=== PATIENT | female | born 1955 | race African-American/Black ===

== ENCOUNTER 2021-06-30 20:30 | Emergency (ER) | payer MEDICARE, MEDICAID ==
[~2021-06-30] VITALS: Ht 165.1 cm; Wt 81.2 kg
[2021-06-30] MEDS ORDERED: MORPHINE SULFATE 4 MG/ML SYR/VIAL IV ONE (20:45)
[2021-06-30] MEDS ORDERED: METOCLOPRAMIDE HCL 5MG/ml INJ 2ml VIAL IV ONE (20:45)
[2021-06-30] MEDS ORDERED: PANTOPRAZOLE 40 MG/10 ML VIAL INJ IV ONE (20:45)
[2021-06-30] MEDS ORDERED: SODIUM CHLORIDE 0.9% 500 ML IVB ONE (20:45)
[2021-06-30 21:16] LABS: Basophils # (auto) 0.2 10 ^3/uL (0-0.2); Basophils % (auto) 1.5 % (0.0-2.0); Eosinophils # (auto) 0.1 10 ^3/uL (0-0.8); Eosinophils % (auto) 1.3 % (0.0-7.0); Hematocrit 40.6 % (36.0-46.0); Hemoglobin 13.6 g/dL (12.2-16.2); Lymphocytes # (auto) 3.5 10 ^3/uL (0.4-5.4); Lymphocytes % (auto) 35.9 % (10.0-50.0); Mean Corpuscular Hgb Conc. 33.4 g/dL (32.0-36.0); Mean Corpuscular Volume 86.9 fL (80.0-100.0); Monocytes # (auto) 0.7 10 ^3/uL (0-1.3); Monocytes % (auto) 7.1 % (0.0-12.0); Neutrophils # (auto) 5.3 10 ^3/uL (1.6-8.6); Neutrophils % (auto) 54.2 % (37.0-80.0); Nucleated Red Blood Cells % 0.2 %; Red Blood Cells 4.67 10^6/uL (4.0-5.20); White Blood Cell 9.8 10^3/uL (4.4-10.8)
[2021-06-30 21:45] LABS: Albumin 3.5 g/dL (3.4-5.0); BUN/Creatinine Ratio 15.9; Calcium 9.1 mg/dL (8.5-10.1); Potassium 4.2 mmol/L (3.5-5.1)
[2021-06-30 21:48] LABS: Bilirubin, Total 0.3 mg/dL (0.2-1.0); Total Protein 7.2 g/dL (6.4-8.2)
[2021-06-30 22:37] LABS: Partial Thromboplastin Time 26.2 sec (23.6-33.0)
[2021-06-30 23:00] VITALS: BP 110/61
[2021-06-30 23:33] LABS: Urine Bacteria NONE SEEN /hpf (None Seen); Urine Blood Negative /uL (Negative); Urine Mucus FEW (None Seen); Urine Specific Gravity 1.022 (1.001-1.035); Urine WBC 1 /hpf (0 - 5)
== END 2021-07-01 00:58 | disposition home or self-care (01) ==
LOC: EDBD 20:30 → ER 20:30
DX: R10.30 Lower abdominal pain, unspecified (principal); F17.210 Nicotine dependence, cigarettes, uncomplicated; F12.10 Cannabis abuse, uncomplicated; R94.31 Abnormal electrocardiogram [ECG] [EKG]
CPT/HCPCS: 36415; 74176; 80053; 81001; 83690; 85025; 85610; 85730; 93005; 96361; 96374; 96375; 99285; C9113; J2270; J2765; J7030

== ENCOUNTER 2025-04-03 20:33 | Emergency (ER) | payer OTHER, MEDICAID ==
[~2025-04-03] VITALS: Ht 165.1 cm; Wt 50.7 kg
[2025-04-03] MEDS: SODIUM CHLORIDE 0.9% 1,000 ML IV ONE (21:00)
[2025-04-03 21:22] LABS: Hemoglobin 11.8 g/dL (12.2-16.2)
[2025-04-03 21:25] LABS: Hematocrit 34.0 % (36.0-46.0); Mean Corpuscular Hemoglobin 30.8 pg (28.0-32.0); Mean Corpuscular Volume 88.6 fL (80.0-100.0)
[2025-04-03 21:41] LABS: Albumin 3.4 g/dL (3.2-4.8); Anion Gap 11 (5-15); Calcium 9.5 mg/dL (8.7-10.4); Chloride 104 mmol/L (98-107); Glucose 105 mg/dL (74-106)
[2025-04-03 21:45] LABS: BUN/Creatinine Ratio 11.9 (10.0-20.0)
[2025-04-03] MEDS: HYDROmorphone HCL 2 MG/ML VL/or syr IV ONE (21:45)
--- NOTE | 2025-04-03 21:52 | ED.PDOC ---
GI ASSESSMENT HPI Comments 69-year-old female who came to ER for bilateral flank pains. Patient has a history of stomach cancer, status post resection, on chemo and radiotherapy. Has also history of pancreatitis. For the past few weeks, she has been having bilateral flank pains, abdominal pain, back pain, nausea, vomiting, and generalized weakness. Upon arrival blood pressure was 88/67 mm Hg Chief Complaint: Flank Pain Time Seen by MD: 21:51 Reviewed Notes: Nurses Notes Allergies: Coded Allergies: NO KNOWN ALLERGIES (Unverified , 06/30/21) Information Source: Patient, Relative Mode of Arrival: Wheelchair Timing: Weeks Duration: Intermittent Quality: Aching Vomitus: Watery Stool: Normal Severity: Moderate Recent: None Recent Hx of: Abdominal Surgery, Other (Stomach cancer, pancreatitis) Pain Location: Epigastric Associated sign and symptoms: Nausea, Vomiting, Abdominal Pain Past Medical History PAST MEDICAL HISTORY: Cancer, High Lipids Past Medical History (Other): Pancreatitis, stomach cancer, chemotherapy, radiotherapy Surgical History: Hernia Repair, Tonsillectomy Surgical History (Other): Resection of cancer ADJUNCT HISTORY INSTRUCTOR History: Denies all ADJUNCT HISTORY INSTRUCTOR Hx Family History Family History: Family hx of Cancer Social History Smoker: Cigarettes Alcohol: Denies ETOH Use Drugs: Marijuana Lives In: Home Constitutional: reports: fatigue, weakness; denies: chills, diaphoresis, fever, malaise, sweats, others EENTM: denies: blurred vision, double vision, ear bleeding, ear discharge, ear drainage, ear pain, ear ringing, eye pain, eye redness, hearing loss, mouth p ain, mouth swelling, nasal discharge, nose bleeding, nose congestion, nose pain, photophobia, tearing, throat pain, throat swelling, voice changes, others Respiratory: denies: cough, hemoptysis, orthopnea, SOB at rest, shortness of br eath, SOB with excertion, stridor, wheezing, others Cardiovascular: denies: chest pain, dizzy spells, diaphoresis, Dyspnea on exertion, edema, irregular heart beat, left arm pain, lightheadedness, palpitations, PND, syncope, others Gastrointestinal: reports: abdominal pain, nausea, vomiting; denies: abdomen distended, blood streaked bowels, constipated, diarrhea, dysphagia, difficulty swallowing, hematemesis, melena, poor appetite, poor fluid intake, rectal bleeding, rectal pain, others Genitourinary: reports: flank pain; denies: abnormal vagina bleeding, burning, dyspareunia, dysuria, frequency, hematuria, incontinence, pain, , vagina discharge, urgency, others Neurological: denies: dizziness, fainting, headache, left sided numbness, left sided weakness, numbness, paresthesia, pre-existing deficit, right sided numbness, right sided weakness, seizure, speech problems, tingling, tremors, weakness, others Musculoskeletal: denies: back pain, gout, joint pain, joint swelling, muscle pain, muscle stiffness, neck pain, others Integumetry: denies: bruises, change in color, change in hair/nails, dryness, laceration, lesions, lumps, rash, wounds, others Allergic/Immunocompromised: denies: Difficulty Healing, Frequent Infections, Hives, Itching, others Hematologic/Lymphatic: denies: anemia, blood clots, easy bleeding, easy bruising, swollen glands, others Endocrine: denies: excessive hunger, excessive sweating, excessive thirst, excessive urination, flushing, intolerance to cold, intolerance to heat, unexplained weight gain, unexplained weight loss, others Psychiatric: denies: anxiety, bipolar disorder, depression, hopeless, panic disorder, schizophrenia, sleepless, suicidal, others Physical Exam General Appearance: No Apparent Distress, Normal HEENT: Normal ENT Inspection, Pharynx Normal, TMs Normal Neck: Full Range of Motion, Non-Tender, Normal, Normal Inspection Respiratory: Chest Non-Tender, Lungs Clear, No Accessory Muscle Use, No Respiratory Distress, Normal Breath Sounds Cardiovascular: No Edema, No JVD, No Murmur, No Gallop, Normal Peripheral Pulses, Regular Rate/Rhythm Breast Exam: Deferred Gastrointestinal: No Organomegaly, Non Tender, No Pulsatile Mass, Normal Bowel Sounds, Soft Genitalia: Deferred Pelvic: Deferred Rectal: Deferred Extremities: No calf tenderness, Normal capillary refill, Normal inspection, Normal range of motion, Non-tender, No pedal edema Musculoskeletal : Apperance: Normal Neurologic: Alert, community product specialist II-XII nml as Tested, No Motor Deficits, Normal Affect, Normal Mood, No Sensory Deficits Cerebellar Function: Normal Reflexes: Normal Skin: Dry, Normal Color, Warm Lymphatic: No Adenopathy Was a procedure done? Was a procedure done?: No GI differential Dx Differential Diagnosis: Gastritis/PUD, Gastroenteritis, Inflammatory BD, Ischemic Bowel, Pancreatitis, UTI, Urolithiasis, Electrolyte Imbalance, Anemia, Other (Stomach cancer) X-Ray, Labs, Meds, VS Vital Signs Date Time Temp Pulse Resp B/P (MAP) Pulse Ox O2 Delivery O2 Flow Rate FiO2 04/03/25 22:09 98.1 71 17 81/51 (61) 98 98.1 04/03/25 20:34 98.7 121 18 88/67 100 98.7 Lab Test 04/03/25 21:05 Range/Units White Blood Count 6.7 4.4-10.8 10^3/uL Red Blood Count 3.84 L 4.0-5.20 10^6/uL Hemoglobin 11.8 L 12.2-16.2 g/dL Hematocrit 34.0 L 36.0-46.0 % Mean Corpuscular Volume 88.6 80.0-100.0 fL Mean Corpuscular Hemoglobin 30.8 28.0-32.0 pg Mean Corpuscular Hemoglobin Concent 34.8 32.0-36.0 g/dL Red Cell Distribution Width 19.8 H 11.8-14.3 % Platelet Count 559 H 140-450 10^3/uL Mean Platelet Volume 7.0 6.9-10.8 fL Neutrophils (%) (Auto) 37.0-80.0 % Lymphocytes (%) (Auto) 10.0-50.0 % Monocytes (%) (Auto) 0.0-12.0 % Basophils (%) (Auto) 0.0-2.0 % Neutrophils # (Auto) 1.6-8.6 10 ^3/uL Lymphocytes # (Auto) 0.4-5.4 10 ^3/uL Monocytes # (Auto) 0-1.3 10 ^3/uL Differential Total Cells Counted 100.0 100 Neutrophils % (Manual) 65 37.0-80.0 Band Neutrophils % (Manual) 0 Lymphocytes % (Manual) 27 10.0-50.0 Monocytes % (Manual) 8 0-12 Eosinophils % (Manual) 0 0-7 Basophils % (Manual) 0 0.0-2.0 Metamyelocytes % (manual) 0 Myelocytes % (Manual) 0 Promyelocytes % (Manual) 0 Blast Cells % (Manual) 0 Reactive Lymphocytes 0 Platelet Estimate Increased Large Platelets Few Anisocytosis (manual) Moderate Target Cells Moderate Sodium Level 135 L 136-145 mmol/L Potassium Level 3.1 L 3.5-5.1 mmol/L Chloride Level 104 98-107 mmol/L Carbon Dioxide Level 20 20-31 mmol/L Anion Gap 11 5-15 Blood Urea Nitrogen 7 L 9-23 mg/dL Creatinine 0.59 0.550-1.02 mg/dL Glomerular Filtration Rate Calc 99 >90 mL/min BUN/Creatinine Ratio 11.9 10.0-20.0 Serum Glucose 105 74-106 mg/dL Lactic Acid Level 1.7 0.4-2.0 mmol/L Calcium Level 9.5 8.7-10.4 mg/dL Total Bilirubin 20.8 H 0.2-1.0 mg/dL Aspartate Amino Transferase (AST) 268 H 13-40 U/L Alanine Aminotransferase (ALT) 187 H 7-40 U/L Alkaline Phosphatase 1084 H 46-116 U/L Total Protein 6.7 5.7-8.2 g/dL Albumin 3.4 3.2-4.8 g/dL Current Medications Medications (Trade) Dose Ordered Sig/Aayush Route Start Time Stop Time Status Last Admin Sodium Chloride 1,000 ml @ 1,000 mls/hr Q1H ONCE IV 04/03/25 21:00 04/03/25 21:59 DC 04/03/25 21:00 CT SCAN ABDOMEN AND PELVIS WITHOUT CONTRAST CLINICAL HISTORY: FLANK PAIN TECHNIQUE: Helical axial images are obtained from the lung bases through the pelvis without oral contrast. No intravenous contrast was administered. Coronal and sagittal reformatted images were generated from thin section reconstructions. One or more of the following radiation dose reduction techniques were used for this examination: automated exposure control, adjustment of the mA and/or kV according to patient size, use of iterative reconstruction technique. COMPARISON: Please note that images for a recent prior study dated 01/19/2025 are not available for comparison. FINDINGS: LOWER THORAX: Imaged lung bases are grossly clear. ABDOMEN AND PELVIS: Evaluation of visceral and vascular structures is limited due to lack of contrast administration. There is marked intra and extrahepatic biliary ductal dilatation. A large pancreatic head mass is noted this appears to abut and encase the superior mesenteric artery and vein. Pancreatic duct in the body and tail are markedly dilated. The gallbladder is distended and demonstrates high attenuation intraluminal content. The spleen and adrenals appear grossly unremarkable. No hydroureteronephrosis or sizable, obstructing urinary tract calculi identified. Aortoiliac atherosclerotic calcifications. No evidence of abdominal aortic aneurysm. No evidence of small-bowel obstruction. Normal caliber appendix. Moderate volume stool seen throughout the colon and rectum. No free intraperitoneal air identified. No sizable bladder calculus. Calcified myomatous changes of the uterus. Small amount of pelvic free fluid is noted. Diffuse retroperitoneal and peripancreatic adenopathy is noted. No destructive osseous lesions identified. IMPRESSION: Noncontrast examination. Large pancreatic head mass which appears to be causing pancreatic and biliary ductal obstruction distally. Marked gallbladder distention with high density intraluminal content. Hemorrhagic cholecystitis is of concern. Recommend surgical consultation. A few other findings as above. Time of 1ST Reevaluation: 21:48 Reevaluation 1ST: Unchanged Patient Education/Counseling: Diagnosis, Treatment Family Education/Counseling: Diagnosis, Treatment SEPSIS Sepsis Screen Date sepsis recognized/suspect: Apr 03, 2025 Time Sepsis recognized/suspect: 2042 Recent Procedure: No On Antibiotic Therapy: No Respiratory Rate >20: No Heart Rate >90: No Temp<36 C (96.8 F) or >38.3 C: No SBP <90 or MAP <65 mmHG: No New Acute Mental Status Change: No Is the patient on CPAP, BIPAP,: No Physician Orders Urinalysis (04/03/25 20:49) Ct Ab Pel Wo Con-No Oral Or Iv (04/03/25 20:49) Potassium Er Tablet (Klor-Con Tablet) (04/04/25 00:45) Vital Signs Date Time Temp Pulse Resp B/P (MAP) Pulse Ox O2 Delivery O2 Flow Rate FiO2 04/03/25 22:09 98.1 71 17 81/51 (61) 98 98.1 04/03/25 20:34 98.7 121 18 88/67 100 98.7 Laboratory Tests Test 04/03/25 21:05 Lactic Acid Level 1.7 mmol/L (0.4-2.0) White Blood Count 6.7 10^3/uL (4.4-10.8) Medications Medications Dose Ordered Sig/Aayush Route Start Time Stop Time Status Last Admin Dose Admin Sodium Chloride 1,000 ml @ 1,000 mls/hr Q1H ONCE IV 04/03/25 21:00 04/03/25 21:59 DC 04/03/25 21:00 Departure 1 Departure Time of Disposition: 00:38 Impression: Primary Impression: Intractable abdominal pain Additional Impressions: Dehydration Pancreatic cancer Disposition: ADMITTED INPATIENT Admit to: Med Surg Condition: Guarded Discharged With: Self Comments 69-year-old female with a history of stomach cancer now with severe abdominal pain difficulty eating at home. Her CT today shows pancreatic head mass that looks like it is probably pancreas cancer. Her potassium is little low at 3.1. Her total bilirubin in his quite elevated at 21. Her LFTs are also bit elevated. Patient will need to be admitted for supportive care and further workup. Critical Care Note Critical Care Time?: Yes (35 min-critical care time only) Critical care comment: Total critical care time: Approximately 36 minutes Due to a high probability of clinically significant, life threatening deterioration, the patient required my highest level of preparedness to intervene emergently and I personally spent this critical care time directly and personally managing the patient. This critical care time included obtaining a history; examining the patient; pulse oximetry; ordering and review of studies; arranging urgent treatment with development of a management plan; evaluation of patient's response to treatment; frequent reassessment; and, discussions with o ther providers. This critical care time was performed to assess and manage the high probability of imminent, life-threatening deterioration that could result in multi-organ failure. It was exclusive of separately billable procedures and treating other patients. Stability Stability form required: No Heart Score Heart Score: Heart Score Response (Comments) Value History N/A 0 EKG N/A 0 Age N/A 0 Risk Factors N/A 0 Troponin N/A 0 Total 0 I personally scribed for MIGUEL FERREIRA MD ([email or web address]) on 04/03/25 at 21:52. Electronically submitted by Rajeev Scott ([email or web address]). I personally scribed for MIGUEL FERREIRA MD ([email or web address]) on 04/04/25 at 00:35. Electronically submitted by Rajeev Scott ([employer]). MIGUEL FERREIRA MD Apr 03, 2025 21:52
[2025-04-03 21:54] LABS: Alanine Aminotransferase 187 U/L (7-40); Alkaline Phosphatase 1084 U/L (46-116); Bilirubin, Total 20.8 mg/dL (0.2-1.0); Blood Urea Nitrogen 7 mg/dL (9-23); Carbon Dioxide 20 mmol/L (20-31); Potassium 3.1 mmol/L (3.5-5.1); Sodium 135 mmol/L (136-145); Total Protein 6.7 g/dL (5.7-8.2)
[2025-04-03 22:19] LABS: Total Cells Counted 100.0 (100)
[2025-04-03 22:20] LABS: Anisocytosis Moderate
--- NOTE | 2025-04-04 00:14 | DVH ---
CT SCAN ABDOMEN AND PELVIS WITHOUT CONTRAST CLINICAL HISTORY: FLANK PAIN TECHNIQUE: Helical axial images are obtained from the lung bases through the pelvis without oral cont rast. No intravenous contrast was administered. Coronal and sagittal reformatted images were generate d from thin section reconstructions. One or more of the following radiation dose reduction techniques were used for this examination: automated exposure control, adjustment of the mA and/or kV according to patient size, use of iterative reconstruction technique. COMPARISON: Please note that images for a recent prior study dated 01/19/2025 are not available for c omparison. FINDINGS: LOWER THORAX: Imaged lung bases are grossly clear. ABDOMEN AND PELVIS: Evaluation of visceral and vascular structures is limited due to lack of contrast administration. There is marked intra and extrahepatic biliary ductal dilatation. A large pancreatic head mass is not ed this appears to abut and encase the superior mesenteric artery and vein. Pancreatic duct in the marcela dy and tail are markedly dilated. The gallbladder is distended and demonstrates high attenuation intraluminal content. The spleen and adrenals appear grossly unremarkable. No hydroureteronephrosis or sizable, obstructing urinary tract calculi identified. Aortoiliac atherosclerotic calcifications. No evidence of abdominal aortic aneurysm. No evidence of small-bowel obstruction. Normal caliber appendix. Moderate volume stool seen througho ut the colon and rectum. No free intraperitoneal air identified. No sizable bladder calculus. Calcified myomatous changes of the uterus. Small amount of pelvic free fluid is noted. Diffuse retroperitoneal and peripancreatic adenopathy is noted. No destructive osseous lesions identified. IMPRESSION: Noncontrast examination. Large pancreatic head mass which appears to be causing pancreatic and biliary ductal obstruction dist ally. Marked gallbladder distention with high density intraluminal content. Hemorrhagic cholecystitis is of concern. Recommend surgical consultation. A few other findings as above.
[2025-04-04] MEDS: SODIUM CHLORIDE 0.9% 1,000 ML IV ONE (00:54)
[2025-04-04] MEDS: MORPHINE SULFATE INJ 2 MG/ml SYRG IV ONE (01:05)
[2025-04-04] MEDS: ONDANSETRON HCL 4 MG/2 ML VIAL IV ONE (01:05)
[2025-04-04] MEDS: POTASSIUM CHL 20 Meq TABLET PO ONE (01:05)
--- NOTE | 2025-04-04 01:14 | DVHINCON2 ---
DEIRDRE ALVARADO NP 04/04/25 0114: Date of service: Apr 04, [address] Bedolla Reason for Consultation Medical management History of Present Illness 69-year-old female with past medical history of stomach cancer presents with complaints of bilateral flank pain. Pain has been going on for the past few weeks. Also endorsing nausea, vomiting, generalized weakness. On arrival to the emergency department patient was found to be hypotensive with blood pressure 88/67. During the emergency department evaluation Na 135, K3.1, BUN 7, creatinine 0.59, GFR 99, LA 1.7. Total bilirubin 20.8, AST 268, ALT 187, alkaline phosphatase 1084. CBC is unremarkable. CT of the abdomen and pelvis without contrast impression reads large pancreatic head mass which appears to be causing pancreatic and biliary ductal obstruction distally. Marked gallbladder distention with high density intraluminal contents. Hemorrhagic cholecystitis is a concern. Recommend surgical consultation. At this time the patient has no complaints of fevers, chills, chest pain, palpitations, hematemesis, hematochezia, melena. Past Medical History Stomach cancer Allergies: Coded Allergies: NO KNOWN ALLERGIES (Unverified , 06/30/21) Review of Systems Ten systems reviewed and negative except as per HPI Vital Signs Vital Signs Date Time Temp Pulse Resp B/P (MAP) Pulse Ox O2 Delivery O2 Flow Rate FiO2 04/04/25 01:05 81 14 112/56 04/04/25 00:36 98.8 98 98.8 Physical Exam GENERAL: Patient appearing stated age, in moderate acute distress. Ill appearing. HEENT: Pupils equal and reactive to light and accommodation. Extraocular muscles intact. Mucous membranes moist. Conjunctivae pink. icteric sclerae. LUNGS: Bilateral air entry. No wheezes, rhonchi or rales. HEART: Regular rate and rhythm. Normal S1 and S2. ABDOMEN: BS normoactive, soft, and nondistended. tender to palpation. No CVA tenderness. EXTREMITIES: No clubbing, cyanosis, edema. No calf tenderness. Pedal pulses 2+. NEUROLOGICAL: The patient is alert and oriented times 3. CN II-XII intact. No focal deficits on gross sensory or motor examination. Labs/Diagnostic Data Labs Test 04/03/25 21:05 Range/Units White Blood Count 6.7 4.4-10.8 10^3/uL Red Blood Count 3.84 L 4.0-5.20 10^6/uL Hemoglobin 11.8 L 12.2-16.2 g/dL Hematocrit 34.0 L 36.0-46.0 % Mean Corpuscular Volume 88.6 80.0-100.0 fL Mean Corpuscular Hemoglobin 30.8 28.0-32.0 pg Mean Corpuscular Hemoglobin Concent 34.8 32.0-36.0 g/dL Red Cell Distribution Width 19.8 H 11.8-14.3 % Platelet Count 559 H 140-450 10^3/uL Mean Platelet Volume 7.0 6.9-10.8 fL Neutrophils (%) (Auto) 37.0-80.0 % Lymphocytes (%) (Auto) 10.0-50.0 % Monocytes (%) (Auto) 0.0-12.0 % Basophils (%) (Auto) 0.0-2.0 % Neutrophils # (Auto) 1.6-8.6 10 ^3/uL Lymphocytes # (Auto) 0.4-5.4 10 ^3/uL Monocytes # (Auto) 0-1.3 10 ^3/uL Differential Total Cells Counted 100.0 100 Neutrophils % (Manual) 65 37.0-80.0 Band Neutrophils % (Manual) 0 Lymphocytes % (Manual) 27 10.0-50.0 Monocytes % (Manual) 8 0-12 Eosinophils % (Manual) 0 0-7 Basophils % (Manual) 0 0.0-2.0 Metamyelocytes % (manual) 0 Myelocytes % (Manual) 0 Promyelocytes % (Manual) 0 Blast Cells % (Manual) 0 Reactive Lymphocytes 0 Platelet Estimate Increased Large Platelets Few Anisocytosis (manual) Moderate Target Cells Moderate Sodium Level 135 L 136-145 mmol/L Potassium Level 3.1 L 3.5-5.1 mmol/L Chloride Level 104 98-107 mmol/L Carbon Dioxide Level 20 20-31 mmol/L Anion Gap 11 5-15 Blood Urea Nitrogen 7 L 9-23 mg/dL Creatinine 0.59 0.550-1.02 mg/dL Glomerular Filtration Rate Calc 99 >90 mL/min BUN/Creatinine Ratio 11.9 10.0-20.0 Serum Glucose 105 74-106 mg/dL Lactic Acid Level 1.7 0.4-2.0 mmol/L Calcium Level 9.5 8.7-10.4 mg/dL Total Bilirubin 20.8 H 0.2-1.0 mg/dL Aspartate Amino Transferase (AST) 268 H 13-40 U/L Alanine Aminotransferase (ALT) 187 H 7-40 U/L Alkaline Phosphatase 1084 H 46-116 U/L Total Protein 6.7 5.7-8.2 g/dL Albumin 3.4 3.2-4.8 g/dL Assessment - Biliary duct obstruction secondary to pancreatic head mass - Acute cholecystitis concerning for hemorrhagic cholecystitis - Hyperbilirubinemia - Abnormal LFTs - Dehydration Patient was seen and evaluated in the ER treatment area. The patient's chart was reviewed in its entirety, including lab work, imaging, physical assessment. During the emergency department evaluation, CBC is unremarkable. NA 135, K3.1, BUN 7, creatinine 0.59, total bilirubin 20.8, AST 268, ALT 187, alkaline phos 1084. CT of the abdomen pelvis with medical interpreter for the radiologist and reviewed by myself. Impression reads there's a large pancreatic head mass which appears to be causing pancreatic duct obstruction distally. Marked gallbladder di stention with high density intraluminal content. Hemorrhagic cholecystitis is of concern, recommending surgical consultation. Patient's vital signs blood pressure 81/51, heart rate 71, respiratory rate 17, oxygen saturation 98% on room air. At this time, patient has been treated with 1 L normal saline and IV pain meds. And continue to remain hypotensive. Plan/Recommendation I spoke to the ER physician in person. I did recommend that he consult with on- call gastroenterology for their recommendation. MRCP should be completed ARMANI. it is likely that the patient will require ERCP and possible stent placement in the bile duct. Which is a service that is currently not available at this facility and may require HLOC. I also advised the ER physician to consult with the on-call general surgeon for evaluation of cholecystitis. Agree with continued IV fluid hydration. Plan of care and recommendation was discussed in detail with supervising physician Dr Emmanuel, who is in agreement with current plan as outlined. Plan discussed with: Patient EVERT EMMANUEL MD 04/04/25 1617: Date of service: Apr 04, 2025 Allergies: Coded Allergies: NO KNOWN ALLERGIES (Unverified , 06/30/21) DEIRDRE ALVARADO NP Apr 04, 2025 01:14 EVERT EMMANUEL MD Apr 04, 2025 16:17
[2025-04-04 04:30] VITALS: TEMP 98.6; O2SAT 98
[2025-04-04] MEDS: HYDROmorphone HCL 2 MG/ML VL/or syr IV ONE (04:46)
[2025-04-04 05:16] VITALS: BP 101/59; PULSE 75; RESP 12
== END 2025-04-04 15:39 | disposition left against medical advice (07) ==
LOC: ER 20:33
DX: C25.9 Malignant neoplasm of pancreas, unspecified (principal); E86.0 Dehydration; R10.9 Unspecified abdominal pain; F17.210 Nicotine dependence, cigarettes, uncomplicated; F12.90 Cannabis use, unspecified, uncomplicated; E78.5 Hyperlipidemia, unspecified; Z98.890 Other specified postprocedural states; Z87.19 Personal history of other diseases of the digestive system; Z90.89 Acquired absence of other organs; Z85.028 Personal history of other malignant neoplasm of stomach
CPT/HCPCS: 36415; 74176; 80053; 83605; 83690; 85007; 85027; 96361; 96374; 96375; 99284; J1171; J2270; J2405; J7030

== ENCOUNTER 2025-05-26 20:02 | Inpatient (IN) | payer OTHER, MEDICAID ==
[~2025-05-26] VITALS: Ht 160 cm; Wt 67.0 kg
--- NOTE | 2025-05-26 20:40 | ECG ---
[facility] Test Date: 2025-05-26 Test Time: 20:37:10 Pat Name: FELIPE OH Department: Room: 0233T Gender: F Deep Fat Fry Cook: MARIAH : 1955 Requested By: REMINGTON PETTIT Order Number: [id number] Reading MD: Keyur Armstrong Measurements Intervals [place] Rate: 143 P: 89 NH: 129 QRS: 85 QRSD: 74 T: 269 QT: 261 QTc: 403 Interpretive Statements Incomplete analysis due to missing data in precordial lead(s) Sinus tachycardia Ventricular premature complex Borderline right axis deviation Probable LVH with secondary repol abnrm Missing lead(s): V6 Electronically Signed On 05-31-2025 14:21:58 PDT by Keyur Armstrong Please click the below link to view image of tracing.
--- NOTE | 2025-05-26 20:59 | DVH ---
CHEST RADIOGRAPH Indication: AMS Technique: Single frontal view of the chest was obtained Comparison: None FINDINGS: Lines and Tubes: MediPort in place from the right internal jugular vein with the tip of the cavoatria l junction. Lungs: Right lung field appears clear. Left lower lobe suggest small effusion or airspace disease. Pleura: No effusion. No pneumothorax. Cardiomediastinal contours: Unremarkable Bones: No acute osseous abnormality. IMPRESSION: 1. MediPort in place from the right internal jugular vein with the tip at the cavoatrial junction. No pneumothorax on the right. 2. Left lower lobe airspace disease or small effusion.
--- NOTE | 2025-05-26 21:10 | ED.PDOC ---
History of Present Illness HPI Comments 69 year old female presents to the ED with a chief compliant of generalized weakness onset 3 days. Son states patient has been experiencing generalized weakness, loss of appetite, confusion for the past 3 days. Patient experienced similar symptoms on Patient was seen at [facility] 04/04/25, son decided to take patient to [place], where biliary drain was placed, still in place. For the past 3 days son has noticed patient has been worsening, came to ED. Denies fever, chills, nausea, vomiting, diarrhea, headache, dizziness. No other symptoms or modifying factors present at this time. Chief Complaint: General Weakness Time Seen by MD: 20:35 Reviewed Notes: Medications, Allergies Allergies: Coded Allergies: NO KNOWN ALLERGIES (Unverified , 06/30/21) Information Source: Patient, Relative (Child) Mode of Arrival: Ambulatory Severity: Moderate Timing: Days Duration: Since onset Prehospital treatment: None Vital Signs Vital Signs Date Time Temp Pulse Resp B/P (MAP) Pulse Ox O2 Delivery O2 Flow Rate FiO2 05/27/25 00:00 103 05/26/25 23:04 12 82/51 (61) 94 05/26/25 21:42 Room Air* 0 21 05/26/25 21:42 98.0 98.0 Physical Exam PHYSICAL EXAM: General: The patient appears thin, frail, in no acute distress. Skin: Skin in warm, dry and intact. Appropriate color for ethnicity. HEENT: The head is normocephalic and atraumatic. Conjunctivae are clear without exudates or hemorrhage. Sclera is non-icteric. EOM are intact. No signs of nystagmus. Eyelids are normal in appearance without swelling or lesions. Oral mucosa is pink and moist Neck: The neck is supple with normal range of motion. No JVD. Cardiac: Heart rate and rhythm are normal. No murmurs, gallops, or rubs are auscultated. Respiratory: No signs of respiratory distress. Lung sounds are clear in all lobes bilaterally without rales, rhonchi, or wheezes. Abdominal: Abdomen is soft, generally-tender without distention, guarding or rigidity. Bowel sounds are present and normoactive in all four quadrants. Extremities: Upper and lower extremities are atraumatic in appearance without deformity or edema. Neurological: The patient is awake, alert There is no facial asymmetry. Review of Systems: Unable to obtain due to acuity of condition. Past Medical History PAST MEDICAL HISTORY: Cancer, High Lipids Surgical History: Hernia Repair, Tonsillectomy Surgical History (Other): biliary drain AIR TRAFFIC CONTROL OPERATOR History: Denies all AIR TRAFFIC CONTROL OPERATOR Hx Family History Family History: Family hx of Cancer Social History Smoker: Cigarettes Alcohol: Denies ETOH Use Drugs: Marijuana Lives In: Home Was a procedure done? Was a procedure done?: No Differential Dx Considerations may include: Viral illness, pharyngitis, otitis media, bacteremia, pneumonia, UTI, meningit is, sepsis, other X-Ray, Labs, Meds, VS Vital Signs Date Time Temp Pulse Resp B/P (MAP) Pulse Ox O2 Delivery O2 Flow Rate FiO2 05/27/25 00:00 103 05/26/25 23:04 112 12 82/51 (61) 94 05/26/25 21:42 120 20 94 Room Air* 0 21 05/26/25 21:42 98.0 120 21 99/80 (86) 95 98.0 05/26/25 20:37 143 05/26/25 20:19 98.2 144 18 80/47 92 98.2 Lab Test 05/27/25 01:02 05/27/25 00:41 05/26/25 23:52 05/26/25 23:17 Range/Units POC Glucose 152 H 48 *L 70-106 mg/dl Urine Color Dark-yellow Yellow Urine Clarity Turbid H Clear Urine pH 5.5 5.0-9.0 Urine Specific [place] 1.020 1.001-1.035 Urine Protein Trace H Negative Urine Ketones Trace Negative Urine Blood Negative Negative /uL Urine Nitrite Negative Negative Urine Bilirubin 2+ H Negative Urine Urobilinogen Normal Negative mg/dL Urine Leukocyte Esterase Negative Negative /uL Urine RBC 1 0 - 4 /hpf Urine Microscopic WBC < 1 0-5 /HPF Urine Squamous Epithelial Cells Few <5 /hpf Urine Bacteria Few H None Seen /hpf Urine Glucose Normal Normal mg/dL Lactic Acid Level 2.4 *H 0.4-2.0 mmol/L Test 05/26/25 22:25 05/26/25 21:50 05/26/25 21:27 Range/Units Troponin I High Sensitivity 3 L < 3 L </=34 ng/L Influenza Type A Antigen Negative Negative Influenza Type B Antigen Positive Negative SARS-CoV-2 Antigen (Rapid) Negative NEGATIVE White Blood Count 7.0 4.4-10.8 10^3/uL Red Blood Count 4.08 4.0-5.20 10^6/uL Hemoglobin 13.2 12.2-16.2 g/dL Hematocrit 40.1 36.0-46.0 % Mean Corpuscular Volume 98.4 80.0-100.0 fL Mean Corpuscular Hemoglobin 32.4 H 28.0-32.0 pg Mean Corpuscular Hemoglobin Concent 33.0 32.0-36.0 g/dL Red Cell Distribution Width 17.4 H 11.8-14.3 % Platelet Count 217 140-450 10^3/uL Mean Platelet Volume 8.3 6.9-10.8 fL Neutrophils (%) (Auto) 88.5 H 37.0-80.0 % Lymphocytes (%) (Auto) 4.0 L 10.0-50.0 % Monocytes (%) (Auto) 7.1 0.0-12.0 % Eosinophils (%) (Auto) 0.1 0.0-7.0 % Basophils (%) (Auto) 0.3 0.0-2.0 % Neutrophils # (Auto) 6.2 1.6-8.6 10 ^3/uL Lymphocytes # (Auto) 0.3 L 0.4-5.4 10 ^3/uL Monocytes # (Auto) 0.5 0-1.3 10 ^3/uL Eosinophils # (Auto) 0 0-0.8 10 ^3/uL Basophils # (Auto) 0 0-0.2 10 ^3/uL Nucleated Red Blood Cells 0.1 % Sodium Level 138 136-145 mmol/L Potassium Level 3.4 L 3.5-5.1 mmol/L Chloride Level 101 98-107 mmol/L Carbon Dioxide Level 23 20-31 mmol/L Anion Gap 14 5-15 Blood Urea Nitrogen 22 9-23 mg/dL Creatinine 0.86 0.550-1.02 mg/dL Glomerular Filtration Rate Calc 74 >90 mL/min BUN/Creatinine Ratio 25.6 H 10.0-20.0 Serum Glucose 58 L 74-106 mg/dL Lactic Acid Level 3.2 *H 0.4-2.0 mmol/L Calcium Level 9.7 8.7-10.4 mg/dL Magnesium Level 2.2 1.6-2.6 mg/dL Total Bilirubin 18.3 H 0.2-1.0 mg/dL Aspartate Amino Transferase (AST) 305 H 13-40 U/L Alanine Aminotransferase (ALT) 322 H 7-40 U/L Alkaline Phosphatase 219 H 46-116 U/L B-Type Natriuretic Peptide 83.63 0-100 pg/mL Total Protein 7.4 5.7-8.2 g/dL Albumin 2.9 L 3.2-4.8 g/dL Lipase 23 12-53 U/L Plasma/Serum Blood Alcohol < 3.0 <10 mg/dL Current Medications Medications (Trade) Dose Ordered Sig/Aayush Route Start Time Stop Time Status Last Admin Sodium Chloride 500 ml @ 500 mls/hr Q1H ONCE IV 05/26/25 20:45 05/26/25 21:44 DC 05/26/25 22:40 Sodium Chloride 500 ml @ 500 mls/hr Q1H ONCE IV 05/26/25 22:45 05/26/25 23:44 DC 05/26/25 23:28 Ceftriaxone Sodium 50 ml @ 100 mls/hr ONCE ONCE IV 05/27/25 00:00 05/27/25 00:29 DC 05/27/25 00:32 Vancomycin HCl 250 ml @ 250 mls/hr ONCE ONCE IV 05/27/25 00:00 05/27/25 00:59 DC 05/27/25 01:05 Sodium Chloride 1,000 ml @ 1,000 mls/hr Q1H ONCE IV 05/27/25 00:45 05/27/25 01:44 DC 05/27/25 00:54 Dextrose 50 ml ONCE ONCE IV 05/27/25 00:45 05/27/25 00:54 DC 05/27/25 00:54 Potassium Chloride 100 ml @ 50 mls/hr ONCE ONCE IV 05/27/25 01:45 05/27/25 03:44 05/27/25 02:18 [place] [id number] Ph: [phone] DIAGNOSTIC IMAGING Diagnostic Imaging Report : [id number] Signed PATIENT: FELIPE RAMON ACCT: [id number] UNIT: [id number] : 1955 LOC: ER ROOM / BED: / AGE / SEX: 69 / F ADM STATUS: REG ER SERVICE 36 ORDERING PHYSICIAN: REMINGTON PETTIT MD PROCEDURE(s): ABPL - CT AB PEL WO CON-NO ORAL OR IV REASON: billiary drain, drainage, hx panc/stomach ca ORDER NUMBER(s): [id number], ACCESSION NUMBER(s): [id number] Exam: CT CT AB PEL WO CON-NO ORAL OR IV History: billiary drain, drainage, hx panc/stomach ca Comparison Study: CT CT AB PEL WO CON-NO ORAL OR IV on DOS: 04/03/25, CT ABDOMEN WO/W on DOS: 01/29/25, CT ABD WO/W PEL W ATTN PANCREAS on DOS: 01/19/25, CT ABD PELVIS WO CONTRAST on DOS: 06/30/21 TECHNIQUE: Multidetector CT of the abdomen and pelvis was performed from lung bases to pubic symphysis. Imaging was performed without IV contrast. Axial, coronal, and sagittal multiplanar reformats were obtained from the axial data set by the technologist. RADIATION DOSE: CTDI vol 6.75 mGy. DLP 380.2 mGy.cm Findings: Limited evaluation of the solid organs in the absence of IV contrast. Lungs: Small bilateral pleural effusions with adjacent opacity, incompletely as sessed. Liver: Heterogeneous appearance of the liver, possibly partially referable to artifact. May ossific lesions cannot be excluded. Spleen: Unremarkable. Pancreas: There is redemonstrated marked dilation of the pancreatic duct. There is an ill-defined suspected pancreatic mass, suboptimally assessed. Interval placement of a biliary drain. Gallbladder: Contrast opacifies the urinary bladder. Adrenals: Unremarkable. Kidneys: Left renal cyst. No hydronephrosis. Pelvic Viscera: Calcifications about the uterus may reflect uterine fibroids. Vasculature: Atherosclerotic aortoiliac calcifications. Retroperitoneum: Diffuse retroperitoneal and peripancreatic adenopathy is redemonstrated. Small abdominopelvic ascites. Bowel: No bowel obstruction. Portions of the bowel are decompressed, limiting assessment. Musculoskeletal: Unremarkable. Soft tissues: Diffuse subcutaneous edema. Impression: 1. Evaluation is limited in the absence of IV contrast. 2. Interval placement of a biliary drain with redemonstration of suboptimally assessed pancreatic mass and presumably metastatic adenopathy. 3. Interval development of small bilateral pleural effusions with adjacent opacity, suboptimally assessed. 4. Additional findings as detailed. Consider contrast-enhanced CT or MRI in further assessment as clinically indicated. ATED BY: ONEIDA MAYNARD MD DICTATED DATE/TIME: 05/26/252111 SIGNED BY: ONEIDA MAYNARD MD SIGNED DATE/TIME: 05/26/252111 CC: [place] [address] Ph: [phone] DIAGNOSTIC IMAGING Diagnostic Imaging Report : [id number] Signed PATIENT: FELIPE RAMON ACCT: [id number] UNIT: [id number] : 1955 LOC: ER ROOM / BED: / AGE / SEX: 69 / F ADM STATUS: REG ER SERVICE 36 ORDERING PHYSICIAN: REMINGTON PETTIT MD PROCEDURE(s): CXR1 - CHEST XRAY 1 VIEW REASON: AMS ORDER NUMBER(s): [id number], ACCESSION NUMBER(s): [id number] CHEST RADIOGRAPH Indication: AMS Technique: Single frontal view of the chest was obtained Comparison: None FINDINGS: Lines and Tubes: MediPort in place from the right internal jugular vein with the tip of the cavoatrial junction. Lungs: Right lung field appears clear. Left lower lobe suggest small effusion or airspace disease. Pleura: No effusion. No pneumothorax. Cardiomediastinal contours: Unremarkable Bones: No acute osseous abnormality. IMPRESSION: 1. MediPort in place from the right internal jugular vein with the tip at the cavoatrial junction. No pneumothorax on the right. 2. Left lower lobe airspace disease or small effusion. ATED BY: CATHERINE MEHTA Jr., DO DICTATED DATE/TIME: 05/26/252056 SIGNED BY: CATHERINE MEHTA Jr., DO SIGNED DATE/TIME: 05/26/252056 CC: Time of 1ST Reevaluation: 21:05 Reevaluation 1ST: Unchanged Patient Education/Counseling: Other (Need for admission) Family Education/Counseling: Other (Need for admission) SEPSIS Sepsis Screen Date sepsis recognized/suspect: May 26, 2025 Time Sepsis recognized/suspect: 2023 Recent Procedure: No On Antibiotic Therapy: No Respiratory Rate >20: No Heart Rate >90: No Temp<36 C (96.8 F) or >38.3 C: No SBP <90 or MAP <65 mmHG: No New Acute Mental Status Change: No Is the patient on CPAP, BIPAP,: No Physician Orders Chest Xray 1 View (05/26/25 20:37) Blood Culture (05/26/25 20:37) Saline Lock (05/26/25 20:37) Straight Cath. (05/26/25 ) Ct Ab Pel Wo Con-No Oral Or Iv (05/26/25 20:37) Chest Xray 1 View (05/26/25 21:09) Communication Order (05/26/25 22:40) Sodium Chloride 0.9% (05/26/25 22:45) Head Without Contrast (05/27/25 00:37) Code Status (05/27/25 01:44) Vital Signs .PER UNIT PROTOCOL (05/27/25 01:44) Review Orders With Adm. (05/27/25 01:44) Encourage Activity As Tolerate (05/27/25 01:44) Npo (Nothing By Mouth) Diet (05/27/25 Breakfast) Oxygen By Face Mask (05/27/25 01:44) Docusate Sodium Capsule (Colace Capsule) (05/27/25 01:45) Acetaminophen Tablet (Tylenol Tablet) (05/27/25 01:45) Notify Md Of Changes From Base (05/27/25 01:44) Advance Directive (05/27/25 01:44) Basic Metabolic Panel (05/27/25 05:00) Basic Metabolic Panel (05/28/25 05:00) Basic Metabolic Panel (05/29/25 05:00) Basic Metabolic Panel (05/30/25 05:00) Basic Metabolic Panel (05/31/25 05:00) Basic Metabolic Panel (06/01/25 05:00) Complete Blood Count (05/27/25 05:00) Complete Blood Count (05/28/25 05:00) Complete Blood Count (05/29/25 05:00) Complete Blood Count (05/30/25 05:00) Complete Blood Count (05/31/25 05:00) Patient Condition (05/27/25 01:44) Allergies (05/27/25:44) Ondansetron Hcl (Zofran) (05/27/25 01:45) Sequential Compression Device (05/27/25 ) Nitroglycerin Sublingual (Ntrostat Subli (05/27/25 01:45) Morphine Sulfate Injection (05/27/25 01:45) Stat Ekg For Chest Pain (05/27/25:44) Notify Md Of Changes From Base (05/27/25:44) Security Lead For 24 Hours (05/27/25:44) Emergency Dysrhythmia Protocol (05/27/25:44) Rhythm Strips Once Every Shift (05/27/25:44) Oxygen By Nasal Cannula (05/27/25:44) Glucose Blood (Accu-Chek Comfort Curve T (05/27/25 06:00) Insulin R (Human) (Insulin R) (05/27/25 06:00) Dextrose 50% Syringe (05/27/25 01:45) D5w/Sod Chlo 0.9% (D5w Ns 0.9%) (05/27/25 01:45) Piperacillin-Tazob 3.375gm (Zosyn 3.375g (05/27/25 06:00) * Infectious [place]- Dr. Nagel (05/27/25 01:44) Lactic Acid W/ Reflex Order (05/27/25 04:00) Lactic Acid W/ Reflex Order (05/27/25 10:00) Potassium Chl 20meq/100ml (05/27/25 01:45) Pantoprazole (Protonix) (05/27/25 10:00) Morphine Sulfate Injection (05/27/25 02:00) Vital Signs Date Time Temp Pulse Resp B/P (MAP) Pulse Ox O2 Delivery O2 Flow Rate FiO2 05/27/25 00:00 103 05/26/25 23:04 112 12 82/51 (61) 94 05/26/25 21:42 120 20 94 Room Air* 0 21 05/26/25 21:42 98.0 120 21 99/80 (86) 95 98.0 05/26/25 20:37 143 05/26/25 20:19 98.2 144 18 80/47 92 98.2 Laboratory Tests Test 05/26/25 21:27 05/26/25 23:17 Lactic Acid Level 3.2 mmol/L (0.4-2.0) *H 2.4 mmol/L (0.4-2.0) *H White Blood Count 7.0 10^3/uL (4.4-10.8) Medications Medications Dose Ordered Sig/Aayush Route Start Time Stop Time Status Last Admin Dose Admin Ceftriaxone Sodium 50 ml @ 100 mls/hr ONCE ONCE IV 05/27/25 00:00 05/27/25 00:29 DC 05/27/25 00:32 Dextrose 50 ml ONCE ONCE IV 05/27/25 00:45 05/27/25 00:54 DC 05/27/25 00:54 Potassium Chloride 100 ml @ 50 mls/hr ONCE ONCE IV 05/27/25 01:45 05/27/25 03:44 05/27/25 02:18 Sodium Chloride 500 ml @ 500 mls/hr Q1H ONCE IV 05/26/25 20:45 05/26/25 21:44 DC 05/26/25 22:40 Sodium Chloride 500 ml @ 500 mls/hr Q1H ONCE IV 05/26/25 22:45 05/26/25 23:44 DC 05/26/25 23:28 Sodium Chloride 1,000 ml @ 1,000 mls/hr Q1H ONCE IV 05/27/25 00:45 05/27/25 01:44 DC 05/27/25 00:54 Vancomycin HCl 250 ml @ 250 mls/hr ONCE ONCE IV 05/27/25 00:00 05/27/25 00:59 DC 05/27/25 01:05 Departure 1 Departure Time of Disposition: 22:42 Impression: Primary Impression: Generalized weakness Additional Impressions: Influenza B Pancreatic cancer Stomach cancer Disposition: ADMITTED INPATIENT Condition: Stable Comments MDM: Patient admitted to hospitalist service for further treatment, evaluation and monitoring. Critical Care Note Critical Care Time?: No Stability Stability form required: No I personally scribed for REMINGTON PETTIT MD ([email or web address]) on 05/26/25 at 21:10. Electronically submitted by Yamini Angel ([email or web address]). I personally scribed for REMINGTON PETTIT MD ([email or web address]) on 05/26/25 at 21:27. Electronically submitted by Yamini Angel ([email or web address]). REMINGTON PETTIT MD May 26, 2025 21:10
--- NOTE | 2025-05-26 21:14 | DVH ---
Exam: CT CT AB PEL WO CON-NO ORAL OR IV History: billiary drain, drainage, hx panc/stomach ca Comparison Study: CT CT AB PEL WO CON-NO ORAL OR IV on DOS: 04/03/25, CT ABDOMEN WO/W on DOS: 01/29/25, CT ABD WO/W PEL W ATTN PANCREAS on DOS: 01/19/25, CT ABD PELVIS WO CONTRAST on DOS: 06/30/21 TECHNIQUE: Multidetector CT of the abdomen and pelvis was performed from lung bases to pubic symphysi s. Imaging was performed without IV contrast. Axial, coronal, and sagittal multiplanar reformats were obtained from the axial data set by the technologist. RADIATION DOSE: CTDI vol 6.75 mGy. DLP 380.2 mGy.cm Findings: Limited evaluation of the solid organs in the absence of IV contrast. Lungs: Small bilateral pleural effusions with adjacent opacity, incompletely assessed. Liver: Heterogeneous appearance of the liver, possibly partially referable to artifact. May ossific l esions cannot be excluded. Spleen: Unremarkable. Pancreas: There is redemonstrated marked dilation of the pancreatic duct. There is an ill-defined branham spected pancreatic mass, suboptimally assessed. Interval placement of a biliary drain. Gallbladder: Contrast opacifies the urinary bladder. Adrenals: Unremarkable. Kidneys: Left renal cyst. No hydronephrosis. Pelvic Viscera: Calcifications about the uterus may reflect uterine fibroids. Vasculature: Atherosclerotic aortoiliac calcifications. Retroperitoneum: Diffuse retroperitoneal and peripancreatic adenopathy is redemonstrated. Small abdom inopelvic ascites. Bowel: No bowel obstruction. Portions of the bowel are decompressed, limiting assessment. Musculoskeletal: Unremarkable. Soft tissues: Diffuse subcutaneous edema. Impression: 1. Evaluation is limited in the absence of IV contrast. 2. Interval placement of a biliary drain with redemonstration of suboptimally assessed pancreatic mas s and presumably metastatic adenopathy. 3. Interval development of small bilateral pleural effusions with adjacent opacity, suboptimally asse ssed. 4. Additional findings as detailed. Consider contrast-enhanced CT or MRI in further assessment as cl inically indicated.
[2025-05-26 21:42] VITALS: PULSE 120; RESP 20; O2SAT 94
[2025-05-26 21:54] LABS: Hematocrit 40.1 % (36.0-46.0); Hemoglobin 13.2 g/dL (12.2-16.2); Mean Corpuscular Hemoglobin 32.4 pg (28.0-32.0); Mean Corpuscular Volume 98.4 fL (80.0-100.0); Nucleated Red Blood Cells % 0.1 %
--- NOTE | 2025-05-26 22:07 | DVH ---
CHEST RADIOGRAPH Indication: WEAKNESS Technique: Single frontal view of the chest was obtained Comparison: XY CHEST XRAY 1 VIEW on DOS: 05/26/25 FINDINGS: Lines and Tubes: MediPort is in place right internal jugular vein. Tip is in the superior vena cava a hermila the right atrium. Lungs: Ill-defined bibasilar airspace disease is noted. This may also represent small pleural effusio ns. Pleura: No effusion. No pneumothorax. Cardiomediastinal contours: Unremarkable Bones: No acute osseous abnormality. IMPRESSION: 1. MediPort in place from the right unchanged 2. No significant change in the appearance of the lower lung rodriguez. May represent airspace disease o r small pleural effusions.
[2025-05-26 22:24] LABS: Anion Gap 14 (5-15); Blood Urea Nitrogen 22 mg/dL (9-23); Calcium 9.7 mg/dL (8.7-10.4); Carbon Dioxide 23 mmol/L (20-31); Chloride 101 mmol/L (98-107); Lipase 23 U/L (12-53); Magnesium 2.2 mg/dL (1.6-2.6); Sodium 138 mmol/L (136-145)
[2025-05-26 22:26] LABS: Alanine Aminotransferase 322 U/L (7-40); Albumin 2.9 g/dL (3.2-4.8); Alkaline Phosphatase 219 U/L (46-116); BUN/Creatinine Ratio 25.6 (10.0-20.0); Bilirubin, Total 18.3 mg/dL (0.2-1.0); Glucose 58 mg/dL (74-106); Potassium 3.4 mmol/L (3.5-5.1); Total Protein 7.4 g/dL (5.7-8.2)
[2025-05-26 22:27] LABS: COVID19 ANTIGEN SOFIA FIA NEGATIVE (NEGATIVE)
[2025-05-26 22:29] LABS: Lactic Acid w/Reflex 3.2 mmol/L (0.4-2.0)
[2025-05-26] MEDS: SODIUM CHLORIDE 0.9% 500 ML IV ONE ×2 (22:40→23:28)
[2025-05-27 00:30] LABS: Urine Protein, UAD TRACE (Negative)
[2025-05-27] MEDS: SODIUM CHLORIDE 0.9% 1,000 ML IV ONE ×2 (00:54→03:57)
[2025-05-27] MEDS: DEXTROSE (50%) 50ML SYRG IV ONE (00:54)
[2025-05-27] MEDS: DEXTROSE 50% SYRINGE 50 ML IV ONE (00:54)
[2025-05-27 01:00] VITALS: PULSE 111; RESP 20; O2SAT 96
[2025-05-27] MEDS: VANCOMYCIN 1GM/250ML KIT 250 ML IV ONE (01:05)
--- NOTE | 2025-05-27 01:37 | DVH ---
EXAM: CT HEAD WITHOUT CONTRAST INDICATION: ALOC TECHNIQUE: CT of the head without intravenous contrast. Radiation Dose : 1. Head: CT Dose: CTDI volume is 57.18 mGy. Dose-length product is 1.71 mGy*cm The dose indicators for CT are the volume Computed Tomography (CT) Dose Index (CTDIvol) and the Dose Length Product (DLP), and are measured in units of mGy and mGy-cm, respectively. These indicators are not patient dose, but values generated from the CT scanner acquisition factors. The report includes radiation exposure data for exposures received during this examination. COMPARISON: None FINDINGS: The cerebral parenchyma appears to be normal configuration and attenuation. The ventricles, cisterns , and sulci appear age-appropriate. There is no evidence for acute territorial infarct, hemorrhage, or mass effect. The orbits are normal. The visualized paranasal sinuses and mastoid air cells are clear. The soft t issues and osseous structures appear within normal limits. IMPRESSION: 1. No acute territorial infarct, intracranial hemorrhage, or mass effect. 2. If clinical symptoms persist, MRI may be beneficial in further evaluation. Radiation optimization: All CT scans at this facility use at least one of these dose optimization antonino hniques: automated exposure control mA and/or kV adjustment per patient size (includes targeted exam s where dose is matched to clinical indication) or iterative reconstruction.
[2025-05-27] MEDS ORDERED: NITROGLYCERIN 0.4 MG SL TAB SL PRN (01:45)
[2025-05-27] MEDS ORDERED: DOCUSATE SOD 100 MG CAP PO PRN (01:45)
--- NOTE | 2025-05-27 02:00 | DVHHP2 ---
DEIRDRE ALVARADO CAGE SUPERVISOR 05/27/25 0200: History of Present Illness Reason for Visit: ALOC History of Present Illness 69-year-old female with past medical history of pancreatic cancer is brought int o the emergency department with complaints of generalized weakness x3 days. Information in this HPI is limited due to the patient's cognitive status, and acquired from EHR and ER physician. As per the ER physician the patient's son reported the patient has been experiencing generalized weakness, poor appetite, and confusion for the previous 3 days. Patient also had biliary drainage placed back in April 04, 2025 At [facility]. On arrival to the emergency department patient noted to be lethargic but arousable, alert to self. Despite being treated with 3 L normal saline, patient remained hypotensive. During the emergency department evaluation Na 138, K3.4, BUN 22, creatinine 0.86, BG 58/48/152. W7.0, H&H 13.2/40.1, PLT 217. LA elevated 3.2/2.4. LFTs AST 305, ALT 322, total bilirubin 18.3 similar to previous visit. CXR impression reads MediPort in place. Left lower lobe airspace disease or small effusion. CT of the abdomen and pelvis without contrast impression reads interval placement of biliary drain with redemonstration of suboptimally assessed pancreatic mass. Interval development of small bilateral pleural effusions with adjacent opacities. CT of the head had no acute findings. At this time patient is admitted for further evaluation and treatment. Heme/Onc: Cancer Past Social History Unable to complete social history due to patient condition Review of Systems Review of Systems Unable to complete due to patient condition Allergies: Coded Allergies: NO KNOWN ALLERGIES (Unverified , 06/30/21) Medications Current Medications Medications Dose Ordered Sig/Aayush Route Start Time Stop Time Status Last Admin Dose Admin Docusate Sodium 100 mg BIDPRN PRN PO 05/27/25 01:45 UNV Acetaminophen 650 mg Q6HP PRN PO 05/27/25 01:45 UNV Ondansetron HCl 4 mg Q4HP PRN IV 05/27/25 01:45 UNV Nitroglycerin 0.4 mg Q5MINP PRN SL 05/27/25 01:45 UNV Morphine Sulfate 2 mg Q30M PRN IV 05/27/25 01:45 UNV Diagnostic Test (Pha) 1 strip Q6HR 05/27/25 06:00 UNV Insulin Human Regular Q6HR SC 05/27/25 06:00 UNV Dextrose 50 ml UD PRN IV 05/27/25 01:45 UNV Piperacillin Sod/ Tazobactam Sod 100 ml @ 100 mls/hr TID IV 05/27/25 06:00 UNV Exam Vital Signs Vital Signs Date Time Temp Pulse Resp B/P (MAP) Pulse Ox O2 Delivery O2 Flow Rate FiO2 05/27/25 00:00 103 05/26/25 23:04 12 82/51 (61) 94 05/26/25 21:42 Room Air* 0 21 05/26/25 21:42 98.0 98.0 General Appearance: Alert (To self), moderate distress HEENT: Atraumatic, PERRLA, EOMI, Other (Icteric sclera) Respiratory: Clear to auscultation, Normal air movement Cardiovascular: Normal S1, Normal S2, Other (Tachycardia) Abdominal: Soft, Other (Biliary drain in place. Drainage from insertion site) Extremities: No clubbing, No cyanosis, No edema Skin: No breakdown Neuro: Other (A LOC) Psych/Mental Status: Mental status NL, Mood NL Labs/Xrays Labs Test 05/27/25 01:02 05/26/25 23:52 05/26/25 23:17 05/26/25 22:25 Range/Units POC Glucose 152 H 70-106 mg/dl Urine Color Dark-yellow Yellow Urine Clarity Turbid H Clear Urine pH 5.5 5.0-9.0 Urine Specific [place] 1.020 1.001-1.035 Urine Protein Trace H Negative Urine Ketones Trace Negative Urine Blood Negative Negative /uL Urine Nitrite Negative Negative Urine Bilirubin 2+ H Negative Urine Urobilinogen Normal Negative mg/dL Urine Leukocyte Esterase Negative Negative /uL Urine RBC 1 0 - 4 /hpf Urine Microscopic WBC < 1 0-5 /HPF Urine Squamous Epithelial Cells Few <5 /hpf Urine Bacteria Few H None Seen /hpf Urine Glucose Normal Normal mg/dL Lactic Acid Level 2.4 *H 0.4-2.0 mmol/L Troponin I High Sensitivity 3 L </=34 ng/L Test 05/26/25 21:50 05/26/25 21:27 Range/Units Influenza Type A Antigen Negative Negative Influenza Type B Antigen Positive Negative SARS-CoV-2 Antigen (Rapid) Negative NEGATIVE White Blood Count 7.0 4.4-10.8 10^3/uL Red Blood Count 4.08 4.0-5.20 10^6/uL Hemoglobin 13.2 12.2-16.2 g/dL Hematocrit 40.1 36.0-46.0 % Mean Corpuscular Volume 98.4 80.0-100.0 fL Mean Corpuscular Hemoglobin 32.4 H 28.0-32.0 pg Mean Corpuscular Hemoglobin Concent 33.0 32.0-36.0 g/dL Red Cell Distribution Width 17.4 H 11.8-14.3 % Platelet Count 217 140-450 10^3/uL Mean Platelet Volume 8.3 6.9-10.8 fL Neutrophils (%) (Auto) 88.5 H 37.0-80.0 % Lymphocytes (%) (Auto) 4.0 L 10.0-50.0 % Monocytes (%) (Auto) 7.1 0.0-12.0 % Eosinophils (%) (Auto) 0.1 0.0-7.0 % Basophils (%) (Auto) 0.3 0.0-2.0 % Neutrophils # (Auto) 6.2 1.6-8.6 10 ^3/uL Lymphocytes # (Auto) 0.3 L 0.4-5.4 10 ^3/uL Monocytes # (Auto) 0.5 0-1.3 10 ^3/uL Eosinophils # (Auto) 0 0-0.8 10 ^3/uL Basophils # (Auto) 0 0-0.2 10 ^3/uL Nucleated Red Blood Cells 0.1 % Sodium Level 138 136-145 mmol/L Potassium Level 3.4 L 3.5-5.1 mmol/L Chloride Level 101 98-107 mmol/L Carbon Dioxide Level 23 20-31 mmol/L Anion Gap 14 5-15 Blood Urea Nitrogen 22 9-23 mg/dL Creatinine 0.86 0.550-1.02 mg/dL Glomerular Filtration Rate Calc 74 >90 mL/min BUN/Creatinine Ratio 25.6 H 10.0-20.0 Serum Glucose 58 L 74-106 mg/dL Calcium Level 9.7 8.7-10.4 mg/dL Magnesium Level 2.2 1.6-2.6 mg/dL Total Bilirubin 18.3 H 0.2-1.0 mg/dL Aspartate Amino Transferase (AST) 305 H 13-40 U/L Alanine Aminotransferase (ALT) 322 H 7-40 U/L Alkaline Phosphatase 219 H 46-116 U/L B-Type Natriuretic Peptide 83.63 0-100 pg/mL Total Protein 7.4 5.7-8.2 g/dL Albumin 2.9 L 3.2-4.8 g/dL Lipase 23 12-53 U/L Plasma/Serum Blood Alcohol < 3.0 <10 mg/dL SEPSIS Sepsis Screen Date sepsis recognized/suspect: May 26, 2025 Time Sepsis recognized/suspect: 2141 Recent Procedure: No On Antibiotic Therapy: Yes Respiratory Rate >20: No Heart Rate >90: Yes Temp<36 C (96.8 F) or >38.3 C: No SBP <90 or MAP <65 mmHG: No New Acute Mental Status Change: Yes Is the patient on CPAP, BIPAP,: No Physician Orders Chest Xray 1 View (05/26/25 20:37) Blood Culture (05/26/25 20:37) Saline Lock (05/26/25 20:37) Straight Cath. (05/26/25 ) Ct Ab Pel Wo Con-No Oral Or Iv (05/26/25 20:37) Chest Xray 1 View (05/26/25 21:09) Communication Order (05/26/25 22:40) Sodium Chloride 0.9% (05/26/25 22:45) Head Without Contrast (05/27/25 00:37) Admit (05/27/25 01:44) Code Status (05/27/25 01:44) Vital Signs .PER UNIT PROTOCOL (05/27/25 01:44) Review Orders With Adm. (05/27/25 01:44) Encourage Activity As Tolerate (05/27/25 01:44) Npo (Nothing By Mouth) Diet (05/27/25 Breakfast) Oxygen By Face Mask (05/27/25 01:44) Docusate Sodium Capsule (Colace Capsule) (05/27/25 01:45) Acetaminophen Tablet (Tylenol Tablet) (05/27/25 01:45) Notify Md Of Changes From Base (05/27/25 01:44) Advance Directive (05/27/25 01:44) Basic Metabolic Panel (05/27/25 05:00) Basic Metabolic Panel (05/28/25 05:00) Basic Metabolic Panel (05/29/25 05:00) Basic Metabolic Panel (05/30/25 05:00) Basic Metabolic Panel (05/31/25 05:00) Basic Metabolic Panel (06/01/25 05:00) Complete Blood Count (05/27/25 05:00) Complete Blood Count (05/28/25 05:00) Complete Blood Count (05/29/25 05:00) Complete Blood Count (05/30/25 05:00) Complete Blood Count (05/31/25 05:00) Patient Condition (05/27/25:44) Allergies (05/27/2544) Ondansetron Hcl (Zofran) (05/27/25 01:45) Sequential Compression Device (05/27/25 ) Nitroglycerin Sublingual (Ntrostat Subli (05/27/25:45) Morphine Sulfate Injection (05/27/25:45) Stat Ekg For Chest Pain (05/27/25 01:44) Notify Md Of Changes From Base (05/27/25 01:44) Application Integration Engineer For 24 Hours (05/27/25:44) Emergency Dysrhythmia Protocol (05/27/2544) Rhythm Strips Once Every Shift (05/27/25 01:44) Oxygen By Nasal Cannula (05/27/25 01:44) Glucose Blood (Accu-Chek Comfort Curve T (05/27/25 06:00) Insulin R (Human) (Insulin R) (05/27/25 06:00) Dextrose 50% Syringe (05/27/25 01:45) D5w/Sod Chlo 0.9% (D5w Ns 0.9%) (05/27/25 01:45) Piperacillin-Tazob 3.375gm (Zosyn 3.375g (05/27/25 06:00) * Infectious [place]- Dr. Nagel (05/27/25 01:44) Ammonia (05/27/25 01:44) Lactic Acid W/ Reflex Order (05/27/25 04:00) Lactic Acid W/ Reflex Order (05/27/25 10:00) Potassium Chl 20meq/100ml (05/27/25 01:45) Pantoprazole (Protonix) (05/27/25 10:00) Morphine Sulfate Injection (05/27/25 02:00) Vital Signs Date Time Temp Pulse Resp B/P (MAP) Pulse Ox O2 Delivery O2 Flow Rate FiO2 05/27/25 00:00 103 05/26/25 23:04 112 12 82/51 (61) 94 05/26/25 21:42 120 20 94 Room Air* 0 21 05/26/25 21:42 98.0 120 21 99/80 (86) 95 98.0 05/26/25 20:37 143 05/26/25 20:19 98.2 144 18 80/47 92 98.2 Laboratory Tests Test 05/26/25 21:27 05/26/25 23:17 Lactic Acid Level 3.2 mmol/L (0.4-2.0) *H 2.4 mmol/L (0.4-2.0) *H White Blood Count 7.0 10^3/uL (4.4-10.8) Medications Medications Dose Ordered Sig/Aayush Route Start Time Stop Time Status Last Admin Dose Admin Ceftriaxone Sodium 50 ml @ 100 mls/hr ONCE ONCE IV 05/27/25 00:00 05/27/25 00:29 DC 05/27/25 00:32 100 MLS/HR Dextrose 50 ml ONCE ONCE IV 05/27/25 00:45 05/27/25 00:54 DC 05/27/25 00:54 50 ML Sodium Chloride 500 ml @ 500 mls/hr Q1H ONCE IV 05/26/25 20:45 05/26/25 21:44 DC 05/26/25 22:40 500 MLS/HR Sodium Chloride 500 ml @ 500 mls/hr Q1H ONCE IV 05/26/25 22:45 05/26/25 23:44 DC 05/26/25 23:28 500 MLS/HR Sodium Chloride 1,000 ml @ 1,000 mls/hr Q1H ONCE IV 05/27/25 00:45 05/27/25 01:44 DC 05/27/25 00:54 1,000 MLS/HR Vancomycin HCl 250 ml @ 250 mls/hr ONCE ONCE IV 05/27/25 00:00 05/27/25 00:59 DC 05/27/25 01:05 250 MLS/HR Assessment/Plan Assessment/Plan Acute metabolic encephalopathy Hypoglycemia Dehydration Sepsis Influenza B positive Pulmonary airspace disease Small bilateral pleural effusions Abnormal LFTs Hyperbilirubinemia History pancreatic cancer S/p percutaneous transhepatic biliary drain in place Plan Admit ICU Consult ID. Blood cultures pending. IV ABX. Defer starting Tamiflu to ID Vasopressors to maintain MAP > 65 IVF D5 NS at 100 mL/hour Pulmonology consult. Bronchodilators. As needed supplemental O2 to maintain oxygen saturation greater than 93%. Gastroenterology consult. Check ammonia levels. Blood glucose checks every 6 hours to prevent hypoglycemia Monitor CBC, BMP, LA Supportive care with analgesia for her Ca. GI PPX Protonix/DVT PPX Lovenox Condition critical, prognosis poor given comorbidities. Attempted to contact family via telephone. No answer from provided next of kin information. 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 01:44 Encourage Activity As JOYCE 05/27/25 In Process Tolerate 01:44 Npo (Nothing By DIET 05/27/25 Transmitted Mouth) Diet Breakfast Oxygen By Face Mask RT 05/27/25 Transmitted 01:44 Docusate Sodium PHA 05/27/25 Logged Capsule (Colace 01:45 Acetaminophen Tablet PHA 05/27/25 Logged (Tylenol Tablet) 01:45 Notify Of Changes JOYCE 05/27/25 In Process From Base 01:44 Advance Directive JOYCE 05/27/25 In Process 01:44 Basic Metabolic Panel LAB 05/27/25 Logged 05:00 Basic Metabolic Panel LAB 05/28/25 Verified 05:00 Basic Metabolic Panel LAB 05/29/25 Verified 05:00 Basic Metabolic Panel LAB 05/30/25 Verified 05:00 Basic Metabolic Panel LAB 05/31/25 Verified 05:00 Basic Metabolic Panel LAB 06/01/25 Verified 05:00 Complete Blood Count LAB 05/27/25 Logged 05:00 Complete Blood Count LAB 05/28/25 Verified 05:00 Complete Blood Count LAB 05/29/25 Verified 05:00 Complete Blood Count LAB 05/30/25 Verified 05:00 Complete Blood Count LAB 05/31/25 Verified 05:00 Patient Condition ORDERS 05/27/25 Transmitted 01:44 Allergies JOYCE 05/27/25 In Process 01:44 Ondansetron Hcl PHA 05/27/25 Logged (Zofran) 01:45 Sequential JOYCE 05/27/25 In Process Compression Device Nitroglycerin PHA 05/27/25 Logged Sublingual (Ntrostat 01:45 Morphine Sulfate PHA 05/27/25 Logged Injection 01:45 Stat Ekg For Chest JOYCE 05/27/25 In Process Pain 01:44 Notify Of Changes JOYCE 05/27/25 In Process From Base 01:44 Application Integration Engineer For JOYCE 05/27/25 In Process 24 Hours 01:44 Emergency Dysrhythmia JOYCE 05/27/25 In Process Protocol 01:44 Rhythm Strips Once JOYCE 05/27/25 In Process Every Shift 01:44 Oxygen By Nasal RT 05/27/25 Transmitted Cannula 01:44 Glucose Blood PHA 05/27/25 Logged (Accu-Chek Comfort 06:00 Insulin R (Human) PHA 05/27/25 Logged (Insulin R) 06:00 Dextrose 50% Syringe PHA 05/27/25 Logged 01:45 D5w/Sod Chlo 0.9% PHA 05/27/25 Logged (D5w Ns 0.9%) 01:45 Piperacillin-Tazob PHA 05/27/25 Logged 3.375gm (Zosyn 3.375g 06:00 * Infectious Cass Mariscal CONS 05/27/25 Transmitted [place] 01:44 Ammonia LAB 05/27/25 Logged 01:44 Lactic Acid W/ Reflex LAB 05/27/25 Logged Order 04:00 Lactic Acid W/ Reflex LAB 05/27/25 Logged Order 10:00 Potassium Chl PHA 05/27/25 Logged 20meq/100ml 01:45 Pantoprazole PHA 05/27/25 Verified (Protonix) 10:00 Morphine Sulfate PHA 05/27/25 Verified Injection 02:00 Date of Service: May 27, 2025 Billing Provider: EVERT EMMANUEL MD Common Visit Codes: NOT BILLABLE EVERT EMMANUEL MD 05/27/25 1505: Review of Systems Allergies: Coded Allergies: NO KNOWN ALLERGIES (Unverified , 06/30/21) Additional Comments Additional Comments Additional Comments 69-year-old female with a known history of pancreatic cancer, stomach cancer was brought into the ER with generalized weakness for last three days found to have 1. Acute metabolic encephalopathy 2. Biliary obstruction status post percutaneous transhepatic biliary drain placement at higher level of care in March. 3. Transaminitis 4. Hyperbilirubinemia 5. Pancreatic cancer 6. Hypoglycemia 7. Lactic acidosis 8. Arrange just asked her to pulmonary consolidation 9. Bilateral pleural effusion -GI consultation, continue drain management, repeat liver function tests and lactic acidosis DEIRDRE ALVARADO NP May 27, 2025 02:00 EVERT EMMANUEL MD May 27, 2025 15:05
[2025-05-27] MEDS: POTASSIUM CHL 20MEQ/100ML 100 ML IV ONE (02:18)
[2025-05-27] MEDS: NOREPINEPHRINE 8 MG/250ML KIT 250 ML IV SCH (04:11)
[2025-05-27] MEDS ORDERED: ALBUTEROL SULF 2.5 MG/0.5ML(0.5%) NEB SOLN NEB PRN (04:45)
[2025-05-27] MEDS ORDERED: IPRATROPIUM BROM 0.5 MG/2.5ML INH SOL NEB PRN (04:45)
[2025-05-27] MEDS: InsuLIN REG 1unit/0.01ml Soln (100units/ml) SC SCH (06:00)
[2025-05-27] MEDS: ACCU-CHEK COMFORT CURVE STRIP VI SCH (06:01)
[2025-05-27 06:13] LABS: Potassium 3.9 mmol/L (3.5-5.1); Sodium 143 mmol/L (136-145)
[2025-05-27 06:14] LABS: Anion Gap 9 (5-15); Carbon Dioxide 26 mmol/L (20-31); Chloride 108 mmol/L (98-107)
[2025-05-27] MEDS: PIPERACILLIN-TAZOB 3.375GM 100 ML IV SCH (06:15)
[2025-05-27 06:17] LABS: Hematocrit 31.3 % (36.0-46.0); Hemoglobin 10.4 g/dL (12.2-16.2); Mean Corpuscular Hemoglobin 32.5 pg (28.0-32.0); Mean Corpuscular Volume 98.1 fL (80.0-100.0)
[2025-05-27 06:19] LABS: Blood Urea Nitrogen 22 mg/dL (9-23)
[2025-05-27 06:26] LABS: Calcium 8.3 mg/dL (8.7-10.4); Glucose 110 mg/dL (74-106)
[2025-05-27 06:49] LABS: BUN/Creatinine Ratio 25.6 (10.0-20.0)
[2025-05-27 06:52] VITALS: O2SAT 96
[2025-05-27 06:53] LABS: Total Cells Counted 100.0 (100)
[2025-05-27 08:00] VITALS: BP 116/82; PULSE 80; RESP 12; TEMP 97.5; O2SAT 96
[2025-05-27 10:21] VITALS: PULSE 66; RESP 15; O2SAT 97
[2025-05-27] MEDS: PANTOPRAZOLE 40 MG/10 ML VIAL INJ IV SCH (10:35)
[2025-05-27 11:57] LABS: Lactic Acid w/Reflex 2.2 mmol/L (0.4-2.0)
--- NOTE | 2025-05-27 12:09 | DVHINCON2 ---
Date of service: May 27, 2025 Referring Physician EVERT EMMANUEL MD Reason for Consultation Sepsis History of Present Illness Patient is a 69-year-old female with history of pancreatic cancer who was brought to the emergency department with the complaints of generalized weakness for the past three days. Additional history was limited due to the patient's cognitive status, and acquired from EHR and ER physician. As per the ER physician, the patient's son reported the patient has been experiencing generalized weakness, poor appetite, and confusion for the previous 3 days. Patient also had biliary drainage placed back in April 04, 2025 At [facility]. On arrival to the emergency department, patient she wasv noted to be lethargic but arousable, alert to self. Despite being treated with 3 L normal saline, patient remained hypotensive. During the emergency department evaluation Na 138, K3.4, BUN 22, creatinine 0.86, BG 58/48/152. W7.0, H&H 13.2/40.1, PLT 217. LA elevated 3.2/2.4. LFTs AST 305, ALT 322, total bilirubin 18.3 similar to previous visit. CXR impression reads Mediport in place. Left lower lobe airspace disease or small effusion. CT of the abdomen and pelvis without contrast impression reads interval placement of biliary drain with redemonstration of suboptimally assessed pancreatic mass. Interval development of small bilateral pleural effusions with adjacent opacities. CT of the head had no acute findings. Past Medical History Heme/Onc: Cancer Social History Past Social History Unable to complete social history due to patient condition Allergies: Coded Allergies: NO KNOWN ALLERGIES (Unverified , 06/30/21) Home Meds Unable to Obtain Active Prescriptions or Reported Meds Current Medications Current Medications Medications (Trade) Dose Ordered Sig/Aayush Route PRN Reason Start Time Stop Time Status Last Admin Docusate Sodium (Colace Capsule) 100 mg BIDPRN PRN PO FOR CONSTIPATION 05/27/25 01:45 Acetaminophen (Tylenol Tablet) 650 mg Q6HP PRN PO PAIN SCALE 1-3 OR TEMP>100.4 05/27/25 01:45 Ondansetron HCl (Zofran) 4 mg Q4HP PRN IV NAUSEA / VOMITING 05/27/25 01:45 Nitroglycerin (Ntrostat Sublingual) 0.4 mg Q5MINP PRN SL FOR CHEST PAIN 05/27/25 01:45 Morphine Sulfate 2 mg Q30M PRN IV FOR CHEST PAIN 05/27/25 01:45 Diagnostic Test (Pha) (Accu-Chek Comfort Curve T) 1 strip Q6HR 05/27/25 06:00 05/27/25 06:01 Insulin Human Regular (InsuLIN R) Q6HR SC 05/27/25 06:00 Dextrose 50 ml UD PRN IV Blood Sugar LESS THAN 60 05/27/25 01:45 Piperacillin Sod/ Tazobactam Sod 100 ml @ 100 mls/hr TID IV 05/27/25 06:00 05/27/25 06:15 Pantoprazole Sodium (Protonix) 40 mg DAILY IV 05/27/25 10:00 05/27/25 10:35 Morphine Sulfate 2 mg Q4HPRN PRN IV severe pain 05/27/25 02:00 Norepinephrine Bitartrate 250 ml @ 3.75 mls/hr Q24H IV 05/27/25 02:15 Albuterol (Ventolin Medneb) 2.5 mg Q4HPRN PRN NEB SHORTNESS OF BREATH 05/27/25 04:45 Ipratropium [place] (Atrovent Medneb) 0.5 mg Q4HPRN PRN NEB SHORTNESS OF BREATH 05/27/25 04:45 Review of Systems Review of Systems Review of Systems Unable to complete due to patient's cognitive status Vital Signs Vital Signs Date Time Temp Pulse Resp B/P (MAP) Pulse Ox O2 Delivery O2 Flow Rate FiO2 05/27/25 10:21 66 15 97 Room Air* 0 21 05/27/25 10:00 97.5 108/62 (77) 97.5 Physical Exam General Appearance: Alert (To self), moderate distress HEENT: Atraumatic, PERRLA, EOMI, Other (Icteric sclera) Respiratory: Clear to auscultation, Normal air movement Cardiovascular: Normal S1, Normal S2, Other (Tachycardia) Abdominal: Soft, Other (Biliary drain in place. Drainage from insertion site) Extremities: No clubbing, No cyanosis, No edema Skin: No breakdown Neuro: Other (A LOC) Psych/Mental Status: Mental status NL, Mood NL Labs/Diagnostic Data Labs Test 05/27/25 10:36 05/27/25 05:42 05/27/25 02:10 05/27/25 01:02 Range/Units White Blood Count 6.0 4.4-10.8 10^3/uL Red Blood Count 3.19 L 4.0-5.20 10^6/uL Hemoglobin 10.4 #L 12.2-16.2 g/dL Hematocrit 31.3 #L 36.0-46.0 % Mean Corpuscular Volume 98.1 80.0-100.0 fL Mean Corpuscular Hemoglobin 32.5 H 28.0-32.0 pg Mean Corpuscular Hemoglobin Concent 33.2 32.0-36.0 g/dL Red Cell Distribution Width 17.1 H 11.8-14.3 % Platelet Count 167 140-450 10^3/uL Mean Platelet Volume 8.2 6.9-10.8 fL Neutrophils (%) (Auto) 37.0-80.0 % Lymphocytes (%) (Auto) 10.0-50.0 % Monocytes (%) (Auto) 0.0-12.0 % Basophils (%) (Auto) 0.0-2.0 % Neutrophils # (Auto) 1.6-8.6 10 ^3/uL Lymphocytes # (Auto) 0.4-5.4 10 ^3/uL Monocytes # (Auto) 0-1.3 10 ^3/uL Differential Total Cells Counted 100.0 100 Neutrophils % (Manual) 79 37.0-80.0 Band Neutrophils % (Manual) 1 Lymphocytes % (Manual) 13 10.0-50.0 Monocytes % (Manual) 7 0-12 Eosinophils % (Manual) 0 0-7 Basophils % (Manual) 0 0.0-2.0 Metamyelocytes % (manual) 0 Myelocytes % (Manual) 0 Promyelocytes % (Manual) 0 Blast Cells % (Manual) 0 Reactive Lymphocytes 0 Platelet Estimate Adequate Sodium Level 143 # 136-145 mmol/L Potassium Level 3.9 3.5-5.1 mmol/L Chloride Level 108 H 98-107 mmol/L Carbon Dioxide Level 26 20-31 mmol/L Anion Gap 9 5-15 Blood Urea Nitrogen 22 9-23 mg/dL Creatinine 0.86 0.550-1.02 mg/dL Glomerular Filtration Rate Calc 74 >90 mL/min BUN/Creatinine Ratio 25.6 H 10.0-20.0 Serum Glucose 110 H 74-106 mg/dL Calcium Level 8.3 L 8.7-10.4 mg/dL Ammonia 21 11-32 umol/L POC Glucose 152 H 70-106 mg/dl Test 05/26/25 23:52 05/26/25 22:25 05/26/25 21:50 05/26/25 21:27 Range/Units Urine Color Dark-yellow Yellow Urine Clarity Turbid H Clear Urine pH 5.5 5.0-9.0 Urine Specific [place] 1.020 1.001-1.035 Urine Protein Trace H Negative Urine Ketones Trace Negative Urine Blood Negative Negative /uL Urine Nitrite Negative Negative Urine Bilirubin 2+ H Negative Urine Urobilinogen Normal Negative mg/dL Urine Leukocyte Esterase Negative Negative /uL Urine RBC 1 0 - 4 /hpf Urine Microscopic WBC < 1 0-5 /HPF Urine Squamous Epithelial Cells Few <5 /hpf Urine Bacteria Few H None Seen /hpf Urine Glucose Normal Normal mg/dL Troponin I High Sensitivity 3 L </=34 ng/L Influenza Type A Antigen Negative Negative Influenza Type B Antigen Positive Negative SARS-CoV-2 Antigen (Rapid) Negative NEGATIVE Eosinophils (%) (Auto) 0.1 0.0-7.0 % Eosinophils # (Auto) 0 0-0.8 10 ^3/uL Basophils # (Auto) 0 0-0.2 10 ^3/uL Nucleated Red Blood Cells 0.1 % Magnesium Level 2.2 1.6-2.6 mg/dL Total Bilirubin 18.3 H 0.2-1.0 mg/dL Aspartate Amino Transferase (AST) 305 H 13-40 U/L Alanine Aminotransferase (ALT) 322 H 7-40 U/L Alkaline Phosphatase 219 H 46-116 U/L B-Type Natriuretic Peptide 83.63 0-100 pg/mL Total Protein 7.4 5.7-8.2 g/dL Albumin 2.9 L 3.2-4.8 g/dL Lipase 23 12-53 U/L Plasma/Serum Blood Alcohol < 3.0 <10 mg/dL Microbiology Date/Time Source Procedure Growth Status 05/26/25 21:27 Blood Blood Culture - Preliminary Resulted Assessment A 69 years female presents with Sepsis Influenza B positive Acute metabolic encephalopathy Hypoglycemia Dehydration Pulmonary airspace disease Small bilateral pleural effusions Abnormal LFT Hyperbilirubinemia History pancreatic cancer S/p percutaneous transhepatic biliary drain in place Recommendations: Admitted ICU, on Vasopressors to maintain MAP > 65 On IV Zosyn Blood cultures pending. start Tamiflu x 5 days Gastroenterology consult. Check ammonia levels. Monitor CBC, BMP, LA GI PPX Protonix/DVT PPX Lovenox Condition critical, prognosis poor given comorbidities. Critical care time 60 minutes spent during this encounter. Thank you for the consult Plan discussed with: ANGEL Rodarte MD May 27, 2025 12:09
--- NOTE | 2025-05-27 14:19 | DVH ---
Bilateral lower extremity venous duplex Clinical History: history of DVt Comparison: None Technique: Duplex Doppler evaluation of the deep venous systems of both lower extremities from the common femora l veins to the popliteal veins including color Doppler and spectral/pulsed waveform analysis was perf ormed. Findings: RIGHT SIDE: The common femoral vein demonstrates appropriate compressibility and waveform variability. There is compressibility/patency of the great saphenous vein at the proximal thigh. The femoral vein demonstrates appropriate compressibility and waveform variability. The deep femoral vein demonstrates appropriate compressibility and waveform variability. The popliteal vein demonstrates appropriate compressibility and waveform variability. There is normal compressibility at the tibioperoneal trunk. LEFT SIDE: The common femoral vein demonstrates appropriate compressibility and waveform variability. There is compressibility/patency of the great saphenous vein at the proximal thigh. The femoral vein demonstrates appropriate compressibility and waveform variability. The deep femoral vein demonstrates appropriate compressibility and waveform variability. The popliteal vein demonstrates appropriate compressibility and waveform variability. There is normal compressibility at the tibioperoneal trunk. Impression: No right or left femoropopliteal venous thrombosis. Bilateral popliteal fossa cysts are present measuring 3.3 x 1.0 on the right and 3.5 x 1.3 cm on the left. Bilateral lower extremity edema is present.
[2025-05-27 15:32] LABS: Hematocrit 28.8 % (36.0-46.0); Hemoglobin 9.6 g/dL (12.2-16.2)
[2025-05-27] MEDS: LACTULOSE 20Gm/30ML SOLN PO SCH (15:40)
--- NOTE | 2025-05-27 17:10 | DVHCONRES ---
Date Seen: May 27, 2025 Resident Creating Document: JHAJJTARAHIRAJ RESIDENT Referring Physician Atul Avila Reason for Consultation transaminitis, pancreatic mass History of Present Illness Patient is a 69-year-old female with past medical history of pancreatic cancer is brought into the emergency department with complaints of generalized weakness x3 days. Information in this HPI is limited due to the patient's cognitive status, and acquired from EHR and ER physician. As per the ER physician the patient's son reported the patient has been experiencing generalized weakness, poor appetite, and confusion for the previous 3 days. Patient also had biliary drainage placed back in April 04, 2025 At [facility]. On arrival to the emergency department patient noted to be lethargic but arousable, alert to self. Despite being treated with 3 L normal saline, p atient remained hypotensive. During the emergency department evaluation Na 138, K3.4, BUN 22, creatinine 0.86, BG 58/48/152. W7.0, H&H 13.2/40.1, PLT 217. LA elevated 3.2/2.4. LFTs AST 305, ALT 322, total bilirubin 18.3 similar to previous visit. CXR impression reads MediPort in place. Left lower lobe airspace disease or small effusion. CT of the abdomen and pelvis without co ntrast impression reads interval placement of biliary drain with redemonstration of suboptimally assessed pancreatic mass. Interval development of small bilateral pleural effusions with adjacent opacities. CT of the head had no acute findings. Past Medical History pancreatic cancer Past Surgical History s/p biliary stent placement Family History not known Social History denies smoking, alcohol, drug use Allergies: Coded Allergies: NO KNOWN ALLERGIES (Unverified , 06/30/21) Current Medications Current Medications Medications (Trade) Dose Ordered Sig/Aayush Route PRN Reason Start Time Stop Time Status Last Admin Docusate Sodium (Colace Capsule) 100 mg BIDPRN PRN PO FOR CONSTIPATION 05/27/25 01:45 Acetaminophen (Tylenol Tablet) 650 mg Q6HP PRN PO PAIN SCALE 1-3 OR TEMP>100.4 05/27/25 01:45 Ondansetron HCl (Zofran) 4 mg Q4HP PRN IV NAUSEA / VOMITING 05/27/25 01:45 Nitroglycerin (Ntrostat Sublingual) 0.4 mg Q5MINP PRN SL FOR CHEST PAIN 05/27/25 01:45 Morphine Sulfate 2 mg Q30M PRN IV FOR CHEST PAIN 05/27/25 01:45 Diagnostic Test (Pha) (Accu-Chek Comfort Curve T) 1 strip Q6HR 05/27/25 06:00 05/27/25 12:28 Insulin Human Regular (InsuLIN R) Q6HR SC 05/27/25 06:00 Dextrose 50 ml UD PRN IV Blood Sugar LESS THAN 60 05/27/25 01:45 Piperacillin Sod/ Tazobactam Sod 100 ml @ 100 mls/hr TID IV 05/27/25 06:00 05/27/25 14:31 Pantoprazole Sodium (Protonix) 40 mg DAILY IV 05/27/25 10:00 05/27/25 10:35 Morphine Sulfate 2 mg Q4HPRN PRN IV severe pain 05/27/25 02:00 Norepinephrine Bitartrate 250 ml @ 3.75 mls/hr Q24H IV 05/27/25 02:15 Albuterol (Ventolin Medneb) 2.5 mg Q4HPRN PRN NEB SHORTNESS OF BREATH 05/27/25 04:45 Ipratropium [place] (Atrovent Medneb) 0.5 mg Q4HPRN PRN NEB SHORTNESS OF BREATH 05/27/25 04:45 Lactulose 30 ml TID PO 05/27/25 16:00 05/27/25 15:40 Review of Systems patient seen and examined at the bedside reports mild to moderate abd pain with tenderness to palpation Vital Signs Vital Signs Date Time Temp Pulse Resp B/P (MAP) Pulse Ox O2 Delivery O2 Flow Rate FiO2 05/27/25 16:00 74 12 112/60 (77) 98 05/27/25 13:30 97.5 97.5 05/27/25 10:21 Room Air* 0 21 Physical Exam Gen - mild conjuctival pallor, positive scleral icterus Skin - Patients skin is warm and dry. HEENT - normocephalic, atraumatic, dry mucous membranes. Neck - supple, no lymphadenopathy Pulmonary - B/L equal air entry with vesicular breath sounds cardiovascular - regular S1,S2 heard GI - soft abdomen with tenderness to palpation. Bowel sounds normoactive. Neurological - Patient is alert and oriented x3. No motor or sensory weakness Labs/Diagnostic Data Labs Test 05/27/25 12:40 05/27/25 12:27 05/27/25 05:42 05/27/25 02:10 Range/Units Hemoglobin 9.6 L 12.2-16.2 g/dL Hematocrit 28.8 L 36.0-46.0 % Lactic Acid Level 2.4 *H 0.4-2.0 mmol/L POC Glucose 130 H 70-106 mg/dl White Blood Count 6.0 4.4-10.8 10^3/uL Red Blood Count 3.19 L 4.0-5.20 10^6/uL Mean Corpuscular Volume 98.1 80.0-100.0 fL Mean Corpuscular Hemoglobin 32.5 H 28.0-32.0 pg Mean Corpuscular Hemoglobin Concent 33.2 32.0-36.0 g/dL Red Cell Distribution Width 17.1 H 11.8-14.3 % Platelet Count 167 140-450 10^3/uL Mean Platelet Volume 8.2 6.9-10.8 fL Neutrophils (%) (Auto) 37.0-80.0 % Lymphocytes (%) (Auto) 10.0-50.0 % Monocytes (%) (Auto) 0.0-12.0 % Basophils (%) (Auto) 0.0-2.0 % Neutrophils # (Auto) 1.6-8.6 10 ^3/uL Lymphocytes # (Auto) 0.4-5.4 10 ^3/uL Monocytes # (Auto) 0-1.3 10 ^3/uL Differential Total Cells Counted 100.0 100 Neutrophils % (Manual) 79 37.0-80.0 Band Neutrophils % (Manual) 1 Lymphocytes % (Manual) 13 10.0-50.0 Monocytes % (Manual) 7 0-12 Eosinophils % (Manual) 0 0-7 Basophils % (Manual) 0 0.0-2.0 Metamyelocytes % (manual) 0 Myelocytes % (Manual) 0 Promyelocytes % (Manual) 0 Blast Cells % (Manual) 0 Reactive Lymphocytes 0 Platelet Estimate Adequate Sodium Level 143 # 136-145 mmol/L Potassium Level 3.9 3.5-5.1 mmol/L Chloride Level 108 H 98-107 mmol/L Carbon Dioxide Level 26 20-31 mmol/L Anion Gap 9 5-15 Blood Urea Nitrogen 22 9-23 mg/dL Creatinine 0.86 0.550-1.02 mg/dL Glomerular Filtration Rate Calc 74 >90 mL/min BUN/Creatinine Ratio 25.6 H 10.0-20.0 Serum Glucose 110 H 74-106 mg/dL Calcium Level 8.3 L 8.7-10.4 mg/dL Ammonia 21 11-32 umol/L Test 05/26/25 23:52 05/26/25 22:25 05/26/25 21:50 05/26/25 21:27 Range/Units Urine Color Dark-yellow Yellow Urine Clarity Turbid H Clear Urine pH 5.5 5.0-9.0 Urine Specific [place] 1.020 1.001-1.035 Urine Protein Trace H Negative Urine Ketones Trace Negative Urine Blood Negative Negative /uL Urine Nitrite Negative Negative Urine Bilirubin 2+ H Negative Urine Urobilinogen Normal Negative mg/dL Urine Leukocyte Esterase Negative Negative /uL Urine RBC 1 0 - 4 /hpf Urine Microscopic WBC < 1 0-5 /HPF Urine Squamous Epithelial Cells Few <5 /hpf Urine Bacteria Few H None Seen /hpf Urine Glucose Normal Normal mg/dL Troponin I High Sensitivity 3 L </=34 ng/L Influenza Type A Antigen Negative Negative Influenza Type B Antigen Positive Negative SARS-CoV-2 Antigen (Rapid) Negative NEGATIVE Eosinophils (%) (Auto) 0.1 0.0-7.0 % Eosinophils # (Auto) 0 0-0.8 10 ^3/uL Basophils # (Auto) 0 0-0.2 10 ^3/uL Nucleated Red Blood Cells 0.1 % Magnesium Level 2.2 1.6-2.6 mg/dL Total Bilirubin 18.3 H 0.2-1.0 mg/dL Aspartate Amino Transferase (AST) 305 H 13-40 U/L Alanine Aminotransferase (ALT) 322 H 7-40 U/L Alkaline Phosphatase 219 H 46-116 U/L B-Type Natriuretic Peptide 83.63 0-100 pg/mL Total Protein 7.4 5.7-8.2 g/dL Albumin 2.9 L 3.2-4.8 g/dL Lipase 23 12-53 U/L Plasma/Serum Blood Alcohol < 3.0 <10 mg/dL Microbiology Date/Time Source Procedure Growth Status 05/26/25 21:27 Blood Blood Culture - Preliminary Resulted Assessment Assessment Pancreatic cancer s/p biliary stent placement with possible metastatic adenopathy Intractable abdominal pain Hyperbilirubinemia Transaminitis Plan - patient had a recent placement of biliary drainage stent at [facility] - pancreatic mass seen on the CT Abd likely pancreatic cancer - monitor liver function tests - IV protonix - can start on clear liquid diet if patient tolerates patient may need to be transferred to [facility] Plan discussed with Dr Morrissey Plan discussed with: Patient, Other (GABRIELA Forrest) CORBY MENDIETA RESIDENT May 27, 2025 17:10
--- NOTE | 2025-05-27 20:54 | DVHINCON2 ---
Date of service: May 27, 2025 Referring Physician VELVET Avila Reason for Consultation Influenza B and pleural effusion. History of Present Illness A 69-year-old woman with past medical history of pancreatic cancer who was brought in to ED on 05/26/25 with complaints of generalized weakness x3 days. HPI information limited due to patient's cognitive status, and acquired from EHR and ER physician. Patient reported experiencing generalized weakness, poor appetite, and confusion for the previous 3 days. She also had biliary drain placed back on April 04, 2025 at [facility]. On arrival to the emergency department patient was noted to be lethargic but arousable, alert to self. Despite being treated with 3 L normal saline, patient remained hypotensive. Workup revealed Na of 138, K3.4, BUN 22, creatinine 0.86, BG 58/48/152. W7.0, H&H 13.2/40.1, PLT 217. LA elevated 3.2/2.4. LFTs AST 305, ALT 322, total bilirubin 18.3 similar to previous visit. CXR impression reads MediPort in place. Left lower lobe airspace disease or small effusion. CT of the abdomen and pelvis without contrast showed interval placement of biliary drain with redemonstration of suboptimally assessed pancreatic mass. Interval development of small bilateral pleural effusions with adjacent opacities. CT of the head showed no acute findings. Patient was admitted for further care. Pulmonary consultation is requested for evaluation and management of Influenza B and pleural effusion. Review of Systems: Unable to obtain d/t patient's condition Past Medical History: Pancreatic cancer Past Surgical History: s/p biliary stent placement Medications: Reviewed. Allergies: No known drug allergies. Family History: No family history of premature CAD. No family history of lung disorders. Social History: Nonsmoker. No alcohol or illicit drug use Allergies: Coded Allergies: NO KNOWN ALLERGIES (Unverified , 06/30/21) Home Meds Unable to Obtain Active Prescriptions or Reported Meds Current Medications Current Medications Medications (Trade) Dose Ordered Sig/Aayush Route PRN Reason Start Time Stop Time Status Last Admin Docusate Sodium (Colace Capsule) 100 mg BIDPRN PRN PO FOR CONSTIPATION 05/27/25 01:45 Acetaminophen (Tylenol Tablet) 650 mg Q6HP PRN PO PAIN SCALE 1-3 OR TEMP>100.4 05/27/25 01:45 Ondansetron HCl (Zofran) 4 mg Q4HP PRN IV NAUSEA / VOMITING 05/27/25 01:45 Nitroglycerin (Ntrostat Sublingual) 0.4 mg Q5MINP PRN SL FOR CHEST PAIN 05/27/25 01:45 Morphine Sulfate 2 mg Q30M PRN IV FOR CHEST PAIN 05/27/25 01:45 Diagnostic Test (Pha) (Accu-Chek Comfort Curve T) 1 strip Q6HR 05/27/25 06:00 05/27/25 19:46 Insulin Human Regular (InsuLIN R) Q6HR SC 05/27/25 06:00 Dextrose 50 ml UD PRN IV Blood Sugar LESS THAN 60 05/27/25 01:45 Piperacillin Sod/ Tazobactam Sod 100 ml @ 100 mls/hr TID IV 05/27/25 06:00 05/27/25 14:31 Pantoprazole Sodium (Protonix) 40 mg DAILY IV 05/27/25 10:00 05/27/25 10:35 Morphine Sulfate 2 mg Q4HPRN PRN IV severe pain 05/27/25 02:00 Norepinephrine Bitartrate 250 ml @ 3.75 mls/hr Q24H IV 05/27/25 02:15 Albuterol (Ventolin Medneb) 2.5 mg Q4HPRN PRN NEB SHORTNESS OF BREATH 05/27/25 04:45 Ipratropium [place] (Atrovent Medneb) 0.5 mg Q4HPRN PRN NEB SHORTNESS OF BREATH 05/27/25 04:45 Lactulose 30 ml TID PO 05/27/25 16:00 05/27/25 15:40 Acetaminophen/ Hydrocodone Bitart ([place] 10/325MG Tab) 1 tab Q6HPRN PRN PO MODERATE PAIN (4-6 PAIN SCALE) 05/27/25 17:30 Vital Signs Vital Signs Date Time Temp Pulse Resp B/P (MAP) Pulse Ox O2 Delivery O2 Flow Rate FiO2 05/27/25 18:19 96.8 73 17 97/61 (73) 98 96.8 05/27/25 10:21 Room Air* 0 21 Physical Exam Gen.: Patient lying in bed in no apparent distress. Breathing on room air. Head: Normocephalic, atraumatic. Eyes: EOMI/PERRLA. Ears: Normal hearing. Normal anatomy. Neck/trachea: Trachea midline, supple. Nose: Normal external anatomy. Mouth: Moist mucous membranes. Chest: Decreased air entry bilaterally. No wheezing or rhonchi. Cardiovascular: Positive S1, positive S2. Regular rate and rhythm. Abdomen: Positive bowel sounds in all 4 quadrants. Soft, non-tender, non- distended. : Deferred. Rectal: Deferred. Skin: Warm, dry. Intact. Extremities: 2+ radial pulses bilaterally. No lower extremity edema. Neuro: Awake, alert, oriented x3. No gross motor or sensory deficits. Cranial nerves II through XII intact. Gait not assessed. Labs/Diagnostic Data Labs Test 05/27/25 19:44 05/27/25 12:40 05/27/25 05:42 05/27/25 02:10 Range/Units POC Glucose 94 70-106 mg/dl Hemoglobin 9.6 L 12.2-16.2 g/dL Hematocrit 28.8 L 36.0-46.0 % Lactic Acid Level 2.4 *H 0.4-2.0 mmol/L White Blood Count 6.0 4.4-10.8 10^3/uL Red Blood Count 3.19 L 4.0-5.20 10^6/uL Mean Corpuscular Volume 98.1 80.0-100.0 fL Mean Corpuscular Hemoglobin 32.5 H 28.0-32.0 pg Mean Corpuscular Hemoglobin Concent 33.2 32.0-36.0 g/dL Red Cell Distribution Width 17.1 H 11.8-14.3 % Platelet Count 167 140-450 10^3/uL Mean Platelet Volume 8.2 6.9-10.8 fL Neutrophils (%) (Auto) 37.0-80.0 % Lymphocytes (%) (Auto) 10.0-50.0 % Monocytes (%) (Auto) 0.0-12.0 % Basophils (%) (Auto) 0.0-2.0 % Neutrophils # (Auto) 1.6-8.6 10 ^3/uL Lymphocytes # (Auto) 0.4-5.4 10 ^3/uL Monocytes # (Auto) 0-1.3 10 ^3/uL Differential Total Cells Counted 100.0 100 Neutrophils % (Manual) 79 37.0-80.0 Band Neutrophils % (Manual) 1 Lymphocytes % (Manual) 13 10.0-50.0 Monocytes % (Manual) 7 0-12 Eosinophils % (Manual) 0 0-7 Basophils % (Manual) 0 0.0-2.0 Metamyelocytes % (manual) 0 Myelocytes % (Manual) 0 Promyelocytes % (Manual) 0 Blast Cells % (Manual) 0 Reactive Lymphocytes 0 Platelet Estimate Adequate Sodium Level 143 # 136-145 mmol/L Potassium Level 3.9 3.5-5.1 mmol/L Chloride Level 108 H 98-107 mmol/L Carbon Dioxide Level 26 20-31 mmol/L Anion Gap 9 5-15 Blood Urea Nitrogen 22 9-23 mg/dL Creatinine 0.86 0.550-1.02 mg/dL Glomerular Filtration Rate Calc 74 >90 mL/min BUN/Creatinine Ratio 25.6 H 10.0-20.0 Serum Glucose 110 H 74-106 mg/dL Calcium Level 8.3 L 8.7-10.4 mg/dL Ammonia 21 11-32 umol/L Test 05/26/25 23:52 05/26/25 22:25 05/26/25 21:50 05/26/25 21:27 Range/Units Urine Color Dark-yellow Yellow Urine Clarity Turbid H Clear Urine pH 5.5 5.0-9.0 Urine Specific [place] 1.020 1.001-1.035 Urine Protein Trace H Negative Urine Ketones Trace Negative Urine Blood Negative Negative /uL Urine Nitrite Negative Negative Urine Bilirubin 2+ H Negative Urine Urobilinogen Normal Negative mg/dL Urine Leukocyte Esterase Negative Negative /uL Urine RBC 1 0 - 4 /hpf Urine Microscopic WBC < 1 0-5 /HPF Urine Squamous Epithelial Cells Few <5 /hpf Urine Bacteria Few H None Seen /hpf Urine Glucose Normal Normal mg/dL Troponin I High Sensitivity 3 L </=34 ng/L Influenza Type A Antigen Negative Negative Influenza Type B Antigen Positive Negative SARS-CoV-2 Antigen (Rapid) Negative NEGATIVE Eosinophils (%) (Auto) 0.1 0.0-7.0 % Eosinophils # (Auto) 0 0-0.8 10 ^3/uL Basophils # (Auto) 0 0-0.2 10 ^3/uL Nucleated Red Blood Cells 0.1 % Magnesium Level 2.2 1.6-2.6 mg/dL Total Bilirubin 18.3 H 0.2-1.0 mg/dL Aspartate Amino Transferase (AST) 305 H 13-40 U/L Alanine Aminotransferase (ALT) 322 H 7-40 U/L Alkaline Phosphatase 219 H 46-116 U/L B-Type Natriuretic Peptide 83.63 0-100 pg/mL Total Protein 7.4 5.7-8.2 g/dL Albumin 2.9 L 3.2-4.8 g/dL Lipase 23 12-53 U/L Plasma/Serum Blood Alcohol < 3.0 <10 mg/dL Microbiology Date/Time Source Procedure Growth Status 05/26/25 21:27 Blood Blood Culture - Preliminary Resulted Assessment Impression: Acute metabolic encephalopathy Sepsis Influenza B Pleural effusion Atelectasis Pancreatic cancer S/p percutaneous transhepatic biliary drain placement Plan: On room air Supplemental oxygen PRN Titrate to keep O2 sats above 92%. Continue antibiotics Follow up cultures ID recommendations appreciated. Bronchodilators PRN. Incentive spirometry for atelectasis Protonix for GI ppx Monitor hemoglobin Transfuse if less than 7.0 g/dL. Monitor renal function. Monitor electrolytes. Supplement as necessary. Monitor ins and outs. GI/DVT prophylaxis. Prognosis: Poor given patient's multiple co-morbidities. Rest of plan per hospitalist and other consultants. Thank you, VELVET Avila, for allowing me to participate in this patient's care. Further recommendations will depend on the patient's clinical course. Please do not hesitate to contact me if you have any questions or concerns. This medical document was created using an electronic medical record system with [employer] dictation system. Although these documentations are being carefully reviewed, there may still be some phonetic and typographical changes. The errors are purely typographical, due to imperfection on the software program, and do not reflect any compromise in the patient's medical care. Plan discussed with: Other (RN/) KENNA MATHEW [facility] May 27, 2025 20:54
[2025-05-27 23:15] VITALS: BP 105/69; PULSE 68; RESP 17; TEMP 98.2; O2SAT 96
[2025-05-27 23:46] VITALS: O2SAT 97
[2025-05-28] VITALS (11 sets, daily range): BP systolic 64–105; BP diastolic 57–71; PULSE 68–92; RESP 15–20; TEMP 97.5–98.2; O2SAT 95–99
[2025-05-28] MEDS: MORPHINE SULFATE INJ 2 MG/ml SYRG IV PRN (00:22)
[2025-05-28 04:59] LABS: Hematocrit 35.1 % (36.0-46.0); Hemoglobin 11.5 g/dL (12.2-16.2); Mean Corpuscular Hemoglobin 32.6 pg (28.0-32.0); Mean Corpuscular Volume 99.3 fL (80.0-100.0)
[2025-05-28 05:14] LABS: Anion Gap 13 (5-15); Blood Urea Nitrogen 14 mg/dL (9-23); Calcium 8.7 mg/dL (8.7-10.4); Glucose 97 mg/dL (74-106); Sodium 141 mmol/L (136-145)
[2025-05-28 05:15] LABS: Alanine Aminotransferase 210 U/L (7-40); Albumin 2.1 g/dL (3.2-4.8); Alkaline Phosphatase 151 U/L (46-116); Bilirubin, Total 14.0 mg/dL (0.2-1.0); Carbon Dioxide 19 mmol/L (20-31); Chloride 109 mmol/L (98-107); Potassium 3.2 mmol/L (3.5-5.1)
[2025-05-28 05:36] LABS: BUN/Creatinine Ratio 20.0 (10.0-20.0)
[2025-05-28 05:39] LABS: Lactic Acid w/Reflex 4.0 mmol/L (0.4-2.0); Total Protein 5.8 g/dL (5.7-8.2)
[2025-05-28 06:08] LABS: Total Cells Counted 100.0 (100)
[2025-05-28] MEDS: LACTATED RINGER'S 500 ML IV ONE (06:15)
[2025-05-28 09:19] LABS: Lactic Acid w/Reflex 4.1 mmol/L (0.4-2.0)
[2025-05-28] MEDS ORDERED: OSELTAMIVIR 75 MG CAP PO ONE (10:45)
--- NOTE | 2025-05-28 10:51 | DVHPN2 ---
Progress Note - Dictate Date Seen: May 28, 2025 Medical Necessity Reason Pt with a Central, PICC or Fol: Yes Subjective on floor off pressors vital signs Vital Sign Date Time Temp Pulse Resp B/P (MAP) Pulse Ox O2 Delivery O2 Flow Rate FiO2 05/28/25 09:00 97.5 91 17 102/63 (76) 98 97.5 05/28/25 00:24 Room Air* 0 21 Total Intake and Output 05/27/25 05/27/25 05/28/25 15:00 23:00 07:00 Intake Total 1100 ml 100 ml 240 ml Output Total 650 ml Balance 1100 ml 100 ml -410 ml medications Current Medications Medications Dose Ordered Sig/Aayush Route Start Time Stop Time Status Last Admin Dose Admin Docusate Sodium 100 mg BIDPRN PRN PO 05/27/25 01:45 Acetaminophen 650 mg Q6HP PRN PO 05/27/25 01:45 Ondansetron HCl 4 mg Q4HP PRN IV 05/27/25 01:45 Nitroglycerin 0.4 mg Q5MINP PRN SL 05/27/25 01:45 Morphine Sulfate 2 mg Q30M PRN IV 05/27/25 01:45 05/28/25 00:22 2 MG Diagnostic Test (Pha) 1 strip Q6HR 05/27/25 06:00 05/27/25 19:46 1 STRIP Insulin Human Regular Q6HR SC 05/27/25 06:00 Dextrose 50 ml UD PRN IV 05/27/25 01:45 Piperacillin Sod/ Tazobactam Sod 100 ml @ 100 mls/hr TID IV 05/27/25 06:00 05/28/25 06:00 100 MLS/HR Pantoprazole Sodium 40 mg DAILY IV 05/27/25 10:00 05/27/25 10:35 40 MG Morphine Sulfate 2 mg Q4HPRN PRN IV 05/27/25 02:00 Norepinephrine Bitartrate 250 ml @ 3.75 mls/hr Q24H IV 05/27/25 02:15 Albuterol 2.5 mg Q4HPRN PRN NEB 05/27/25 04:45 Ipratropium [place] 0.5 mg Q4HPRN PRN NEB 05/27/25 04:45 Lactulose 30 ml TID PO 05/27/25 16:00 05/28/25 07:50 30 ML Acetaminophen/ Hydrocodone Bitart 1 tab Q6HPRN PRN PO 05/27/25 17:30 Oseltamivir Phosphate 75 mg Q12HR PO 05/28/25 22:00 06/02/25 21:59 UNV objective General Appearance: Alert , no acute distress HEENT: Atraumatic, PERRLA, EOMI, Other (Icteric sclera) Respiratory: Clear to auscultation, Normal air movement Cardiovascular: Normal S1, Normal S2, Abdominal: Soft, Other (Biliary drain in place. Drainage from insertion site) Extremities: No clubbing, No cyanosis, No edema Skin: No breakdown Neuro: no focal deficit Psych/Mental Status: Mental status NL, Mood NL laboratory and microbiology Laboratory Tests 05/28/25 04:37 Test 05/28/25 04:37 Range/Units Serum Glucose 97 74-106 mg/dL Assessment/Plan A 69 years female presents with GNR bacteremia Sepsis Influenza B positive Acute metabolic encephalopathy Hypoglycemia Dehydration Pulmonary airspace disease Small bilateral pleural effusions Abnormal LFT Hyperbilirubinemia History pancreatic cancer S/p percutaneous transhepatic biliary drain in place Recommendations: off Vasopressors ; downgraded to tele On IV Zosyn; continue Blood cultures shows GNR ; repeat blood cx, cont Tamiflu x 5 days Gastroenterology on board prognosis poor given comorbidities. X ray reviewed plan discussed with team Total time 50 minutes spent during this encounter. Thank you for the consult Plan discussed with: Other ANGEL DE LEON MD May 28, 2025 10:51
[2025-05-28] MEDS: OSELTAMIVIR 30 MG CAP PO ONE (11:36)
[2025-05-28] MEDS: LACTATED RINGER'S 1,000 ML IV ONE (12:00)
--- NOTE | 2025-05-28 15:03 | DVHPN2 ---
Progress Note Date Seen: May 28, 2025 Resident Creating Document: CORBY MENDIETA RESIDENT Medical Necessity Reason Pt with a Central, PICC or Fol: Yes Subjective Review of Systems continues to have abd pain and tenderness loose bowel movements patient is septic with bacteremia biliary drain noted to have dark drainage LFTs and bilirubin trending down Objective vital signs Vital Sign Date Time Temp Pulse Resp B/P (MAP) Pulse Ox O2 Delivery O2 Flow Rate FiO2 05/28/25 13:00 97.7 78 17 94/58 (70) 95 97.7 05/28/25 09:48 Room Air 0.0 05/28/25 09:48 21 Total Intake and Output 05/27/25 05/27/25 05/28/25 15:00 23:00 07:00 Intake Total 1100 ml 100 ml 240 ml Output Total 650 ml Balance 1100 ml 100 ml -410 ml medications Current Medications Medications Dose Ordered Sig/Aayush Route Start Time Stop Time Status Last Admin Dose Admin Docusate Sodium 100 mg BIDPRN PRN PO 05/27/25 01:45 Acetaminophen 650 mg Q6HP PRN PO 05/27/25 01:45 Ondansetron HCl 4 mg Q4HP PRN IV 05/27/25 01:45 Nitroglycerin 0.4 mg Q5MINP PRN SL 05/27/25 01:45 Morphine Sulfate 2 mg Q30M PRN IV 05/27/25 01:45 05/28/25 00:22 2 MG Diagnostic Test (Pha) 1 strip Q6HR 05/27/25 06:00 05/28/25 12:00 1 STRIP Insulin Human Regular Q6HR SC 05/27/25 06:00 Dextrose 50 ml UD PRN IV 05/27/25 01:45 Piperacillin Sod/ Tazobactam Sod 100 ml @ 100 mls/hr TID IV 05/27/25 06:00 05/28/25 14:37 100 MLS/HR Pantoprazole Sodium 40 mg DAILY IV 05/27/25 10:00 05/28/25 10:53 40 MG Morphine Sulfate 2 mg Q4HPRN PRN IV 05/27/25 02:00 Norepinephrine Bitartrate 250 ml @ 3.75 mls/hr Q24H IV 05/27/25 02:15 Albuterol 2.5 mg Q4HPRN PRN NEB 05/27/25 04:45 Ipratropium [place] 0.5 mg Q4HPRN PRN NEB 05/27/25 04:45 Lactulose 30 ml TID PO 05/27/25 16:00 05/28/25 07:50 30 ML Acetaminophen/ Hydrocodone Bitart 1 tab Q6HPRN PRN PO 05/27/25 17:30 Oseltamivir Phosphate 75 mg Q12HR PO 05/28/25 22:00 06/02/25 21:59 UNV Oseltamivir Phosphate 30 mg BID PO 05/28/25 22:00 06/02/25 21:59 Examination Gen - mild conjuctival pallor, positive scleral icterus Skin - Patients skin is warm and dry. HEENT - normocephalic, atraumatic, dry mucous membranes. Neck - supple, no lymphadenopathy Pulmonary - B/L equal air entry with vesicular breath sounds cardiovascular - regular S1,S2 heard GI - soft abdomen with tenderness to palpation. Bowel sounds normoactive. Neurological - Patient is alert and oriented x3. No motor or sensory weakness laboratory and microbiology Laboratory Tests 05/28/25 04:37 Test 05/28/25 04:37 Range/Units Serum Glucose 97 74-106 mg/dL Microbiology Date/Time Source Procedure Growth Status 05/26/25 21:27 Blood Blood Culture - Preliminary Resulted Problem List/Assessment/Plan Problem List/Assessment/Plan Assessment Pancreatic cancer s/p biliary stent placement with possible metastatic adenopathy Intractable abdominal pain Hyperbilirubinemia Transaminitis Plan - patient had a recent placement of biliary drainage stent at [facility] - pancreatic mass seen on the CT Abd likely pancreatic cancer - LFTs trended down, continue monitoring - IV protonix - started on clear liquid diet patient may need to be transferred to [facility] Plan discussed with Dr Morrissey Plan discussed with: Patient, Other (GABRIELA Her) My Orders My Orders Orders - CORBY MENDIETA Procedure Category Date Status Time Clear Liq Diet DIET 05/28/25 Transmitted Lunch Lactic Acid W/ Reflex LAB 05/28/25 In Process Order 14:00 CORBY MENDIETA RESIDENT May 28, 2025 15:03
[2025-05-28 15:26] LABS: Lactic Acid w/Reflex 3.9 mmol/L (0.4-2.0)
--- NOTE | 2025-05-28 16:47 | DVHPN2 ---
Subjective COVID-19 meds noted. He has% patient is not at baseline yet. We will keep the patient one more day. Changes from previous H/P or p: No Changes Objective Vitals Vital Signs Date Time Temp Pulse Resp B/P (MAP) Pulse Ox O2 Delivery O2 Flow Rate FiO2 05/28/25 13:00 97.7 78 17 94/58 (70) 95 97.7 05/28/25 09:48 Room Air 0.0 05/28/25 09:48 21 Intake/Output Intake and Output 05/28/25 07:00 Intake Total 1440 ml Output Total 650 ml Balance 790 ml Intake Oral 240 ml IV Total 1200 ml Output Urine Total 650 ml Exam HEENT pupils are reactive positive scleral icterus Neck was supple CV is S1-S2 regular rate and rhythm Respiratory by due to diminished breath sound with basis GI positive bowel sounds Extremity no 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 Medications Current Medications Medications Dose Ordered Sig/Aayush Route Start Time Stop Time Status Last Admin Dose Admin Docusate Sodium 100 mg BIDPRN PRN PO 05/27/25 01:45 Acetaminophen 650 mg Q6HP PRN PO 05/27/25 01:45 Ondansetron HCl 4 mg Q4HP PRN IV 05/27/25 01:45 Nitroglycerin 0.4 mg Q5MINP PRN SL 05/27/25 01:45 Morphine Sulfate 2 mg Q30M PRN IV 05/27/25 01:45 05/28/25 00:22 2 MG Diagnostic Test (Pha) 1 strip Q6HR 05/27/25 06:00 05/28/25 12:00 1 STRIP Insulin Human Regular Q6HR SC 05/27/25 06:00 Dextrose 50 ml UD PRN IV 05/27/25 01:45 Piperacillin Sod/ Tazobactam Sod 100 ml @ 100 mls/hr TID IV 05/27/25 06:00 05/28/25 14:37 100 MLS/HR Pantoprazole Sodium 40 mg DAILY IV 05/27/25 10:00 05/28/25 10:53 40 MG Morphine Sulfate 2 mg Q4HPRN PRN IV 05/27/25 02:00 Norepinephrine Bitartrate 250 ml @ 3.75 mls/hr Q24H IV 05/27/25 02:15 Albuterol 2.5 mg Q4HPRN PRN NEB 05/27/25 04:45 Ipratropium [place] 0.5 mg Q4HPRN PRN NEB 05/27/25 04:45 Lactulose 30 ml TID PO 05/27/25 16:00 05/28/25 07:50 30 ML Acetaminophen/ Hydrocodone Bitart 1 tab Q6HPRN PRN PO 05/27/25 17:30 Oseltamivir Phosphate 75 mg Q12HR PO 05/28/25 22:00 06/02/25 21:59 UNV Oseltamivir Phosphate 30 mg BID PO 05/28/25 22:00 06/02/25 21:59 Laboratory Results Laboratory Tests 05/28/25 04:37 Chemistry Test 05/28/25 04:37 Albumin 2.1 g/dL (3.2-4.8) L Calcium Level 8.7 mg/dL (8.7-10.4) Total Protein 5.8 g/dL (5.7-8.2) LFT Test 05/28/25 04:37 Alanine Aminotransferase (ALT) 210 U/L (7-40) H Alkaline Phosphatase 151 U/L (46-116) H Aspartate Amino Transferase (AST) 165 U/L (13-40) H Total Bilirubin 14.0 mg/dL (0.2-1.0) H Urinalysis Test 05/26/25 23:52 Urine Color Dark-yellow (Yellow) Urine Clarity Turbid (Clear) H Urine pH 5.5 (5.0-9.0) Urine Specific [place] 1.020 (1.001-1.035) Urine Protein Trace (Negative) H Urine Ketones Trace (Negative) Urine Blood Negative /uL (Negative) Urine Nitrite Negative (Negative) Urine Bilirubin 2+ (Negative) H Urine Urobilinogen Normal mg/dL (Negative) Urine Leukocyte Esterase Negative /uL (Negative) Urine RBC 1 /hpf (0 - 4) Urine Microscopic WBC < 1 /HPF (0-5) Urine Squamous Epithelial Cells Few /hpf (<5) Urine Bacteria Few /hpf (None Seen) H Urine Glucose Normal mg/dL (Normal) Microbiology Microbiology Date/Time Source Procedure Growth Status 05/26/25 21:27 Blood Blood Culture - Preliminary Resulted Assessment/Plan Assessment/Plan 69-year-old female with a known history of pancreatic cancer, stomach cancer was brought into the ER with generalized weakness for last three days found to have 1. Acute metabolic encephalopathy 2. Biliary obstruction status post percutaneous transhepatic biliary drain placement at higher level of care in March. 3. Transaminitis 4. Hyperbilirubinemia 5. Pancreatic cancer 6. Hypoglycemia 7. Lactic acidosis 8. Arrange just asked her to pulmonary consolidation 9. Bilateral pleural effusion -continue antibiotics, contact isolation had respiratory isolation for influenza B, discharge plan after physical therapy evaluation and treatment. Plan discussed with: Patient, Son My Orders Orders - EVERT EMMANUEL MD Procedure Category Date Status Time Hydrocodone-Acet PHA 05/27/25 In Process 10/325mg Tab ([place] 17:30 Date of Service: May 28, 2025 Billing Provider: EVERT EMMANUEL MD Common Visit Codes: NOT BILLABLE EVERT EMMANUEL MD May 28, 2025 16:47
[2025-05-28] MEDS: OSELTAMIVIR 30 MG CAP PO SCH (21:03)
[2025-05-28] MEDS: HYDROcodone-ACET 10/325MG TAB PO PRN (21:05)
[2025-05-28] MEDS ORDERED: OSELTAMIVIR 75 MG CAP PO SCH (22:00)
--- NOTE | 2025-05-28 22:25 | DVHPN2 ---
Progress Note - Dictate Date Seen: May 28, 2025 Medical Necessity Reason Pt with a Central, PICC or Fol: Yes The following are medically ne: Gaffney Catheter Reason for gaffney catheter: Strict I&O Subjective Patient seen and examined at bedside. Breathing comfortably on room air. Overnight events reviewed. vital signs Vital Sign Date Time Temp Pulse Resp B/P (MAP) Pulse Ox O2 Delivery O2 Flow Rate FiO2 05/28/25 21:00 97.7 84 16 64/60 (61) 98 97.7 05/28/25 19:18 Room Air 05/28/25 19:18 0 21 21 Total Intake and Output 05/27/25 05/27/25 05/28/25 15:00 23:00 07:00 Intake Total 1100 ml 100 ml 240 ml Output Total 650 ml Balance 1100 ml 100 ml -410 ml medications Current Medications Medications Dose Ordered Sig/Aayush Route Start Time Stop Time Status Last Admin Dose Admin Docusate Sodium 100 mg BIDPRN PRN PO 05/27/25 01:45 Acetaminophen 650 mg Q6HP PRN PO 05/27/25 01:45 Ondansetron HCl 4 mg Q4HP PRN IV 05/27/25 01:45 Nitroglycerin 0.4 mg Q5MINP PRN SL 05/27/25 01:45 Morphine Sulfate 2 mg Q30M PRN IV 05/27/25 01:45 05/28/25 00:22 2 MG Diagnostic Test (Pha) 1 strip Q6HR 05/27/25 06:00 05/28/25 17:58 1 STRIP Insulin Human Regular Q6HR SC 05/27/25 06:00 Dextrose 50 ml UD PRN IV 05/27/25 01:45 Piperacillin Sod/ Tazobactam Sod 100 ml @ 100 mls/hr TID IV 05/27/25 06:00 05/28/25 21:06 100 MLS/HR Pantoprazole Sodium 40 mg DAILY IV 05/27/25 10:00 05/28/25 10:53 40 MG Morphine Sulfate 2 mg Q4HPRN PRN IV 05/27/25 02:00 Albuterol 2.5 mg Q4HPRN PRN NEB 05/27/25 04:45 Ipratropium [place] 0.5 mg Q4HPRN PRN NEB 05/27/25 04:45 Lactulose 30 ml TID PO 05/27/25 16:00 05/28/25 07:50 30 ML Acetaminophen/ Hydrocodone Bitart 1 tab Q6HPRN PRN PO 05/27/25 17:30 05/28/25 21:05 1 TAB Oseltamivir Phosphate 75 mg Q12HR PO 05/28/25 22:00 06/02/25 21:59 UNV Oseltamivir Phosphate 30 mg BID PO 05/28/25 22:00 06/02/25 21:59 05/28/25 21:03 30 MG objective Gen.: Patient lying in bed in no apparent distress. Breathing on room air. Head: Normocephalic, atraumatic. Eyes: EOMI/PERRLA. Ears: Normal hearing. Normal anatomy. Neck/trachea: Trachea midline, supple. Nose: Normal external anatomy. Mouth: Moist mucous membranes. Chest: Decreased air entry bilaterally. No wheezing or rhonchi. Cardiovascular: Positive S1, positive S2. Regular rate and rhythm. Abdomen: Positive bowel sounds in all 4 quadrants. Soft, non-tender, non- distended. : Deferred. Rectal: Deferred. Skin: Warm, dry. Intact. Extremities: 2+ radial pulses bilaterally. No lower extremity edema. Neuro: Awake, alert, oriented x3. No gross motor or sensory deficits. Cranial nerves II through XII intact. Gait not assessed. laboratory and microbiology Laboratory Tests 05/28/25 04:37 Test 05/28/25 04:37 Range/Units Serum Glucose 97 74-106 mg/dL Assessment/Plan Impression: Acute metabolic encephalopathy Sepsis Influenza B Pleural effusion Atelectasis Pancreatic cancer S/p percutaneous transhepatic biliary drain placement Events: Remains on room air No distress Supplemental oxygen PRN Continue bronchodilators Continue antibiotics Incentive spirometry On oseltamivir Continue Accu-Cheks Protonix for GI ppx Follow up GI recommendations Labs and imaging reviewed. Rest of plan as noted below. Plan: Supplemental oxygen PRN Titrate to keep O2 sats above 92%. Continue antibiotics Follow up cultures ID recommendations appreciated. Bronchodilators PRN. Incentive spirometry for atelectasis Protonix for GI ppx Monitor hemoglobin Transfuse if less than 7.0 g/dL. Accu-Cheks, ISS PRN. Monitor renal function. Monitor electrolytes. Supplement as necessary. Monitor ins and outs. GI/DVT prophylaxis. Prognosis: Poor given patient's multiple co-morbidities. Rest of plan per hospitalist and other consultants. Thank you, VELVET Avila, for allowing me to participate in this patient's care. Further recommendations will depend on the patient's clinical course. Please do not hesitate to contact me if you have any questions or concerns. This medical document was created using an electronic medical record system with [employer] dictation system. Although these documentations are being carefully reviewed, there may still be some phonetic and typographical changes. The errors are purely typographical, due to imperfection on the software program, and do not reflect any compromise in the patient's medical care. Plan discussed with: Patient, Other (GABRIELA Her) KENNA [facility] May 28, 2025 22:25
[2025-05-29] VITALS (8 sets, daily range): BP systolic 90–110; BP diastolic 58–70; PULSE 78–91; RESP 15–17; TEMP 98.2–98.9; O2SAT 94–100
--- NOTE | 2025-05-29 08:56 | DVHPN2 ---
Progress Note - Dictate Date Seen: May 29, 2025 Medical Necessity Reason Pt with a Central, PICC or Fol: Yes The following are medically ne: Gaffney Catheter Reason for gaffney catheter: Strict I&O Subjective no new complaints vital signs Vital Sign Date Time Temp Pulse Resp B/P (MAP) Pulse Ox O2 Delivery O2 Flow Rate FiO2 05/29/25 04:42 98.9 78 17 91/70 (77) 94 98.9 05/28/25 20:00 Room Air* 0 21 Total Intake and Output 05/28/25 05/28/25 05/29/25 15:00 23:00 07:00 Intake Total 100 ml 300 ml 240 ml Output Total 225 ml 200 ml Balance 100 ml 75 ml 40 ml medications Current Medications Medications Dose Ordered Sig/Aayush Route Start Time Stop Time Status Last Admin Dose Admin Docusate Sodium 100 mg BIDPRN PRN PO 05/27/25 01:45 Acetaminophen 650 mg Q6HP PRN PO 05/27/25 01:45 Ondansetron HCl 4 mg Q4HP PRN IV 05/27/25 01:45 Nitroglycerin 0.4 mg Q5MINP PRN SL 05/27/25 01:45 Morphine Sulfate 2 mg Q30M PRN IV 05/27/25 01:45 05/28/25 00:22 2 MG Diagnostic Test (Pha) 1 strip Q6HR 05/27/25 06:00 05/29/25 06:02 1 STRIP Insulin Human Regular Q6HR SC 05/27/25 06:00 Dextrose 50 ml UD PRN IV 05/27/25 01:45 Piperacillin Sod/ Tazobactam Sod 100 ml @ 100 mls/hr TID IV 05/27/25 06:00 05/29/25 05:40 100 MLS/HR Pantoprazole Sodium 40 mg DAILY IV 05/27/25 10:00 05/28/25 10:53 40 MG Morphine Sulfate 2 mg Q4HPRN PRN IV 05/27/25 02:00 Albuterol 2.5 mg Q4HPRN PRN NEB 05/27/25 04:45 Ipratropium [place] 0.5 mg Q4HPRN PRN NEB 05/27/25 04:45 Lactulose 30 ml TID PO 05/27/25 16:00 05/28/25 07:50 30 ML Acetaminophen/ Hydrocodone Bitart 1 tab Q6HPRN PRN PO 05/27/25 17:30 05/29/25 04:07 1 TAB Oseltamivir Phosphate 75 mg Q12HR PO 05/28/25 22:00 06/02/25 21:59 UNV Oseltamivir Phosphate 30 mg BID PO 05/28/25 22:00 06/02/25 21:59 05/28/25 21:03 30 MG objective General Appearance: Alert , no acute distress HEENT: Atraumatic, PERRLA, EOMI, Other (Icteric sclera) Respiratory: Clear to auscultation, Normal air movement Cardiovascular: Normal S1, Normal S2, Abdominal: Soft, Other (Biliary drain in place. Drainage from insertion site) Extremities: No clubbing, No cyanosis, No edema Skin: No breakdown Neuro: no focal deficit Psych/Mental Status: Mental status NL, Mood NL laboratory and microbiology Laboratory Tests 05/28/25 04:37 Test 05/28/25 04:37 Range/Units Serum Glucose 97 74-106 mg/dL Assessment/Plan A 69 years female presents with GNR bacteremia Sepsis Influenza B positive Acute metabolic encephalopathy Hypoglycemia Dehydration Pulmonary airspace disease Small bilateral pleural effusions Abnormal LFT Hyperbilirubinemia History pancreatic cancer S/p percutaneous transhepatic biliary drain in place Recommendations: On IV Zosyn; continue Blood cultures shows GNR ; repeat blood cx, continue Tamiflu x 5 days wbc normal Gastroenterology on board prognosis poor given comorbidities. X ray reviewed plan discussed with team Total time 50 minutes spent during this encounter. Thank you for the consult Plan discussed with: Other ANGEL DE LEON MD May 29, 2025 08:55
[2025-05-29] MEDS: MEGESTROL ACET 400MG/10ML ORAL SUSP PO ONE (11:18)
[2025-05-29] MEDS: ENSURE CLEAR Mixed Berry 8oz Carton PO ONE (11:58)
[2025-05-29 12:06] LABS: Anion Gap 12 (5-15); Carbon Dioxide 22 mmol/L (20-31); Sodium 144 mmol/L (136-145)
[2025-05-29 12:09] LABS: Hematocrit 32.3 % (36.0-46.0); Hemoglobin 10.8 g/dL (12.2-16.2); Mean Corpuscular Hemoglobin 32.5 pg (28.0-32.0); Mean Corpuscular Volume 97.5 fL (80.0-100.0)
[2025-05-29 12:12] LABS: Blood Urea Nitrogen 13 mg/dL (9-23); Glucose 79 mg/dL (74-106)
[2025-05-29 12:13] LABS: Calcium 8.2 mg/dL (8.7-10.4); Chloride 110 mmol/L (98-107); Potassium 2.8 mmol/L (3.5-5.1)
[2025-05-29 12:14] LABS: Alanine Aminotransferase 183.0 U/L (7-40); Albumin 1.9 g/dL (3.2-4.8); Alkaline Phosphatase 134.0 U/L (46-116); Bilirubin, Direct 8.7 mg/dL (<0.3); Bilirubin, Total 11.9 mg/dL (0.2-1.0)
[2025-05-29 12:21] LABS: BUN/Creatinine Ratio 19.1 (10.0-20.0)
[2025-05-29 12:25] LABS: Total Cells Counted 100.0 (100); Total Protein 5.2 g/dL (5.7-8.2)
--- NOTE | 2025-05-29 17:28 | DVHPN2 ---
Subjective Patient's Gram-negative bacteremia culture sensitivity still pending we will hold the discharge for today. 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 Medications Current Medications Medications Dose Ordered Sig/Aayush Route Start Time Stop Time Status Last Admin Dose Admin Docusate Sodium 100 mg BIDPRN PRN PO 05/27/25 01:45 Acetaminophen 650 mg Q6HP PRN PO 05/27/25 01:45 Ondansetron HCl 4 mg Q4HP PRN IV 05/27/25 01:45 Nitroglycerin 0.4 mg Q5MINP PRN SL 05/27/25 01:45 Morphine Sulfate 2 mg Q30M PRN IV 05/27/25 01:45 05/28/25 00:22 2 MG Diagnostic Test (Pha) 1 strip Q6HR 05/27/25 06:00 05/29/25 11:42 1 STRIP Insulin Human Regular Q6HR SC 05/27/25 06:00 Dextrose 50 ml UD PRN IV 05/27/25 01:45 Piperacillin Sod/ Tazobactam Sod 100 ml @ 100 mls/hr TID IV 05/27/25 06:00 05/29/25 14:31 100 MLS/HR Pantoprazole Sodium 40 mg DAILY IV 05/27/25 10:00 05/29/25 11:18 40 MG Morphine Sulfate 2 mg Q4HPRN PRN IV 05/27/25 02:00 Albuterol 2.5 mg Q4HPRN PRN NEB 05/27/25 04:45 Ipratropium [place] 0.5 mg Q4HPRN PRN NEB 05/27/25 04:45 Lactulose 30 ml TID PO 05/27/25 16:00 05/28/25 07:50 30 ML Acetaminophen/ Hydrocodone Bitart 1 tab Q6HPRN PRN PO 05/27/25 17:30 05/29/25 04:07 1 TAB Oseltamivir Phosphate 75 mg Q12HR PO 05/28/25 22:00 06/02/25 21:59 UNV Oseltamivir Phosphate 30 mg BID PO 05/28/25 22:00 06/02/25 21:59 05/29/25 11:18 30 MG Enteral Nutritional Formula 240 ml BIDWM PO 05/29/25 18:00 Laboratory Results Laboratory Tests 05/29/25 11:25 Chemistry Test 05/29/25 11:25 Albumin 1.9 g/dL (3.2-4.8) L Calcium Level 8.2 mg/dL (8.7-10.4) L Total Protein 5.2 g/dL (5.7-8.2) L LFT Test 05/29/25 11:25 Alanine Aminotransferase (ALT) 183 U/L (7-40) H Alkaline Phosphatase 134 U/L (46-116) H Aspartate Amino Transferase (AST) 146 U/L (13-40) H Direct Bilirubin 8.7 mg/dL (<0.3) H Total Bilirubin 11.9 mg/dL (0.2-1.0) H Urinalysis Test 05/26/25 23:52 Urine Color Dark-yellow (Yellow) Urine Clarity Turbid (Clear) H Urine pH 5.5 (5.0-9.0) Urine Specific [place] 1.020 (1.001-1.035) Urine Protein Trace (Negative) H Urine Ketones Trace (Negative) Urine Blood Negative /uL (Negative) Urine Nitrite Negative (Negative) Urine Bilirubin 2+ (Negative) H Urine Urobilinogen Normal mg/dL (Negative) Urine Leukocyte Esterase Negative /uL (Negative) Urine RBC 1 /hpf (0 - 4) Urine Microscopic WBC < 1 /HPF (0-5) Urine Squamous Epithelial Cells Few /hpf (<5) Urine Bacteria Few /hpf (None Seen) H Urine Glucose Normal mg/dL (Normal) Microbiology Microbiology Date/Time Source Procedure Growth Status 05/28/25 11:26 Blood Blood Culture - Preliminary NO GROWTH AFTER 24 HOURS OF INCUBATION. Resulted Assessment/Plan Assessment/Plan 69-year-old female with a known history of pancreatic cancer, stomach cancer was brought into the ER with generalized weakness for last three days found to have 1. Acute metabolic encephalopathy 2. Biliary obstruction status post percutaneous transhepatic biliary drain placement at higher level of care in March. 3. Transaminitis 4. Hyperbilirubinemia 5. Pancreatic cancer 6. Hypoglycemia 7. Lactic acidosis 8. Arrange just asked her to pulmonary consolidation 9. Bilateral pleural effusion 10. Gram-negative bacteremia, repeat blood cultures are pending -follow up blood culture and sensitivity. -continue antibiotics, contact isolation had respiratory isolation for influenza B, discharge plan after physical therapy evaluation and treatment. Plan discussed with: Patient, Son Date of Service: May 29, 2025 Billing Provider: EVERT EMMANUEL MD Common Visit Codes: NOT BILLABLE EVERT EMMANUEL MD May 29, 2025 17:28
[2025-05-29] MEDS: ENSURE CLEAR Mixed Berry 8oz Carton PO SCH (18:00)
--- NOTE | 2025-05-29 22:56 | DVHPN2 ---
Progress Note - Dictate Date Seen: May 29, 2025 Medical Necessity Reason Pt with a Central, PICC or Fol: Yes The following are medically ne: Gaffney Catheter Reason for gaffney catheter: Strict I&O Subjective Patient seen and examined at bedside. Breathing comfortably on room air. Overnight events reviewed. vital signs Vital Sign Date Time Temp Pulse Resp B/P (MAP) Pulse Ox O2 Delivery O2 Flow Rate FiO2 05/29/25 21:00 98.3 78 15 110/68 (82) 98 98.3 05/29/25 19:33 Room Air* 0 21 Total Intake and Output 05/28/25 05/28/25 05/29/25 15:00 23:00 07:00 Intake Total 100 ml 300 ml 240 ml Output Total 225 ml 200 ml Balance 100 ml 75 ml 40 ml medications Current Medications Medications Dose Ordered Sig/Aayush Route Start Time Stop Time Status Last Admin Dose Admin Docusate Sodium 100 mg BIDPRN PRN PO 05/27/25 01:45 Acetaminophen 650 mg Q6HP PRN PO 05/27/25 01:45 Ondansetron HCl 4 mg Q4HP PRN IV 05/27/25 01:45 Nitroglycerin 0.4 mg Q5MINP PRN SL 05/27/25 01:45 Morphine Sulfate 2 mg Q30M PRN IV 05/27/25 01:45 05/28/25 00:22 2 MG Diagnostic Test (Pha) 1 strip Q6HR 05/27/25 06:00 05/29/25 17:45 1 STRIP Insulin Human Regular Q6HR SC 05/27/25 06:00 Dextrose 50 ml UD PRN IV 05/27/25 01:45 Piperacillin Sod/ Tazobactam Sod 100 ml @ 100 mls/hr TID IV 05/27/25 06:00 05/29/25 21:22 100 MLS/HR Pantoprazole Sodium 40 mg DAILY IV 05/27/25 10:00 05/29/25 11:18 40 MG Morphine Sulfate 2 mg Q4HPRN PRN IV 05/27/25 02:00 Albuterol 2.5 mg Q4HPRN PRN NEB 05/27/25 04:45 Ipratropium [place] 0.5 mg Q4HPRN PRN NEB 05/27/25 04:45 Lactulose 30 ml TID PO 05/27/25 16:00 05/29/25 21:21 30 ML Acetaminophen/ Hydrocodone Bitart 1 tab Q6HPRN PRN PO 05/27/25 17:30 05/29/25 04:07 1 TAB Oseltamivir Phosphate 75 mg Q12HR PO 05/28/25 22:00 06/02/25 21:59 UNV Oseltamivir Phosphate 30 mg BID PO 05/28/25 22:00 06/02/25 21:59 05/29/25 21:21 30 MG Enteral Nutritional Formula 240 ml BIDWM PO 05/29/25 18:00 05/29/25 18:00 240 ML objective Gen.: Patient lying in bed in no apparent distress. Breathing on room air. Head: Normocephalic, atraumatic. Eyes: EOMI/PERRLA. Ears: Normal hearing. Normal anatomy. Neck/trachea: Trachea midline, supple. Nose: Normal external anatomy. Mouth: Moist mucous membranes. Chest: Decreased air entry bilaterally. No wheezing or rhonchi. Cardiovascular: Positive S1, positive S2. Regular rate and rhythm. Abdomen: Positive bowel sounds in all 4 quadrants. Soft, non-tender, non- distended. : Deferred. Rectal: Deferred. Skin: Warm, dry. Intact. Extremities: 2+ radial pulses bilaterally. No lower extremity edema. Neuro: Awake, alert, oriented x3. No gross motor or sensory deficits. Cranial nerves II through XII intact. Gait not assessed. laboratory and microbiology Laboratory Tests 05/29/25 11:25 Test 05/29/25 11:25 Range/Units Serum Glucose 79 74-106 mg/dL Assessment/Plan Impression: Acute metabolic encephalopathy Sepsis Influenza B Pleural effusion Atelectasis Pancreatic cancer S/p percutaneous transhepatic biliary drain placement Events: Remains on room air No distress Supplemental oxygen PRN Continue bronchodilators Continue antibiotics Awaiting cultures Incentive spirometry On oseltamivir Protonix for GI ppx Follow up GI recommendations Patient is stable for discharge from the pulmonary standpoint. Labs and imaging reviewed. Rest of plan as noted below. Plan: Supplemental oxygen PRN Titrate to keep O2 sats above 92%. Continue antibiotics Follow up cultures ID recommendations appreciated. Bronchodilators PRN. Incentive spirometry for atelectasis Protonix for GI ppx Monitor hemoglobin Transfuse if less than 7.0 g/dL. Accu-Cheks, ISS PRN. Monitor renal function. Monitor electrolytes. Supplement as necessary. Monitor ins and outs. GI/DVT prophylaxis. Prognosis: Guarded given patient's multiple co-morbidities. Rest of plan per hospitalist and other consultants. Thank you, VELVET Avila, for allowing me to participate in this patient's care. Further recommendations will depend on the patient's clinical course. Please do not hesitate to contact me if you have any questions or concerns. This medical document was created using an electronic medical record system with [employer] dictation system. Although these documentations are being carefully reviewed, there may still be some phonetic and typographical changes. The errors are purely typographical, due to imperfection on the software program, and do not reflect any compromise in the patient's medical care. Plan discussed with: Patient, Other (GABRIELA Her) KENNA [facility] May 29, 2025 22:56
[2025-05-30] VITALS (7 sets, daily range): BP systolic 97–111; BP diastolic 39–67; PULSE 78–96; RESP 16–18; TEMP 97.1–98.5; O2SAT 97–100
[2025-05-30 06:56] LABS: Sodium 143 mmol/L (136-145)
[2025-05-30 06:57] LABS: Anion Gap 14 (5-15)
[2025-05-30 07:02] LABS: Blood Urea Nitrogen 10 mg/dL (9-23); Glucose 76 mg/dL (74-106)
[2025-05-30 07:03] LABS: Calcium 8.1 mg/dL (8.7-10.4); Carbon Dioxide 20 mmol/L (20-31); Chloride 109 mmol/L (98-107); Potassium 3.0 mmol/L (3.5-5.1)
[2025-05-30 07:34] LABS: BUN/Creatinine Ratio 16.1 (10.0-20.0)
--- NOTE | 2025-05-30 09:13 | DVHPN2 ---
Progress Note - Dictate Date Seen: May 30, 2025 Medical Necessity Reason Pt with a Central, PICC or Fol: Yes The following are medically ne: Gaffney Catheter Reason for gaffney catheter: Strict I&O Subjective Preliminary blood cultures are positive for Gram Negative Rods vital signs Vital Sign Date Time Temp Pulse Resp B/P (MAP) Pulse Ox O2 Delivery O2 Flow Rate FiO2 05/30/25 08:00 85 17 97 Room Air* 0 21 05/30/25 05:00 97.1 97/39 (58) 97.1 Total Intake and Output 05/29/25 05/29/25 05/30/25 15:00 23:00 07:00 Intake Total 100 ml 375 ml 500 ml Output Total 125 ml 250 ml 460 ml Balance -25 ml 125 ml 40 ml medications Current Medications Medications Dose Ordered Sig/Aayush Route Start Time Stop Time Status Last Admin Dose Admin Docusate Sodium 100 mg BIDPRN PRN PO 05/27/25 01:45 Acetaminophen 650 mg Q6HP PRN PO 05/27/25 01:45 Ondansetron HCl 4 mg Q4HP PRN IV 05/27/25 01:45 Nitroglycerin 0.4 mg Q5MINP PRN SL 05/27/25 01:45 Morphine Sulfate 2 mg Q30M PRN IV 05/27/25 01:45 05/28/25 00:22 2 MG Diagnostic Test (Pha) 1 strip Q6HR 05/27/25 06:00 05/30/25 06:00 1 STRIP Insulin Human Regular Q6HR SC 05/27/25 06:00 Dextrose 50 ml UD PRN IV 05/27/25 01:45 Piperacillin Sod/ Tazobactam Sod 100 ml @ 100 mls/hr TID IV 05/27/25 06:00 05/30/25 06:19 100 MLS/HR Pantoprazole Sodium 40 mg DAILY IV 05/27/25 10:00 05/29/25 11:18 40 MG Morphine Sulfate 2 mg Q4HPRN PRN IV 05/27/25 02:00 Albuterol 2.5 mg Q4HPRN PRN NEB 05/27/25 04:45 Cancel Ipratropium [place] 0.5 mg Q4HPRN PRN NEB 05/27/25 04:45 Cancel Lactulose 30 ml TID PO 05/27/25 16:00 05/30/25 06:19 30 ML Acetaminophen/ Hydrocodone Bitart 1 tab Q6HPRN PRN PO 05/27/25 17:30 05/29/25 04:07 1 TAB Oseltamivir Phosphate 75 mg Q12HR PO 05/28/25 22:00 06/02/25 21:59 UNV Oseltamivir Phosphate 30 mg BID PO 05/28/25 22:00 06/02/25 21:59 05/29/25 21:21 30 MG Enteral Nutritional Formula 240 ml BIDWM PO 05/29/25 18:00 05/30/25 08:28 240 ML objective General Appearance: Alert , no acute distress HEENT: Atraumatic, PERRLA, EOMI, Other (Icteric sclera) Respiratory: Clear to auscultation, Normal air movement Cardiovascular: Normal S1, Normal S2, Abdominal: Soft, Other (Biliary drain in place. Drainage from insertion site) Extremities: No clubbing, No cyanosis, No edema Skin: No breakdown Neuro: no focal deficit Psych/Mental Status: Mental status NL, Mood NL laboratory and microbiology Laboratory Tests 05/30/25 06:07 Test 05/30/25 06:07 Range/Units Serum Glucose 76 74-106 mg/dL Assessment/Plan A 69 years female presents with GNR bacteremia Sepsis Influenza B positive Acute metabolic encephalopathy Hypoglycemia Dehydration Pulmonary airspace disease Small bilateral pleural effusions Abnormal LFT Hyperbilirubinemia History pancreatic cancer S/p percutaneous transhepatic biliary drain in place Recommendations: off Vasopressors ; downgraded to tele On IV Zosyn; continue Blood cultures shows GNR ; repeat blood cx, start Tamiflu x 5 days Gastroenterology on board prognosis poor given comorbidities. X ray reviewed plan discussed with team Total time 50 minutes spent during this encounter. Thank you for the consult Plan discussed with: Other ANGEL DE LEON MD May 30, 2025 09:13
[2025-05-30 09:32] LABS: Hematocrit 32.2 % (36.0-46.0); Hemoglobin 10.8 g/dL (12.2-16.2); Mean Corpuscular Hemoglobin 32.2 pg (28.0-32.0); Mean Corpuscular Volume 96.0 fL (80.0-100.0)
[2025-05-30 09:49] LABS: Total Cells Counted 100.0 (100)
--- NOTE | 2025-05-30 10:46 | DVHPN2 ---
Progress Note - Dictate Date Seen: May 30, 2025 Medical Necessity Reason Pt with a Central, PICC or Fol: Yes The following are medically ne: Gaffney Catheter Reason for gaffney catheter: Strict I&O Subjective Patient is sleeping comfortably Preliminary blood cultures are showing Gram-negative rods Hemoglobin stable at 10.8, liver enzymes are trending down including bilirubin vital signs Vital Sign Date Time Temp Pulse Resp B/P (MAP) Pulse Ox O2 Delivery O2 Flow Rate FiO2 05/30/25 09:00 98.5 85 16 97/60 (72) 99 98.5 05/30/25 08:00 Room Air* 0 21 Total Intake and Output 05/29/25 05/29/25 05/30/25 15:00 23:00 07:00 Intake Total 100 ml 375 ml 500 ml Output Total 125 ml 250 ml 460 ml Balance -25 ml 125 ml 40 ml medications Current Medications Medications Dose Ordered Sig/Aayush Route Start Time Stop Time Status Last Admin Dose Admin Docusate Sodium 100 mg BIDPRN PRN PO 05/27/25 01:45 Acetaminophen 650 mg Q6HP PRN PO 05/27/25 01:45 Ondansetron HCl 4 mg Q4HP PRN IV 05/27/25 01:45 Nitroglycerin 0.4 mg Q5MINP PRN SL 05/27/25 01:45 Morphine Sulfate 2 mg Q30M PRN IV 05/27/25 01:45 05/28/25 00:22 2 MG Diagnostic Test (Pha) 1 strip Q6HR 05/27/25 06:00 05/30/25 06:00 1 STRIP Insulin Human Regular Q6HR SC 05/27/25 06:00 Dextrose 50 ml UD PRN IV 05/27/25 01:45 Piperacillin Sod/ Tazobactam Sod 100 ml @ 100 mls/hr TID IV 05/27/25 06:00 05/30/25 06:19 100 MLS/HR Pantoprazole Sodium 40 mg DAILY IV 05/27/25 10:00 05/29/25 11:18 40 MG Morphine Sulfate 2 mg Q4HPRN PRN IV 05/27/25 02:00 Albuterol 2.5 mg Q4HPRN PRN NEB 05/27/25 04:45 Cancel Ipratropium [place] 0.5 mg Q4HPRN PRN NEB 05/27/25 04:45 Cancel Lactulose 30 ml TID PO 05/27/25 16:00 05/30/25 06:19 30 ML Acetaminophen/ Hydrocodone Bitart 1 tab Q6HPRN PRN PO 05/27/25 17:30 05/29/25 04:07 1 TAB Oseltamivir Phosphate 75 mg Q12HR PO 05/28/25 22:00 06/02/25 21:59 UNV Oseltamivir Phosphate 30 mg BID PO 05/28/25 22:00 06/02/25 21:59 05/29/25 21:21 30 MG Enteral Nutritional Formula 240 ml BIDWM PO 05/29/25 18:00 05/30/25 08:28 240 ML objective Gen - mild conjuctival pallor, positive scleral icterus Skin - Patients skin is warm and dry. HEENT - normocephalic, atraumatic, dry mucous membranes. Neck - supple, no lymphadenopathy Pulmonary - B/L equal air entry with vesicular breath sounds cardiovascular - regular S1,S2 heard GI - soft abdomen with tenderness to palpation. Bowel sounds normoactive. Neurological - Patient is alert and oriented x3. No motor or sensory weakness laboratory and microbiology Laboratory Tests 05/30/25 08:05 05/30/25 06:07 Test 05/30/25 06:07 Range/Units Serum Glucose 76 74-106 mg/dL CT SCAN ABD PELVIS Impression: 1. Evaluation is limited in the absence of IV contrast. 2. Interval placement of a biliary drain with redemonstration of suboptimally assessed pancreatic mass and presumably metastatic adenopathy. 3. Interval development of small bilateral pleural effusions with adjacent opacity, suboptimally assessed. Problems(with codes): (1) Influenza B (2) Generalized weakness (3) Pancreatic cancer Prognosis PLAN Continue IV antibiotics ID consult is following Biliary drain in place Continue to monitor labs Advance diet as tolerated Plan discussed with: Patient SHAMIR CARDOZO MD May 30, 2025 10:46
--- NOTE | 2025-05-30 16:36 | DVHPN2 ---
Subjective Patient's Gram-negative bacteremia culture sensitivity came back ESBL sensitive to Zosyn and ertapenem and meropenem. We will get midline placement after repeat blood cultures are negative. Changes from previous H/P or p: No Changes Objective Vitals Vital Signs Date Time Temp Pulse Resp B/P (MAP) Pulse Ox O2 Delivery O2 Flow Rate FiO2 05/30/25 12:39 97.4 78 16 99/54 (69) 100 97.4 05/30/25 08:00 Room Air* 0 21 Intake/Output Intake and Output 05/30/25 07:00 Intake Total 975 ml Output Total 835 ml Balance 140 ml Intake Oral 675 ml IV Total 300 ml Output Urine Total 590 ml Drainage Total 245 ml # Bowel Movements 4 Exam HEENT pupils are reactive positive scleral icterus Neck was supple CV is S1-S2 regular rate and rhythm Respiratory by due to diminished breath sound with basis GI positive bowel sounds 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 Medications Current Medications Medications Dose Ordered Sig/Aayush Route Start Time Stop Time Status Last Admin Dose Admin Docusate Sodium 100 mg BIDPRN PRN PO 05/27/25 01:45 Acetaminophen 650 mg Q6HP PRN PO 05/27/25 01:45 Ondansetron HCl 4 mg Q4HP PRN IV 05/27/25 01:45 Nitroglycerin 0.4 mg Q5MINP PRN SL 05/27/25 01:45 Morphine Sulfate 2 mg Q30M PRN IV 05/27/25 01:45 05/28/25 00:22 2 MG Diagnostic Test (Pha) 1 strip Q6HR 05/27/25 06:00 05/30/25 11:45 1 STRIP Insulin Human Regular Q6HR SC 05/27/25 06:00 Dextrose 50 ml UD PRN IV 05/27/25 01:45 Piperacillin Sod/ Tazobactam Sod 100 ml @ 100 mls/hr TID IV 05/27/25 06:00 05/30/25 14:26 100 MLS/HR Pantoprazole Sodium 40 mg DAILY IV 05/27/25 10:00 05/30/25 10:33 40 MG Morphine Sulfate 2 mg Q4HPRN PRN IV 05/27/25 02:00 Albuterol 2.5 mg Q4HPRN PRN NEB 05/27/25 04:45 Cancel Ipratropium [place] 0.5 mg Q4HPRN PRN NEB 05/27/25 04:45 Cancel Lactulose 30 ml TID PO 05/27/25 16:00 05/30/25 06:19 30 ML Acetaminophen/ Hydrocodone Bitart 1 tab Q6HPRN PRN PO 05/27/25 17:30 05/29/25 04:07 1 TAB Oseltamivir Phosphate 75 mg Q12HR PO 05/28/25 22:00 06/02/25 21:59 UNV Oseltamivir Phosphate 30 mg BID PO 05/28/25 22:00 06/02/25 21:59 05/30/25 10:33 30 MG Enteral Nutritional Formula 240 ml BIDWM PO 05/29/25 18:00 05/30/25 08:28 240 ML Laboratory Results Laboratory Tests 05/30/25 06:07 05/30/25 08:05 Chemistry Test 05/30/25 06:07 Calcium Level 8.1 mg/dL (8.7-10.4) L Urinalysis Test 05/26/25 23:52 Urine Color Dark-yellow (Yellow) Urine Clarity Turbid (Clear) H Urine pH 5.5 (5.0-9.0) Urine Specific [place] 1.020 (1.001-1.035) Urine Protein Trace (Negative) H Urine Ketones Trace (Negative) Urine Blood Negative /uL (Negative) Urine Nitrite Negative (Negative) Urine Bilirubin 2+ (Negative) H Urine Urobilinogen Normal mg/dL (Negative) Urine Leukocyte Esterase Negative /uL (Negative) Urine RBC 1 /hpf (0 - 4) Urine Microscopic WBC < 1 /HPF (0-5) Urine Squamous Epithelial Cells Few /hpf (<5) Urine Bacteria Few /hpf (None Seen) H Urine Glucose Normal mg/dL (Normal) Microbiology Microbiology Date/Time Source Procedure Growth Status 05/28/25 11:26 Blood Blood Culture - Preliminary NO GROWTH AFTER 48 HOURS OF INCUBATION. Resulted Assessment/Plan Assessment/Plan 69-year-old female with a known history of pancreatic cancer, stomach cancer was brought into the ER with generalized weakness for last three days found to have 1. Acute metabolic encephalopathy , resolved 2. Biliary obstruction status post percutaneous transhepatic biliary drain placement at higher level of care in March. 3. Transaminitis 4. Hyperbilirubinemia 5. Pancreatic cancer 6. Hypoglycemia 7. Lactic acidosis 8. Arrange just asked her to pulmonary consolidation 9. Bilateral pleural effusion 10. Gram-negative bacteremia, with ESBL Bactrim -f repeat blood cultures, obtain midline, biliary IV antibiotics for home continue IV Zosyn for now -continue antibiotics, contact isolation had respiratory isolation for influenza B, discharge plan after physical therapy evaluation and treatment. Plan discussed with: Patient, Other My Orders Orders - EVERT EMMANUEL MD Procedure Category Date Status Time * Decontamination Technician CONS 05/30/25 Transmitted Consult Blood Culture KYLE 05/30/25 Logged 16:07 Insert Midline ORDERS 05/30/25 Transmitted 16:07 Date of Service: May 30, 2025 Billing Provider: EVERT EMMANUEL MD Common Visit Codes: NOT BILLABLE EVERT EMMANUEL MD May 30, 2025 16:36
--- NOTE | 2025-05-30 23:39 | DVHPN2 ---
Progress Note - Dictate Date Seen: May 30, 2025 Medical Necessity Reason Pt with a Central, PICC or Fol: Yes The following are medically ne: Gaffney Catheter Reason for gaffney catheter: Strict I&O Subjective Patient seen and examined at bedside. Breathing comfortably on room air. Overnight events reviewed. vital signs Vital Sign Date Time Temp Pulse Resp B/P (MAP) Pulse Ox O2 Delivery O2 Flow Rate FiO2 05/30/25 21:00 98.0 96 18 111/67 (82) 100 98.0 05/30/25 08:00 Room Air* 0 21 Total Intake and Output 05/29/25 05/29/25 05/30/25 15:00 23:00 07:00 Intake Total 100 ml 375 ml 500 ml Output Total 125 ml 250 ml 460 ml Balance -25 ml 125 ml 40 ml medications Current Medications Medications Dose Ordered Sig/Aayush Route Start Time Stop Time Status Last Admin Dose Admin Docusate Sodium 100 mg BIDPRN PRN PO 05/27/25 01:45 Acetaminophen 650 mg Q6HP PRN PO 05/27/25 01:45 Ondansetron HCl 4 mg Q4HP PRN IV 05/27/25 01:45 Nitroglycerin 0.4 mg Q5MINP PRN SL 05/27/25 01:45 Morphine Sulfate 2 mg Q30M PRN IV 05/27/25 01:45 05/28/25 00:22 2 MG Diagnostic Test (Pha) 1 strip Q6HR 05/27/25 06:00 05/30/25 18:26 1 STRIP Insulin Human Regular Q6HR SC 05/27/25 06:00 Dextrose 50 ml UD PRN IV 05/27/25 01:45 Piperacillin Sod/ Tazobactam Sod 100 ml @ 100 mls/hr TID IV 05/27/25 06:00 05/30/25 22:10 100 MLS/HR Pantoprazole Sodium 40 mg DAILY IV 05/27/25 10:00 05/30/25 10:33 40 MG Morphine Sulfate 2 mg Q4HPRN PRN IV 05/27/25 02:00 Albuterol 2.5 mg Q4HPRN PRN NEB 05/27/25 04:45 Cancel Ipratropium [place] 0.5 mg Q4HPRN PRN NEB 05/27/25 04:45 Cancel Lactulose 30 ml TID PO 05/27/25 16:00 05/30/25 06:19 30 ML Acetaminophen/ Hydrocodone Bitart 1 tab Q6HPRN PRN PO 05/27/25 17:30 05/29/25 04:07 1 TAB Oseltamivir Phosphate 75 mg Q12HR PO 05/28/25 22:00 06/02/25 21:59 UNV Oseltamivir Phosphate 30 mg BID PO 05/28/25 22:00 06/02/25 21:59 05/30/25 22:11 30 MG Enteral Nutritional Formula 240 ml BIDWM PO 05/29/25 18:00 05/30/25 18:26 240 ML objective Gen.: Patient lying in bed in no apparent distress. Breathing on room air. Head: Normocephalic, atraumatic. Eyes: EOMI/PERRLA. Ears: Normal hearing. Normal anatomy. Neck/trachea: Trachea midline, supple. Nose: Normal external anatomy. Mouth: Moist mucous membranes. Chest: Decreased air entry bilaterally. No wheezing or rhonchi. Cardiovascular: Positive S1, positive S2. Regular rate and rhythm. Abdomen: Positive bowel sounds in all 4 quadrants. Soft, non-tender, non- distended. : Deferred. Rectal: Deferred. Skin: Warm, dry. Intact. Extremities: 2+ radial pulses bilaterally. No lower extremity edema. Neuro: Awake, alert, oriented x3. No gross motor or sensory deficits. Cranial nerves II through XII intact. Gait not assessed. laboratory and microbiology Laboratory Tests 05/30/25 08:05 05/30/25 06:07 Test 05/30/25 06:07 Range/Units Serum Glucose 76 74-106 mg/dL Assessment/Plan Impression: Acute metabolic encephalopathy Sepsis Influenza B Pleural effusion Atelectasis Pancreatic cancer S/p percutaneous transhepatic biliary drain placement Events: Remains on room air No distress Supplemental oxygen PRN Continue bronchodilators Incentive spirometry Continue antibiotics F/u cultures: Gram-negative bacteremia culture and sensitivity came back ESBL sensitive to Zosyn and ertapenem and meropenem. We will get midline placement after repeat blood cultures are negative. On oseltamivir Protonix for GI ppx GI recommendations appreciated Disposition per hospitalist. Labs and imaging reviewed. Rest of plan as noted below. Plan: Supplemental oxygen PRN Titrate to keep O2 sats above 92%. Continue antibiotics Follow up cultures ID recommendations appreciated. Bronchodilators PRN. Incentive spirometry for atelectasis Protonix for GI ppx Monitor hemoglobin Transfuse if less than 7.0 g/dL. Accu-Cheks, ISS PRN. Monitor renal function. Monitor electrolytes. Supplement as necessary. Monitor ins and outs. GI/DVT prophylaxis. Prognosis: Guarded given patient's multiple co-morbidities. Rest of plan per hospitalist and other consultants. Thank you, MACHINING TECHNICIAN [place], for allowing me to participate in this patient's care. Further recommendations will depend on the patient's clinical course. Please do not hesitate to contact me if you have any questions or concerns. This medical document was created using an electronic medical record system with [employer] dictation system. Although these documentations are being carefully reviewed, there may still be some phonetic and typographical changes. The errors are purely typographical, due to imperfection on the software program, and do not reflect any compromise in the patient's medical care. Dietary Evaluation Review Comments: 1) Change oral nutrition supplement from Ensure Clear to Ensure Enlive bid 2) Advance to regular diet when medically feasible 3) Encourage optimal PO intake 4) Follow-up with oncology 5) Continue to monitor I&O, labs, and skin integrity Expected Outcomes/Goals: 1) appetite and labs to improve 2) f/u in 3-5 days Plan discussed with: Patient, Other (GABRIELA Her) [facility]NA [facility] May 30, 2025 23:39
[2025-05-31] VITALS (9 sets, daily range): BP systolic 97–139; BP diastolic 58–69; PULSE 67–89; RESP 16–20; TEMP 97.2–98.4; O2SAT 95–100
[2025-05-31 05:08] LABS: Hematocrit 32.4 % (36.0-46.0); Hemoglobin 10.6 g/dL (12.2-16.2); Mean Corpuscular Hemoglobin 32.5 pg (28.0-32.0); Mean Corpuscular Volume 99.4 fL (80.0-100.0)
[2025-05-31 05:23] LABS: Sodium 143 mmol/L (136-145)
[2025-05-31 05:24] LABS: Anion Gap 14 (5-15)
[2025-05-31 05:30] LABS: BUN/Creatinine Ratio 15.9 (10.0-20.0); Blood Urea Nitrogen 10 mg/dL (9-23); Calcium 8.1 mg/dL (8.7-10.4); Carbon Dioxide 19 mmol/L (20-31); Chloride 110 mmol/L (98-107); Glucose 94 mg/dL (74-106); Potassium 3.0 mmol/L (3.5-5.1)
[2025-05-31 05:59] LABS: Total Cells Counted 100.0 (100)
[2025-05-31] MEDS: MORPHINE SULFATE INJ 2 MG/ml SYRG IV PRN (07:03)
--- NOTE | 2025-05-31 09:16 | DVHPN2 ---
Progress Note - Dictate Date Seen: May 31, 2025 Medical Necessity Reason Pt with a Central, PICC or Fol: Yes The following are medically ne: Gaffney Catheter Reason for gaffney catheter: Strict I&O Subjective Patient complains of 5 times loose stools patient is on lactulose repeat blood cx is showing GPC vital signs Vital Sign Date Time Temp Pulse Resp B/P (MAP) Pulse Ox O2 Delivery O2 Flow Rate FiO2 05/31/25 07:03 85 18 139/61 05/31/25 05:00 97.9 98 97.9 05/30/25 20:00 Room Air* 0 21 Total Intake and Output 05/30/25 05/30/25 05/31/25 15:00 23:00 07:00 Intake Total 100 ml 580 ml 480 ml Output Total 100 ml 300 ml 200 ml Balance 0 ml 280 ml 280 ml medications Current Medications Medications Dose Ordered Sig/Aayush Route Start Time Stop Time Status Last Admin Dose Admin Docusate Sodium 100 mg BIDPRN PRN PO 05/27/25 01:45 Acetaminophen 650 mg Q6HP PRN PO 05/27/25 01:45 Ondansetron HCl 4 mg Q4HP PRN IV 05/27/25 01:45 Nitroglycerin 0.4 mg Q5MINP PRN SL 05/27/25 01:45 Morphine Sulfate 2 mg Q30M PRN IV 05/27/25 01:45 05/28/25 00:22 2 MG Diagnostic Test (Pha) 1 strip Q6HR 05/27/25 06:00 05/31/25 06:00 1 STRIP Insulin Human Regular Q6HR SC 05/27/25 06:00 Dextrose 50 ml UD PRN IV 05/27/25 01:45 Piperacillin Sod/ Tazobactam Sod 100 ml @ 100 mls/hr TID IV 05/27/25 06:00 05/31/25 06:38 100 MLS/HR Pantoprazole Sodium 40 mg DAILY IV 05/27/25 10:00 05/30/25 10:33 40 MG Morphine Sulfate 2 mg Q4HPRN PRN IV 05/27/25 02:00 05/31/25 07:03 2 MG Albuterol 2.5 mg Q4HPRN PRN NEB 05/27/25 04:45 Cancel Ipratropium [place] 0.5 mg Q4HPRN PRN NEB 05/27/25 04:45 Cancel Lactulose 30 ml TID PO 05/27/25 16:00 05/31/25 06:37 30 ML Acetaminophen/ Hydrocodone Bitart 1 tab Q6HPRN PRN PO 05/27/25 17:30 05/29/25 04:07 1 TAB Oseltamivir Phosphate 75 mg Q12HR PO 05/28/25 22:00 06/02/25 21:59 UNV Oseltamivir Phosphate 30 mg BID PO 05/28/25 22:00 06/02/25 21:59 05/30/25 22:11 30 MG Enteral Nutritional Formula 240 ml BIDWM PO 05/29/25 18:00 05/30/25 18:26 240 ML objective General Appearance: Alert , no acute distress HEENT: Atraumatic, PERRLA, EOMI, Other (Icteric sclera) Respiratory: Clear to auscultation, Normal air movement Cardiovascular: Normal S1, Normal S2, Abdominal: Soft, Other (Biliary drain in place. Drainage from insertion site) Extremities: No clubbing, No cyanosis, No edema Skin: No breakdown Neuro: no focal deficit Psych/Mental Status: Mental status NL, Mood NL laboratory and microbiology Laboratory Tests 05/31/25 04:49 Test 05/31/25 04:49 Range/Units Serum Glucose 94 74-106 mg/dL Assessment/Plan A 69 years female presents with GPC in blood ESBL [place] bacteremia Sepsis Influenza B positive Acute metabolic encephalopathy Hypoglycemia Dehydration Pulmonary airspace disease Small bilateral pleural effusions Abnormal LFT Hyperbilirubinemia History pancreatic cancer S/p percutaneous transhepatic biliary drain in place Recommendations: On IV Zosyn; continue Blood cultures shows ESBL [place], however repeat blood cx is showing GPCs.. unclear if its contamination ? follow ID and sensitvity otherwise for ESBL kleib, recommend midline after new cultures are confirmed hold lactulose, patient has loose stools continue Tamiflu x 5 days wbc normal Gastroenterology on board prognosis guarded X ray reviewed plan discussed with team Total time 50 minutes spent during this encounter. Thank you for the consult Dietary Evaluation Review Comments: 1) Change oral nutrition supplement from Ensure Clear to Ensure Enlive bid 2) Advance to regular diet when medically feasible 3) Encourage optimal PO intake 4) Follow-up with oncology 5) Continue to monitor I&O, labs, and skin integrity Expected Outcomes/Goals: 1) appetite and labs to improve 2) f/u in 3-5 days Plan discussed with: ANGEL Rodarte MD May 31, 2025 09:16
--- NOTE | 2025-05-31 16:16 | DVHPN2 ---
Subjective Patient's Gram-negative bacteremia culture sensitivity came back ESBL sensitive to Zosyn and ertapenem and meropenem. Patient shahnaz Gonzales has a came back positive for Gram-positive cocci in chains and pairs. Changes from previous H/P or p: No Changes Objective Vitals Vital Signs Date Time Temp Pulse Resp B/P (MAP) Pulse Ox O2 Delivery O2 Flow Rate FiO2 05/31/25 13:00 98.4 83 16 100/65 (77) 100 98.4 05/31/25 08:05 Room Air* 0 21 Intake/Output Intake and Output 05/31/25 07:00 Intake Total 1160 ml Output Total 600 ml Balance 560 ml Intake Oral 960 ml IV Total 200 ml Output Urine Total 500 ml Drainage Total 100 ml # Bowel Movements 6 Exam HEENT pupils are reactive positive scleral icterus Neck was supple CV is S1-S2 regular rate and rhythm Respiratory by due to diminished breath sound with basis GI positive bowel sounds Extremity no edema 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 Medications Current Medications Medications Dose Ordered Sig/Aayush Route Start Time Stop Time Status Last Admin Dose Admin Docusate Sodium 100 mg BIDPRN PRN PO 05/27/25 01:45 Acetaminophen 650 mg Q6HP PRN PO 05/27/25 01:45 Ondansetron HCl 4 mg Q4HP PRN IV 05/27/25 01:45 Nitroglycerin 0.4 mg Q5MINP PRN SL 05/27/25 01:45 Morphine Sulfate 2 mg Q30M PRN IV 05/27/25 01:45 05/28/25 00:22 2 MG Diagnostic Test (Pha) 1 strip Q6HR 05/27/25 06:00 05/31/25 12:07 1 STRIP Insulin Human Regular Q6HR SC 05/27/25 06:00 Dextrose 50 ml UD PRN IV 05/27/25 01:45 Piperacillin Sod/ Tazobactam Sod 100 ml @ 100 mls/hr TID IV 05/27/25 06:00 05/31/25 14:07 100 MLS/HR Pantoprazole Sodium 40 mg DAILY IV 05/27/25 10:00 05/31/25 09:59 40 MG Morphine Sulfate 2 mg Q4HPRN PRN IV 05/27/25 02:00 05/31/25 07:03 2 MG Albuterol 2.5 mg Q4HPRN PRN NEB 05/27/25 04:45 Cancel Ipratropium [place] 0.5 mg Q4HPRN PRN NEB 05/27/25 04:45 Cancel Lactulose 30 ml TID PO 05/27/25 16:00 05/31/25 06:37 30 ML Acetaminophen/ Hydrocodone Bitart 1 tab Q6HPRN PRN PO 05/27/25 17:30 05/29/25 04:07 1 TAB Oseltamivir Phosphate 75 mg Q12HR PO 05/28/25 22:00 06/02/25 21:59 UNV Oseltamivir Phosphate 30 mg BID PO 05/28/25 22:00 06/02/25 21:59 05/31/25 09:59 30 MG Enteral Nutritional Formula 240 ml BIDWM PO 05/29/25 18:00 05/31/25 09:59 240 ML Laboratory Results Laboratory Tests 05/31/25 04:49 Chemistry Test 05/31/25 04:49 Calcium Level 8.1 mg/dL (8.7-10.4) L Urinalysis Test 05/26/25 23:52 Urine Color Dark-yellow (Yellow) Urine Clarity Turbid (Clear) H Urine pH 5.5 (5.0-9.0) Urine Specific [place] 1.020 (1.001-1.035) Urine Protein Trace (Negative) H Urine Ketones Trace (Negative) Urine Blood Negative /uL (Negative) Urine Nitrite Negative (Negative) Urine Bilirubin 2+ (Negative) H Urine Urobilinogen Normal mg/dL (Negative) Urine Leukocyte Esterase Negative /uL (Negative) Urine RBC 1 /hpf (0 - 4) Urine Microscopic WBC < 1 /HPF (0-5) Urine Squamous Epithelial Cells Few /hpf (<5) Urine Bacteria Few /hpf (None Seen) H Urine Glucose Normal mg/dL (Normal) Microbiology Microbiology Date/Time Source Procedure Growth Status 05/30/25 19:23 Blood Blood Culture - Preliminary Resulted Assessment/Plan Assessment/Plan 69-year-old female with a known history of pancreatic cancer, stomach cancer was brought into the ER with generalized weakness for last three days found to have 1. Acute metabolic encephalopathy , resolved 2. Biliary obstruction status post percutaneous transhepatic biliary drain placement at higher level of care in March. 3. Transaminitis 4. Hyperbilirubinemia 5. Pancreatic cancer 6. Hypoglycemia 7. Lactic acidosis 8. Arrange just asked her to pulmonary consolidation 9. Bilateral pleural effusion 10. Gram-negative bacteremia, with ESBL 11. Gram-positive bacteremia -2D echo to rule out endocarditis -f repeat blood cultures, obtain midline, biliary IV antibiotics for home continue IV Zosyn for now -continue antibiotics, contact isolation had respiratory isolation for influenza B, discharge plan after physical therapy evaluation and treatment. Plan discussed with: Patient My Orders Orders - EVERT EMMANUEL MD Procedure Category Date Status Time Change Midline JOYCE 05/30/25 In Process Dressing Q7 Day 17:45 Blood Culture KYLE 05/31/25 In Process 13:51 Echo 2d Mode Cardiac US 05/31/25 Transmitted DOP 16:13 Date of Service: May 31, 2025 Billing Provider: EVERT EMMANUEL MD Common Visit Codes: NOT BILLABLE EVERT EMMANUEL MD May 31, 2025 16:16
--- NOTE | 2025-05-31 17:41 | DVHPN2 ---
Progress Note - Dictate Date Seen: May 31, 2025 Medical Necessity Reason Pt with a Central, PICC or Fol: Yes The following are medically ne: Gaffney Catheter Reason for gaffney catheter: Strict I&O Subjective ID consult appreciated Patient on antibiotics for Klebsiella pneumoniae septicemia There was some leakage of bile around the biliary drain Hemoglobin stable at 10.6, liver enzymes are trending down including bilirubin vital signs Vital Sign Date Time Temp Pulse Resp B/P (MAP) Pulse Ox O2 Delivery O2 Flow Rate FiO2 05/31/25 16:54 97.2 83 16 97/61 (73) 100 97.2 05/31/25 08:05 Room Air* 0 21 Total Intake and Output 05/30/25 05/30/25 05/31/25 15:00 23:00 07:00 Intake Total 100 ml 580 ml 480 ml Output Total 100 ml 300 ml 200 ml Balance 0 ml 280 ml 280 ml medications Current Medications Medications Dose Ordered Sig/Aayush Route Start Time Stop Time Status Last Admin Dose Admin Docusate Sodium 100 mg BIDPRN PRN PO 05/27/25 01:45 Acetaminophen 650 mg Q6HP PRN PO 05/27/25 01:45 Ondansetron HCl 4 mg Q4HP PRN IV 05/27/25 01:45 Nitroglycerin 0.4 mg Q5MINP PRN SL 05/27/25 01:45 Morphine Sulfate 2 mg Q30M PRN IV 05/27/25 01:45 05/28/25 00:22 2 MG Diagnostic Test (Pha) 1 strip Q6HR 05/27/25 06:00 05/31/25 17:36 1 STRIP Insulin Human Regular Q6HR SC 05/27/25 06:00 Dextrose 50 ml UD PRN IV 05/27/25 01:45 Piperacillin Sod/ Tazobactam Sod 100 ml @ 100 mls/hr TID IV 05/27/25 06:00 05/31/25 14:07 100 MLS/HR Pantoprazole Sodium 40 mg DAILY IV 05/27/25 10:00 05/31/25 09:59 40 MG Morphine Sulfate 2 mg Q4HPRN PRN IV 05/27/25 02:00 05/31/25 07:03 2 MG Albuterol 2.5 mg Q4HPRN PRN NEB 05/27/25 04:45 Cancel Ipratropium [place] 0.5 mg Q4HPRN PRN NEB 05/27/25 04:45 Cancel Lactulose 30 ml TID PO 05/27/25 16:00 05/31/25 06:37 30 ML Acetaminophen/ Hydrocodone Bitart 1 tab Q6HPRN PRN PO 05/27/25 17:30 05/29/25 04:07 1 TAB Oseltamivir Phosphate 75 mg Q12HR PO 05/28/25 22:00 06/02/25 21:59 UNV Oseltamivir Phosphate 30 mg BID PO 05/28/25 22:00 06/02/25 21:59 05/31/25 09:59 30 MG Enteral Nutritional Formula 240 ml BIDWM PO 05/29/25 18:00 05/31/25 09:59 240 ML objective Gen - mild conjuctival pallor, positive scleral icterus Skin - Patients skin is warm and dry. HEENT - normocephalic, atraumatic, dry mucous membranes. Neck - supple, no lymphadenopathy Pulmonary - B/L equal air entry with vesicular breath sounds cardiovascular - regular S1,S2 heard GI - soft abdomen with tenderness to palpation. Bowel sounds normoactive. Neurological - Patient is alert and oriented x3. No motor or sensory weakness laboratory and microbiology Laboratory Tests 05/31/25 04:49 Test 05/31/25 04:49 Range/Units Serum Glucose 94 74-106 mg/dL Problems(with codes): (1) Influenza B (2) Stomach cancer (3) Pancreatic cancer (4) Generalized weakness (5) Intractable abdominal pain (6) Dehydration (7) Abdominal pain of unknown etiology Prognosis Plan Reinforce dressing around the biliary drain Continue IV antibiotics Advance diet as tolerated Continue supportive care Repeat CMP in a.m. and monitor labs Dietary Evaluation Review Comments: 1) Change oral nutrition supplement from Ensure Clear to Ensure Enlive bid 2) Advance to regular diet when medically feasible 3) Encourage optimal PO intake 4) Follow-up with oncology 5) Continue to monitor I&O, labs, and skin integrity Expected Outcomes/Goals: 1) appetite and labs to improve 2) f/u in 3-5 days Plan discussed with: Patient, Other (Nurse Nate) SHAMIR CARDOZO MD May 31, 2025 17:41
--- NOTE | 2025-05-31 18:30 | DVHPN2 ---
Progress Note - Dictate Date Seen: May 31, 2025 Medical Necessity Reason Pt with a Central, PICC or Fol: Yes The following are medically ne: Gaffney Catheter Reason for gaffney catheter: Strict I&O Subjective Patient seen and examined at bedside. Breathing comfortably on room air. Overnight events reviewed. vital signs Vital Sign Date Time Temp Pulse Resp B/P (MAP) Pulse Ox O2 Delivery O2 Flow Rate FiO2 05/31/25 16:54 97.2 83 16 97/61 (73) 100 97.2 05/31/25 08:05 Room Air* 0 21 Total Intake and Output 05/30/25 05/30/25 05/31/25 15:00 23:00 07:00 Intake Total 100 ml 580 ml 480 ml Output Total 100 ml 300 ml 200 ml Balance 0 ml 280 ml 280 ml medications Current Medications Medications Dose Ordered Sig/Aayush Route Start Time Stop Time Status Last Admin Dose Admin Docusate Sodium 100 mg BIDPRN PRN PO 05/27/25 01:45 Acetaminophen 650 mg Q6HP PRN PO 05/27/25 01:45 Ondansetron HCl 4 mg Q4HP PRN IV 05/27/25 01:45 Nitroglycerin 0.4 mg Q5MINP PRN SL 05/27/25 01:45 Morphine Sulfate 2 mg Q30M PRN IV 05/27/25 01:45 05/28/25 00:22 2 MG Diagnostic Test (Pha) 1 strip Q6HR 05/27/25 06:00 05/31/25 17:36 1 STRIP Insulin Human Regular Q6HR SC 05/27/25 06:00 Dextrose 50 ml UD PRN IV 05/27/25 01:45 Piperacillin Sod/ Tazobactam Sod 100 ml @ 100 mls/hr TID IV 05/27/25 06:00 05/31/25 14:07 100 MLS/HR Pantoprazole Sodium 40 mg DAILY IV 05/27/25 10:00 05/31/25 09:59 40 MG Morphine Sulfate 2 mg Q4HPRN PRN IV 05/27/25 02:00 05/31/25 07:03 2 MG Albuterol 2.5 mg Q4HPRN PRN NEB 05/27/25 04:45 Cancel Ipratropium [place] 0.5 mg Q4HPRN PRN NEB 05/27/25 04:45 Cancel Lactulose 30 ml TID PO 05/27/25 16:00 05/31/25 06:37 30 ML Acetaminophen/ Hydrocodone Bitart 1 tab Q6HPRN PRN PO 05/27/25 17:30 05/29/25 04:07 1 TAB Oseltamivir Phosphate 75 mg Q12HR PO 05/28/25 22:00 06/02/25 21:59 UNV Oseltamivir Phosphate 30 mg BID PO 05/28/25 22:00 06/02/25 21:59 05/31/25 09:59 30 MG Enteral Nutritional Formula 240 ml BIDWM PO 05/29/25 18:00 05/31/25 09:59 240 ML objective Gen.: Patient lying in bed in no apparent distress. Breathing on room air. Head: Normocephalic, atraumatic. Eyes: EOMI/PERRLA. Ears: Normal hearing. Normal anatomy. Neck/trachea: Trachea midline, supple. Nose: Normal external anatomy. Mouth: Moist mucous membranes. Chest: Decreased air entry bilaterally. No wheezing or rhonchi. Cardiovascular: Positive S1, positive S2. Regular rate and rhythm. Abdomen: Positive bowel sounds in all 4 quadrants. Soft, non-tender, non- distended. : Deferred. Rectal: Deferred. Skin: Warm, dry. Intact. Extremities: 2+ radial pulses bilaterally. No lower extremity edema. Neuro: Awake, alert, oriented x3. No gross motor or sensory deficits. Cranial nerves II through XII intact. Gait not assessed. laboratory and microbiology Laboratory Tests 05/31/25 04:49 Test 05/31/25 04:49 Range/Units Serum Glucose 94 74-106 mg/dL Assessment/Plan Impression: Acute metabolic encephalopathy Sepsis Influenza B Pleural effusion Atelectasis Pancreatic cancer S/p percutaneous transhepatic biliary drain placement Events: Remains on room air No distress Supplemental oxygen PRN Continue bronchodilators Incentive spirometry Continue antibiotics F/u cultures: Gram-negative bacteremia culture and sensitivity came back ESBL sensitive to Zosyn and ertapenem and meropenem. Awaiting repeat blood culture results. On oseltamivir Head of bed elevation Aspiration precautions Pain control Avoid oversedation Protonix for GI ppx GI recommendations appreciated Patient is stable for discharge from the pulmonary standpoint. Disposition per hospitalist. Labs and imaging reviewed. Rest of plan as noted below. Plan: Supplemental oxygen PRN Titrate to keep O2 sats above 92%. Continue antibiotics Follow up cultures ID recommendations appreciated. Bronchodilators PRN. Incentive spirometry for atelectasis Protonix for GI ppx Monitor hemoglobin Transfuse if less than 7.0 g/dL. Accu-Cheks, ISS PRN. Head of bed elevation Aspiration precautions Pain control Avoid oversedation Monitor renal function. Monitor electrolytes. Supplement as necessary. Monitor ins and outs. GI/DVT prophylaxis. Prognosis: Guarded given patient's multiple co-morbidities. Rest of plan per hospitalist and other consultants. Thank you, VELVET Avila, for allowing me to participate in this patient's care. Further recommendations will depend on the patient's clinical course. Please do not hesitate to contact me if you have any questions or concerns. This medical document was created using an electronic medical record system with [employer] dictation system. Although these documentations are being carefully reviewed, there may still be some phonetic and typographical changes. The errors are purely typographical, due to imperfection on the software program, and do not reflect any compromise in the patient's medical care. Dietary Evaluation Review Comments: 1) Change oral nutrition supplement from Ensure Clear to Ensure Enlive bid 2) Advance to regular diet when medically feasible 3) Encourage optimal PO intake 4) Follow-up with oncology 5) Continue to monitor I&O, labs, and skin integrity Expected Outcomes/Goals: 1) appetite and labs to improve 2) f/u in 3-5 days Plan discussed with: Patient, Other (GABRIELA Sullivan) KENNA [facility] May 31, 2025 18:30
[2025-06-01] VITALS (9 sets, daily range): BP systolic 96–124; BP diastolic 52–70; PULSE 84–123; RESP 16–20; TEMP 97.2–98.1; O2SAT 95–100
[2025-06-01 06:48] LABS: Anion Gap 16 (5-15); Blood Urea Nitrogen 14 mg/dL (9-23); Glucose 78 mg/dL (74-106); Sodium 143 mmol/L (136-145)
[2025-06-01 07:06] LABS: Alanine Aminotransferase 175 U/L (7-40); Albumin 1.9 g/dL (3.2-4.8); Alkaline Phosphatase 132 U/L (46-116); BUN/Creatinine Ratio 21.5 (10.0-20.0); Bilirubin, Total 11.5 mg/dL (0.2-1.0); Calcium 8.0 mg/dL (8.7-10.4); Carbon Dioxide 18 mmol/L (20-31); Chloride 109 mmol/L (98-107); Potassium 3.0 mmol/L (3.5-5.1); Total Protein 5.2 g/dL (5.7-8.2)
--- NOTE | 2025-06-01 07:54 | DVHPN2 ---
Progress Note - Dictate Date Seen: Jun 01, 2025 Medical Necessity Reason Pt with a Central, PICC or Fol: Yes The following are medically ne: Gaffney Catheter Reason for gaffney catheter: Strict I&O Subjective Patient complains of 5 times loose stools patient is on lactulose repeat blood cx is showing GPC in chains and pairs vital signs Vital Sign Date Time Temp Pulse Resp B/P (MAP) Pulse Ox O2 Delivery O2 Flow Rate FiO2 06/01/25 05:00 97.9 84 20 124/70 (88) 100 97.9 05/31/25 20:00 Room Air* 0 21 Total Intake and Output 05/31/25 05/31/25 06/01/25 15:00 23:00 07:00 Intake Total 100 ml 350 ml 250 ml Output Total 100 ml 200 ml Balance 100 ml 250 ml 50 ml medications Current Medications Medications Dose Ordered Sig/Aayush Route Start Time Stop Time Status Last Admin Dose Admin Docusate Sodium 100 mg BIDPRN PRN PO 05/27/25 01:45 Acetaminophen 650 mg Q6HP PRN PO 05/27/25 01:45 Ondansetron HCl 4 mg Q4HP PRN IV 05/27/25 01:45 Nitroglycerin 0.4 mg Q5MINP PRN SL 05/27/25 01:45 Morphine Sulfate 2 mg Q30M PRN IV 05/27/25 01:45 05/28/25 00:22 2 MG Diagnostic Test (Pha) 1 strip Q6HR 05/27/25 06:00 06/01/25 06:00 1 STRIP Insulin Human Regular Q6HR SC 05/27/25 06:00 Dextrose 50 ml UD PRN IV 05/27/25 01:45 Piperacillin Sod/ Tazobactam Sod 100 ml @ 100 mls/hr TID IV 05/27/25 06:00 06/01/25 06:00 100 MLS/HR Pantoprazole Sodium 40 mg DAILY IV 05/27/25 10:00 05/31/25 09:59 40 MG Morphine Sulfate 2 mg Q4HPRN PRN IV 05/27/25 02:00 05/31/25 07:03 2 MG Albuterol 2.5 mg Q4HPRN PRN NEB 05/27/25 04:45 Cancel Ipratropium [place] 0.5 mg Q4HPRN PRN NEB 05/27/25 04:45 Cancel Lactulose 30 ml TID PO 05/27/25 16:00 05/31/25 06:37 30 ML Acetaminophen/ Hydrocodone Bitart 1 tab Q6HPRN PRN PO 05/27/25 17:30 05/29/25 04:07 1 TAB Oseltamivir Phosphate 75 mg Q12HR PO 05/28/25 22:00 06/02/25 21:59 UNV Oseltamivir Phosphate 30 mg BID PO 05/28/25 22:00 06/02/25 21:59 05/31/25 22:00 30 MG Enteral Nutritional Formula 240 ml BIDWM PO 05/29/25 18:00 05/31/25 18:49 240 ML objective General Appearance: Alert , no acute distress HEENT: Atraumatic, PERRLA, EOMI, Other (Icteric sclera) Respiratory: Clear to auscultation, Normal air movement Cardiovascular: Normal S1, Normal S2, Abdominal: Soft, Other (Biliary drain in place. Drainage from insertion site) Extremities: No clubbing, No cyanosis, No edema Skin: No breakdown Neuro: no focal deficit Psych/Mental Status: Mental status NL, Mood NL laboratory and microbiology Laboratory Tests 06/01/25 04:37 05/31/25 04:49 Test 06/01/25 04:37 Range/Units Serum Glucose 78 74-106 mg/dL Assessment/Plan A 69 years female presents with GPC in blood ESBL [place] bacteremia Sepsis Influenza B positive Acute metabolic encephalopathy Hypoglycemia Dehydration Pulmonary airspace disease Small bilateral pleural effusions Abnormal LFT Hyperbilirubinemia History pancreatic cancer S/p percutaneous transhepatic biliary drain in place Recommendations: On IV Zosyn; continue add Vancomycin for now, follow new sets of blood cultures Blood cultures shows ESBL [place], however repeat blood cx is showing GPCs.. unclear if its contamination ? follow ID and sensitvity otherwise for ESBL kleib, recommend midline after new cultures are confirmed hold lactulose, patient has loose stools continue Tamiflu x 5 days wbc normal Gastroenterology on board prognosis guarded X ray reviewed plan discussed with team Total time 50 minutes spent during this encounter. Thank you for the consult Dietary Evaluation Review Comments: 1) Change oral nutrition supplement from Ensure Clear to Ensure Enlive bid 2) Advance to regular diet when medically feasible 3) Encourage optimal PO intake 4) Follow-up with oncology 5) Continue to monitor I&O, labs, and skin integrity Expected Outcomes/Goals: 1) appetite and labs to improve 2) f/u in 3-5 days Plan discussed with: ANGEL Rodarte MD Jun 01, 2025 07:54
--- NOTE | 2025-06-01 16:28 | DVHPN2 ---
Subjective Patient's Gram-negative bacteremia culture sensitivity came back ESBL sensitive to Zosyn and ertapenem and meropenem. Patient shahnaz Gonzales has a came back positive for Gram-positive cocci in chains and pairs. Changes from previous H/P or p: No Changes Objective Vitals Vital Signs Date Time Temp Pulse Resp B/P (MAP) Pulse Ox O2 Delivery O2 Flow Rate FiO2 06/01/25 08:39 97.4 89 16 96/70 (79) 100 97.4 05/31/25 20:00 Room Air* 0 21 Intake/Output Intake and Output 06/01/25 07:00 Intake Total 700 ml Output Total 300 ml Balance 400 ml Intake Oral 400 ml IV Total 300 ml Output Urine Total 300 ml # Bowel Movements 1 Exam HEENT pupils are reactive positive scleral icterus Neck was supple CV is S1-S2 regular rate and rhythm Respiratory by due to diminished breath sound with basis GI positive bowel sounds Extremity no edema STATEMENT SERVICES REPRESENTATIVE no motor deficit Medications Current Medications Medications Dose Ordered Sig/Aayush Route Start Time Stop Time Status Last Admin Dose Admin Docusate Sodium 100 mg BIDPRN PRN PO 05/27/25 01:45 Acetaminophen 650 mg Q6HP PRN PO 05/27/25 01:45 Ondansetron HCl 4 mg Q4HP PRN IV 05/27/25 01:45 Nitroglycerin 0.4 mg Q5MINP PRN SL 05/27/25 01:45 Morphine Sulfate 2 mg Q30M PRN IV 05/27/25 01:45 05/28/25 00:22 2 MG Diagnostic Test (Pha) 1 strip Q6HR 05/27/25 06:00 06/01/25 12:00 1 STRIP Insulin Human Regular Q6HR SC 05/27/25 06:00 Dextrose 50 ml UD PRN IV 05/27/25 01:45 Piperacillin Sod/ Tazobactam Sod 100 ml @ 100 mls/hr TID IV 05/27/25 06:00 06/01/25 15:31 100 MLS/HR Pantoprazole Sodium 40 mg DAILY IV 05/27/25 10:00 06/01/25 11:58 40 MG Morphine Sulfate 2 mg Q4HPRN PRN IV 05/27/25 02:00 05/31/25 07:03 2 MG Albuterol 2.5 mg Q4HPRN PRN NEB 05/27/25 04:45 Cancel Ipratropium [place] 0.5 mg Q4HPRN PRN NEB 05/27/25 04:45 Cancel Lactulose 30 ml TID PO 05/27/25 16:00 05/31/25 06:37 30 ML Acetaminophen/ Hydrocodone Bitart 1 tab Q6HPRN PRN PO 05/27/25 17:30 05/29/25 04:07 1 TAB Oseltamivir Phosphate 75 mg Q12HR PO 05/28/25 22:00 06/02/25 21:59 UNV Oseltamivir Phosphate 30 mg BID PO 05/28/25 22:00 06/02/25 21:59 06/01/25 11:57 30 MG Enteral Nutritional Formula 240 ml BIDWM PO 05/29/25 18:00 06/01/25 08:00 240 ML Furosemide 40 mg DAILY IV 06/02/25 10:00 Laboratory Results Laboratory Tests 05/31/25 04:49 06/01/25 04:37 Chemistry Test 06/01/25 04:37 Albumin 1.9 g/dL (3.2-4.8) L Calcium Level 8.0 mg/dL (8.7-10.4) L Total Protein 5.2 g/dL (5.7-8.2) L LFT Test 06/01/25 04:37 Alanine Aminotransferase (ALT) 175 U/L (7-40) H Alkaline Phosphatase 132 U/L (46-116) H Aspartate Amino Transferase (AST) 165 U/L (13-40) H Total Bilirubin 11.5 mg/dL (0.2-1.0) H Urinalysis Test 05/26/25 23:52 Urine Color Dark-yellow (Yellow) Urine Clarity Turbid (Clear) H Urine pH 5.5 (5.0-9.0) Urine Specific [place] 1.020 (1.001-1.035) Urine Protein Trace (Negative) H Urine Ketones Trace (Negative) Urine Blood Negative /uL (Negative) Urine Nitrite Negative (Negative) Urine Bilirubin 2+ (Negative) H Urine Urobilinogen Normal mg/dL (Negative) Urine Leukocyte Esterase Negative /uL (Negative) Urine RBC 1 /hpf (0 - 4) Urine Microscopic WBC < 1 /HPF (0-5) Urine Squamous Epithelial Cells Few /hpf (<5) Urine Bacteria Few /hpf (None Seen) H Urine Glucose Normal mg/dL (Normal) Microbiology Microbiology Date/Time Source Procedure Growth Status 05/31/25 14:15 Blood Blood Culture - Preliminary NO GROWTH AFTER 24 HOURS OF INCUBATION. Resulted Assessment/Plan Assessment/Plan 69-year-old female with a known history of pancreatic cancer, stomach cancer was brought into the ER with generalized weakness for last three days found to have 1. Acute metabolic encephalopathy , resolved 2. Biliary obstruction status post percutaneous transhepatic biliary drain placement at higher level of care in March. 3. Transaminitis 4. Hyperbilirubinemia 5. Pancreatic cancer 6. Hypoglycemia 7. Lactic acidosis 8. Arrange just asked her to pulmonary consolidation 9. Bilateral pleural effusion 10. Gram-negative bacteremia, with ESBL 11. Gram-positive bacteremia -2D echo to rule out endocarditis -f repeat blood cultures, obtain midline, biliary IV antibiotics for home continue IV Zosyn for now -continue antibiotics, contact isolation had respiratory isolation for influenza B, discharge plan after physical therapy evaluation and treatment. Plan discussed with: Patient, Son My Orders Orders - EVERT EMMANUEL MD Procedure Category Date Status Time Potassium Chloride PHA 06/01/25 In Process (Potassium Chloride). 15:00 Complete Blood Count LAB 06/02/25 Verified 05:00 Comprehensive LAB 06/02/25 Verified Metabolic Panel 05:00 Furosemide Injection PHA 06/02/25 In Process (Lasix Injection) 10:00 Date of Service: Jun 01, 2025 Billing Provider: EVERT EMMANUEL MD Common Visit Codes: NOT BILLABLE EVERT EMMANUEL MD Jun 01, 2025 16:28
[2025-06-01] MEDS: FUROSEMIDE 40 MG/4 ML VIAL IV ONE (17:34)
[2025-06-01] MEDS: POTASSIUM EFFERVESENT TAB 25 MEQ PO ONE (17:34)
[2025-06-01] MEDS: POTASSIUM CHLORIDE 20 MEQ, LIDOCAINE 1% (LOCAL ANESTH.) 2 ML in SODIUM CHL 0.9% 100 ML IV ONE (19:00)
--- NOTE | 2025-06-01 19:51 | DVHPN2 ---
Progress Note - Dictate Date Seen: Jun 01, 2025 Medical Necessity Reason Pt with a Central, PICC or Fol: Yes The following are medically ne: Central Line, Gaffney Catheter Reason for gaffney catheter: Strict I&O Subjective ID consult appreciated Patient's Gram-negative bacteremia culture sensitivity came back ESBL sensitive to Zosyn and ertapenem and meropenem. Patient on antibiotics for Klebsiella pneumoniae septicemia; streptococcus ? There was some leakage of bile around the biliary drain Hemoglobin stable at 10.6, liver enzymes are trending down including bilirubin vital signs Vital Sign Date Time Temp Pulse Resp B/P (MAP) Pulse Ox O2 Delivery O2 Flow Rate FiO2 06/01/25 17:34 118/70 06/01/25 17:01 97.2 90 18 100 97.2 06/01/25 08:00 Room Air* 0 21 Total Intake and Output 05/31/25 05/31/25 06/01/25 15:00 23:00 07:00 Intake Total 100 ml 350 ml 350 ml Output Total 100 ml 200 ml Balance 100 ml 250 ml 150 ml medications Current Medications Medications Dose Ordered Sig/Aayush Route Start Time Stop Time Status Last Admin Dose Admin Docusate Sodium 100 mg BIDPRN PRN PO 05/27/25 01:45 Acetaminophen 650 mg Q6HP PRN PO 05/27/25 01:45 Ondansetron HCl 4 mg Q4HP PRN IV 05/27/25 01:45 Nitroglycerin 0.4 mg Q5MINP PRN SL 05/27/25 01:45 Morphine Sulfate 2 mg Q30M PRN IV 05/27/25 01:45 05/28/25 00:22 2 MG Diagnostic Test (Pha) 1 strip Q6HR 05/27/25 06:00 06/01/25 18:03 1 STRIP Insulin Human Regular Q6HR SC 05/27/25 06:00 Dextrose 50 ml UD PRN IV 05/27/25 01:45 Piperacillin Sod/ Tazobactam Sod 100 ml @ 100 mls/hr TID IV 05/27/25 06:00 06/01/25 15:31 100 MLS/HR Pantoprazole Sodium 40 mg DAILY IV 05/27/25 10:00 06/01/25 11:58 40 MG Morphine Sulfate 2 mg Q4HPRN PRN IV 05/27/25 02:00 05/31/25 07:03 2 MG Albuterol 2.5 mg Q4HPRN PRN NEB 05/27/25 04:45 Cancel Ipratropium [place] 0.5 mg Q4HPRN PRN NEB 05/27/25 04:45 Cancel Lactulose 30 ml TID PO 05/27/25 16:00 05/31/25 06:37 30 ML Acetaminophen/ Hydrocodone Bitart 1 tab Q6HPRN PRN PO 05/27/25 17:30 05/29/25 04:07 1 TAB Oseltamivir Phosphate 75 mg Q12HR PO 05/28/25 22:00 06/02/25 21:59 UNV Oseltamivir Phosphate 30 mg BID PO 05/28/25 22:00 06/02/25 21:59 06/01/25 11:57 30 MG Enteral Nutritional Formula 240 ml BIDWM PO 05/29/25 18:00 06/01/25 17:34 240 ML Furosemide 40 mg DAILY IV 06/02/25 10:00 objective Gen - mild conjuctival pallor, positive scleral icterus Skin - Patients skin is warm and dry. HEENT - normocephalic, atraumatic, dry mucous membranes. Neck - supple, no lymphadenopathy Pulmonary - B/L equal air entry with vesicular breath sounds cardiovascular - regular S1,S2 heard GI - soft abdomen with tenderness to palpation. Bowel sounds normoactive. Neurological - Patient is alert and oriented x3. No motor or sensory weakness laboratory and microbiology Laboratory Tests 06/01/25 04:37 05/31/25 04:49 Test 06/01/25 04:37 Range/Units Serum Glucose 78 74-106 mg/dL Problems(with codes): (1) Intractable abdominal pain (2) Dehydration (3) Influenza B (4) Stomach cancer (5) Pancreatic cancer (6) Generalized weakness (7) Klebsiella infection (8) Sepsis Prognosis Plan Continue to monitor labs Monitor biliary drainage output Continue IV antibiotics Patient is on full liquid diet, appetite poor; two bowel movements recorded Start Megace, IV ppi Possible repeat abd imaging in the next 24-48 hours to confirm if the biliary drain is in place and not displaced Overall prognosis remains guarded and consider hospice evaluation Dietary Evaluation Review Comments: 1) Change oral nutrition supplement from Ensure Clear to Ensure Enlive bid 2) Advance to regular diet when medically feasible 3) Encourage optimal PO intake 4) Follow-up with oncology 5) Continue to monitor I&O, labs, and skin integrity Expected Outcomes/Goals: 1) appetite and labs to improve 2) f/u in 3-5 days Plan discussed with: Patient SHAMIR CARDOZO MD Jun 01, 2025 19:51
--- NOTE | 2025-06-01 22:25 | DVHSR ---
APPROVED REPORT EXAM: Two-dimensional and M-mode echocardiogram with Doppler and color Doppler. Blood Pressure: 124/70 mmHg INDICATION ruled out endocarditis RISK FACTORS Height: 5'3, Weight: 129 DIMENSIONS LVDd3.3 (3.8-5.7cm)LA (2D)3.3 (1.9-4.0cm)Aortic Root3.1 (2.0-3.7cm) LVDs2.4 (2.5-4.0cm)LA (MM) (1.9-4.0cm)Aortic Cusp Exc1.7 (1.5-2.0cm) EF (%) 55.0 (55-70%)Rt. Atrium2.4 (1.9-4.0cm)Asc. Aorta cm IVSd0.8 (0.7-1.1cm)RV (D) (1.8-2.4cm) PWd0.7 (0.7-1.1cm) Mitral Valve MitralMitral Stenosis E wavem/sMV Mean GR.1mmHg A wavem/sMV Peak GR.2mmHg E/A ratio0.02D MVAcm2 Aortic Valve Aortic ValveAortic Stenosis LVOT Diameter2.2 (1.8-2.4cm)Doppler AVAcm2 Other Information Quality : Technically LimitedRhythm : Technically limited study due to body habitus.patient position. pt unable to lay down Conclusion LV EF IS 65% AND IS NORMAL MODERATELY DILATED RV NORMAL VALVES NO EFFUSION
[2025-06-01 23:27] LABS: Urine Budding Yeast OCCASIONAL /hpf (None Seen); Urine Protein, UAD Negative (Negative)
--- NOTE | 2025-06-01 23:29 | DVHPN2 ---
Progress Note - Dictate Date Seen: Jun 01, 2025 Medical Necessity Reason Pt with a Central, PICC or Fol: Yes The following are medically ne: Central Line, Gaffney Catheter Reason for gaffney catheter: Strict I&O Subjective Patient seen and examined at bedside. Breathing comfortably on room air. Overnight events reviewed. vital signs Vital Sign Date Time Temp Pulse Resp B/P (MAP) Pulse Ox O2 Delivery O2 Flow Rate FiO2 06/01/25 21:00 98.1 107 20 103/70 (81) 100 98.1 06/01/25 08:00 Room Air* 0 21 Total Intake and Output 05/31/25 05/31/25 06/01/25 15:00 23:00 07:00 Intake Total 100 ml 350 ml 350 ml Output Total 100 ml 200 ml Balance 100 ml 250 ml 150 ml medications Current Medications Medications Dose Ordered Sig/Aayush Route Start Time Stop Time Status Last Admin Dose Admin Docusate Sodium 100 mg BIDPRN PRN PO 05/27/25 01:45 Acetaminophen 650 mg Q6HP PRN PO 05/27/25 01:45 Ondansetron HCl 4 mg Q4HP PRN IV 05/27/25 01:45 Nitroglycerin 0.4 mg Q5MINP PRN SL 05/27/25 01:45 Morphine Sulfate 2 mg Q30M PRN IV 05/27/25 01:45 05/28/25 00:22 2 MG Diagnostic Test (Pha) 1 strip Q6HR 05/27/25 06:00 06/01/25 18:03 1 STRIP Insulin Human Regular Q6HR SC 05/27/25 06:00 Dextrose 50 ml UD PRN IV 05/27/25 01:45 Piperacillin Sod/ Tazobactam Sod 100 ml @ 100 mls/hr TID IV 05/27/25 06:00 06/01/25 15:31 100 MLS/HR Pantoprazole Sodium 40 mg DAILY IV 05/27/25 10:00 06/01/25 11:58 40 MG Morphine Sulfate 2 mg Q4HPRN PRN IV 05/27/25 02:00 05/31/25 07:03 2 MG Albuterol 2.5 mg Q4HPRN PRN NEB 05/27/25 04:45 Cancel Ipratropium [place] 0.5 mg Q4HPRN PRN NEB 05/27/25 04:45 Cancel Lactulose 30 ml TID PO 05/27/25 16:00 05/31/25 06:37 30 ML Acetaminophen/ Hydrocodone Bitart 1 tab Q6HPRN PRN PO 05/27/25 17:30 05/29/25 04:07 1 TAB Oseltamivir Phosphate 75 mg Q12HR PO 05/28/25 22:00 06/02/25 21:59 UNV Oseltamivir Phosphate 30 mg BID PO 05/28/25 22:00 06/02/25 21:59 06/01/25 11:57 30 MG Enteral Nutritional Formula 240 ml BIDWM PO 05/29/25 18:00 06/01/25 17:34 240 ML Furosemide 40 mg DAILY IV 06/02/25 10:00 Megestrol Acetate 400 mg DAILY PO 06/02/25 10:00 objective Gen.: Patient lying in bed in no apparent distress. Breathing on room air. Head: Normocephalic, atraumatic. Eyes: EOMI/PERRLA. Ears: Normal hearing. Normal anatomy. Neck/trachea: Trachea midline, supple. Nose: Normal external anatomy. Mouth: Moist mucous membranes. Chest: Decreased air entry bilaterally. No wheezing or rhonchi. Cardiovascular: Positive S1, positive S2. Regular rate and rhythm. Abdomen: Positive bowel sounds in all 4 quadrants. Soft, non-tender, non- distended. : Deferred. Rectal: Deferred. Skin: Warm, dry. Intact. Extremities: 2+ radial pulses bilaterally. No lower extremity edema. Neuro: Awake, alert, oriented x3. No gross motor or sensory deficits. Cranial nerves II through XII intact. Gait not assessed. laboratory and microbiology Laboratory Tests 06/01/25 04:37 05/31/25 04:49 Test 06/01/25 04:37 Range/Units Serum Glucose 78 74-106 mg/dL Assessment/Plan Impression: Acute metabolic encephalopathy Sepsis Influenza B Pleural effusion Atelectasis Pancreatic cancer S/p percutaneous transhepatic biliary drain placement Events: Remains on room air No distress Supplemental oxygen PRN Continue bronchodilators Incentive spirometry Continue antibiotics F/u cultures: Bacteremia with blood cultures positive for gram-positive cocci Repeat blood culture results remain positive. Follow up ID recommendations Positive influenza B - On oseltamivir course Head of bed elevation Aspiration precautions Pain control Avoid oversedation Pain control Avoid oversedation Protonix for GI ppx GI recommendations appreciated Get FOBT Monitor hemoglobin Diurese with Lasix Monitor renal function. Monitor electrolytes. Supplement as necessary. Potassium supplementation Monitor ins and outs. Patient with poor prognosis. Disposition per hospitalist. Labs and imaging reviewed. Rest of plan as noted below. Plan: Supplemental oxygen PRN Titrate to keep O2 sats above 92%. Continue antibiotics Bacteremia - Follow up cultures Folow up ID recommendations Bronchodilators PRN. Incentive spirometry for atelectasis Protonix for GI ppx Monitor hemoglobin Transfuse if less than 7.0 g/dL. Accu-Cheks, ISS PRN. Head of bed elevation Aspiration precautions Pain control Avoid oversedation Diurese with Lasix Monitor renal function. Monitor electrolytes. Supplement as necessary. Monitor ins and outs. GI/DVT prophylaxis. Prognosis: Guarded given patient's multiple co-morbidities. Rest of plan per hospitalist and other consultants. Thank you, VELVET Avila, for allowing me to participate in this patient's care. Further recommendations will depend on the patient's clinical course. Please do not hesitate to contact me if you have any questions or concerns. This medical document was created using an electronic medical record system with [employer] dictation system. Although these documentations are being carefully reviewed, there may still be some phonetic and typographical changes. The errors are purely typographical, due to imperfection on the software program, and do not reflect any compromise in the patient's medical care. Dietary Evaluation Review Comments: 1) Change oral nutrition supplement from Ensure Clear to Ensure Enlive bid 2) Advance to regular diet when medically feasible 3) Encourage optimal PO intake 4) Follow-up with oncology 5) Continue to monitor I&O, labs, and skin integrity Expected Outcomes/Goals: 1) appetite and labs to improve 2) f/u in 3-5 days Plan discussed with: Patient, Other (GABRIELA Crooks) [facility] Jun 01, 2025 23:29
[2025-06-02] VITALS (8 sets, daily range): BP systolic 93–100; BP diastolic 54–65; PULSE 71–116; RESP 16–20; TEMP 97.7–98.5; O2SAT 97–100
[2025-06-02] MEDS: ONDANSETRON HCL 4 MG/2 ML VIAL IV PRN (00:13)
[2025-06-02 07:41] LABS: Anion Gap 15 (5-15); Blood Urea Nitrogen 14 mg/dL (9-23); Potassium 3.6 mmol/L (3.5-5.1); Sodium 142 mmol/L (136-145)
[2025-06-02 07:47] LABS: Alanine Aminotransferase 205 U/L (7-40); Albumin 2.0 g/dL (3.2-4.8); Alkaline Phosphatase 139 U/L (46-116); Bilirubin, Total 12.4 mg/dL (0.2-1.0); Calcium 7.9 mg/dL (8.7-10.4); Carbon Dioxide 19 mmol/L (20-31); Chloride 108 mmol/L (98-107); Glucose 51 mg/dL (74-106)
[2025-06-02 07:49] LABS: BUN/Creatinine Ratio 22.2 (10.0-20.0)
[2025-06-02 07:52] LABS: Total Protein 5.7 g/dL (5.7-8.2)
--- NOTE | 2025-06-02 07:52 | DVHPN2 ---
Progress Note - Dictate Date Seen: Jun 02, 2025 Medical Necessity Reason Pt with a Central, PICC or Fol: Yes The following are medically ne: Central Line, Gaffney Catheter Reason for gaffney catheter: Strict I&O Subjective Repeat blood cx is showing GPC in chains and pairs vital signs Vital Sign Date Time Temp Pulse Resp B/P (MAP) Pulse Ox O2 Delivery O2 Flow Rate FiO2 06/02/25 05:00 97.8 94 20 100/56 (71) 100 97.8 06/01/25 20:00 Room Air* 0 21 Total Intake and Output 06/01/25 06/01/25 06/02/25 15:00 23:00 07:00 Intake Total 480 ml 518 ml Output Total 100 ml 100 ml 700 ml Balance -100 ml 380 ml -182 ml medications Current Medications Medications Dose Ordered Sig/Aayush Route Start Time Stop Time Status Last Admin Dose Admin Docusate Sodium 100 mg BIDPRN PRN PO 05/27/25 01:45 Acetaminophen 650 mg Q6HP PRN PO 05/27/25 01:45 Ondansetron HCl 4 mg Q4HP PRN IV 05/27/25 01:45 06/02/25 00:13 4 MG Nitroglycerin 0.4 mg Q5MINP PRN SL 05/27/25 01:45 Morphine Sulfate 2 mg Q30M PRN IV 05/27/25 01:45 06/02/25 00:14 2 MG Diagnostic Test (Pha) 1 strip Q6HR 05/27/25 06:00 06/02/25 06:03 1 STRIP Insulin Human Regular Q6HR SC 05/27/25 06:00 06/02/25 00:17 2 UNITS Dextrose 50 ml UD PRN IV 05/27/25 01:45 Piperacillin Sod/ Tazobactam Sod 100 ml @ 100 mls/hr TID IV 05/27/25 06:00 06/02/25 06:05 100 MLS/HR Pantoprazole Sodium 40 mg DAILY IV 05/27/25 10:00 06/01/25 11:58 40 MG Morphine Sulfate 2 mg Q4HPRN PRN IV 05/27/25 02:00 05/31/25 07:03 2 MG Albuterol 2.5 mg Q4HPRN PRN NEB 05/27/25 04:45 Cancel Ipratropium [place] 0.5 mg Q4HPRN PRN NEB 05/27/25 04:45 Cancel Lactulose 30 ml TID PO 05/27/25 16:00 05/31/25 06:37 30 ML Acetaminophen/ Hydrocodone Bitart 1 tab Q6HPRN PRN PO 05/27/25 17:30 05/29/25 04:07 1 TAB Oseltamivir Phosphate 75 mg Q12HR PO 05/28/25 22:00 06/02/25 21:59 UNV Oseltamivir Phosphate 30 mg BID PO 05/28/25 22:00 06/02/25 21:59 06/02/25 00:15 30 MG Enteral Nutritional Formula 240 ml BIDWM PO 05/29/25 18:00 06/01/25 17:34 240 ML Furosemide 40 mg DAILY IV 06/02/25 10:00 Megestrol Acetate 400 mg DAILY PO 06/02/25 10:00 objective General Appearance: Alert , no acute distress HEENT: Atraumatic, PERRLA, EOMI, Other (Icteric sclera) Respiratory: Clear to auscultation, Normal air movement Cardiovascular: Normal S1, Normal S2, Abdominal: Soft, Other (Biliary drain in place. Drainage from insertion site) Extremities: No clubbing, No cyanosis, No edema Skin: No breakdown Neuro: no focal deficit Psych/Mental Status: Mental status NL, Mood NL laboratory and microbiology Test 06/02/25 06:30 Range/Units Serum Glucose Pending Assessment/Plan A 69 years female presents with GPC in blood ESBL [place] bacteremia Sepsis Influenza B positive Acute metabolic encephalopathy Hypoglycemia Dehydration Pulmonary airspace disease Small bilateral pleural effusions Abnormal LFT Hyperbilirubinemia History pancreatic cancer S/p percutaneous transhepatic biliary drain in place Recommendations: On IV Zosyn; continue continue IV Vancomycin Blood cultures shows ESBL [place], however repeat blood cx is showing GPCs.. unclear if its contamination ? follow ID and sensitvity otherwise for ESBL kleib, recommend midline after new cultures are confirmed hold lactulose, patient has loose stools continue Tamiflu x 5 days wbc normal Gastroenterology on board prognosis guarded X ray reviewed plan discussed with team Total time 50 minutes spent during this encounter. Thank you for the consult Dietary Evaluation Review Comments: 1) Change oral nutrition supplement from Ensure Clear to Ensure Enlive bid 2) Advance to regular diet when medically feasible 3) Encourage optimal PO intake 4) Follow-up with oncology 5) Continue to monitor I&O, labs, and skin integrity Expected Outcomes/Goals: 1) appetite and labs to improve 2) f/u in 3-5 days Plan discussed with: ANGEL Rodarte MD Jun 02, 2025 07:52
[2025-06-02 09:03] LABS: Hematocrit 31.3 % (36.0-46.0); Hemoglobin 10.7 g/dL (12.2-16.2); Mean Corpuscular Hemoglobin 32.9 pg (28.0-32.0); Mean Corpuscular Volume 96.1 fL (80.0-100.0)
[2025-06-02 11:09] LABS: INR 1.59 (0.9-1.15); Partial Thromboplastin Time 44.2 SEC (24.5-34.5); Prothrombin Time 16.1 sec (9.3-11.8)
[2025-06-02 11:39] LABS: Total Cells Counted 100.0 (100)
[2025-06-02 11:40] LABS: Anisocytosis Slight
--- NOTE | 2025-06-02 12:18 | DVH ---
Indication: check biliary drain Technique: CT axial images of the abdomen and pelvis are obtained without contrast. Coronal and sagit eder reformats were obtained. Radiation Dose Information: CTDI volume is 9.92 mGy. Dose-length product is 545.67 mGy*cm Comparison: CT CT AB PEL WO CON-NO ORAL OR IV on DOS: 05/26/25, CT CT AB PEL WO CON-NO ORAL OR IV on DOS: 04/03/25, CT ABD PELVIS WO CONTRAST on DOS: 06/30/21 FINDINGS: There is limited interpretation of the abdomen and pelvis without administration of intravenous contr ast. Small to moderate bilateral pleural effusions, [id number]. Coronary artery calcificatio n disease. Bibasilar atelectasis. Adrenal glands, spleen unremarkable. Pancreatic head lesion measuring 4.7 by 4.2 cm. Dilatation of t he pancreatic duct up to 16 mm with atrophy of the pancreatic body and tail. Multiple hepatic masses replacing approximately 50% the hepatic parenchyma consistent with malignancy / metastatic disease. This includes left hepatic lobe lesions measuring 4.9 and 4.6 cm, caudate lobe lesion measuring 3.9 cm, right hepatic lobe lesions measuring 2.9, 2.9 cm. There is a right hepatic internal external biliary drainage catheter which is in similar position as the previous examination terminating in the 2nd segment of the duodenum. Stomach is partially distended. Postsurgical changes stomach. Imaged small bowel loops are normal in caliber. Moderate volume stool throughout the colon. Colonic wall thickening. No evidence for acute appendic itis. Numerous retroperitoneal lymph nodes 3.2 cm. Bladder is decompressed by [place] catheter. Multiple ut erine leiomyomas that are partially calcified up to 6.4 cm. Small amount of ascites fluid. Soft tissue edema/ anasarca. [id number] thoracolumbar degenerative disc disease. IMPRESSION: Limited evaluation without contrast. Right hepatic approach internal external biliary drainage catheter terminating within the 2nd segment of the duodenum, similar to previous examination. Pancreatic head masslike lesion measuring 4.7 cm with resultant pancreatic body and tail parenchymal atrophy, dilatation of the pancreatic duct. Multiple hepatic masses/ lesions up to 4.9 cm consistent with malignancy / metastatic disease. Small amount of ascites fluid. Mesenteric edema. Soft tissue edema / anasarca. Bilateral pleural effusions. Extensive retroperitoneal lymphadenopathy. Other findings as described.
[2025-06-02] MEDS: MEGESTROL ACET 400MG/10ML ORAL SUSP PO SCH (12:23)
[2025-06-02] MEDS: FUROSEMIDE 40 MG/4 ML VIAL IV SCH ×2 (12:51→17:58)
[2025-06-02] MEDS: ALBUMIN 25% 50 ML IV SCH (14:41)
--- NOTE | 2025-06-02 14:58 | DVHPN2 ---
Subjective Patient's Gram-negative bacteremia culture sensitivity came back ESBL sensitive to Zosyn and ertapenem and meropenem. Patient shahnaz Gonzales has a came back positive for Gram-positive cocci in chains and pairs. Changes from previous H/P or p: No Changes Objective Vitals Vital Signs Date Time Temp Pulse Resp B/P (MAP) Pulse Ox O2 Delivery O2 Flow Rate FiO2 06/02/25 13:00 97.7 78 18 97/60 (72) 99 97.7 06/01/25 20:00 Room Air* 0 21 Intake/Output Intake and Output 06/02/25 07:00 Intake Total 998 ml Output Total 900 ml Balance 98 ml Intake Oral 798 ml IV Total 200 ml Output Urine Total 800 ml Drainage Total 100 ml # Bowel Movements 3 Exam HEENT pupils are reactive positive scleral icterus Neck was supple CV is S1-S2 regular rate and rhythm Respiratory by due to diminished breath sound with basis GI positive bowel sounds Extremity no edema [employer] no motor deficit Medications Current Medications Medications Dose Ordered Sig/Aayush Route Start Time Stop Time Status Last Admin Dose Admin Docusate Sodium 100 mg BIDPRN PRN PO 05/27/25 01:45 Acetaminophen 650 mg Q6HP PRN PO 05/27/25 01:45 Ondansetron HCl 4 mg Q4HP PRN IV 05/27/25 01:45 06/02/25 00:13 4 MG Nitroglycerin 0.4 mg Q5MINP PRN SL 05/27/25 01:45 Morphine Sulfate 2 mg Q30M PRN IV 05/27/25 01:45 06/02/25 00:14 2 MG Diagnostic Test (Pha) 1 strip Q6HR 05/27/25 06:00 06/02/25 12:22 1 STRIP Insulin Human Regular Q6HR SC 05/27/25 06:00 06/02/25 00:17 2 UNITS Dextrose 50 ml UD PRN IV 05/27/25 01:45 Piperacillin Sod/ Tazobactam Sod 100 ml @ 100 mls/hr TID IV 05/27/25 06:00 06/02/25 14:41 100 MLS/HR Pantoprazole Sodium 40 mg DAILY IV 05/27/25 10:00 06/02/25 12:23 40 MG Morphine Sulfate 2 mg Q4HPRN PRN IV 05/27/25 02:00 05/31/25 07:03 2 MG Albuterol 2.5 mg Q4HPRN PRN NEB 05/27/25 04:45 Cancel Ipratropium [place] 0.5 mg Q4HPRN PRN NEB 05/27/25 04:45 Cancel Lactulose 30 ml TID PO 05/27/25 16:00 05/31/25 06:37 30 ML Acetaminophen/ Hydrocodone Bitart 1 tab Q6HPRN PRN PO 05/27/25 17:30 05/29/25 04:07 1 TAB Oseltamivir Phosphate 75 mg Q12HR PO 05/28/25 22:00 06/02/25 21:59 UNV Oseltamivir Phosphate 30 mg BID PO 05/28/25 22:00 06/02/25 21:59 06/02/25 12:23 30 MG Enteral Nutritional Formula 240 ml BIDWM PO 05/29/25 18:00 06/02/25 08:00 240 ML Megestrol Acetate 400 mg DAILY PO 06/02/25 10:00 06/02/25 12:23 400 MG Furosemide 40 mg BIDD IV 06/02/25 18:00 Albumin Human 50 ml @ 100 mls/hr Q12HR IV 06/02/25 13:45 06/03/25 22:29 06/02/25 14:41 100 MLS/HR Laboratory Results Laboratory Tests 06/02/25 06:30 06/02/25 08:18 Chemistry Test 06/02/25 06:30 Albumin 2.0 g/dL (3.2-4.8) L Calcium Level 7.9 mg/dL (8.7-10.4) L Total Protein 5.7 g/dL (5.7-8.2) Coagulation Test 06/02/25 08:18 Prothrombin Time 16.1 sec (9.3-11.8) H Prothrombin Time INR 1.59 (0.9-1.15) H Activated Partial Thromboplast Time 44.2 SEC (24.5-34.5) H LFT Test 06/02/25 06:30 Alanine Aminotransferase (ALT) 205 U/L (7-40) H Alkaline Phosphatase 139 U/L (46-116) H Aspartate Amino Transferase (AST) 221 U/L (13-40) H Total Bilirubin 12.4 mg/dL (0.2-1.0) H Urinalysis Test 06/01/25 21:30 Urine Color Yellow (Yellow) Urine Clarity Clear (Clear) Urine pH 5.5 (5.0-9.0) Urine Specific [place] 1.007 (1.001-1.035) Urine Protein Negative (Negative) Urine Ketones Negative (Negative) Urine Blood Negative /uL (Negative) Urine Nitrite Negative (Negative) Urine Bilirubin Negative (Negative) Urine Urobilinogen Normal mg/dL (Negative) Urine Leukocyte Esterase Negative /uL (Negative) Urine RBC None seen /hpf (0 - 4) Urine Microscopic WBC 2 /HPF (0-5) Urine Squamous Epithelial Cells None seen /hpf (<5) Urine Bacteria None seen /hpf (None Seen) Urine Hyaline Casts Few /lpf (0 - 2) Urine Yeast (Budding) Occasional /hpf (None Urine Glucose Normal mg/dL (Normal) Microbiology Microbiology Date/Time Source Procedure Growth Status 06/01/25 22:47 Stool Stool Culture - Preliminary Resulted 06/01/25 22:47 Stool Shiga Toxin I & II - Final Resulted 05/31/25 14:15 Blood Blood Culture - Preliminary NO GROWTH AFTER 48 HOURS OF INCUBATION. Resulted Assessment/Plan Assessment/Plan 69-year-old female with a known history of pancreatic cancer, stomach cancer was brought into the ER with generalized weakness for last three days found to have 1. Acute metabolic encephalopathy , resolved 2. Biliary obstruction status post percutaneous transhepatic biliary drain placement at higher level of care in March. 3. Transaminitis 4. Hyperbilirubinemia 5. Pancreatic cancer 6. Hypoglycemia 7. Lactic acidosis 8. Arrange just asked her to pulmonary consolidation 9. Bilateral pleural effusion 10. Gram-negative bacteremia, with ESBL 11. Gram-positive bacteremia 12. Generalized anasarca with 3+ pitting edema -add IV albumin 25% 50 g IV q.12 hour follow up by Lasix 40 IV q.12 hours, -2D echo to rule out endocarditis -f repeat blood cultures, obtain midline, biliary IV antibiotics for home continue IV Zosyn for now -continue antibiotics, contact isolation had respiratory isolation for influenza B, discharge plan after physical therapy evaluation and treatment. Plan discussed with: Patient My Orders Orders - EVERT EMMANUEL MD Procedure Category Date Status Time * Radiologist Consult CONS 06/02/25 Transmitted 09:17 Furosemide Injection PHA 06/02/25 In Process (Lasix Injection) 18:00 Albumin 25% (Albutein) PHA 06/02/25 In Process 13:45 Date of Service: Jun 02, 2025 Billing Provider: EVERT EMMANUEL MD Common Visit Codes: NOT BILLABLE EVERT EMMANUEL MD Jun 02, 2025 14:58
[2025-06-02] MEDS: VANCOMYCIN HCL 250 MG CAP PO SCH (17:41)
--- NOTE | 2025-06-02 18:41 | DVHPN2 ---
Progress Note Date Seen: Jun 02, 2025 Resident Creating Document: CORBY MENDIETA RESIDENT Medical Necessity Reason Pt with a Central, PICC or Fol: Yes The following are medically ne: Gaffney Catheter Reason for gaffney catheter: Strict I&O Subjective Review of Systems Tolerating diet well Continues to have loose bowel movements H&H is stable Stool for C diff came back positive Blood culture noted to have growth of ESBL Klebsiella pneumoniae Objective vital signs Vital Sign Date Time Temp Pulse Resp B/P (MAP) Pulse Ox O2 Delivery O2 Flow Rate FiO2 06/02/25 17:58 93/56 06/02/25 17:00 98.4 94 16 100 98.4 06/02/25 08:00 Room Air* 0 21 Total Intake and Output 06/01/25 06/01/25 06/02/25 15:00 23:00 07:00 Intake Total 480 ml 518 ml Output Total 100 ml 100 ml 700 ml Balance -100 ml 380 ml -182 ml medications Current Medications Medications Dose Ordered Sig/Aayush Route Start Time Stop Time Status Last Admin Dose Admin Docusate Sodium 100 mg BIDPRN PRN PO 05/27/25 01:45 Acetaminophen 650 mg Q6HP PRN PO 05/27/25 01:45 Ondansetron HCl 4 mg Q4HP PRN IV 05/27/25 01:45 06/02/25 00:13 4 MG Nitroglycerin 0.4 mg Q5MINP PRN SL 05/27/25 01:45 Morphine Sulfate 2 mg Q30M PRN IV 05/27/25 01:45 06/02/25 00:14 2 MG Diagnostic Test (Pha) 1 strip Q6HR 05/27/25 06:00 06/02/25 17:41 1 STRIP Insulin Human Regular Q6HR SC 05/27/25 06:00 06/02/25 00:17 2 UNITS Dextrose 50 ml UD PRN IV 05/27/25 01:45 Piperacillin Sod/ Tazobactam Sod 100 ml @ 100 mls/hr TID IV 05/27/25 06:00 06/02/25 14:41 100 MLS/HR Pantoprazole Sodium 40 mg DAILY IV 05/27/25 10:00 06/02/25 12:23 40 MG Morphine Sulfate 2 mg Q4HPRN PRN IV 05/27/25 02:00 05/31/25 07:03 2 MG Albuterol 2.5 mg Q4HPRN PRN NEB 05/27/25 04:45 Cancel Ipratropium [place] 0.5 mg Q4HPRN PRN NEB 05/27/25 04:45 Cancel Lactulose 30 ml TID PO 05/27/25 16:00 05/31/25 06:37 30 ML Acetaminophen/ Hydrocodone Bitart 1 tab Q6HPRN PRN PO 05/27/25 17:30 05/29/25 04:07 1 TAB Oseltamivir Phosphate 75 mg Q12HR PO 05/28/25 22:00 06/02/25 21:59 UNV Oseltamivir Phosphate 30 mg BID PO 05/28/25 22:00 06/02/25 21:59 06/02/25 12:23 30 MG Enteral Nutritional Formula 240 ml BIDWM PO 05/29/25 18:00 06/02/25 17:41 240 ML Megestrol Acetate 400 mg DAILY PO 06/02/25 10:00 06/02/25 12:23 400 MG Furosemide 40 mg BIDD IV 06/02/25 18:00 06/02/25 17:58 40 MG Albumin Human 50 ml @ 100 mls/hr Q12HR IV 06/02/25 13:45 06/03/25 22:29 06/02/25 14:41 100 MLS/HR Vancomycin HCl 250 mg Q6HR PO 06/02/25 18:00 06/02/25 17:41 250 MG Cholestyramine Resin 4 gm Q12HR@11,23 PO 06/02/25 23:00 Examination Gen - mild conjuctival pallor, positive scleral icterus Skin - Patients skin is warm and dry. HEENT - normocephalic, atraumatic, dry mucous membranes. Neck - supple, no lymphadenopathy Pulmonary - B/L equal air entry with vesicular breath sounds cardiovascular - regular S1,S2 heard GI - soft abdomen with tenderness to palpation. Bowel sounds normoactive. Neurological - Patient is alert and oriented x3. No motor or sensory weakness laboratory and microbiology Laboratory Tests 06/02/25 08:18 06/02/25 06:30 Test 06/02/25 06:30 Range/Units Serum Glucose 51 L 74-106 mg/dL Microbiology Date/Time Source Procedure Growth Status 06/01/25 22:47 Stool Stool Culture - Preliminary Resulted 06/01/25 22:47 Stool Shiga Toxin I & II - Final Resulted 05/31/25 14:15 Blood Blood Culture - Preliminary NO GROWTH AFTER 48 HOURS OF INCUBATION. Resulted Problem List/Assessment/Plan Problem List/Assessment/Plan Assessment Pancreatic cancer s/p biliary stent placement with possible metastatic adenopathy Intractable abdominal pain Hyperbilirubinemia Transaminitis Influenza B Klebsiella ESBL bacteremia C diff colitis Plan - patient had a recent placement of biliary drainage stent at [facility] - pancreatic mass seen on the CT Abd likely pancreatic cancer - 06/02/[address] abdomen showed right hepatic approach internal external biliary drainage catheter terminating within the 2nd segment of the duodenum - LFTs trended up, continue monitoring - IV protonix - started on vancomycin p.o. for C diff colitis - IV antibiotics for bacteremia - tolerating full liquid diet well patient may be a candidate for hospice given her metastatic pancreatic cancer and significant comorbidities. Plan discussed with Dr Morrissey Plan discussed with: Other (RN) Dietary Evaluation Review Comments: 1) Change oral nutrition supplement from Ensure Clear to Ensure Enlive bid 2) Advance to regular diet when medically feasible 3) Encourage optimal PO intake 4) Follow-up with oncology 5) Continue to monitor I&O, labs, and skin integrity Expected Outcomes/Goals: 1) appetite and labs to improve 2) f/u in 3-5 days CORBY MENDIETA RESIDENT Jun 02, 2025 18:41
[2025-06-02] MEDS: ACETAMINOPHEN 325 MG TAB PO PRN (21:50)
[2025-06-02] MEDS ORDERED: ALBUMIN 25% 50 ML IV SCH (22:00)
--- NOTE | 2025-06-02 23:02 | DVHPN2 ---
Progress Note - Dictate Date Seen: Jun 02, 2025 Medical Necessity Reason Pt with a Central, PICC or Fol: Yes The following are medically ne: Gaffney Catheter Reason for gaffney catheter: Strict I&O Subjective Patient seen and examined at bedside. Breathing comfortably on room air. Overnight events reviewed. vital signs Vital Sign Date Time Temp Pulse Resp B/P (MAP) Pulse Ox O2 Delivery O2 Flow Rate FiO2 06/02/25 22:00 116 06/02/25 21:00 98.5 18 93/65 (74) 97 98.5 06/02/25 20:00 Room Air* 0 21 Total Intake and Output 06/01/25 06/01/25 06/02/25 14:59 22:59 06:59 Intake Total 100 ml 480 ml 518 ml Output Total 100 ml 100 ml 700 ml Balance 0 ml 380 ml -182 ml medications Current Medications Medications Dose Ordered Sig/Aayush Route Start Time Stop Time Status Last Admin Dose Admin Docusate Sodium 100 mg BIDPRN PRN PO 05/27/25 01:45 Acetaminophen 650 mg Q6HP PRN PO 05/27/25 01:45 06/02/25 21:50 650 MG Ondansetron HCl 4 mg Q4HP PRN IV 05/27/25 01:45 06/02/25 00:13 4 MG Nitroglycerin 0.4 mg Q5MINP PRN SL 05/27/25 01:45 Morphine Sulfate 2 mg Q30M PRN IV 05/27/25 01:45 06/02/25 00:14 2 MG Diagnostic Test (Pha) 1 strip Q6HR 05/27/25 06:00 06/02/25 17:41 1 STRIP Insulin Human Regular Q6HR SC 05/27/25 06:00 06/02/25 00:17 2 UNITS Dextrose 50 ml UD PRN IV 05/27/25 01:45 Piperacillin Sod/ Tazobactam Sod 100 ml @ 100 mls/hr TID IV 05/27/25 06:00 06/02/25 21:25 100 MLS/HR Pantoprazole Sodium 40 mg DAILY IV 05/27/25 10:00 06/02/25 12:23 40 MG Morphine Sulfate 2 mg Q4HPRN PRN IV 05/27/25 02:00 05/31/25 07:03 2 MG Albuterol 2.5 mg Q4HPRN PRN NEB 05/27/25 04:45 Cancel Ipratropium [place] 0.5 mg Q4HPRN PRN NEB 05/27/25 04:45 Cancel Acetaminophen/ Hydrocodone Bitart 1 tab Q6HPRN PRN PO 05/27/25 17:30 05/29/25 04:07 1 TAB Oseltamivir Phosphate 75 mg Q12HR PO 05/28/25 22:00 06/02/25 21:59 UNV Enteral Nutritional Formula 240 ml BIDWM PO 05/29/25 18:00 06/02/25 17:41 240 ML Megestrol Acetate 400 mg DAILY PO 06/02/25 10:00 06/02/25 12:23 400 MG Furosemide 40 mg BIDD IV 06/02/25 18:00 06/02/25 17:58 40 MG Albumin Human 50 ml @ 100 mls/hr Q12HR IV 06/02/25 13:45 06/03/25 22:29 06/02/25 21:28 100 MLS/HR Vancomycin HCl 250 mg Q6HR PO 06/02/25 18:00 06/02/25 17:41 250 MG Cholestyramine Resin 4 gm Q12HR@11,23 PO 06/02/25 23:00 objective Gen.: Patient lying in bed in no apparent distress. Breathing on room air. Head: Normocephalic, atraumatic. Eyes: EOMI/PERRLA. Ears: Normal hearing. Normal anatomy. Neck/trachea: Trachea midline, supple. Nose: Normal external anatomy. Mouth: Moist mucous membranes. Chest: Decreased air entry bilaterally. No wheezing or rhonchi. Cardiovascular: Positive S1, positive S2. Regular rate and rhythm. Abdomen: Positive bowel sounds in all 4 quadrants. Soft, non-tender, non- distended. : Deferred. Rectal: Deferred. Skin: Warm, dry. Intact. Extremities: 2+ radial pulses bilaterally. 2+ bilateral lower extremity edema. Neuro: Awake, alert, oriented x3. No gross motor or sensory deficits. Cranial nerves II through XII intact. Gait not assessed. laboratory and microbiology Laboratory Tests 06/02/25 08:18 06/02/25 06:30 Test 06/02/25 06:30 Range/Units Serum Glucose 51 L 74-106 mg/dL Assessment/Plan Impression: Acute metabolic encephalopathy Sepsis Influenza B Pleural effusion Atelectasis Pancreatic cancer S/p percutaneous transhepatic biliary drain placement Events: Remains on room air No distress Supplemental oxygen PRN Continue bronchodilators Incentive spirometry Continue antibiotics F/u cultures: Bacteremia with blood cultures positive for gram-positive cocci Repeat blood culture results remain positive. Stool culture positive for C. diff Started on vancomycin ID recommendations appreciated Positive influenza B - On oseltamivir course Given Lasix 20 mg IVP for 2+ BLE edema Albumin + diuresis for lower extremity edema. Head of bed elevation Aspiration precautions Pain control Avoid oversedation Protonix for GI ppx GI recommendations appreciated FOBT negative Monitor hemoglobin and hematocrit - stable. Diurese with Lasix Monitor renal function. Monitor electrolytes. Supplement as necessary. Potassium supplementation Monitor ins and outs. Patient with poor prognosis. Disposition per hospitalist. Arrange for home IV antibiotics Labs and imaging reviewed. Rest of plan as noted below. Plan: Supplemental oxygen PRN Titrate to keep O2 sats above 92%. Continue antibiotics Bacteremia - Follow up cultures Folow up ID recommendations Bronchodilators PRN. Incentive spirometry for atelectasis Protonix for GI ppx Monitor hemoglobin Transfuse if less than 7.0 g/dL. Accu-Cheks, ISS PRN. Head of bed elevation Aspiration precautions Pain control Avoid oversedation Diurese with Lasix Monitor renal function. Monitor electrolytes. Supplement as necessary. Monitor ins and outs. GI/DVT prophylaxis. Prognosis: Guarded given patient's multiple co-morbidities. Rest of plan per hospitalist and other consultants. Thank you, VELVET Avila, for allowing me to participate in this patient's care. Further recommendations will depend on the patient's clinical course. Please do not hesitate to contact me if you have any questions or concerns. This medical document was created using an electronic medical record system with [employer] dictation system. Although these documentations are being carefully reviewed, there may still be some phonetic and typographical changes. The errors are purely typographical, due to imperfection on the software program, and do not reflect any compromise in the patient's medical care. Dietary Evaluation Review Comments: 1) Change oral nutrition supplement from Ensure Clear to Ensure Enlive bid 2) Advance to regular diet when medically feasible 3) Encourage optimal PO intake 4) Follow-up with oncology 5) Continue to monitor I&O, labs, and skin integrity Expected Outcomes/Goals: 1) appetite and labs to improve 2) f/u in 3-5 days Plan discussed with: Patient, Other (RN Chelly) KENNA MATHEW [facility] Jun 02, 2025 23:02
[2025-06-02] MEDS: CHOLESTYRAMINE 4 GM POWDER PO SCH (23:49)
[2025-06-03 01:00] VITALS: BP 101/54; PULSE 83; RESP 18; TEMP 97.8; O2SAT 98
[2025-06-03 05:00] VITALS: BP 91/57; PULSE 91; RESP 19; O2SAT 97
--- NOTE | 2025-06-03 07:57 | DVHPN2 ---
Progress Note - Dictate Date Seen: Jun 03, 2025 Medical Necessity Reason Pt with a Central, PICC or Fol: Yes The following are medically ne: Gaffney Catheter Reason for gaffney catheter: Strict I&O Subjective cdiff +ve campylobacter +ve vital signs Vital Sign Date Time Temp Pulse Resp B/P (MAP) Pulse Ox O2 Delivery O2 Flow Rate FiO2 06/03/25 06:53 94/51 06/03/25 05:00 91 19 97 06/03/25 01:00 97.8 97.8 06/02/25 20:00 Room Air* 0 21 Total Intake and Output 06/02/25 06/02/25 06/03/25 15:00 23:00 07:00 Intake Total 100 ml 575 ml 300 ml Output Total 70 ml 476 ml 2355 ml Balance 30 ml 99 ml -2055 ml medications Current Medications Medications Dose Ordered Sig/Aayush Route Start Time Stop Time Status Last Admin Dose Admin Docusate Sodium 100 mg BIDPRN PRN PO 05/27/25 01:45 Acetaminophen 650 mg Q6HP PRN PO 05/27/25 01:45 06/02/25 21:50 650 MG Ondansetron HCl 4 mg Q4HP PRN IV 05/27/25 01:45 06/02/25 00:13 4 MG Nitroglycerin 0.4 mg Q5MINP PRN SL 05/27/25 01:45 Morphine Sulfate 2 mg Q30M PRN IV 05/27/25 01:45 06/02/25 00:14 2 MG Diagnostic Test (Pha) 1 strip Q6HR 05/27/25 06:00 06/03/25 06:00 1 STRIP Insulin Human Regular Q6HR SC 05/27/25 06:00 06/02/25 00:17 2 UNITS Dextrose 50 ml UD PRN IV 05/27/25 01:45 Piperacillin Sod/ Tazobactam Sod 100 ml @ 100 mls/hr TID IV 05/27/25 06:00 06/03/25 06:49 100 MLS/HR Pantoprazole Sodium 40 mg DAILY IV 05/27/25 10:00 06/02/25 12:23 40 MG Morphine Sulfate 2 mg Q4HPRN PRN IV 05/27/25 02:00 05/31/25 07:03 2 MG Albuterol 2.5 mg Q4HPRN PRN NEB 05/27/25 04:45 Cancel Ipratropium [place] 0.5 mg Q4HPRN PRN NEB 05/27/25 04:45 Cancel Acetaminophen/ Hydrocodone Bitart 1 tab Q6HPRN PRN PO 05/27/25 17:30 05/29/25 04:07 1 TAB Oseltamivir Phosphate 75 mg Q12HR PO 05/28/25 22:00 06/02/25 21:59 UNV Enteral Nutritional Formula 240 ml BIDWM PO 05/29/25 18:00 06/02/25 17:41 240 ML Megestrol Acetate 400 mg DAILY PO 06/02/25 10:00 06/02/25 12:23 400 MG Furosemide 40 mg BIDD IV 06/02/25 18:00 06/03/25 06:53 40 MG Albumin Human 50 ml @ 100 mls/hr Q12HR IV 06/02/25 13:45 06/03/25 22:29 06/02/25 21:28 100 MLS/HR Vancomycin HCl 250 mg Q6HR PO 06/02/25 18:00 06/03/25 06:55 250 MG Cholestyramine Resin 4 gm Q12HR@11,23 PO 06/02/25 23:00 06/02/25 23:49 4 GM objective General Appearance: Alert , no acute distress HEENT: Atraumatic, PERRLA, EOMI, Other (Icteric sclera) Respiratory: Clear to auscultation, Normal air movement Cardiovascular: Normal S1, Normal S2, Abdominal: Soft, Other (Biliary drain in place. Drainage from insertion site) Extremities: No clubbing, No cyanosis, No edema Skin: No breakdown Neuro: no focal deficit Psych/Mental Status: Mental status NL, Mood NL laboratory and microbiology Laboratory Tests 06/02/25 08:18 06/02/25 06:30 Test 06/02/25 06:30 Range/Units Serum Glucose 51 L 74-106 mg/dL Assessment/Plan A 69 years female presents with C diff diarrhea Campylobacter in stool streptococcus bacteremia ESBL [place] bacteremia Sepsis Influenza B positive Acute metabolic encephalopathy Hypoglycemia Dehydration Pulmonary airspace disease Small bilateral pleural effusions Abnormal LFT Hyperbilirubinemia History pancreatic cancer S/p percutaneous transhepatic biliary drain in place Recommendations: multiple infections with different bacteria in a immunocompromised host concerning for very poor prognosis, I strongly urge for goals of care discussion with family. will add Azithromycin for Campylobacter I have him on Zosyn to cover streptococcus and ESBL but also antibiotics increase the risk of C diff. ( If I switch to ertapenem, I will need to add Vancomycin but multiple antiobiotics again increase risks) I will continue for now and reevaluate tomorrow. monitor electrolytes closely, IV fluids On IV Zosyn; continue Blood cultures shows ESBL Kleibseilla, however repeat blood cx is showing streptococcus otherwise for ESBL kleib, recommend midline after new cultures are confirmed hold lactulose, patient has loose stools continue Tamiflu x 5 days wbc normal Gastroenterology on board prognosis guarded X ray reviewed plan discussed with Dr Ellis Total time 50 minutes spent during this encounter. Thank you for the consult Dietary Evaluation Review Comments: 1) Change oral nutrition supplement from Ensure Clear to Ensure Enlive bid 2) Advance to regular diet when medically feasible 3) Encourage optimal PO intake 4) Follow-up with oncology 5) Continue to monitor I&O, labs, and skin integrity Expected Outcomes/Goals: 1) appetite and labs to improve 2) f/u in 3-5 days Plan discussed with: ANGEL Rodarte MD Jun 03, 2025 07:57
[2025-06-03 08:51] LABS: Hematocrit 28.0 % (36.0-46.0); Hemoglobin 9.5 g/dL (12.2-16.2); Mean Corpuscular Hemoglobin 32.6 pg (28.0-32.0); Mean Corpuscular Volume 96.5 fL (80.0-100.0); Nucleated Red Blood Cells % 0.1 %
[2025-06-03 08:58] LABS: Anion Gap 14 (5-15); Carbon Dioxide 22 mmol/L (20-31); Glucose 75 mg/dL (74-106); Sodium 144 mmol/L (136-145)
[2025-06-03 09:00] VITALS: BP 80/48; PULSE 105; RESP 17; TEMP 98.1; O2SAT 100
[2025-06-03 09:02] LABS: BUN/Creatinine Ratio 15.0 (10.0-20.0)
[2025-06-03 09:03] LABS: Alanine Aminotransferase 191 U/L (7-40); Albumin 2.2 g/dL (3.2-4.8); Alkaline Phosphatase 121 U/L (46-116); Bilirubin, Total 12.9 mg/dL (0.2-1.0); Blood Urea Nitrogen 9 mg/dL (9-23); Calcium 8.2 mg/dL (8.7-10.4); Chloride 108 mmol/L (98-107); Total Protein 5.5 g/dL (5.7-8.2)
[2025-06-03 09:05] LABS: Potassium 2.4 mmol/L (3.5-5.1)
[2025-06-03] MEDS: AZITHROMYCIN 500MG/ 250ML 250 ML IV SCH (10:04)
[2025-06-03] MEDS: POTASSIUM CHLORIDE 80 MEQ, LIDOCAINE 1% (LOCAL ANESTH.) 6 ML in SODIUM CHL 0.9% 500 ML IV ONE (10:28)
[2025-06-03 13:00] VITALS: BP 90/55; PULSE 72; RESP 17; TEMP 97.8; O2SAT 100
[2025-06-03] MEDS: DEXTROSE (50%) 50ML SYRG IV PRN (13:50)
[2025-06-03] MEDS: MIDODRINE HCL 10 MG TAB PO SCH (18:56)
[2025-06-03 20:00] VITALS: PULSE 107; PULSE 97; RESP 18
[2025-06-03 21:00] VITALS: BP 113/83; PULSE 82; RESP 18; TEMP 99.1; O2SAT 99
[2025-06-03] MEDS: ERTAPENEM SOD INJ 1 GM in SODIUM CHL 0.9% 50 ML IV ONE (22:04)
[2025-06-03] MEDS: LINEZOLID 600MG/300ML 300 ML IV SCH (23:53)
[2025-06-04] VITALS (71 sets, daily range): BP systolic 0–151; BP diastolic 0–79; PULSE 56–116; RESP 12–25; TEMP 98–98.9; O2SAT 95–100
[2025-06-04] MEDS: DOPamine 1600MCG/ML D5W 250 ML IV SCH (08:15)
--- NOTE | 2025-06-04 11:12 | DVHPN2 ---
Subjective Patient's Gram-negative bacteremia culture sensitivity came back ESBL sensitive to Zosyn and ertapenem and meropenem. Patient also has Gram-positive cocci in general beers, CT abdomen and pelvis was done which shows no evidence of any biliary leakage. Overnight events noted. Patient blood pressure dropped into 70s requiring 500 mL normal saline bolus. Changes from previous H/P or p: No Changes Objective Vitals Vital Signs Date Time Temp Pulse Resp B/P (MAP) Pulse Ox O2 Delivery O2 Flow Rate FiO2 06/03/25 09:00 98.1 105 17 80/48 (59) 100 98.1 06/03/25 08:00 Room Air* 0 21 Intake/Output Intake and Output 06/03/25 07:00 Intake Total 975 ml Output Total 2901 ml Balance -1926 ml Intake Oral 575 ml IV Total 400 ml Output Urine Total 2725 ml Stool Total 1 ml Drainage Total 175 ml # Bowel Movements 2 Exam HEENT pupils are reactive positive scleral icterus Neck was supple CV is S1-S2 regular rate and rhythm Respiratory by due to diminished breath sound with basis GI positive bowel sounds Extremity no edema [employer] no motor deficit Medications Current Medications Medications Dose Ordered Sig/Aayush Route Start Time Stop Time Status Last Admin Dose Admin Docusate Sodium 100 mg BIDPRN PRN PO 05/27/25 01:45 Acetaminophen 650 mg Q6HP PRN PO 05/27/25 01:45 06/02/25 21:50 650 MG Ondansetron HCl 4 mg Q4HP PRN IV 05/27/25 01:45 06/02/25 00:13 4 MG Nitroglycerin 0.4 mg Q5MINP PRN SL 05/27/25 01:45 Morphine Sulfate 2 mg Q30M PRN IV 05/27/25 01:45 06/02/25 00:14 2 MG Diagnostic Test (Pha) 1 strip Q6HR 05/27/25 06:00 06/03/25 06:00 1 STRIP Insulin Human Regular Q6HR SC 05/27/25 06:00 06/02/25 00:17 2 UNITS Dextrose 50 ml UD PRN IV 05/27/25 01:45 Piperacillin Sod/ Tazobactam Sod 100 ml @ 100 mls/hr TID IV 05/27/25 06:00 06/03/25 06:49 100 MLS/HR Pantoprazole Sodium 40 mg DAILY IV 05/27/25 10:00 06/03/25 10:02 40 MG Morphine Sulfate 2 mg Q4HPRN PRN IV 05/27/25 02:00 05/31/25 07:03 2 MG Albuterol 2.5 mg Q4HPRN PRN NEB 05/27/25 04:45 Cancel Ipratropium [place] 0.5 mg Q4HPRN PRN NEB 05/27/25 04:45 Cancel Acetaminophen/ Hydrocodone Bitart 1 tab Q6HPRN PRN PO 05/27/25 17:30 05/29/25 04:07 1 TAB Oseltamivir Phosphate 75 mg Q12HR PO 05/28/25 22:00 06/02/25 21:59 UNV Enteral Nutritional Formula 240 ml BIDWM PO 05/29/25 18:00 06/02/25 17:41 240 ML Megestrol Acetate 400 mg DAILY PO 06/02/25 10:00 06/03/25 10:00 400 MG Furosemide 40 mg BIDD IV 06/02/25 18:00 06/03/25 06:53 40 MG Albumin Human 50 ml @ 100 mls/hr Q12HR IV 06/02/25 13:45 06/03/25 22:29 06/03/25 10:00 100 MLS/HR Vancomycin HCl 250 mg Q6HR PO 06/02/25 18:00 06/03/25 06:55 250 MG Cholestyramine Resin 4 gm Q12HR@11,23 PO 06/02/25 23:00 06/03/25 10:03 4 GM Azithromycin 250 ml @ 125 mls/hr DAILY IV 06/03/25 10:00 06/03/25 10:04 125 MLS/HR Laboratory Results Laboratory Tests 06/03/25 07:54 Chemistry Test 06/03/25 07:54 Albumin 2.2 g/dL (3.2-4.8) L Calcium Level 8.2 mg/dL (8.7-10.4) L Total Protein 5.5 g/dL (5.7-8.2) L LFT Test 06/03/25 07:54 Alanine Aminotransferase (ALT) 191 U/L (7-40) H Alkaline Phosphatase 121 U/L (46-116) H Aspartate Amino Transferase (AST) 221 U/L (13-40) H Total Bilirubin 12.9 mg/dL (0.2-1.0) H Urinalysis Test 06/01/25 21:30 Urine Color Yellow (Yellow) Urine Clarity Clear (Clear) Urine pH 5.5 (5.0-9.0) Urine Specific [place] 1.007 (1.001-1.035) Urine Protein Negative (Negative) Urine Ketones Negative (Negative) Urine Blood Negative /uL (Negative) Urine Nitrite Negative (Negative) Urine Bilirubin Negative (Negative) Urine Urobilinogen Normal mg/dL (Negative) Urine Leukocyte Esterase Negative /uL (Negative) Urine RBC None seen /hpf (0 - 4) Urine Microscopic WBC 2 /HPF (0-5) Urine Squamous Epithelial Cells None seen /hpf (<5) Urine Bacteria None seen /hpf (None Seen) Urine Hyaline Casts Few /lpf (0 - 2) Urine Yeast (Budding) Occasional /hpf (None Urine Glucose Normal mg/dL (Normal) Microbiology Microbiology Date/Time Source Procedure Growth Status 06/01/25 22:47 Stool Stool Culture - Preliminary Resulted 06/01/25 22:47 Stool Shiga Toxin I & II - Final Resulted 05/31/25 14:15 Blood Blood Culture - Preliminary NO GROWTH AFTER 48 HOURS OF INCUBATION. Resulted Assessment/Plan Assessment/Plan 69-year-old female with a known history of pancreatic cancer, stomach cancer was brought into the ER with generalized weakness for last three days found to have 1. Acute metabolic encephalopathy , resolved 2. Biliary obstruction status post percutaneous transhepatic biliary drain placement at higher level of care in March. CT abdominal pelvis was done which shows no evidence of any biliary dislodgement 3. Transaminitis 4. Hyperbilirubinemia 5. Pancreatic cancer with Mets to liver, retroperitoneal lymphadenopathy 6. Hypoglycemia, resolved 7. Lactic acidosis, resolved 8. Relative hypotension, status post normal saline bolus 9. Bilateral pleural effusion 10. Gram-negative bacteremia, with ESBL - IV albumin 25% 50 g IV q.12 hour follow up by Lasix 40 IV q.12 hours, -2D echo to rule out endocarditis -f repeat blood cultures, obtain midline, biliary IV antibiotics for home continue IV Zosyn for now -continue antibiotics, contact isolation had respiratory isolation for influenza B, discharge plan after physical therapy evaluation and treatment. Plan discussed with: Patient My Orders Orders - EVERT EMMANUEL MD Procedure Category Date Status Time Furosemide Injection PHA 06/02/25 In Process (Lasix Injection) 18:00 Albumin 25% (Albutein) PHA 06/02/25 In Process 13:45 Vancomycin Po PHA 06/02/25 In Process (Vancomycin 18:00 Cholestyramine Powder PHA 06/02/25 In Process (Questran Powder) 23:00 Npo After Midnight JOYCE 06/02/25 In Process 19:40 Npo (Nothing By DIET 06/03/25 Transmitted Mouth) Diet Breakfast * Radiologist Consult CONS 06/02/25 Transmitted 19:40 Potassium Chloride PHA 06/03/25 In Process (Potassium Chloride). 09:15 * Wound Consult CONS 06/03/25 Transmitted * Dietary Consult CONS 06/03/25 Transmitted 12:14 Date of Service: Jun 03, 2025 Billing Provider: EVERT EMMANUEL MD Common Visit Codes: NOT BILLABLE EVERT EMMANUEL MD Jun 03, 2025 13:04
--- NOTE | 2025-06-04 11:15 | DVHPN2 ---
Progress Note Date Seen: Jun 03, 2025 Resident Creating Document: CORBY MENDIETA RESIDENT Medical Necessity Reason Pt with a Central, PICC or Fol: Yes The following are medically ne: Gaffney Catheter Reason for gaffney catheter: Strict I&O Subjective Review of Systems Tolerating diet well Continues to have loose bowel movements but decreased than yesterday H&H , 10.7 to 9.5 Stool for C diff positive and campylobacter positive Blood culture noted to have growth of ESBL Klebsiella pneumoniae patient was hypotensive in the morning and was given IV fluid bolus Objective vital signs Vital Sign Date Time Temp Pulse Resp B/P (MAP) Pulse Ox O2 Delivery O2 Flow Rate FiO2 06/03/25 13:00 97.8 72 17 90/55 (67) 100 97.8 06/03/25 08:00 Room Air* 0 21 Total Intake and Output 06/02/25 06/02/25 06/03/25 15:00 23:00 07:00 Intake Total 100 ml 575 ml 300 ml Output Total 70 ml 476 ml 2355 ml Balance 30 ml 99 ml -2055 ml medications Current Medications Medications Dose Ordered Sig/Aayush Route Start Time Stop Time Status Last Admin Dose Admin Docusate Sodium 100 mg BIDPRN PRN PO 05/27/25 01:45 Acetaminophen 650 mg Q6HP PRN PO 05/27/25 01:45 06/02/25 21:50 650 MG Ondansetron HCl 4 mg Q4HP PRN IV 05/27/25 01:45 06/02/25 00:13 4 MG Nitroglycerin 0.4 mg Q5MINP PRN SL 05/27/25 01:45 Morphine Sulfate 2 mg Q30M PRN IV 05/27/25 01:45 06/02/25 00:14 2 MG Diagnostic Test (Pha) 1 strip Q6HR 05/27/25 06:00 06/03/25 12:00 1 STRIP Insulin Human Regular Q6HR SC 05/27/25 06:00 06/02/25 00:17 2 UNITS Dextrose 50 ml UD PRN IV 05/27/25 01:45 Piperacillin Sod/ Tazobactam Sod 100 ml @ 100 mls/hr TID IV 05/27/25 06:00 06/03/25 06:49 100 MLS/HR Pantoprazole Sodium 40 mg DAILY IV 05/27/25 10:00 06/03/25 10:02 40 MG Morphine Sulfate 2 mg Q4HPRN PRN IV 05/27/25 02:00 05/31/25 07:03 2 MG Albuterol 2.5 mg Q4HPRN PRN NEB 05/27/25 04:45 Cancel Ipratropium [place] 0.5 mg Q4HPRN PRN NEB 05/27/25 04:45 Cancel Acetaminophen/ Hydrocodone Bitart 1 tab Q6HPRN PRN PO 05/27/25 17:30 05/29/25 04:07 1 TAB Oseltamivir Phosphate 75 mg Q12HR PO 05/28/25 22:00 06/02/25 21:59 UNV Enteral Nutritional Formula 240 ml BIDWM PO 05/29/25 18:00 06/02/25 17:41 240 ML Megestrol Acetate 400 mg DAILY PO 06/02/25 10:00 06/03/25 10:00 400 MG Furosemide 40 mg BIDD IV 06/02/25 18:00 06/03/25 06:53 40 MG Albumin Human 50 ml @ 100 mls/hr Q12HR IV 06/02/25 13:45 06/03/25 22:29 06/03/25 10:00 100 MLS/HR Vancomycin HCl 250 mg Q6HR PO 06/02/25 18:00 06/03/25 06:55 250 MG Cholestyramine Resin 4 gm Q12HR@11,23 PO 06/02/25 23:00 06/03/25 10:03 4 GM Azithromycin 250 ml @ 125 mls/hr DAILY IV 06/03/25 10:00 06/03/25 10:04 125 MLS/HR Examination Gen - mild conjuctival pallor, positive scleral icterus Skin - Patients skin is warm and dry. HEENT - normocephalic, atraumatic, dry mucous membranes. Neck - supple, no lymphadenopathy Pulmonary - B/L clear breath sounds with basilar crackles more in the left lower cardiovascular - regular S1,S2 heard GI - soft abdomen with tenderness to palpation. Bowel sounds normoactive. Neurological - Patient is alert and oriented x3. following commands laboratory and microbiology Laboratory Tests 06/03/25 07:54 Test 06/03/25 07:54 Range/Units Serum Glucose 75 74-106 mg/dL Microbiology Date/Time Source Procedure Growth Status 06/01/25 22:47 Stool Stool Culture - Preliminary Resulted 06/01/25 22:47 Stool Shiga Toxin I & II - Final Resulted 05/31/25 14:15 Blood Blood Culture - Preliminary NO GROWTH AFTER 48 HOURS OF INCUBATION. Resulted Problem List/Assessment/Plan Problem List/Assessment/Plan Assessment Pancreatic cancer s/p biliary stent placement with possible metastatic adenopathy Intractable abdominal pain Hyperbilirubinemia Transaminitis Influenza B Klebsiella ESBL bacteremia C diff colitis Campylobacter gastroenteritis Plan - patient had a recent placement of biliary drainage stent at [facility] - pancreatic mass seen on the CT Abd likely pancreatic cancer - 06/02/[address] abdomen showed right hepatic approach internal external biliary drainage catheter terminating within the 2nd segment of the duodenum - LFTs trended down slightly , continue monitoring - IV protonix - started on vancomycin p.o. for C diff colitis - azithromycin - IV antibiotics for bacteremia - tolerating full liquid diet well patient may be a candidate for hospice given her metastatic pancreatic cancer and significant comorbidities. Plan discussed with Dr Morrissey Plan discussed with: Patient, Other (GABRIELA Goddard) Dietary Evaluation Review Comments: 1) Change oral nutrition supplement from Ensure Clear to Ensure Enlive bid 2) Advance to regular diet when medically feasible 3) Encourage optimal PO intake 4) Follow-up with oncology 5) Continue to monitor I&O, labs, and skin integrity Expected Outcomes/Goals: 1) appetite and labs to improve 2) f/u in 3-5 days CORBY MENDIETA RESIDENT Jun 03, 2025 13:57
--- NOTE | 2025-06-04 11:29 | DVHPN2 ---
Progress Note - Dictate Date Seen: Jun 03, 2025 Medical Necessity Reason Pt with a Central, PICC or Fol: Yes The following are medically ne: Gaffney Catheter Reason for gaffney catheter: Strict I&O Subjective Patient seen and examined at bedside. Currently on supplemental oxygen Overnight events reviewed. vital signs Vital Sign Date Time Temp Pulse Resp B/P (MAP) Pulse Ox O2 Delivery O2 Flow Rate FiO2 06/03/25 21:00 99.1 82 18 113/83 (93) 99 99.1 06/03/25 08:00 Room Air* 0 21 Total Intake and Output 06/02/25 06/02/25 06/03/25 15:00 23:00 07:00 Intake Total 100 ml 575 ml 300 ml Output Total 70 ml 476 ml 2355 ml Balance 30 ml 99 ml -2055 ml medications Current Medications Medications Dose Ordered Sig/Aayush Route Start Time Stop Time Status Last Admin Dose Admin Docusate Sodium 100 mg BIDPRN PRN PO 05/27/25 01:45 Acetaminophen 650 mg Q6HP PRN PO 05/27/25 01:45 06/03/25 22:06 650 MG Ondansetron HCl 4 mg Q4HP PRN IV 05/27/25 01:45 06/02/25 00:13 4 MG Nitroglycerin 0.4 mg Q5MINP PRN SL 05/27/25 01:45 Morphine Sulfate 2 mg Q30M PRN IV 05/27/25 01:45 06/02/25 00:14 2 MG Diagnostic Test (Pha) 1 strip Q6HR 05/27/25 06:00 06/03/25 17:37 1 STRIP Insulin Human Regular Q6HR SC 05/27/25 06:00 06/02/25 00:17 2 UNITS Dextrose 50 ml UD PRN IV 05/27/25 01:45 06/03/25 13:50 50 ML Pantoprazole Sodium 40 mg DAILY IV 05/27/25 10:00 06/03/25 10:02 40 MG Morphine Sulfate 2 mg Q4HPRN PRN IV 05/27/25 02:00 05/31/25 07:03 2 MG Albuterol 2.5 mg Q4HPRN PRN NEB 05/27/25 04:45 Cancel Ipratropium [place] 0.5 mg Q4HPRN PRN NEB 05/27/25 04:45 Cancel Acetaminophen/ Hydrocodone Bitart 1 tab Q6HPRN PRN PO 05/27/25 17:30 05/29/25 04:07 1 TAB Oseltamivir Phosphate 75 mg Q12HR PO 05/28/25 22:00 06/02/25 21:59 UNV Enteral Nutritional Formula 240 ml BIDWM PO 05/29/25 18:00 06/03/25 18:00 240 ML Megestrol Acetate 400 mg DAILY PO 06/02/25 10:00 06/03/25 10:00 400 MG Furosemide 40 mg BIDD IV 06/02/25 18:00 06/03/25 06:53 40 MG Cholestyramine Resin 4 gm Q12HR@11,23 PO 06/02/25 23:00 06/03/25 10:03 4 GM Azithromycin 250 ml @ 125 mls/hr DAILY IV 06/03/25 10:00 06/03/25 10:04 125 MLS/HR Midodrine 5 mg TIDWM@0600,1200,1800 PO 06/03/25 18:00 06/03/25 18:56 5 MG Patient Own Medication 1 gm DAILY IV 06/03/25 15:30 UNV Ertapenem 1 gm/ Sodium Chloride 50 ml @ 100 mls/hr DAILY@2200 IV 06/04/25 22:00 Future hold Linezolid 300 ml @ 300 mls/hr Q12HR IV 06/03/25 22:45 objective Gen.: Patient lying in bed in no apparent distress. On supplemental oxygen. Head: Normocephalic, atraumatic. Eyes: EOMI/PERRLA. Ears: Normal hearing. Normal anatomy. Neck/trachea: Trachea midline, supple. Nose: Normal external anatomy. Mouth: Moist mucous membranes. Chest: Decreased air entry bilaterally. No wheezing or rhonchi. Cardiovascular: Positive S1, positive S2. Regular rate and rhythm. Abdomen: Positive bowel sounds in all 4 quadrants. Soft, non-tender, non- distended. : Deferred. Rectal: Deferred. Skin: Warm, dry. Intact. Extremities: 2+ radial pulses bilaterally. 2+ bilateral lower extremity edema. Neuro: Awake, alert, oriented x3. No gross motor or sensory deficits. Cranial nerves II through XII intact. Gait not assessed. laboratory and microbiology Laboratory Tests 06/03/25 07:54 Test 06/03/25 07:54 Range/Units Serum Glucose 75 74-106 mg/dL Assessment/Plan Impression: Acute metabolic encephalopathy Sepsis Influenza B Pleural effusion Atelectasis Pancreatic cancer S/p percutaneous transhepatic biliary drain placement Events: Currently on supplemental oxygen On 2 LPM NC Taper O2 as tolerated Continue bronchodilators Incentive spirometry Continue antibiotics F/u cultures: Bacteremia with blood cultures positive for gram-positive cocci, E SBL Klebsiella pneumoniae Repeat blood cultures show no growth for 2 days ID recommendations appreciated Stool culture positive for C. diff - on isolation for C.diff. Continue vancomycin Positive influenza B - On oseltamivir course Received Lasix 20 mg IVP for 2+ BLE edema yesterday Continue diuresis for lower extremity edema. Monitor blood glucose Head of bed elevation Aspiration precautions Pain control Avoid oversedation Protonix for GI ppx GI recommendations appreciated FOBT negative Monitor hemoglobin - trended down to 9.5 g/dL Transfuse if less than 7.0 g/dL. Diurese with Lasix Monitor renal function. Monitor electrolytes. Supplement as necessary. Potassium supplementation Monitor ins and outs. Patient with poor prognosis. Disposition per hospitalist. Arrange for home IV antibiotics Labs and imaging reviewed. Rest of plan as noted below. Plan: Supplemental oxygen Titrate to keep O2 sats above 92%. Continue antibiotics Bacteremia - Follow up cultures Folow up ID recommendations Bronchodilators PRN. Incentive spirometry for atelectasis Protonix for GI ppx Monitor hemoglobin Transfuse if less than 7.0 g/dL. Accu-Cheks, ISS PRN. Head of bed elevation Aspiration precautions Pain control Avoid oversedation Diurese with Lasix Monitor renal function. Monitor electrolytes. Supplement as necessary. Monitor ins and outs. Monitor hemoglobin Transfuse if less than 7.0 g/dL. GI/DVT prophylaxis. Prognosis: Guarded given patient's multiple co-morbidities. Rest of plan per hospitalist and other consultants. Thank you, VELVET Avila, for allowing me to participate in this patient's care. Further recommendations will depend on the patient's clinical course. Please do not hesitate to contact me if you have any questions or concerns. This medical document was created using an electronic medical record system with [employer] dictation system. Although these documentations are being carefully reviewed, there may still be some phonetic and typographical changes. The errors are purely typographical, due to imperfection on the software program, and do not reflect any compromise in the patient's medical care. Dietary Evaluation Review Comments: 1) Change oral nutrition supplement from Ensure Clear to Ensure Enlive bid 2) Advance to regular diet when medically feasible 3) Encourage optimal PO intake 4) Follow-up with oncology 5) Continue to monitor I&O, labs, and skin integrity Expected Outcomes/Goals: 1) appetite and labs to improve 2) f/u in 3-5 days Plan discussed with: Patient, Other (GABRIELA Goddard) KENNA [facility] Jun 03, 2025 23:26
--- NOTE | 2025-06-04 11:42 | DVHPN2 ---
Progress Note - Dictate Date Seen: Jun 04, 2025 Medical Necessity Reason Pt with a Central, PICC or Fol: Yes The following are medically ne: Gaffney Catheter Reason for gaffney catheter: Strict I&O Subjective cdiff +ve campylobacter +ve Low BP vital signs Vital Sign Date Time Temp Pulse Resp B/P (MAP) Pulse Ox O2 Delivery O2 Flow Rate FiO2 06/04/25 08:27 88 20 Room Air* 0 21 06/04/25 07:00 76/47 (57) 06/04/25 05:00 98.5 97 98.5 Total Intake and Output 06/03/25 06/03/25 06/04/25 15:00 23:00 07:00 Intake Total 300 ml 0 ml 500 ml Output Total 400 ml 1150 ml Balance 300 ml -400 ml -650 ml medications Current Medications Medications Dose Ordered Sig/Aayush Route Start Time Stop Time Status Last Admin Dose Admin Docusate Sodium 100 mg BIDPRN PRN PO 05/27/25 01:45 Acetaminophen 650 mg Q6HP PRN PO 05/27/25 01:45 06/03/25 22:06 650 MG Ondansetron HCl 4 mg Q4HP PRN IV 05/27/25 01:45 06/02/25 00:13 4 MG Nitroglycerin 0.4 mg Q5MINP PRN SL 05/27/25 01:45 Morphine Sulfate 2 mg Q30M PRN IV 05/27/25 01:45 06/02/25 00:14 2 MG Diagnostic Test (Pha) 1 strip Q6HR 05/27/25 06:00 06/04/25 06:00 1 STRIP Insulin Human Regular Q6HR SC 05/27/25 06:00 06/02/25 00:17 2 UNITS Dextrose 50 ml UD PRN IV 05/27/25 01:45 06/03/25 13:50 50 ML Pantoprazole Sodium 40 mg DAILY IV 05/27/25 10:00 06/03/25 10:02 40 MG Morphine Sulfate 2 mg Q4HPRN PRN IV 05/27/25 02:00 05/31/25 07:03 2 MG Albuterol 2.5 mg Q4HPRN PRN NEB 05/27/25 04:45 Cancel Ipratropium [place] 0.5 mg Q4HPRN PRN NEB 05/27/25 04:45 Cancel Acetaminophen/ Hydrocodone Bitart 1 tab Q6HPRN PRN PO 05/27/25 17:30 05/29/25 04:07 1 TAB Oseltamivir Phosphate 75 mg Q12HR PO 05/28/25 22:00 06/02/25 21:59 UNV Enteral Nutritional Formula 240 ml BIDWM PO 05/29/25 18:00 06/03/25 18:00 240 ML Megestrol Acetate 400 mg DAILY PO 06/02/25 10:00 06/03/25 10:00 400 MG Cholestyramine Resin 4 gm Q12HR@11,23 PO 06/02/25 23:00 06/03/25 23:53 4 GM Azithromycin 250 ml @ 125 mls/hr DAILY IV 06/03/25 10:00 06/03/25 10:04 125 MLS/HR Midodrine 5 mg TIDWM@0600,1200,1800 PO 06/03/25 18:00 06/04/25 06:34 5 MG Patient Own Medication 1 gm DAILY IV 06/03/25 15:30 UNV Ertapenem 1 gm/ Sodium Chloride 50 ml @ 100 mls/hr DAILY@2200 IV 06/04/25 22:00 Future hold Linezolid 300 ml @ 300 mls/hr Q12HR IV 06/03/25 22:45 06/03/25 23:53 300 MLS/HR Dopamine HCl/ Dextrose 250 ml @ 11.7 mls/hr [id number] IV 06/04/25 08:15 objective General Appearance: Alert , no acute distress HEENT: Atraumatic, PERRLA, EOMI, Other (Icteric sclera) Respiratory: Clear to auscultation, Normal air movement Cardiovascular: Normal S1, Normal S2, Abdominal: Soft, Other (Biliary drain in place. Drainage from insertion site) Extremities: No clubbing, No cyanosis, No edema Skin: No breakdown Neuro: no focal deficit Psych/Mental Status: Mental status NL, Mood NL laboratory and microbiology Laboratory Tests 06/03/25 07:54 Test 06/03/25 07:54 Range/Units Serum Glucose 75 74-106 mg/dL Assessment/Plan A 69 years female presents with hypotension VRE BActeremia C diff diarrhea Campylobacter in stool streptococcus bacteremia ESBL [place] bacteremia Sepsis Influenza B positive Acute metabolic encephalopathy Hypoglycemia Dehydration Pulmonary airspace disease Small bilateral pleural effusions Abnormal LFT Hyperbilirubinemia History pancreatic cancer S/p percutaneous transhepatic biliary drain in place Recommendations: multiple infections with different bacteria in a immunocompromised host concerning for very poor prognosis, I strongly urge for goals of care discussion with family. continue Azithromycin for Campylobacter continue Zosyn switch IV Vancomycin to Linezolid upgraded to ICU due to low blood pressure Blood cultures shows ESBL [place]se[place], however repeat blood cx is showing streptococcus otherwise for ESBL kleib, recommend midline after new cultures are confirmed continue Tamiflu x 5 days wbc normal Gastroenterology on board prognosis guarded X ray reviewed plan discussed with team Total time 50 minutes spent during this encounter. Thank you for the consult Dietary Evaluation Review Comments: 1) Change oral nutrition supplement from Ensure Clear to Ensure Enlive bid 2) Advance to regular diet when medically feasible 3) Encourage optimal PO intake 4) Follow-up with oncology 5) Continue to monitor I&O, labs, and skin integrity Expected Outcomes/Goals: 1) appetite and labs to improve 2) f/u in 3-5 days Plan discussed with: Other ANGEL DE LEON MD Jun 04, 2025 09:37
--- NOTE | 2025-06-04 14:30 | DVHPN2 ---
Progress Note - Dictate Date Seen: Jun 04, 2025 Medical Necessity Reason Pt with a Central, PICC or Fol: Yes The following are medically ne: Gaffney Catheter Reason for gaffney catheter: Strict I&O Subjective Patient's blood pressure trended down this morning in the medical floor. Therefore she is transferred to ICU started on dopamine and blood pressure is normalized. Currently she is in the ICU stable. Her son is at bedside. Discussed with the him regarding her overall condition and very poor prognosis with a metastatic pancreatic cancer and sepsis with a multidrug rest and organisms including VRE. vital signs Vital Sign Date Time Temp Pulse Resp B/P (MAP) Pulse Ox O2 Delivery O2 Flow Rate FiO2 06/04/25 13:42 67 06/04/25 12:58 19 99 Room Air* 0 21 06/04/25 12:29 142/71 06/04/25 05:00 98.5 98.5 Total Intake and Output 06/03/25 06/03/25 06/04/25 15:00 23:00 07:00 Intake Total 300 ml 0 ml 500 ml Output Total 400 ml 1150 ml Balance 300 ml -400 ml -650 ml medications Current Medications Medications Dose Ordered Sig/Aayush Route Start Time Stop Time Status Last Admin Dose Admin Docusate Sodium 100 mg BIDPRN PRN PO 05/27/25 01:45 Acetaminophen 650 mg Q6HP PRN PO 05/27/25 01:45 06/03/25 22:06 650 MG Ondansetron HCl 4 mg Q4HP PRN IV 05/27/25 01:45 06/02/25 00:13 4 MG Nitroglycerin 0.4 mg Q5MINP PRN SL 05/27/25 01:45 Morphine Sulfate 2 mg Q30M PRN IV 05/27/25 01:45 06/04/25 12:03 2 MG Diagnostic Test (Pha) 1 strip Q6HR 05/27/25 06:00 06/04/25 06:00 1 STRIP Insulin Human Regular Q6HR SC 05/27/25 06:00 06/02/25 00:17 2 UNITS Dextrose 50 ml UD PRN IV 05/27/25 01:45 06/03/25 13:50 50 ML Pantoprazole Sodium 40 mg DAILY IV 05/27/25 10:00 06/04/25 10:38 40 MG Morphine Sulfate 2 mg Q4HPRN PRN IV 05/27/25 02:00 05/31/25 07:03 2 MG Albuterol 2.5 mg Q4HPRN PRN NEB 05/27/25 04:45 Cancel Ipratropium [place] 0.5 mg Q4HPRN PRN NEB 05/27/25 04:45 Cancel Acetaminophen/ Hydrocodone Bitart 1 tab Q6HPRN PRN PO 05/27/25 17:30 05/29/25 04:07 1 TAB Oseltamivir Phosphate 75 mg Q12HR PO 05/28/25 22:00 06/02/25 21:59 UNV Enteral Nutritional Formula 240 ml BIDWM PO 05/29/25 18:00 06/04/25 08:00 240 ML Megestrol Acetate 400 mg DAILY PO 06/02/25 10:00 06/04/25 12:04 400 MG Cholestyramine Resin 4 gm Q12HR@11,23 PO 06/02/25 23:00 06/04/25 10:38 4 GM Azithromycin 250 ml @ 125 mls/hr DAILY IV 06/03/25 10:00 06/04/25 10:38 125 MLS/HR Midodrine 5 mg TIDWM@0600,1200,1800 PO 06/03/25 18:00 06/04/25 12:03 5 MG Patient Own Medication 1 gm DAILY IV 06/03/25 15:30 UNV Ertapenem 1 gm/ Sodium Chloride 50 ml @ 100 mls/hr DAILY@2200 IV 06/04/25 22:00 Future hold Linezolid 300 ml @ 300 mls/hr Q12HR IV 06/03/25 22:45 06/04/25 10:38 300 MLS/HR Dopamine HCl/ Dextrose 250 ml @ 11.7 mls/hr [id number] IV 06/04/25 08:15 06/04/25 08:15 11.7 MLS/HR objective Ill-appearing female in bed. Alert and awake knows her name. Heart regular rate and rhythm S1-S2. Lungs fair air movement poor inspiratory effort. Abdomen soft nontender. Positive bowel sounds. Extremities positive edema in the lower extremities laboratory and microbiology Laboratory Tests 06/03/25 07:54 Test 06/03/25 07:54 Range/Units Serum Glucose 75 74-106 mg/dL Assessment/Plan 1. Acute metabolic encephalopathy , resolved 2. Biliary obstruction status post percutaneous transhepatic biliary drain placement at higher level of care in March. CT abdominal pelvis was done which shows no evidence of any biliary dislodgement 3. Transaminitis 4. Hyperbilirubinemia 5. Pancreatic cancer with Mets to liver, retroperitoneal lymphadenopathy 6. Hypoglycemia, resolved 7. Lactic acidosis, resolved 8. Relative hypotension, status post normal saline bolus 9. Bilateral pleural effusion 10. Gram-negative bacteremia, with ESBL 11. Sepsis due to multidrug resistant organisms with a bacteremia Her antibiotics have been adjusted yesterday. Currently she is on Invanz and Zyvox started yesterday by Dr. Ellis. I will add oral vancomycin for her C diff. continue renal dose dopamine for diuresis as well as to keep the systolic blood pressure above 95. Her overall prognosis very poor with a limited life expansion tendency given advanced pancreatic cancer with a sepsis with a multidrug rest and organisms. Discussed with the son at bedside. Apparently patient was on hospice for a month however came back to the hospital to seek treatment for her infection and leaking of biliary drain. At present she remains full code. Dietary Evaluation Review Comments: 1) Change oral nutrition supplement from Ensure Clear to Ensure Enlive bid 2) Advance to regular diet when medically feasible 3) Encourage optimal PO intake 4) Follow-up with oncology 5) Continue to monitor I&O, labs, and skin integrity Expected Outcomes/Goals: 1) appetite and labs to improve 2) f/u in 3-5 days Plan discussed with: ARGENIS Amos MD Jun 04, 2025 14:30
--- NOTE | 2025-06-04 15:56 | DVHPN2 ---
Progress Note Date Seen: Jun 04, 2025 Resident Creating Document: CORBY MENDIETA RESIDENT Medical Necessity Reason Pt with a Central, PICC or Fol: Yes The following are medically ne: Gaffney Catheter Reason for gaffney catheter: Strict I&O Subjective Review of Systems Blood culture grew VRE Hemoglobin dropped from 10.7 to 9.5 Patient is hemodynamically unstable with hypotension and shifted to ICU, currently on dopamine drip Objective vital signs Vital Sign Date Time Temp Pulse Resp B/P (MAP) Pulse Ox O2 Delivery O2 Flow Rate FiO2 06/04/25 15:36 70 06/04/25 15:00 16 138/72 (94) 98 06/04/25 14:35 Room Air* 0 21 06/04/25 14:30 98.5 98.5 Total Intake and Output 06/03/25 06/03/25 06/04/25 15:00 23:00 07:00 Intake Total 300 ml 0 ml 500 ml Output Total 400 ml 1150 ml Balance 300 ml -400 ml -650 ml medications Current Medications Medications Dose Ordered Sig/Aayush Route Start Time Stop Time Status Last Admin Dose Admin Docusate Sodium 100 mg BIDPRN PRN PO 05/27/25 01:45 Acetaminophen 650 mg Q6HP PRN PO 05/27/25 01:45 06/03/25 22:06 650 MG Ondansetron HCl 4 mg Q4HP PRN IV 05/27/25 01:45 06/02/25 00:13 4 MG Nitroglycerin 0.4 mg Q5MINP PRN SL 05/27/25 01:45 Morphine Sulfate 2 mg Q30M PRN IV 05/27/25 01:45 06/04/25 12:03 2 MG Diagnostic Test (Pha) 1 strip Q6HR 05/27/25 06:00 06/04/25 06:00 1 STRIP Insulin Human Regular Q6HR SC 05/27/25 06:00 06/02/25 00:17 2 UNITS Dextrose 50 ml UD PRN IV 05/27/25 01:45 06/03/25 13:50 50 ML Pantoprazole Sodium 40 mg DAILY IV 05/27/25 10:00 06/04/25 10:38 40 MG Morphine Sulfate 2 mg Q4HPRN PRN IV 05/27/25 02:00 05/31/25 07:03 2 MG Albuterol 2.5 mg Q4HPRN PRN NEB 05/27/25 04:45 Cancel Ipratropium [place] 0.5 mg Q4HPRN PRN NEB 05/27/25 04:45 Cancel Acetaminophen/ Hydrocodone Bitart 1 tab Q6HPRN PRN PO 05/27/25 17:30 05/29/25 04:07 1 TAB Oseltamivir Phosphate 75 mg Q12HR PO 05/28/25 22:00 06/02/25 21:59 UNV Enteral Nutritional Formula 240 ml BIDWM PO 05/29/25 18:00 06/04/25 08:00 240 ML Megestrol Acetate 400 mg DAILY PO 06/02/25 10:00 06/04/25 12:04 400 MG Cholestyramine Resin 4 gm Q12HR@11,23 PO 06/02/25 23:00 06/04/25 10:38 4 GM Azithromycin 250 ml @ 125 mls/hr DAILY IV 06/03/25 10:00 06/04/25 10:38 125 MLS/HR Midodrine 5 mg TIDWM@0600,1200,1800 PO 06/03/25 18:00 06/04/25 12:03 5 MG Patient Own Medication 1 gm DAILY IV 06/03/25 15:30 UNV Ertapenem 1 gm/ Sodium Chloride 50 ml @ 100 mls/hr DAILY@2200 IV 06/04/25 22:00 Future hold Linezolid 300 ml @ 300 mls/hr Q12HR IV 06/03/25 22:45 06/04/25 10:38 300 MLS/HR Dopamine HCl/ Dextrose 250 ml @ 11.7 mls/hr [id number] IV 06/04/25 08:15 06/04/25 08:15 11.7 MLS/HR Vancomycin HCl 250 mg QID PO 06/04/25 18:00 Examination Gen - mild conjuctival pallor, positive scleral icterus Skin - Patients skin is warm and dry. HEENT - normocephalic, atraumatic, dry mucous membranes. Neck - supple, no lymphadenopathy Pulmonary - B/L clear breath sounds with basilar crackles more in the left lower cardiovascular - regular S1,S2 heard GI - soft abdomen with tenderness to palpation. Bowel sounds normoactive. Neurological - Patient is alert and oriented x3. following commands laboratory and microbiology Laboratory Tests 06/03/25 07:54 Test 06/03/25 07:54 Range/Units Serum Glucose 75 74-106 mg/dL Microbiology Date/Time Source Procedure Growth Status 06/01/25 22:47 Stool Stool Culture - Preliminary Resulted 06/01/25 22:47 Stool Shiga Toxin I & II - Final Resulted 05/31/25 14:15 Blood Blood Culture - Preliminary NO GROWTH AFTER 72 HOURS OF INCUBATION. Resulted Problem List/Assessment/Plan Problem List/Assessment/Plan Assessment Pancreatic cancer s/p biliary stent placement with possible metastatic adenopathy Intractable abdominal pain Hyperbilirubinemia Transaminitis Influenza B Klebsiella ESBL bacteremia C diff colitis Campylobacter gastroenteritis Plan - patient had a recent placement of biliary drainage stent at [facility] - pancreatic mass seen on the CT Abd likely pancreatic cancer - 06/02/[address] abdomen showed right hepatic approach internal external biliary drainage catheter terminating within the 2nd segment of the duodenum - LFTs trended down slightly , continue monitoring - IV protonix - started on vancomycin p.o. for C diff colitis and azithromycin for Campylobacter - IV antibiotics for bacteremia - tolerating pureed diet well patient may be a candidate for hospice given her metastatic pancreatic cancer and significant comorbidities. Plan discussed with Dr Morrissey Plan discussed with: Patient, Other (GABRIELA Johns) Dietary Evaluation Review Comments: 1) Change oral nutrition supplement from Ensure Clear to Ensure Enlive bid 2) Advance to regular diet when medically feasible 3) Encourage optimal PO intake 4) Follow-up with oncology 5) Continue to monitor I&O, labs, and skin integrity Expected Outcomes/Goals: 1) appetite and labs to improve 2) f/u in 3-5 days CORBY MENDIETA RESIDENT Jun 04, 2025 15:56
[2025-06-04 17:08] LABS: Sodium 142 mmol/L (136-145)
[2025-06-04 17:09] LABS: Anion Gap 15 (5-15)
[2025-06-04 17:18] LABS: Blood Urea Nitrogen 9 mg/dL (9-23); Calcium 8.1 mg/dL (8.7-10.4); Carbon Dioxide 20 mmol/L (20-31); Chloride 107 mmol/L (98-107); Glucose 107 mg/dL (74-106); Magnesium 1.5 mg/dL (1.6-2.6); Potassium 3.3 mmol/L (3.5-5.1)
[2025-06-04] MEDS: VANCOMYCIN HCL 250 MG CAP PO SCH (17:29)
[2025-06-04 17:59] LABS: BUN/Creatinine Ratio 12.7 (10.0-20.0)
[2025-06-04] MEDS: MAGNESIUM SULFATE 1GM/100ML 100 ML IV SCH (19:25)
[2025-06-04] MEDS: POTASSIUM CHL 20MEQ/100ML 100 ML IV SCH (19:33)
[2025-06-04] MEDS: ERTAPENEM SOD INJ 1 GM in SODIUM CHL 0.9% 50 ML IV SCH (22:19)
--- NOTE | 2025-06-04 22:51 | DVHPN2 ---
Progress Note - Dictate Date Seen: Jun 04, 2025 Medical Necessity Reason Pt with a Central, PICC or Fol: Yes The following are medically ne: Gaffney Catheter Reason for gaffney catheter: Strict I&O Subjective Patient seen and examined at bedside. Remains on supplemental oxygen Overnight events reviewed. vital signs Vital Sign Date Time Temp Pulse Resp B/P (MAP) Pulse Ox O2 Delivery O2 Flow Rate FiO2 06/04/25 20:56 14 99 Room Air* 0 21 06/04/25 20:00 88 06/04/25 18:15 98.6 108/65 (79) 98.6 Total Intake and Output 06/03/25 06/03/25 06/04/25 14:59 22:59 06:59 Intake Total 300 ml 0 ml 500 ml Output Total 400 ml 1150 ml Balance 300 ml -400 ml -650 ml medications Current Medications Medications Dose Ordered Sig/Aayush Route Start Time Stop Time Status Last Admin Dose Admin Docusate Sodium 100 mg BIDPRN PRN PO 05/27/25 01:45 Acetaminophen 650 mg Q6HP PRN PO 05/27/25 01:45 06/03/25 22:06 650 MG Ondansetron HCl 4 mg Q4HP PRN IV 05/27/25 01:45 06/02/25 00:13 4 MG Nitroglycerin 0.4 mg Q5MINP PRN SL 05/27/25 01:45 Morphine Sulfate 2 mg Q30M PRN IV 05/27/25 01:45 06/04/25 12:03 2 MG Diagnostic Test (Pha) 1 strip Q6HR 05/27/25 06:00 06/04/25 17:29 1 STRIP Insulin Human Regular Q6HR SC 05/27/25 06:00 06/02/25 00:17 2 UNITS Dextrose 50 ml UD PRN IV 05/27/25 01:45 06/03/25 13:50 50 ML Pantoprazole Sodium 40 mg DAILY IV 05/27/25 10:00 06/04/25 10:38 40 MG Morphine Sulfate 2 mg Q4HPRN PRN IV 05/27/25 02:00 05/31/25 07:03 2 MG Albuterol 2.5 mg Q4HPRN PRN NEB 05/27/25 04:45 Cancel Ipratropium [place] 0.5 mg Q4HPRN PRN NEB 05/27/25 04:45 Cancel Acetaminophen/ Hydrocodone Bitart 1 tab Q6HPRN PRN PO 05/27/25 17:30 05/29/25 04:07 1 TAB Oseltamivir Phosphate 75 mg Q12HR PO 05/28/25 22:00 06/02/25 21:59 UNV Enteral Nutritional Formula 240 ml BIDWM PO 05/29/25 18:00 06/04/25 08:00 240 ML Megestrol Acetate 400 mg DAILY PO 06/02/25 10:00 06/04/25 12:04 400 MG Cholestyramine Resin 4 gm Q12HR@11,23 PO 06/02/25 23:00 06/04/25 10:38 4 GM Azithromycin 250 ml @ 125 mls/hr DAILY IV 06/03/25 10:00 06/04/25 10:38 125 MLS/HR Midodrine 5 mg TIDWM@0600,1200,1800 PO 06/03/25 18:00 06/04/25 17:29 5 MG Patient Own Medication 1 gm DAILY IV 06/03/25 15:30 UNV Ertapenem 1 gm/ Sodium Chloride 50 ml @ 100 mls/hr DAILY@2200 IV 06/04/25 22:00 06/04/25 22:19 100 MLS/HR Linezolid 300 ml @ 300 mls/hr Q12HR IV 06/03/25 22:45 06/04/25 10:38 300 MLS/HR Dopamine HCl/ Dextrose 250 ml @ 11.7 mls/hr [id number] IV 06/04/25 08:15 06/04/25 08:15 11.7 MLS/HR Vancomycin HCl 250 mg QID PO 06/04/25 18:00 06/04/25 22:12 250 MG Potassium Chloride 100 ml @ 50 mls/hr Q2H IV 06/04/25 19:00 06/04/25 22:59 06/04/25 21:47 50 MLS/HR objective Gen.: Patient lying in bed in no apparent distress. On supplemental oxygen. Head: Normocephalic, atraumatic. Eyes: EOMI/PERRLA. Ears: Normal hearing. Normal anatomy. Neck/trachea: Trachea midline, supple. Nose: Normal external anatomy. Mouth: Moist mucous membranes. Chest: Decreased air entry bilaterally. No wheezing or rhonchi. Cardiovascular: Positive S1, positive S2. Regular rate and rhythm. Abdomen: Positive bowel sounds in all 4 quadrants. Soft, non-tender, non- distended. : Deferred. Rectal: Deferred. Skin: Warm, dry. Intact. Extremities: 2+ radial pulses bilaterally. 2+ bilateral lower extremity edema. Neuro: Awake, alert, oriented x3. No gross motor or sensory deficits. Cranial nerves II through XII intact. Gait not assessed. laboratory and microbiology Laboratory Tests 06/04/25 16:36 06/03/25 07:54 Test 06/04/25 16:36 Range/Units Serum Glucose 107 H 74-106 mg/dL Assessment/Plan Impression: Acute metabolic encephalopathy Sepsis Influenza B Pleural effusion Atelectasis Pancreatic cancer S/p percutaneous transhepatic biliary drain placement Events: Currently on supplemental oxygen On 2 LPM NC Taper O2 as tolerated Patient with hypotension Renal dose dopamine for diuresis + keep SBP above 95 mmHg. Continue antibiotics F/u cultures: Bacteremia with blood cultures positive for gram-positive cocci, E SBL Klebsiella pneumoniae Repeat blood cultures positive for VRE ID recommendations appreciated Antibiotics adjusted Continue bronchodilators Incentive spirometry Stool culture positive for C. diff - on isolation for C.diff. Continue vancomycin Positive influenza B - On oseltamivir course Monitor blood glucose Head of bed elevation Aspiration precautions Pain control Avoid oversedation Protonix for GI ppx GI recommendations appreciated FOBT negative Monitor hemoglobin Transfuse if less than 7.0 g/dL. Diurese with Lasix - on hold due to low blood pressure Monitor renal function. Monitor electrolytes. Supplement as necessary. Potassium supplementation Monitor ins and outs. Patient with poor prognosis with advanced pancreatic cancer w/ sepsis and [id number] organisms Disposition per hospitalist. Arrange for home IV antibiotics Labs and imaging reviewed. Rest of plan as noted below. Plan: Supplemental oxygen Titrate to keep O2 sats above 92%. Continue antibiotics Bacteremia - Follow up cultures Folow up ID recommendations Bronchodilators PRN. Incentive spirometry for atelectasis Protonix for GI ppx Monitor hemoglobin Transfuse if less than 7.0 g/dL. Accu-Cheks, ISS PRN. Head of bed elevation Aspiration precautions Pain control Avoid oversedation Diurese to euvolemia Monitor renal function. Monitor electrolytes. Supplement as necessary. Monitor ins and outs. Monitor hemoglobin Transfuse if less than 7.0 g/dL. GI/DVT prophylaxis. Prognosis: Guarded given patient's multiple co-morbidities. Rest of plan per hospitalist and other consultants. Thank you, VELVET Avila, for allowing me to participate in this patient's care. Further recommendations will depend on the patient's clinical course. Please do not hesitate to contact me if you have any questions or concerns. This medical document was created using an electronic medical record system with [email or web address] dictation system. Although these documentations are being carefully reviewed, there may still be some phonetic and typographical changes. The errors are purely typographical, due to imperfection on the software program, and do not reflect any compromise in the patient's medical care. Dietary Evaluation Review Comments: 1) Change oral nutrition supplement from Ensure Clear to Ensure Enlive bid 2) Advance to regular diet when medically feasible 3) Encourage optimal PO intake 4) Follow-up with oncology 5) Continue to monitor I&O, labs, and skin integrity Expected Outcomes/Goals: 1) appetite and labs to improve 2) f/u in 3-5 days Plan discussed with: Patient, Other (RN) KENNA [facility] Jun 04, 2025 22:51
[2025-06-05] VITALS (96 sets, daily range): BP systolic 66–120; BP diastolic 41–85; PULSE 84–145; RESP 8–28; TEMP 97–97.8; O2SAT 89–100
[2025-06-05 04:11] LABS: Hematocrit 30.0 % (36.0-46.0); Hemoglobin 10.1 g/dL (12.2-16.2); Mean Corpuscular Hemoglobin 33.0 pg (28.0-32.0); Mean Corpuscular Volume 98.1 fL (80.0-100.0); Nucleated Red Blood Cells % 0.1 %
[2025-06-05 04:14] LABS: Chloride 104 mmol/L (98-107); Potassium 4.0 mmol/L (3.5-5.1); Sodium 138 mmol/L (136-145)
[2025-06-05 04:15] LABS: Anion Gap 17 (5-15)
[2025-06-05 04:20] LABS: Blood Urea Nitrogen 12 mg/dL (9-23)
[2025-06-05 04:21] LABS: Magnesium 2.1 mg/dL (1.6-2.6)
[2025-06-05 04:22] LABS: BUN/Creatinine Ratio 18.8 (10.0-20.0)
[2025-06-05 04:37] LABS: Calcium 8.5 mg/dL (8.7-10.4); Carbon Dioxide 17 mmol/L (20-31); Glucose 109 mg/dL (74-106)
--- NOTE | 2025-06-05 11:52 | DVHPN2 ---
Progress Note - Dictate Date Seen: Jun 05, 2025 Medical Necessity Reason Pt with a Central, PICC or Fol: Yes The following are medically ne: Gaffney Catheter Reason for gaffney catheter: Strict I&O Subjective Blood pressure is stable on dopamine. Patient however with poor oral intake. Urine output is minimal. Complains of chronic back pain requesting morphine. Continued to receive broad-spectrum antibiotics. vital signs Vital Sign Date Time Temp Pulse Resp B/P (MAP) Pulse Ox O2 Delivery O2 Flow Rate FiO2 06/05/25 11:30 126 14 83/61 (68) 100 06/05/25 10:00 Room Air* 0 21 06/05/25 08:00 97.2 97.2 Total Intake and Output 06/04/25 06/04/25 06/05/25 15:00 23:00 07:00 Intake Total 58.50 ml 457.44 ml 663.12 ml Output Total 100 ml 300 ml Balance 58.50 ml 357.44 ml 363.12 ml medications Current Medications Medications Dose Ordered Sig/Aayush Route Start Time Stop Time Status Last Admin Dose Admin Docusate Sodium 100 mg BIDPRN PRN PO 05/27/25 01:45 Acetaminophen 650 mg Q6HP PRN PO 05/27/25 01:45 06/03/25 22:06 650 MG Ondansetron HCl 4 mg Q4HP PRN IV 05/27/25 01:45 06/04/25 23:44 4 MG Nitroglycerin 0.4 mg Q5MINP PRN SL 05/27/25 01:45 Diagnostic Test (Pha) 1 strip Q6HR 05/27/25 06:00 06/05/25 06:07 1 STRIP Insulin Human Regular Q6HR SC 05/27/25 06:00 06/02/25 00:17 2 UNITS Dextrose 50 ml UD PRN IV 05/27/25 01:45 06/03/25 13:50 50 ML Pantoprazole Sodium 40 mg DAILY IV 05/27/25 10:00 06/05/25 09:50 40 MG Albuterol 2.5 mg Q4HPRN PRN NEB 05/27/25 04:45 Cancel Ipratropium [place] 0.5 mg Q4HPRN PRN NEB 05/27/25 04:45 Cancel Acetaminophen/ Hydrocodone Bitart 1 tab Q6HPRN PRN PO 05/27/25 17:30 06/05/25 11:46 1 TAB Oseltamivir Phosphate 75 mg Q12HR PO 05/28/25 22:00 06/02/25 21:59 UNV Enteral Nutritional Formula 240 ml BIDWM PO 05/29/25 18:00 06/04/25 08:00 240 ML Megestrol Acetate 400 mg DAILY PO 06/02/25 10:00 06/05/25 09:50 400 MG Cholestyramine Resin 4 gm Q12HR@11,23 PO 06/02/25 23:00 06/04/25 23:26 4 GM Azithromycin 250 ml @ 125 mls/hr DAILY IV 06/03/25 10:00 06/05/25 09:51 125 MLS/HR Midodrine 5 mg TIDWM@0600,1200,1800 PO 06/03/25 18:00 06/05/25 11:47 5 MG Patient Own Medication 1 gm DAILY IV 06/03/25 15:30 UNV Ertapenem 1 gm/ Sodium Chloride 50 ml @ 100 mls/hr DAILY@2200 IV 06/04/25 22:00 06/04/25 22:19 100 MLS/HR Linezolid 300 ml @ 300 mls/hr Q12HR IV 06/03/25 22:45 06/05/25 11:46 300 MLS/HR Dopamine HCl/ Dextrose 250 ml @ 11.7 mls/hr [id number] IV 06/04/25 08:15 06/04/25 08:15 11.7 MLS/HR Vancomycin HCl 250 mg QID PO 06/04/25 18:00 06/05/25 11:47 250 MG objective Ill-appearing female in bed. Alert and awake knows her name. Heart regular rate and rhythm S1-S2. Lungs fair air movement poor inspiratory effort. Abdomen soft nontender. Positive bowel sounds. Extremities positive edema in the lower extremities laboratory and microbiology Laboratory Tests 06/05/25 03:25 Test 06/05/25 03:25 Range/Units Serum Glucose 109 H 74-106 mg/dL Assessment/Plan 1. Acute metabolic encephalopathy , resolved 2. Biliary obstruction status post percutaneous transhepatic biliary drain placement at higher level of care in March. CT abdominal pelvis was done which shows no evidence of any biliary dislodgement 3. Transaminitis 4. Hyperbilirubinemia 5. Pancreatic cancer with Mets to liver, retroperitoneal lymphadenopathy 6. Hypoglycemia, resolved 7. Lactic acidosis, resolved 8. Relative hypotension, status post normal saline bolus 9. Bilateral pleural effusion 10. Gram-negative bacteremia, with ESBL 11. Sepsis due to multidrug resistant organisms with a bacteremia Continue current antibiotics. Resume morphine as needed for pain. I will start her on IV fluids given her poor oral intake with a low urine output. Nephrology consultation. Otherwise continue rest of supportive care and treatment. Overall her prognosis remains very poor. She appears appropriate for comfort measures with hospice. Discussed with the nurse at bedside regarding care plan. Dietary Evaluation Review Comments: 1) Change oral nutrition supplement from Ensure Clear to Ensure Enlive bid 2) Advance to regular diet when medically feasible 3) Encourage optimal PO intake 4) Follow-up with oncology 5) Continue to monitor I&O, labs, and skin integrity Expected Outcomes/Goals: 1) appetite and labs to improve 2) f/u in 3-5 days Plan discussed with: Other ARGENIS DELACRUZ MD Jun 05, 2025 11:52
--- NOTE | 2025-06-05 11:56 | DVHPN2 ---
Progress Note - Dictate Date Seen: Jun 05, 2025 Medical Necessity Reason Pt with a Central, PICC or Fol: Yes The following are medically ne: Gaffney Catheter Reason for gaffney catheter: Strict I&O Subjective cdiff +ve campylobacter +ve on Dopamine drip; blood pressure stable vital signs Vital Sign Date Time Temp Pulse Resp B/P (MAP) Pulse Ox O2 Delivery O2 Flow Rate FiO2 06/05/25 11:30 126 14 83/61 (68) 100 06/05/25 10:00 Room Air* 0 21 06/05/25 08:00 97.2 97.2 Total Intake and Output 06/04/25 06/04/25 06/05/25 15:00 23:00 07:00 Intake Total 58.50 ml 457.44 ml 663.12 ml Output Total 100 ml 300 ml Balance 58.50 ml 357.44 ml 363.12 ml medications Current Medications Medications Dose Ordered Sig/Aayush Route Start Time Stop Time Status Last Admin Dose Admin Docusate Sodium 100 mg BIDPRN PRN PO 05/27/25 01:45 Acetaminophen 650 mg Q6HP PRN PO 05/27/25 01:45 06/03/25 22:06 650 MG Ondansetron HCl 4 mg Q4HP PRN IV 05/27/25 01:45 06/04/25 23:44 4 MG Nitroglycerin 0.4 mg Q5MINP PRN SL 05/27/25 01:45 Diagnostic Test (Pha) 1 strip Q6HR 05/27/25 06:00 06/05/25 06:07 1 STRIP Insulin Human Regular Q6HR SC 05/27/25 06:00 06/02/25 00:17 2 UNITS Dextrose 50 ml UD PRN IV 05/27/25 01:45 06/03/25 13:50 50 ML Pantoprazole Sodium 40 mg DAILY IV 05/27/25 10:00 06/05/25 09:50 40 MG Albuterol 2.5 mg Q4HPRN PRN NEB 05/27/25 04:45 Cancel Ipratropium [place] 0.5 mg Q4HPRN PRN NEB 05/27/25 04:45 Cancel Acetaminophen/ Hydrocodone Bitart 1 tab Q6HPRN PRN PO 05/27/25 17:30 05/29/25 04:07 1 TAB Oseltamivir Phosphate 75 mg Q12HR PO 05/28/25 22:00 06/02/25 21:59 UNV Enteral Nutritional Formula 240 ml BIDWM PO 05/29/25 18:00 06/04/25 08:00 240 ML Megestrol Acetate 400 mg DAILY PO 06/02/25 10:00 06/05/25 09:50 400 MG Cholestyramine Resin 4 gm Q12HR@11,23 PO 06/02/25 23:00 06/04/25 23:26 4 GM Azithromycin 250 ml @ 125 mls/hr DAILY IV 06/03/25 10:00 06/05/25 09:51 125 MLS/HR Midodrine 5 mg TIDWM@0600,1200,1800 PO 06/03/25 18:00 06/05/25 05:20 5 MG Patient Own Medication 1 gm DAILY IV 06/03/25 15:30 UNV Ertapenem 1 gm/ Sodium Chloride 50 ml @ 100 mls/hr DAILY@2200 IV 06/04/25 22:00 06/04/25 22:19 100 MLS/HR Linezolid 300 ml @ 300 mls/hr Q12HR IV 06/03/25 22:45 06/04/25 23:09 300 MLS/HR Dopamine HCl/ Dextrose 250 ml @ 11.7 mls/hr [id number] IV 06/04/25 08:15 06/04/25 08:15 11.7 MLS/HR Vancomycin HCl 250 mg QID PO 06/04/25 18:00 06/05/25 05:21 250 MG objective General Appearance: Alert , no acute distress HEENT: Atraumatic, PERRLA, EOMI, Other (Icteric sclera) Respiratory: Clear to auscultation, Normal air movement Cardiovascular: Normal S1, Normal S2, Abdominal: Soft, Other (Biliary drain in place. Drainage from insertion site) Extremities: No clubbing, No cyanosis, No edema Skin: No breakdown Neuro: no focal deficit Psych/Mental Status: Mental status NL, Mood NL laboratory and microbiology Laboratory Tests 06/05/25 03:25 Test 06/05/25 03:25 Range/Units Serum Glucose 109 H 74-106 mg/dL Assessment/Plan A 69 yo female with hypotension VRE BActeremia C diff diarrhea Campylobacter in stool streptococcus bacteremia ESBL [place] bacteremia Sepsis Influenza B positive Acute metabolic encephalopathy Hypoglycemia Dehydration Pulmonary airspace disease Small bilateral pleural effusions Abnormal LFT Hyperbilirubinemia History pancreatic cancer S/p percutaneous transhepatic biliary drain in place Recommendations: multiple infections with different bacteria in a immunocompromised host concerning for very poor prognosis, I strongly urge for goals of care discussion with family. continue Azithromycin for Campylobacter continue Zosyn switch IV Vancomycin to Linezolid on PO vancomycin upgraded to ICU due to low blood pressure Blood cultures shows ESBL [place], however repeat blood cx is showing streptococcus otherwise for ESBL kleib, recommend midline after new cultures are confirmed Gastroenterology on board prognosis guarded X ray reviewed plan discussed with team Total time 50 minutes spent during this encounter. Thank you for the consult Dietary Evaluation Review Comments: 1) Change oral nutrition supplement from Ensure Clear to Ensure Enlive bid 2) Advance to regular diet when medically feasible 3) Encourage optimal PO intake 4) Follow-up with oncology 5) Continue to monitor I&O, labs, and skin integrity Expected Outcomes/Goals: 1) appetite and labs to improve 2) f/u in 3-5 days Plan discussed with: Other ANGEL DE LEON MD Jun 05, 2025 11:56
[2025-06-05] MEDS: MORPHINE SULFATE INJ 2 MG/ml SYRG IV PRN (12:31)
--- NOTE | 2025-06-05 13:13 | DVHPN2 ---
Progress Note Date Seen: Jun 05, 2025 Resident Creating Document: CORBY MENDIETA RESIDENT Medical Necessity Reason Pt with a Central, PICC or Fol: Yes The following are medically ne: Gaffney Catheter Reason for gaffney catheter: Strict I&O Subjective Review of Systems Patient denies any nausea or vomiting or abdominal pain Decreased oral intake Continues to be on dopamine drip due to hemodynamic instability Urine output decreased Objective vital signs Vital Sign Date Time Temp Pulse Resp B/P (MAP) Pulse Ox O2 Delivery O2 Flow Rate FiO2 06/05/25 13:01 134 18 103/72 06/05/25 12:00 100 Room Air* 0 21 06/05/25 08:00 97.2 97.2 Total Intake and Output 06/04/25 06/04/25 06/05/25 15:00 23:00 07:00 Intake Total 58.50 ml 457.44 ml 663.12 ml Output Total 100 ml 300 ml Balance 58.50 ml 357.44 ml 363.12 ml medications Current Medications Medications Dose Ordered Sig/Aayush Route Start Time Stop Time Status Last Admin Dose Admin Docusate Sodium 100 mg BIDPRN PRN PO 05/27/25 01:45 Acetaminophen 650 mg Q6HP PRN PO 05/27/25 01:45 06/03/25 22:06 650 MG Ondansetron HCl 4 mg Q4HP PRN IV 05/27/25 01:45 06/04/25 23:44 4 MG Nitroglycerin 0.4 mg Q5MINP PRN SL 05/27/25 01:45 Diagnostic Test (Pha) 1 strip Q6HR 05/27/25 06:00 06/05/25 11:59 1 STRIP Insulin Human Regular Q6HR SC 05/27/25 06:00 06/02/25 00:17 2 UNITS Dextrose 50 ml UD PRN IV 05/27/25 01:45 06/03/25 13:50 50 ML Pantoprazole Sodium 40 mg DAILY IV 05/27/25 10:00 06/05/25 09:50 40 MG Albuterol 2.5 mg Q4HPRN PRN NEB 05/27/25 04:45 Cancel Ipratropium [place] 0.5 mg Q4HPRN PRN NEB 05/27/25 04:45 Cancel Acetaminophen/ Hydrocodone Bitart 1 tab Q6HPRN PRN PO 05/27/25 17:30 06/05/25 11:46 1 TAB Oseltamivir Phosphate 75 mg Q12HR PO 05/28/25 22:00 06/02/25 21:59 UNV Enteral Nutritional Formula 240 ml BIDWM PO 05/29/25 18:00 06/04/25 08:00 240 ML Megestrol Acetate 400 mg DAILY PO 06/02/25 10:00 06/05/25 09:50 400 MG Cholestyramine Resin 4 gm Q12HR@11,23 PO 06/02/25 23:00 06/04/25 23:26 4 GM Azithromycin 250 ml @ 125 mls/hr DAILY IV 06/03/25 10:00 06/05/25 09:51 125 MLS/HR Midodrine 5 mg TIDWM@0600,1200,1800 PO 06/03/25 18:00 06/05/25 11:47 5 MG Patient Own Medication 1 gm DAILY IV 06/03/25 15:30 UNV Ertapenem 1 gm/ Sodium Chloride 50 ml @ 100 mls/hr DAILY@2200 IV 06/04/25 22:00 06/04/25 22:19 100 MLS/HR Linezolid 300 ml @ 300 mls/hr Q12HR IV 06/03/25 22:45 06/05/25 11:46 300 MLS/HR Dopamine HCl/ Dextrose 250 ml @ 11.7 mls/hr [id number] IV 06/04/25 08:15 06/04/25 08:15 11.7 MLS/HR Vancomycin HCl 250 mg QID PO 06/04/25 18:00 06/05/25 11:47 250 MG Morphine Sulfate 2 mg Q4HPRN PRN IV 06/05/25 12:00 06/05/25 12:31 2 MG Examination Gen - mild conjuctival pallor, positive scleral icterus Skin - Patients skin is warm and dry. HEENT - normocephalic, atraumatic, dry mucous membranes. Neck - supple, no lymphadenopathy Pulmonary - B/L clear breath sounds with basilar crackles more in the left lower cardiovascular - regular S1,S2 heard GI - soft abdomen with mild tenderness to palpation. Bowel sounds normoactive. Neurological - Patient is alert and oriented x3. following commands laboratory and microbiology Laboratory Tests 06/05/25 03:25 Test 06/05/25 03:25 Range/Units Serum Glucose 109 H 74-106 mg/dL Microbiology Date/Time Source Procedure Growth Status 06/01/25 22:47 Stool Stool Culture - Preliminary Resulted 06/01/25 22:47 Stool Shiga Toxin I & II - Final Resulted 05/31/25 14:15 Blood Blood Culture - Preliminary NO GROWTH AFTER 72 HOURS OF INCUBATION. Resulted Problem List/Assessment/Plan Problem List/Assessment/Plan Assessment Pancreatic cancer s/p biliary stent placement with possible metastatic adenopathy Intractable abdominal pain Hyperbilirubinemia Transaminitis Influenza B Klebsiella ESBL bacteremia C diff colitis Campylobacter gastroenteritis Plan - patient had a recent placement of biliary drainage stent at [facility] - pancreatic mass seen on the CT Abd likely pancreatic cancer - 06/02/[address] abdomen showed right hepatic approach internal external biliary drainage catheter terminating within the 2nd segment of the duodenum - monitor LFTs - IV protonix - started on vancomycin p.o. for C diff colitis and azithromycin for Campylobacter - IV antibiotics for bacteremia - tolerating pureed diet well, decreased p.o. intake patient may be a candidate for hospice given her metastatic pancreatic cancer and significant comorbidities. Plan discussed with Dr Morrissey Plan discussed with: Patient, Other (GABRIELA Castro) Dietary Evaluation Review Comments: 1) Change oral nutrition supplement from Ensure Clear to Ensure Enlive bid 2) Advance to regular diet when medically feasible 3) Encourage optimal PO intake 4) Follow-up with oncology 5) Continue to monitor I&O, labs, and skin integrity Expected Outcomes/Goals: 1) appetite and labs to improve 2) f/u in 3-5 days CORBY MENDIETA RESIDENT Jun 05, 2025 13:13
[2025-06-05] MEDS: HYDROmorphone HCL 2 MG/ML VL/or syr IV PRN (14:16)
--- NOTE | 2025-06-05 19:21 | DVHPN2 ---
Progress Note - Dictate Date Seen: Jun 05, 2025 Medical Necessity Reason Pt with a Central, PICC or Fol: Yes The following are medically ne: Gaffney Catheter Reason for gaffney catheter: Strict I&O Subjective Patient seen and examined at bedside. Currently on room air Overnight events reviewed. vital signs Vital Sign Date Time Temp Pulse Resp B/P (MAP) Pulse Ox O2 Delivery O2 Flow Rate FiO2 06/05/25 18:30 123 10 97/63 (74) 100 06/05/25 18:00 Room Air* 0 21 06/05/25 16:00 97.2 97.2 Total Intake and Output 06/04/25 06/04/25 06/05/25 15:00 23:00 07:00 Intake Total 58.50 ml 457.44 ml 663.12 ml Output Total 100 ml 300 ml Balance 58.50 ml 357.44 ml 363.12 ml medications Current Medications Medications Dose Ordered Sig/Aayush Route Start Time Stop Time Status Last Admin Dose Admin Docusate Sodium 100 mg BIDPRN PRN PO 05/27/25 01:45 Acetaminophen 650 mg Q6HP PRN PO 05/27/25 01:45 06/03/25 22:06 650 MG Ondansetron HCl 4 mg Q4HP PRN IV 05/27/25 01:45 06/05/25 13:15 4 MG Nitroglycerin 0.4 mg Q5MINP PRN SL 05/27/25 01:45 Diagnostic Test (Pha) 1 strip Q6HR 05/27/25 06:00 06/05/25 17:34 1 STRIP Insulin Human Regular Q6HR SC 05/27/25 06:00 06/02/25 00:17 2 UNITS Dextrose 50 ml UD PRN IV 05/27/25 01:45 06/03/25 13:50 50 ML Pantoprazole Sodium 40 mg DAILY IV 05/27/25 10:00 06/05/25 09:50 40 MG Albuterol 2.5 mg Q4HPRN PRN NEB 05/27/25 04:45 Cancel Ipratropium [place] 0.5 mg Q4HPRN PRN NEB 05/27/25 04:45 Cancel Acetaminophen/ Hydrocodone Bitart 1 tab Q6HPRN PRN PO 05/27/25 17:30 06/05/25 11:46 1 TAB Oseltamivir Phosphate 75 mg Q12HR PO 05/28/25 22:00 06/02/25 21:59 UNV Enteral Nutritional Formula 240 ml BIDWM PO 05/29/25 18:00 06/04/25 08:00 240 ML Megestrol Acetate 400 mg DAILY PO 06/02/25 10:00 06/05/25 09:50 400 MG Cholestyramine Resin 4 gm Q12HR@11,23 PO 06/02/25 23:00 06/04/25 23:26 4 GM Azithromycin 250 ml @ 125 mls/hr DAILY IV 06/03/25 10:00 06/05/25 09:51 125 MLS/HR Midodrine 5 mg TIDWM@0600,1200,1800 PO 06/03/25 18:00 06/05/25 17:33 5 MG Patient Own Medication 1 gm DAILY IV 06/03/25 15:30 UNV Ertapenem 1 gm/ Sodium Chloride 50 ml @ 100 mls/hr DAILY@2200 IV 06/04/25 22:00 06/04/25 22:19 100 MLS/HR Linezolid 300 ml @ 300 mls/hr Q12HR IV 06/03/25 22:45 06/05/25 11:46 300 MLS/HR Dopamine HCl/ Dextrose 250 ml @ 11.7 mls/hr [id number] IV 06/04/25 08:15 06/04/25 08:15 11.7 MLS/HR Vancomycin HCl 250 mg QID PO 06/04/25 18:00 06/05/25 17:33 250 MG Morphine Sulfate 2 mg Q4HPRN PRN IV 06/05/25 12:00 06/05/25 12:31 2 MG Hydromorphone HCl 0.5 mg Q4HPRN PRN IV 06/05/25 14:00 06/05/25 14:16 0.5 MG objective Gen.: Patient lying in bed in no apparent distress. On room air. Head: Normocephalic, atraumatic. Eyes: EOMI/PERRLA. Ears: Normal hearing. Normal anatomy. Neck/trachea: Trachea midline, supple. Nose: Normal external anatomy. Mouth: Moist mucous membranes. Chest: Decreased air entry bilaterally. No wheezing or rhonchi. Cardiovascular: Positive S1, positive S2. Regular rate and rhythm. Abdomen: Positive bowel sounds in all 4 quadrants. Soft, non-tender, non- distended. : Deferred. Rectal: Deferred. Skin: Warm, dry. Intact. Extremities: 2+ radial pulses bilaterally. 2+ bilateral lower extremity edema. Neuro: Awake, alert, oriented x3. No gross motor or sensory deficits. Cranial nerves II through XII intact. Gait not assessed. laboratory and microbiology Laboratory Tests 06/05/25 03:25 Test 06/05/25 03:25 Range/Units Serum Glucose 109 H 74-106 mg/dL Assessment/Plan Impression: Acute metabolic encephalopathy Sepsis Influenza B Pleural effusion Atelectasis Pancreatic cancer S/p percutaneous transhepatic biliary drain placement Events: Currently breathing on room air No distress Patient with hypotension Renal dose dopamine for diuresis + keep SBP above 95 mmHg. On dopamine 5 mcg/min IV fluids at 150 ml/hr. Continue antibiotics F/u cultures: Bacteremia with blood cultures positive for gram-positive cocci, E SBL Klebsiella pneumoniae Repeat blood cultures positive for VRE ID recommendations appreciated Antibiotics per ID Continue bronchodilators Incentive spirometry Stool culture positive for C. diff - on isolation for C.diff. Positive influenza B - On oseltamivir course Monitor blood glucose Monitor blood pressures Head of bed elevation Aspiration precautions Pain control Avoid oversedation Protonix for GI ppx GI recommendations appreciated FOBT negative Monitor hemoglobin Transfuse if less than 7.0 g/dL. Diurese with Lasix - on hold due to low blood pressure Monitor renal function. Poor UOP Monitor electrolytes. Supplement as necessary. Potassium supplementation Monitor ins and outs. Patient with poor prognosis with advanced pancreatic cancer w/ sepsis and [id number] organisms Awaiting family decision on goals of care. Disposition per hospitalist. Arrange for home IV antibiotics Labs and imaging reviewed. Rest of plan as noted below. Plan: Supplemental oxygen PRN Titrate to keep O2 sats above 92%. Continue antibiotics Bacteremia - Follow up cultures Folow up ID recommendations Bronchodilators PRN. Incentive spirometry for atelectasis Protonix for GI ppx Monitor hemoglobin Transfuse if less than 7.0 g/dL. Accu-Cheks, ISS PRN. Head of bed elevation Aspiration precautions Pain control Avoid oversedation Diurese to euvolemia Monitor renal function. Monitor electrolytes. Supplement as necessary. Monitor ins and outs. Monitor hemoglobin Transfuse if less than 7.0 g/dL. GI/DVT prophylaxis. Prognosis: Guarded given patient's multiple co-morbidities. Rest of plan per hospitalist and other consultants. Thank you, CUPOLA MAN Austin, for allowing me to participate in this patient's care. Further recommendations will depend on the patient's clinical course. Please do not hesitate to contact me if you have any questions or concerns. This medical document was created using an electronic medical record system with [employer] dictation system. Although these documentations are being carefully reviewed, there may still be some phonetic and typographical changes. The errors are purely typographical, due to imperfection on the software program, and do not reflect any compromise in the patient's medical care. Dietary Evaluation Review Comments: 1) Change oral nutrition supplement from Ensure Clear to Ensure Enlive bid 2) Advance to regular diet when medically feasible 3) Encourage optimal PO intake 4) Follow-up with oncology 5) Continue to monitor I&O, labs, and skin integrity Expected Outcomes/Goals: 1) appetite and labs to improve 2) f/u in 3-5 days Plan discussed with: Other (GABRIELA Castro) Critical Care Time(min): 35 KENNA MATHEW ACNP Jun 05, 2025 19:21
[2025-06-05] MEDS: NOREPINEPHRINE 8 MG/250ML KIT 250 ML IV SCH (21:17)
[2025-06-06] VITALS (97 sets, daily range): BP systolic 27–110; BP diastolic 33–84; PULSE 86–123; RESP 8–23; TEMP 88.9–98.1; O2SAT 90–100
[2025-06-06 04:42] LABS: Nucleated Red Blood Cells % 0.1 %
[2025-06-06 04:49] LABS: Hematocrit 32.2 % (36.0-46.0); Hemoglobin 10.2 g/dL (12.2-16.2); Mean Corpuscular Hemoglobin 33.2 pg (28.0-32.0); Mean Corpuscular Volume 105.0 fL (80.0-100.0)
[2025-06-06 05:08] LABS: Anion Gap 24.00001 (5-15); Blood Urea Nitrogen 14 mg/dL (9-23); Chloride 103 mmol/L (98-107); Glucose 97 mg/dL (74-106); Potassium 4.4 mmol/L (3.5-5.1); Sodium 137 mmol/L (136-145)
[2025-06-06 05:18] LABS: BUN/Creatinine Ratio 14.3 (10.0-20.0)
[2025-06-06 05:21] LABS: Alanine Aminotransferase 278 U/L (7-40); Albumin 2.2 g/dL (3.2-4.8); Alkaline Phosphatase 147 U/L (46-116); Bilirubin, Total 13.3 mg/dL (0.2-1.0); Calcium 8.5 mg/dL (8.7-10.4); Total Protein 5.5 g/dL (5.7-8.2)
[2025-06-06 05:22] LABS: Carbon Dioxide < 10 mmol/L (20-31)
[2025-06-06] MEDS: SODIUM BICARB 8.4% 50Meq/50ml SYR Vial IV ONE ×6 (06:04→13:44)
[2025-06-06] MEDS: SODIUM BICARB 50mEq/50ml Vial 150 ML in D5W 5% 1,000 ML IV ONE (06:43)
--- NOTE | 2025-06-06 10:19 | DVHINCON2 ---
Date of service: Jun 06, 2025 Referring Physician Hospitalist Reason for Consultation Acidosis History of Present Illness 69-year-old female history of pancreatic cancer and recently placed biliary stent due to biliary obstruction illness complicated by septic shock in setting of Gram-negative bacteremia and severe hypoalbuminemia patient has been in the ICU was diagnosed also with C diff infection. Nephrology was consulted today due to oliguria. Based on her labs her renal function is preserved however today critical labs showed a CO2 less than 10. Nurse at bedside reports patient has not been able to eat she is lethargic and confused Allergies: Coded Allergies: NO KNOWN ALLERGIES (Unverified , 06/30/21) Home Meds Unable to Obtain Active Prescriptions or Reported Meds Current Medications Current Medications Medications (Trade) Dose Ordered Sig/Aayush Route PRN Reason Start Time Stop Time Status Last Admin Morphine Sulfate 2 mg Q4HPRN PRN IV SEVERE PAIN (7-10 PAIN SCALE) 06/05/25 12:00 06/05/25 12:31 Hydromorphone HCl (Dilaudid Injection) 0.5 mg Q4HPRN PRN IV SEVERE PAIN (7-10 PAIN SCALE) 06/05/25 14:00 06/05/25 14:16 Norepinephrine Bitartrate 250 ml @ 3.75 mls/hr Q24H IV 06/05/25 20:45 06/05/25 21:17 Family History: Diabetes mellitus G8 MOTHER Hypertension G8 FATHER Ischemic heart disease G8 FATHER Pancreatic cancer Review of Systems Can not obtain due to critical illness and altered mental state H&P Exam Vital Signs/I&O Vital Sign Date Time Temp Pulse Resp B/P (MAP) Pulse Ox O2 Delivery O2 Flow Rate FiO2 06/06/25 07:45 89.8 97 15 92/57 (69) 100 193.6 06/06/25 07:30 Room Air* 0 21 Intake and Output 06/05/25 06/06/25 19:00 07:00 Intake Total 780.30 ml 440.15 ml Output Total 100 ml 35 ml Balance 680.30 ml 405.15 ml Intake Oral 125 ml 0 ml IV Total 655.30 ml 440.15 ml Output Urine Total 100 ml 35 ml Other 0 ml 0 ml Physical Exam Frail elderly ill-appearing female Arousable but nonverbal moves extremities but appears to have significant decreased muscle tone trace edema Sinus tachycardia Right biliary drain [place] catheter Labs/Diagnostic Data Labs/Diagnostic Data Laboratory Tests Test 06/06/25 06:02 06/06/25 03:30 06/05/25 23:34 06/05/25 17:38 Range/Units POC Glucose 92 139 H 137 H 70-106 mg/dl White Blood Count 21.4 H 4.4-10.8 10^3/uL Red Blood Count 3.06 L 4.0-5.20 10^6/uL Hemoglobin 10.2 L 12.2-16.2 g/dL Hematocrit 32.2 L 36.0-46.0 % Mean Corpuscular Volume 105.0 #H 80.0-100.0 fL Mean Corpuscular Hemoglobin 33.2 H 28.0-32.0 pg Mean Corpuscular Hemoglobin Concent 31.6 L 32.0-36.0 g/dL Red Cell Distribution Width 17.4 H 11.8-14.3 % Platelet Count 159 140-450 10^3/uL Mean Platelet Volume 9.4 6.9-10.8 fL Neutrophils (%) (Auto) 84.8 H 37.0-80.0 % Lymphocytes (%) (Auto) 10.2 10.0-50.0 % Monocytes (%) (Auto) 4.9 0.0-12.0 % Eosinophils (%) (Auto) 0.0 0.0-7.0 % Basophils (%) (Auto) 0.1 0.0-2.0 % Neutrophils # (Auto) 18.1 H 1.6-8.6 10 ^3/uL Lymphocytes # (Auto) 2.2 0.4-5.4 10 ^3/uL Monocytes # (Auto) 1.0 0-1.3 10 ^3/uL Eosinophils # (Auto) 0 0-0.8 10 ^3/uL Basophils # (Auto) 0 0-0.2 10 ^3/uL Nucleated Red Blood Cells 0.1 % Platelet Estimate Adequate Sodium Level 137 136-145 mmol/L Potassium Level 4.4 3.5-5.1 mmol/L Chloride Level 103 98-107 mmol/L Carbon Dioxide Level < 10 *L 20-31 mmol/L Anion Gap 24.21315 H 5-15 Blood Urea Nitrogen 14 9-23 mg/dL Creatinine 0.98 # 0.550-1.02 mg/dL Glomerular Filtration Rate Calc 63 >90 mL/min BUN/Creatinine Ratio 14.3 10.0-20.0 Serum Glucose 97 74-106 mg/dL Calcium Level 8.5 L 8.7-10.4 mg/dL Total Bilirubin 13.3 H 0.2-1.0 mg/dL Aspartate Amino Transferase (AST) 787 H 13-40 U/L Alanine Aminotransferase (ALT) 278 H 7-40 U/L Alkaline Phosphatase 147 H 46-116 U/L Total Protein 5.5 L 5.7-8.2 g/dL Albumin 2.2 L 3.2-4.8 g/dL Test 06/05/25 11:31 06/05/25 05:24 06/05/25 03:25 06/04/25 23:37 Range/Units POC Glucose 121 H 106 125 H 70-106 mg/dl White Blood Count 18.1 #H 4.4-10.8 10^3/uL Red Blood Count 3.05 L 4.0-5.20 10^6/uL Hemoglobin 10.1 L 12.2-16.2 g/dL Hematocrit 30.0 L 36.0-46.0 % Mean Corpuscular Volume 98.1 80.0-100.0 fL Mean Corpuscular Hemoglobin 33.0 H 28.0-32.0 pg Mean Corpuscular Hemoglobin Concent 33.6 32.0-36.0 g/dL Red Cell Distribution Width 16.7 H 11.8-14.3 % Platelet Count 226 140-450 10^3/uL Mean Platelet Volume 9.1 6.9-10.8 fL Neutrophils (%) (Auto) 85.1 H 37.0-80.0 % Lymphocytes (%) (Auto) 8.1 L 10.0-50.0 % Monocytes (%) (Auto) 6.5 0.0-12.0 % Eosinophils (%) (Auto) 0.2 0.0-7.0 % Basophils (%) (Auto) 0.1 0.0-2.0 % Neutrophils # (Auto) 15.4 H 1.6-8.6 10 ^3/uL Lymphocytes # (Auto) 1.5 0.4-5.4 10 ^3/uL Monocytes # (Auto) 1.2 0-1.3 10 ^3/uL Eosinophils # (Auto) 0 0-0.8 10 ^3/uL Basophils # (Auto) 0 0-0.2 10 ^3/uL Nucleated Red Blood Cells 0.1 % Sodium Level 138 136-145 mmol/L Potassium Level 4.0 3.5-5.1 mmol/L Chloride Level 104 98-107 mmol/L Carbon Dioxide Level 17 L 20-31 mmol/L Anion Gap 17 H 5-15 Blood Urea Nitrogen 12 9-23 mg/dL Creatinine 0.64 0.550-1.02 mg/dL Glomerular Filtration Rate Calc 97 >90 mL/min BUN/Creatinine Ratio 18.8 10.0-20.0 Serum Glucose 109 H 74-106 mg/dL Calcium Level 8.5 L 8.7-10.4 mg/dL Magnesium Level 2.1 1.6-2.6 mg/dL Test 06/04/25 17:19 06/04/25 16:36 06/04/25 11:24 06/04/25 06:33 Range/Units POC Glucose 100 109 H 63 L 70-106 mg/dl Sodium Level 142 136-145 mmol/L Potassium Level 3.3 L 3.5-5.1 mmol/L Chloride Level 107 98-107 mmol/L Carbon Dioxide Level 20 20-31 mmol/L Anion Gap 15 5-15 Blood Urea Nitrogen 9 9-23 mg/dL Creatinine 0.71 0.550-1.02 mg/dL Glomerular Filtration Rate Calc 93 >90 mL/min BUN/Creatinine Ratio 12.7 10.0-20.0 Serum Glucose 107 H 74-106 mg/dL Calcium Level 8.1 L 8.7-10.4 mg/dL Magnesium Level 1.5 L 1.6-2.6 mg/dL Test 06/04/25 00:03 06/03/25 15:23 06/03/25 12:55 06/03/25 11:47 Range/Units POC Glucose 70 114 H 69 L 69 L 70-106 mg/dl Test 06/03/25 07:54 06/03/25 06:55 06/02/25 23:51 06/02/25 12:30 Range/Units White Blood Count 9.6 4.4-10.8 10^3/uL Red Blood Count 2.91 L 4.0-5.20 10^6/uL Hemoglobin 9.5 L 12.2-16.2 g/dL Hematocrit 28.0 #L 36.0-46.0 % Mean Corpuscular Volume 96.5 80.0-100.0 fL Mean Corpuscular Hemoglobin 32.6 H 28.0-32.0 pg Mean Corpuscular Hemoglobin Concent 33.7 32.0-36.0 g/dL Red Cell Distribution Width 16.3 H 11.8-14.3 % Platelet Count 151 140-450 10^3/uL Mean Platelet Volume 8.5 6.9-10.8 fL Neutrophils (%) (Auto) 74.1 37.0-80.0 % Lymphocytes (%) (Auto) 18.9 10.0-50.0 % Monocytes (%) (Auto) 6.1 0.0-12.0 % Eosinophils (%) (Auto) 0.7 0.0-7.0 % Basophils (%) (Auto) 0.2 0.0-2.0 % Neutrophils # (Auto) 7.1 1.6-8.6 10 ^3/uL Lymphocytes # (Auto) 1.8 0.4-5.4 10 ^3/uL Monocytes # (Auto) 0.6 0-1.3 10 ^3/uL Eosinophils # (Auto) 0.1 0-0.8 10 ^3/uL Basophils # (Auto) 0 0-0.2 10 ^3/uL Nucleated Red Blood Cells 0.1 % Sodium Level 144 136-145 mmol/L Potassium Level 2.4 *L 3.5-5.1 mmol/L Chloride Level 108 H 98-107 mmol/L Carbon Dioxide Level 22 20-31 mmol/L Anion Gap 14 5-15 Blood Urea Nitrogen 9 9-23 mg/dL Creatinine 0.60 0.550-1.02 mg/dL Glomerular Filtration Rate Calc 98 >90 mL/min BUN/Creatinine Ratio 15.0 10.0-20.0 Serum Glucose 75 74-106 mg/dL Calcium Level 8.2 L 8.7-10.4 mg/dL Total Bilirubin 12.9 H 0.2-1.0 mg/dL Aspartate Amino Transferase (AST) 221 H 13-40 U/L Alanine Aminotransferase (ALT) 191 H 7-40 U/L Alkaline Phosphatase 121 H 46-116 U/L Total Protein 5.5 L 5.7-8.2 g/dL Albumin 2.2 L 3.2-4.8 g/dL POC Glucose 83 85 87 70-106 mg/dl Test 06/02/25 08:18 06/02/25 06:30 06/02/25 06:14 06/02/25 06:11 Range/Units White Blood Count 8.3 4.4-10.8 10^3/uL Red Blood Count 3.26 L 4.0-5.20 10^6/uL Hemoglobin 10.7 L 12.2-16.2 g/dL Hematocrit 31.3 L 36.0-46.0 % Mean Corpuscular Volume 96.1 80.0-100.0 fL Mean Corpuscular Hemoglobin 32.9 H 28.0-32.0 pg Mean Corpuscular Hemoglobin Concent 34.3 32.0-36.0 g/dL Red Cell Distribution Width 16.9 H 11.8-14.3 % Platelet Count 168 140-450 10^3/uL Mean Platelet Volume 8.7 6.9-10.8 fL Neutrophils (%) (Auto) 37.0-80.0 % Lymphocytes (%) (Auto) 10.0-50.0 % Monocytes (%) (Auto) 0.0-12.0 % Basophils (%) (Auto) 0.0-2.0 % Neutrophils # (Auto) 1.6-8.6 10 ^3/uL Lymphocytes # (Auto) 0.4-5.4 10 ^3/uL Monocytes # (Auto) 0-1.3 10 ^3/uL Differential Total Cells Counted 100.0 100 Neutrophils % (Manual) 78 37.0-80.0 Band Neutrophils % (Manual) 1 Lymphocytes % (Manual) 13 10.0-50.0 Monocytes % (Manual) 8 0-12 Eosinophils % (Manual) 0 0-7 Basophils % (Manual) 0 0.0-2.0 Metamyelocytes % (manual) 0 Myelocytes % (Manual) 0 Promyelocytes % (Manual) 0 Blast Cells % (Manual) 0 Reactive Lymphocytes 0 Platelet Estimate Adequate Anisocytosis (manual) Slight Target Cells Few Prothrombin Time 16.1 H 9.3-11.8 sec Prothrombin Time INR 1.59 H 0.9-1.15 Activated Partial Thromboplast Time 44.2 H 24.5-34.5 SEC CA 19-9 Antigen 61907 H 0-35 U/mL Sodium Level 142 136-145 mmol/L Potassium Level 3.6 3.5-5.1 mmol/L Chloride Level 108 H 98-107 mmol/L Carbon Dioxide Level 19 L 20-31 mmol/L Anion Gap 15 5-15 Blood Urea Nitrogen 14 9-23 mg/dL Creatinine 0.63 0.550-1.02 mg/dL Glomerular Filtration Rate Calc 97 >90 mL/min BUN/Creatinine Ratio 22.2 H 10.0-20.0 Serum Glucose 51 L 74-106 mg/dL Calcium Level 7.9 L 8.7-10.4 mg/dL Total Bilirubin 12.4 H 0.2-1.0 mg/dL Aspartate Amino Transferase (AST) 221 H 13-40 U/L Alanine Aminotransferase (ALT) 205 H 7-40 U/L Alkaline Phosphatase 139 H 46-116 U/L Total Protein 5.7 5.7-8.2 g/dL Albumin 2.0 L 3.2-4.8 g/dL POC Glucose 58 L 44 *L 70-106 mg/dl Test 06/01/25 22:47 06/01/25 21:30 06/01/25 21:13 06/01/25 17:48 Range/Units Stool Occult Blood Negative Negative Stool Occult Blood Sample #3 Negative Urine Color Yellow Yellow Urine Clarity Clear Clear Urine pH 5.5 5.0-9.0 Urine Specific [place] 1.007 1.001-1.035 Urine Protein Negative Negative Urine Ketones Negative Negative Urine Blood Negative Negative /uL Urine Nitrite Negative Negative Urine Bilirubin Negative Negative Urine Urobilinogen Normal Negative mg/dL Urine Leukocyte Esterase Negative Negative /uL Urine RBC None seen 0 - 4 /hpf Urine Microscopic WBC 2 0-5 /HPF Urine Squamous Epithelial Cells None seen <5 /hpf Urine Bacteria None seen None Seen /hpf Urine Hyaline Casts Few 0 - 2 /lpf Urine Yeast (Budding) Occasional None Seen /hpf Urine Glucose Normal Normal mg/dL POC Glucose 134 H 84 70-106 mg/dl Test 06/01/25 12:05 06/01/25 06:00 06/01/25 04:37 06/01/25 00:07 Range/Units POC Glucose 118 H 83 76 70-106 mg/dl Sodium Level 143 136-145 mmol/L Potassium Level 3.0 L 3.5-5.1 mmol/L Chloride Level 109 H 98-107 mmol/L Carbon Dioxide Level 18 L 20-31 mmol/L Anion Gap 16 H 5-15 Blood Urea Nitrogen 14 9-23 mg/dL Creatinine 0.65 0.550-1.02 mg/dL Glomerular Filtration Rate Calc 96 >90 mL/min BUN/Creatinine Ratio 21.5 H 10.0-20.0 Serum Glucose 78 74-106 mg/dL Calcium Level 8.0 L 8.7-10.4 mg/dL Total Bilirubin 11.5 H 0.2-1.0 mg/dL Aspartate Amino Transferase (AST) 165 H 13-40 U/L Alanine Aminotransferase (ALT) 175 H 7-40 U/L Alkaline Phosphatase 132 H 46-116 U/L Total Protein 5.2 L 5.7-8.2 g/dL Albumin 1.9 L 3.2-4.8 g/dL Test 05/31/25 17:12 05/31/25 11:37 05/31/25 06:44 05/31/25 04:49 Range/Units POC Glucose 101 118 H 95 70-106 mg/dl White Blood Count 9.0 # 4.4-10.8 10^3/uL Red Blood Count 3.26 L 4.0-5.20 10^6/uL Hemoglobin 10.6 L 12.2-16.2 g/dL Hematocrit 32.4 L 36.0-46.0 % Mean Corpuscular Volume 99.4 80.0-100.0 fL Mean Corpuscular Hemoglobin 32.5 H 28.0-32.0 pg Mean Corpuscular Hemoglobin Concent 32.8 32.0-36.0 g/dL Red Cell Distribution Width 17.3 H 11.8-14.3 % Platelet Count 155 140-450 10^3/uL Mean Platelet Volume 8.5 6.9-10.8 fL Neutrophils (%) (Auto) 37.0-80.0 % Lymphocytes (%) (Auto) 10.0-50.0 % Monocytes (%) (Auto) 0.0-12.0 % Basophils (%) (Auto) 0.0-2.0 % Neutrophils # (Auto) 1.6-8.6 10 ^3/uL Lymphocytes # (Auto) 0.4-5.4 10 ^3/uL Monocytes # (Auto) 0-1.3 10 ^3/uL Differential Total Cells Counted 100.0 100 Neutrophils % (Manual) 80 37.0-80.0 Band Neutrophils % (Manual) 3 Lymphocytes % (Manual) 13 10.0-50.0 Monocytes % (Manual) 4 0-12 Eosinophils % (Manual) 0 0-7 Basophils % (Manual) 0 0.0-2.0 Metamyelocytes % (manual) 0 Myelocytes % (Manual) 0 Promyelocytes % (Manual) 0 Blast Cells % (Manual) 0 Reactive Lymphocytes 0 Platelet Estimate Adequate Sodium Level 143 136-145 mmol/L Potassium Level 3.0 L 3.5-5.1 mmol/L Chloride Level 110 H 98-107 mmol/L Carbon Dioxide Level 19 L 20-31 mmol/L Anion Gap 14 5-15 Blood Urea Nitrogen 10 9-23 mg/dL Creatinine 0.63 0.550-1.02 mg/dL Glomerular Filtration Rate Calc 97 >90 mL/min BUN/Creatinine Ratio 15.9 10.0-20.0 Serum Glucose 94 74-106 mg/dL Calcium Level 8.1 L 8.7-10.4 mg/dL Test 05/31/25 00:56 05/30/25 17:39 05/30/25 11:41 05/30/25 08:05 Range/Units POC Glucose 71 100 93 70-106 mg/dl White Blood Count 7.1 # 4.4-10.8 10^3/uL Red Blood Count 3.36 L 4.0-5.20 10^6/uL Hemoglobin 10.8 L 12.2-16.2 g/dL Hematocrit 32.2 L 36.0-46.0 % Mean Corpuscular Volume 96.0 80.0-100.0 fL Mean Corpuscular Hemoglobin 32.2 H 28.0-32.0 pg Mean Corpuscular Hemoglobin Concent 33.6 32.0-36.0 g/dL Red Cell Distribution Width 17.2 H 11.8-14.3 % Platelet Count 127 L 140-450 10^3/uL Mean Platelet Volume 8.7 6.9-10.8 fL Neutrophils (%) (Auto) 37.0-80.0 % Lymphocytes (%) (Auto) 10.0-50.0 % Monocytes (%) (Auto) 0.0-12.0 % Basophils (%) (Auto) 0.0-2.0 % Neutrophils # (Auto) 1.6-8.6 10 ^3/uL Lymphocytes # (Auto) 0.4-5.4 10 ^3/uL Monocytes # (Auto) 0-1.3 10 ^3/uL Differential Total Cells Counted 100.0 100 Neutrophils % (Manual) 63 37.0-80.0 Band Neutrophils % (Manual) 5 Lymphocytes % (Manual) 26 10.0-50.0 Monocytes % (Manual) 5 0-12 Eosinophils % (Manual) 1 0-7 Basophils % (Manual) 0 0.0-2.0 Metamyelocytes % (manual) 0 Myelocytes % (Manual) 0 Promyelocytes % (Manual) 0 Blast Cells % (Manual) 0 Reactive Lymphocytes 0 Platelet Estimate Decreased Test 05/30/25 06:41 05/30/25 06:07 05/30/25 00:34 05/29/25 17:39 Range/Units POC Glucose 77 79 83 70-106 mg/dl Sodium Level 143 136-145 mmol/L Potassium Level 3.0 L 3.5-5.1 mmol/L Chloride Level 109 H 98-107 mmol/L Carbon Dioxide Level 20 20-31 mmol/L Anion Gap 14 5-15 Blood Urea Nitrogen 10 9-23 mg/dL Creatinine 0.62 0.550-1.02 mg/dL Glomerular Filtration Rate Calc 98 >90 mL/min BUN/Creatinine Ratio 16.1 10.0-20.0 Serum Glucose 76 74-106 mg/dL Calcium Level 8.1 L 8.7-10.4 mg/dL Test 05/29/25 11:55 05/29/25 11:25 05/29/25 05:53 05/28/25 23:52 Range/Units POC Glucose 92 62 L 72 70-106 mg/dl White Blood Count 5.4 4.4-10.8 10^3/uL Red Blood Count 3.31 L 4.0-5.20 10^6/uL Hemoglobin 10.8 L 12.2-16.2 g/dL Hematocrit 32.3 L 36.0-46.0 % Mean Corpuscular Volume 97.5 80.0-100.0 fL Mean Corpuscular Hemoglobin 32.5 H 28.0-32.0 pg Mean Corpuscular Hemoglobin Concent 33.3 32.0-36.0 g/dL Red Cell Distribution Width 17.3 H 11.8-14.3 % Platelet Count 137 L 140-450 10^3/uL Mean Platelet Volume 8.6 6.9-10.8 fL Neutrophils (%) (Auto) 37.0-80.0 % Lymphocytes (%) (Auto) 10.0-50.0 % Monocytes (%) (Auto) 0.0-12.0 % Basophils (%) (Auto) 0.0-2.0 % Neutrophils # (Auto) 1.6-8.6 10 ^3/uL Lymphocytes # (Auto) 0.4-5.4 10 ^3/uL Monocytes # (Auto) 0-1.3 10 ^3/uL Differential Total Cells Counted 100.0 100 Neutrophils % (Manual) 70 37.0-80.0 Band Neutrophils % (Manual) 1 Lymphocytes % (Manual) 20 10.0-50.0 Monocytes % (Manual) 8 0-12 Eosinophils % (Manual) 1 0-7 Basophils % (Manual) 0 0.0-2.0 Metamyelocytes % (manual) 0 Myelocytes % (Manual) 0 Promyelocytes % (Manual) 0 Blast Cells % (Manual) 0 Reactive Lymphocytes 0 Platelet Estimate Decreased Sodium Level 144 136-145 mmol/L Potassium Level 2.8 L 3.5-5.1 mmol/L Chloride Level 110 H 98-107 mmol/L Carbon Dioxide Level 22 20-31 mmol/L Anion Gap 12 5-15 Blood Urea Nitrogen 13 9-23 mg/dL Creatinine 0.68 0.550-1.02 mg/dL Glomerular Filtration Rate Calc 95 >90 mL/min BUN/Creatinine Ratio 19.1 10.0-20.0 Serum Glucose 79 74-106 mg/dL Calcium Level 8.2 L 8.7-10.4 mg/dL Total Bilirubin 11.9 H 0.2-1.0 mg/dL Direct Bilirubin 8.7 H <0.3 mg/dL Aspartate Amino Transferase (AST) 146 H 13-40 U/L Alanine Aminotransferase (ALT) 183 H 7-40 U/L Alkaline Phosphatase 134 H 46-116 U/L Total Protein 5.2 L 5.7-8.2 g/dL Albumin 1.9 L 3.2-4.8 g/dL Test 05/28/25 23:49 05/28/25 17:42 05/28/25 14:40 05/28/25 14:22 Range/Units POC Glucose 68 L 90 84 70-106 mg/dl Lactic Acid Level 3.9 *H 0.4-2.0 mmol/L Test 05/28/25 08:30 05/28/25 07:16 05/28/25 06:36 05/28/25 04:37 Range/Units Lactic Acid Level 4.1 *H 4.2 *H 4.0 *H 0.4-2.0 mmol/L POC Glucose 90 70-106 mg/dl White Blood Count 5.5 4.4-10.8 10^3/uL Red Blood Count 3.53 L 4.0-5.20 10^6/uL Hemoglobin 11.5 #L 12.2-16.2 g/dL Hematocrit 35.1 #L 36.0-46.0 % Mean Corpuscular Volume 99.3 80.0-100.0 fL Mean Corpuscular Hemoglobin 32.6 H 28.0-32.0 pg Mean Corpuscular Hemoglobin Concent 32.8 32.0-36.0 g/dL Red Cell Distribution Width 17.4 H 11.8-14.3 % Platelet Count 141 140-450 10^3/uL Mean Platelet Volume 7.8 6.9-10.8 fL Neutrophils (%) (Auto) 37.0-80.0 % Lymphocytes (%) (Auto) 10.0-50.0 % Monocytes (%) (Auto) 0.0-12.0 % Basophils (%) (Auto) 0.0-2.0 % Neutrophils # (Auto) 1.6-8.6 10 ^3/uL Lymphocytes # (Auto) 0.4-5.4 10 ^3/uL Monocytes # (Auto) 0-1.3 10 ^3/uL Differential Total Cells Counted 100.0 100 Neutrophils % (Manual) 88 H 37.0-80.0 Band Neutrophils % (Manual) 1 Lymphocytes % (Manual) 6 L 10.0-50.0 Monocytes % (Manual) 4 0-12 Eosinophils % (Manual) 1 0-7 Basophils % (Manual) 0 0.0-2.0 Metamyelocytes % (manual) 0 Myelocytes % (Manual) 0 Promyelocytes % (Manual) 0 Blast Cells % (Manual) 0 Reactive Lymphocytes 0 Platelet Estimate Adequate Sodium Level 141 136-145 mmol/L Potassium Level 3.2 L 3.5-5.1 mmol/L Chloride Level 109 H 98-107 mmol/L Carbon Dioxide Level 19 L 20-31 mmol/L Anion Gap 13 5-15 Blood Urea Nitrogen 14 9-23 mg/dL Creatinine 0.70 0.550-1.02 mg/dL Glomerular Filtration Rate Calc 95 >90 mL/min BUN/Creatinine Ratio 20.0 10.0-20.0 Serum Glucose 97 74-106 mg/dL Calcium Level 8.7 8.7-10.4 mg/dL Total Bilirubin 14.0 H 0.2-1.0 mg/dL Aspartate Amino Transferase (AST) 165 H 13-40 U/L Alanine Aminotransferase (ALT) 210 H 7-40 U/L Alkaline Phosphatase 151 H 46-116 U/L Total Protein 5.8 5.7-8.2 g/dL Albumin 2.1 L 3.2-4.8 g/dL Test 05/28/25 00:38 05/27/25 19:44 05/27/25 12:40 05/27/25 12:27 Range/Units POC Glucose 95 94 130 H 70-106 mg/dl Hemoglobin 9.6 L 12.2-16.2 g/dL Hematocrit 28.8 L 36.0-46.0 % Lactic Acid Level 2.4 *H 0.4-2.0 mmol/L Test 05/27/25 10:36 05/27/25 05:42 05/27/25 02:10 05/27/25 01:02 Range/Units Lactic Acid Level 2.2 *H 1.7 0.4-2.0 mmol/L White Blood Count 6.0 4.4-10.8 10^3/uL Red Blood Count 3.19 L 4.0-5.20 10^6/uL Hemoglobin 10.4 #L 12.2-16.2 g/dL Hematocrit 31.3 #L 36.0-46.0 % Mean Corpuscular Volume 98.1 80.0-100.0 fL Mean Corpuscular Hemoglobin 32.5 H 28.0-32.0 pg Mean Corpuscular Hemoglobin Concent 33.2 32.0-36.0 g/dL Red Cell Distribution Width 17.1 H 11.8-14.3 % Platelet Count 167 140-450 10^3/uL Mean Platelet Volume 8.2 6.9-10.8 fL Neutrophils (%) (Auto) 37.0-80.0 % Lymphocytes (%) (Auto) 10.0-50.0 % Monocytes (%) (Auto) 0.0-12.0 % Basophils (%) (Auto) 0.0-2.0 % Neutrophils # (Auto) 1.6-8.6 10 ^3/uL Lymphocytes # (Auto) 0.4-5.4 10 ^3/uL Monocytes # (Auto) 0-1.3 10 ^3/uL Differential Total Cells Counted 100.0 100 Neutrophils % (Manual) 79 37.0-80.0 Band Neutrophils % (Manual) 1 Lymphocytes % (Manual) 13 10.0-50.0 Monocytes % (Manual) 7 0-12 Eosinophils % (Manual) 0 0-7 Basophils % (Manual) 0 0.0-2.0 Metamyelocytes % (manual) 0 Myelocytes % (Manual) 0 Promyelocytes % (Manual) 0 Blast Cells % (Manual) 0 Reactive Lymphocytes 0 Platelet Estimate Adequate Sodium Level 143 # 136-145 mmol/L Potassium Level 3.9 3.5-5.1 mmol/L Chloride Level 108 H 98-107 mmol/L Carbon Dioxide Level 26 20-31 mmol/L Anion Gap 9 5-15 Blood Urea Nitrogen 22 9-23 mg/dL Creatinine 0.86 0.550-1.02 mg/dL Glomerular Filtration Rate Calc 74 >90 mL/min BUN/Creatinine Ratio 25.6 H 10.0-20.0 Serum Glucose 110 H 74-106 mg/dL Calcium Level 8.3 L 8.7-10.4 mg/dL Ammonia 21 11-32 umol/L POC Glucose 152 H 70-106 mg/dl Test 05/27/25 00:41 05/26/25 23:52 05/26/25 23:17 05/26/25 22:25 Range/Units POC Glucose 48 *L 70-106 mg/dl Urine Color Dark-yellow Yellow Urine Clarity Turbid H Clear Urine pH 5.5 5.0-9.0 Urine Specific [place] 1.020 1.001-1.035 Urine Protein Trace H Negative Urine Ketones Trace Negative Urine Blood Negative Negative /uL Urine Nitrite Negative Negative Urine Bilirubin 2+ H Negative Urine Urobilinogen Normal Negative mg/dL Urine Leukocyte Esterase Negative Negative /uL Urine RBC 1 0 - 4 /hpf Urine Microscopic WBC < 1 0-5 /HPF Urine Squamous Epithelial Cells Few <5 /hpf Urine Bacteria Few H None Seen /hpf Urine Glucose Normal Normal mg/dL Lactic Acid Level 2.4 *H 0.4-2.0 mmol/L Troponin I High Sensitivity 3 L </=34 ng/L Test 05/26/25 21:50 05/26/25 21:27 Range/Units Influenza Type A Antigen Negative Negative Influenza Type B Antigen Positive Negative SARS-CoV-2 Antigen (Rapid) Negative NEGATIVE White Blood Count 7.0 4.4-10.8 10^3/uL Red Blood Count 4.08 4.0-5.20 10^6/uL Hemoglobin 13.2 12.2-16.2 g/dL Hematocrit 40.1 36.0-46.0 % Mean Corpuscular Volume 98.4 80.0-100.0 fL Mean Corpuscular Hemoglobin 32.4 H 28.0-32.0 pg Mean Corpuscular Hemoglobin Concent 33.0 32.0-36.0 g/dL Red Cell Distribution Width 17.4 H 11.8-14.3 % Platelet Count 217 140-450 10^3/uL Mean Platelet Volume 8.3 6.9-10.8 fL Neutrophils (%) (Auto) 88.5 H 37.0-80.0 % Lymphocytes (%) (Auto) 4.0 L 10.0-50.0 % Monocytes (%) (Auto) 7.1 0.0-12.0 % Eosinophils (%) (Auto) 0.1 0.0-7.0 % Basophils (%) (Auto) 0.3 0.0-2.0 % Neutrophils # (Auto) 6.2 1.6-8.6 10 ^3/uL Lymphocytes # (Auto) 0.3 L 0.4-5.4 10 ^3/uL Monocytes # (Auto) 0.5 0-1.3 10 ^3/uL Eosinophils # (Auto) 0 0-0.8 10 ^3/uL Basophils # (Auto) 0 0-0.2 10 ^3/uL Nucleated Red Blood Cells 0.1 % Sodium Level 138 136-145 mmol/L Potassium Level 3.4 L 3.5-5.1 mmol/L Chloride Level 101 98-107 mmol/L Carbon Dioxide Level 23 20-31 mmol/L Anion Gap 14 5-15 Blood Urea Nitrogen 22 9-23 mg/dL Creatinine 0.86 0.550-1.02 mg/dL Glomerular Filtration Rate Calc 74 >90 mL/min BUN/Creatinine Ratio 25.6 H 10.0-20.0 Serum Glucose 58 L 74-106 mg/dL Lactic Acid Level 3.2 *H 0.4-2.0 mmol/L Calcium Level 9.7 8.7-10.4 mg/dL Magnesium Level 2.2 1.6-2.6 mg/dL Total Bilirubin 18.3 H 0.2-1.0 mg/dL Aspartate Amino Transferase (AST) 305 H 13-40 U/L Alanine Aminotransferase (ALT) 322 H 7-40 U/L Alkaline Phosphatase 219 H 46-116 U/L Troponin I High Sensitivity < 3 L </=34 ng/L B-Type Natriuretic Peptide 83.63 0-100 pg/mL Total Protein 7.4 5.7-8.2 g/dL Albumin 2.9 L 3.2-4.8 g/dL Lipase 23 12-53 U/L Plasma/Serum Blood Alcohol < 3.0 <10 mg/dL Microbiology Date/Time Source Procedure Growth Status 06/04/25 10:00 Nose MRSA Screen - Final Complete 06/01/25 22:47 Stool Stool Culture - Final Complete 06/01/25 22:47 Stool Shiga Toxin I & II - Final Complete 05/31/25 14:15 Blood Blood Culture - Final NO GROWTH AFTER 5 DAYS OF INCUBATION. Complete Assessment Oliguria with preserved renal function rule out acute kidney injury Metabolic acidosis Pancreatic cancer with biliary obstruction status post biliary stent C diff infection Altered mental status Protein calorie malnutrition Obtain ABG Hold off on diuretics at this time continue with pressors to maintain mean arterial pressure greater than 65 Continue sodium bicarbonate drip for the next 24 hours Avoid contrast studies Avoid nephrotoxic agents Recommend improvement in nutrition Poor overall prognosis Plan discussed with: Patient JEANBereketSOMMER MD Jun 06, 2025 10:19
--- NOTE | 2025-06-06 10:33 | DVHPN2 ---
Progress Note - Dictate Date Seen: Jun 06, 2025 Medical Necessity Reason Pt with a Central, PICC or Fol: Yes The following are medically ne: Gaffney Catheter Reason for gaffney catheter: Strict I&O Subjective Nephrology consulted today. Patient is hypothermic at 89.2F rectally. vital signs Vital Sign Date Time Temp Pulse Resp B/P (MAP) Pulse Ox O2 Delivery O2 Flow Rate FiO2 06/06/25 07:45 89.8 97 15 92/57 (69) 100 193.6 06/06/25 07:30 Room Air* 0 21 Total Intake and Output 06/05/25 06/05/25 06/06/25 15:00 23:00 07:00 Intake Total 608.50 ml 406.95 ml 205.00 ml Output Total 100 ml 35 ml Balance 608.50 ml 306.95 ml 170.00 ml medications Current Medications Medications Dose Ordered Sig/Aayush Route Start Time Stop Time Status Last Admin Dose Admin Docusate Sodium 100 mg BIDPRN PRN PO 05/27/25 01:45 Acetaminophen 650 mg Q6HP PRN PO 05/27/25 01:45 06/03/25 22:06 650 MG Ondansetron HCl 4 mg Q4HP PRN IV 05/27/25 01:45 06/05/25 13:15 4 MG Nitroglycerin 0.4 mg Q5MINP PRN SL 05/27/25 01:45 Diagnostic Test (Pha) 1 strip Q6HR 05/27/25 06:00 06/06/25 05:57 1 STRIP Insulin Human Regular Q6HR SC 05/27/25 06:00 06/02/25 00:17 2 UNITS Dextrose 50 ml UD PRN IV 05/27/25 01:45 06/03/25 13:50 50 ML Pantoprazole Sodium 40 mg DAILY IV 05/27/25 10:00 06/06/25 10:04 40 MG Albuterol 2.5 mg Q4HPRN PRN NEB 05/27/25 04:45 Cancel Ipratropium [place] 0.5 mg Q4HPRN PRN NEB 05/27/25 04:45 Cancel Acetaminophen/ Hydrocodone Bitart 1 tab Q6HPRN PRN PO 05/27/25 17:30 06/05/25 11:46 1 TAB Oseltamivir Phosphate 75 mg Q12HR PO 05/28/25 22:00 06/02/25 21:59 UNV Enteral Nutritional Formula 240 ml BIDWM PO 05/29/25 18:00 06/04/25 08:00 240 ML Megestrol Acetate 400 mg DAILY PO 06/02/25 10:00 06/05/25 09:50 400 MG Cholestyramine Resin 4 gm Q12HR@11,23 PO 06/02/25 23:00 06/04/25 23:26 4 GM Azithromycin 250 ml @ 125 mls/hr DAILY IV 06/03/25 10:00 06/06/25 10:05 125 MLS/HR Midodrine 5 mg TIDWM@0600,1200,1800 PO 06/03/25 18:00 06/05/25 17:33 5 MG Patient Own Medication 1 gm DAILY IV 06/03/25 15:30 UNV Ertapenem 1 gm/ Sodium Chloride 50 ml @ 100 mls/hr DAILY@2200 IV 06/04/25 22:00 06/05/25 21:39 100 MLS/HR Linezolid 300 ml @ 300 mls/hr Q12HR IV 06/03/25 22:45 06/06/25 10:05 300 MLS/HR Vancomycin HCl 250 mg QID PO 06/04/25 18:00 06/05/25 17:33 250 MG Morphine Sulfate 2 mg Q4HPRN PRN IV 06/05/25 12:00 06/05/25 12:31 2 MG Hydromorphone HCl 0.5 mg Q4HPRN PRN IV 06/05/25 14:00 06/05/25 14:16 0.5 MG Norepinephrine Bitartrate 250 ml @ 3.75 mls/hr Q24H IV 06/05/25 20:45 06/05/25 21:17 3.75 MLS/HR objective General Appearance: Alert , no acute distress HEENT: Atraumatic, PERRLA, EOMI, Other (Icteric sclera) Respiratory: Clear to auscultation, Normal air movement Cardiovascular: Normal S1, Normal S2, Abdominal: Soft, Other (Biliary drain in place. Drainage from insertion site) Extremities: No clubbing, No cyanosis, No edema Skin: No breakdown Neuro: no focal deficit Psych/Mental Status: Mental status NL, Mood NL laboratory and microbiology Laboratory Tests 06/06/25 03:30 Test 06/06/25 03:30 Range/Units Serum Glucose 97 74-106 mg/dL Assessment/Plan A 69 years female presents with shock VRE bacteremia C diff diarrhea Campylobacter in stool streptococcus bacteremia ESBL [place] bacteremia Sepsis Influenza B positive Acute metabolic encephalopathy Hypoglycemia Dehydration Pulmonary airspace disease Small bilateral pleural effusions Abnormal LFT Hyperbilirubinemia History pancreatic cancer S/p percutaneous transhepatic biliary drain in place Hypotension Recommendations: Patient transferred to ICU due to hypotension. Currently on Dopamine drip. Stable in ICU. WBC elevated 18.1K on Linezolid, monitor platelets continue Zosyn, continue PO vancomycin on Azithromycin Blood cultures shows ESBL [place], however repeat blood cx is showing streptococcus Gastroenterology on board prognosis guarded; consider goals of care discussion. overall prognosis very poor Total time 50 minutes spent during this encounter. Thank you for the consult Dietary Evaluation Review Comments: 1) Change oral nutrition supplement from Ensure Clear to Ensure Enlive bid 2) Advance to regular diet when medically feasible 3) Encourage optimal PO intake 4) Follow-up with oncology 5) Continue to monitor I&O, labs, and skin integrity Expected Outcomes/Goals: 1) appetite and labs to improve 2) f/u in 3-5 days Plan discussed with: ANGEL Rodarte MD Jun 06, 2025 10:33
[2025-06-06 10:40] LABS: Base Excess -21.4 mmol/L (-2.0-3.0)
[2025-06-06] MEDS: SODIUM BICARB 50mEq/50ml Vial 150 ML in D5W 5% 1,000 ML IV SCH ×2 (11:00→12:45)
[2025-06-06] MEDS: SODIUM BICARB 8.4% 50Meq/50ml SYR INJ ONE (11:16)
[2025-06-06 12:38] LABS: Lactic Acid w/Reflex 19.5 mmol/L (0.4-2.0)
[2025-06-06 12:49] LABS: Base Excess -15.5 mmol/L (-2.0-3.0)
--- NOTE | 2025-06-06 13:16 | DVHPN2 ---
Progress Note - Dictate Date Seen: Jun 06, 2025 Medical Necessity Reason Pt with a Central, PICC or Fol: Yes The following are medically ne: Gaffney Catheter Reason for gaffney catheter: Strict I&O Subjective Due to tachycardia her pressors changed to Levophed. Heart rate is improved. However she remains hypotensive with a minimal urine output. Patient is evaluated by Nephrology had an ABG showed metabolic acidosis felt secondary to underlying sepsis. Patient is already on broad-spectrum antibiotics. vital signs Vital Sign Date Time Temp Pulse Resp B/P (MAP) Pulse Ox O2 Delivery O2 Flow Rate FiO2 06/06/25 12:00 12 100 Room Air* 0 21 06/06/25 11:45 94.5 106 82/52 (62) 202.1 Total Intake and Output 06/05/25 06/05/25 06/06/25 15:00 23:00 07:00 Intake Total 608.50 ml 406.95 ml 205.00 ml Output Total 100 ml 35 ml Balance 608.50 ml 306.95 ml 170.00 ml medications Current Medications Medications Dose Ordered Sig/Aayush Route Start Time Stop Time Status Last Admin Dose Admin Docusate Sodium 100 mg BIDPRN PRN PO 05/27/25 01:45 Acetaminophen 650 mg Q6HP PRN PO 05/27/25 01:45 06/03/25 22:06 650 MG Ondansetron HCl 4 mg Q4HP PRN IV 05/27/25 01:45 06/05/25 13:15 4 MG Nitroglycerin 0.4 mg Q5MINP PRN SL 05/27/25 01:45 Diagnostic Test (Pha) 1 strip Q6HR 05/27/25 06:00 06/06/25 12:18 1 STRIP Insulin Human Regular Q6HR SC 05/27/25 06:00 06/02/25 00:17 2 UNITS Dextrose 50 ml UD PRN IV 05/27/25 01:45 06/03/25 13:50 50 ML Pantoprazole Sodium 40 mg DAILY IV 05/27/25 10:00 06/06/25 10:04 40 MG Albuterol 2.5 mg Q4HPRN PRN NEB 05/27/25 04:45 Cancel Ipratropium [place] 0.5 mg Q4HPRN PRN NEB 05/27/25 04:45 Cancel Acetaminophen/ Hydrocodone Bitart 1 tab Q6HPRN PRN PO 05/27/25 17:30 06/05/25 11:46 1 TAB Oseltamivir Phosphate 75 mg Q12HR PO 05/28/25 22:00 06/02/25 21:59 UNV Enteral Nutritional Formula 240 ml BIDWM PO 05/29/25 18:00 06/04/25 08:00 240 ML Megestrol Acetate 400 mg DAILY PO 06/02/25 10:00 06/05/25 09:50 400 MG Cholestyramine Resin 4 gm Q12HR@11,23 PO 06/02/25 23:00 06/04/25 23:26 4 GM Azithromycin 250 ml @ 125 mls/hr DAILY IV 06/03/25 10:00 06/06/25 10:05 125 MLS/HR Midodrine 5 mg TIDWM@0600,1200,1800 PO 06/03/25 18:00 06/05/25 17:33 5 MG Patient Own Medication 1 gm DAILY IV 06/03/25 15:30 UNV Ertapenem 1 gm/ Sodium Chloride 50 ml @ 100 mls/hr DAILY@2200 IV 06/04/25 22:00 06/05/25 21:39 100 MLS/HR Linezolid 300 ml @ 300 mls/hr Q12HR IV 06/03/25 22:45 06/06/25 10:05 300 MLS/HR Vancomycin HCl 250 mg QID PO 06/04/25 18:00 06/05/25 17:33 250 MG Morphine Sulfate 2 mg Q4HPRN PRN IV 06/05/25 12:00 06/05/25 12:31 2 MG Hydromorphone HCl 0.5 mg Q4HPRN PRN IV 06/05/25 14:00 06/05/25 14:16 0.5 MG Norepinephrine Bitartrate 250 ml @ 3.75 mls/hr Q24H IV 06/05/25 20:45 06/05/25 21:17 3.75 MLS/HR Sodium Bicarbonate 150 ml/Dextrose 1,150 ml @ 125 mls/hr Q9H12M IV 06/06/25 12:45 UNV objective Ill-appearing female in bed. Alert and awake but appears tired. HEENT neck supple no JVD. Heart regular rate and rhythm S1-S2. Lungs fair air movement poor inspiratory effort. Abdomen soft positive bowel sounds. Extremities positive edema in the legs. laboratory and microbiology Laboratory Tests 06/06/25 03:30 Test 06/06/25 03:30 Range/Units Serum Glucose 97 74-106 mg/dL Assessment/Plan 1. Acute metabolic encephalopathy 2. Biliary obstruction status post percutaneous transhepatic biliary drain placement at higher level of care in March. CT abdominal pelvis was done which shows no evidence of any biliary dislodgement 3. Transaminitis 4. Hyperbilirubinemia 5. Pancreatic cancer with Mets to liver, retroperitoneal lymphadenopathy 6. Hypoglycemia, resolved 7. Lactic acidosis, resolved 8. Relative hypotension, status post normal saline bolus 9. Bilateral pleural effusion 10. Gram-negative bacteremia, with ESBL 11. Sepsis due to multidrug resistant organisms with a bacteremia Continue current antibiotics. Continue bicarb with IV fluids due to ischemia from underlying sepsis. Her lactic acid is significantly elevated therefore I will give her 2 L of normal saline bolus and repeat frequent lactic acid levels. Current otherwise continue rest of supportive care and treatment as she is on. Overall prognosis remains very poor. We will discuss with the son regarding her code status and I will hospice. Discussed with the nurse at bedside regarding her care plan. Dietary Evaluation Review Comments: 1) Change oral nutrition supplement from Ensure Clear to Ensure Enlive bid 2) Advance to regular diet when medically feasible 3) Encourage optimal PO intake 4) Follow-up with oncology 5) Continue to monitor I&O, labs, and skin integrity Expected Outcomes/Goals: 1) appetite and labs to improve 2) f/u in 3-5 days Plan discussed with: Patient, Other ARGENIS DELACRUZ MD Jun 06, 2025 13:15
[2025-06-06] MEDS: SODIUM CHLORIDE 0.9% 2,000 ML IV ONE (13:44)
[2025-06-06 15:59] LABS: Prothrombin Time 46.1 sec (9.3-11.8)
[2025-06-06 16:03] LABS: INR 5.11 (0.9-1.15); Partial Thromboplastin Time > 139.0 SEC (24.5-34.5)
[2025-06-06] MEDS: LIDOCAINE 1% (LOCAL ANESTH.) PF 5ml SDV ID ONE (17:28)
[2025-06-06] MEDS: phytonadione 10 MG in SODIUM CHL 0.9% 50 ML IV ONE (17:50)
--- NOTE | 2025-06-06 19:04 | DVHINCON2 ---
Date of service: Jun 06, 2025 Family History: Diabetes mellitus G8 MOTHER Hypertension G8 FATHER Ischemic heart disease G8 FATHER Pancreatic cancer Allergies: Coded Allergies: NO KNOWN ALLERGIES (Unverified , 06/30/21) Home Meds Unable to Obtain Active Prescriptions or Reported Meds Current Medications Current Medications Medications (Trade) Dose Ordered Sig/Aayush Route PRN Reason Start Time Stop Time Status Last Admin Norepinephrine Bitartrate 250 ml @ 3.75 mls/hr Q24H IV 06/05/25 20:45 06/06/25 13:44 Sodium Bicarbonate 150 ml/Dextrose 1,150 ml @ 100 mls/hr [id number] IV 06/06/25 11:00 06/06/25 12:41 DC 06/06/25 11:00 Sodium Bicarbonate 150 ml/Dextrose 1,150 ml @ 125 mls/hr Q9H12M IV 06/06/25 12:45 06/06/25 12:45 Sodium Chloride (Saline Lock Ns) 10 ml QSHIFT@10,22 IV 06/06/25 22:00 Vital Signs Vital Signs Date Time Temp Pulse Resp B/P (MAP) Pulse Ox O2 Delivery O2 Flow Rate FiO2 06/06/25 17:00 97.7 116 14 100 207.9 06/06/25 16:30 Room Air* 0 21 Labs/Diagnostic Data Labs Test 06/06/25 17:48 06/06/25 17:11 06/06/25 15:00 06/06/25 12:43 Range/Units POC Glucose 159 H 70-106 mg/dl Prothrombin Time 46.1 H 9.3-11.8 sec Prothrombin Time INR 5.11 *H 0.9-1.15 Activated Partial Thromboplast Time > 139.0 *H 24.5-34.5 SEC Ammonia 14 11-32 umol/L Blood Gas Specimen Type Arterial Blood Gas Sample Site Left radial Blood Gas Patient Temperature 37.0 Arterial Blood Date Drawn [id number] Arterial Blood pH 7.308 L 7.350-7.450 Arterial Blood Partial Pressure CO2 18.0 *L 32.0-45.0 mmHg Arterial Blood Partial Pressure O2 98.8 83.0-108.0 mmHg Arterial Blood HCO3 8.8 L 21.0-28.0 mmol/L Arterial Blood Oxygen Saturation 96.7 94.0-98.0 % Arterial Blood Base Excess -15.5 L -2.0-3.0 mmol/L Arterial Blood Oxyhemoglobin 96.0 94.0-98.0 % Arterial Blood Carboxyhemoglobin 0.3 L 0.5-1.5 % Arterial Blood Methemoglobin 0.4 0.0-1.5 % Brett Test Yes Blood Gas Total Hemoglobin 9.60 L 12.0-16.0 g/dL Blood Gas Modality Room air FiO2 % 21.0 Blood Gas Critical Value Read Back Yes Blood Gas Notified Whom raya Blunt md Blood Gas Notified Time [id number] Blood Gas Notified By Dyllan cartagena assistant finance manager Test 06/06/25 03:30 06/05/25 03:25 06/02/25 08:18 06/01/25 22:47 Range/Units White Blood Count 21.4 H 4.4-10.8 10^3/uL Red Blood Count 3.06 L 4.0-5.20 10^6/uL Hemoglobin 10.2 L 12.2-16.2 g/dL Hematocrit 32.2 L 36.0-46.0 % Mean Corpuscular Volume 105.0 #H 80.0-100.0 fL Mean Corpuscular Hemoglobin 33.2 H 28.0-32.0 pg Mean Corpuscular Hemoglobin Concent 31.6 L 32.0-36.0 g/dL Red Cell Distribution Width 17.4 H 11.8-14.3 % Platelet Count 159 140-450 10^3/uL Mean Platelet Volume 9.4 6.9-10.8 fL Neutrophils (%) (Auto) 84.8 H 37.0-80.0 % Lymphocytes (%) (Auto) 10.2 10.0-50.0 % Monocytes (%) (Auto) 4.9 0.0-12.0 % Eosinophils (%) (Auto) 0.0 0.0-7.0 % Basophils (%) (Auto) 0.1 0.0-2.0 % Neutrophils # (Auto) 18.1 H 1.6-8.6 10 ^3/uL Lymphocytes # (Auto) 2.2 0.4-5.4 10 ^3/uL Monocytes # (Auto) 1.0 0-1.3 10 ^3/uL Eosinophils # (Auto) 0 0-0.8 10 ^3/uL Basophils # (Auto) 0 0-0.2 10 ^3/uL Nucleated Red Blood Cells 0.1 % Platelet Estimate Adequate Sodium Level 137 136-145 mmol/L Potassium Level 4.4 3.5-5.1 mmol/L Chloride Level 103 98-107 mmol/L Carbon Dioxide Level < 10 *L 20-31 mmol/L Anion Gap 24.80109 H 5-15 Blood Urea Nitrogen 14 9-23 mg/dL Creatinine 0.98 # 0.550-1.02 mg/dL Glomerular Filtration Rate Calc 63 >90 mL/min BUN/Creatinine Ratio 14.3 10.0-20.0 Serum Glucose 97 74-106 mg/dL Calcium Level 8.5 L 8.7-10.4 mg/dL Total Bilirubin 13.3 H 0.2-1.0 mg/dL Aspartate Amino Transferase (AST) 787 H 13-40 U/L Alanine Aminotransferase (ALT) 278 H 7-40 U/L Alkaline Phosphatase 147 H 46-116 U/L Lactate Dehydrogenase 1012 H 120-246 U/L Total Protein 5.5 L 5.7-8.2 g/dL Albumin 2.2 L 3.2-4.8 g/dL Magnesium Level 2.1 1.6-2.6 mg/dL Differential Total Cells Counted 100.0 100 Neutrophils % (Manual) 78 37.0-80.0 Band Neutrophils % (Manual) 1 Lymphocytes % (Manual) 13 10.0-50.0 Monocytes % (Manual) 8 0-12 Eosinophils % (Manual) 0 0-7 Basophils % (Manual) 0 0.0-2.0 Metamyelocytes % (manual) 0 Myelocytes % (Manual) 0 Promyelocytes % (Manual) 0 Blast Cells % (Manual) 0 Reactive Lymphocytes 0 Anisocytosis (manual) Slight Target Cells Few CA 19-9 Antigen 54301 H 0-35 U/mL Stool Occult Blood Negative Negative Stool Occult Blood Sample #3 Negative Test 06/01/25 21:30 05/29/25 11:25 05/26/25 22:25 05/26/25 21:50 Range/Units Urine Color Yellow Yellow Urine Clarity Clear Clear Urine pH 5.5 5.0-9.0 Urine Specific [place] 1.007 1.001-1.035 Urine Protein Negative Negative Urine Ketones Negative Negative Urine Blood Negative Negative /uL Urine Nitrite Negative Negative Urine Bilirubin Negative Negative Urine Urobilinogen Normal Negative mg/dL Urine Leukocyte Esterase Negative Negative /uL Urine RBC None seen 0 - 4 /hpf Urine Microscopic WBC 2 0-5 /HPF Urine Squamous Epithelial Cells None seen <5 /hpf Urine Bacteria None seen None Seen /hpf Urine Hyaline Casts Few 0 - 2 /lpf Urine Yeast (Budding) Occasional None Seen /hpf Urine Glucose Normal Normal mg/dL Direct Bilirubin 8.7 H <0.3 mg/dL Troponin I High Sensitivity 3 L </=34 ng/L Influenza Type A Antigen Negative Negative Influenza Type B Antigen Positive Negative SARS-CoV-2 Antigen (Rapid) Negative NEGATIVE Test 05/26/25 21:27 Range/Units B-Type Natriuretic Peptide 83.63 0-100 pg/mL Lipase 23 12-53 U/L Plasma/Serum Blood Alcohol < 3.0 <10 mg/dL Microbiology Date/Time Source Procedure Growth Status 06/04/25 10:00 Nose MRSA Screen - Final Complete 06/01/25 22:47 Stool Stool Culture - Final Complete 06/01/25 22:47 Stool Shiga Toxin I & II - Final Complete 05/31/25 14:15 Blood Blood Culture - Final NO GROWTH AFTER 5 DAYS OF INCUBATION. Complete OZIEL ABERNATHY MD Jun 06, 2025 19:04
[2025-06-06 19:21] LABS: Lactic Acid w/Reflex 18.6 mmol/L (0.4-2.0)
[2025-06-06] MEDS: SODIUM CHLOR 0.9% PF (SALINE LOCK) 10ML VIAL/SYR IV SCH (21:40)
[2025-06-06] MEDS: SODIUM CHLORIDE 0.9% 1,000 ML IV ONE (22:07)
[2025-06-06 22:42] LABS: Lactic Acid w/Reflex 18.4 mmol/L (0.4-2.0)
--- NOTE | 2025-06-06 23:31 | DVHPN2 ---
Progress Note - Dictate Date Seen: Jun 06, 2025 Medical Necessity Reason Pt with a Central, PICC or Fol: Yes The following are medically ne: Gaffney Catheter Reason for gaffney catheter: Strict I&O Subjective Patient seen and examined at bedside. Breathing comfortably on room air Overnight events reviewed. vital signs Vital Sign Date Time Temp Pulse Resp B/P (MAP) Pulse Ox O2 Delivery O2 Flow Rate FiO2 06/06/25 22:58 83/49 06/06/25 22:45 96.6 112 13 205.9 06/06/25 22:00 90 06/06/25 22:00 Room Air* 0 21 Total Intake and Output 06/05/25 06/05/25 06/06/25 15:00 23:00 07:00 Intake Total 608.50 ml 406.95 ml 205.00 ml Output Total 100 ml 35 ml Balance 608.50 ml 306.95 ml 170.00 ml medications Current Medications Medications Dose Ordered Sig/Aayush Route Start Time Stop Time Status Last Admin Dose Admin Docusate Sodium 100 mg BIDPRN PRN PO 05/27/25 01:45 Acetaminophen 650 mg Q6HP PRN PO 05/27/25 01:45 06/03/25 22:06 650 MG Ondansetron HCl 4 mg Q4HP PRN IV 05/27/25 01:45 06/05/25 13:15 4 MG Nitroglycerin 0.4 mg Q5MINP PRN SL 05/27/25 01:45 Diagnostic Test (Pha) 1 strip Q6HR 05/27/25 06:00 06/06/25 18:16 1 STRIP Insulin Human Regular Q6HR SC 05/27/25 06:00 06/02/25 00:17 2 UNITS Dextrose 50 ml UD PRN IV 05/27/25 01:45 06/03/25 13:50 50 ML Pantoprazole Sodium 40 mg DAILY IV 05/27/25 10:00 06/06/25 10:04 40 MG Albuterol 2.5 mg Q4HPRN PRN NEB 05/27/25 04:45 Cancel Ipratropium [place] 0.5 mg Q4HPRN PRN NEB 05/27/25 04:45 Cancel Acetaminophen/ Hydrocodone Bitart 1 tab Q6HPRN PRN PO 05/27/25 17:30 06/05/25 11:46 1 TAB Oseltamivir Phosphate 75 mg Q12HR PO 05/28/25 22:00 06/02/25 21:59 UNV Enteral Nutritional Formula 240 ml BIDWM PO 05/29/25 18:00 06/04/25 08:00 240 ML Megestrol Acetate 400 mg DAILY PO 06/02/25 10:00 06/05/25 09:50 400 MG Cholestyramine Resin 4 gm Q12HR@11,23 PO 06/02/25 23:00 06/04/25 23:26 4 GM Azithromycin 250 ml @ 125 mls/hr DAILY IV 06/03/25 10:00 06/06/25 10:05 125 MLS/HR Midodrine 5 mg TIDWM@0600,1200,1800 PO 06/03/25 18:00 06/05/25 17:33 5 MG Patient Own Medication 1 gm DAILY IV 06/03/25 15:30 UNV Ertapenem 1 gm/ Sodium Chloride 50 ml @ 100 mls/hr DAILY@2200 IV 06/04/25 22:00 06/06/25 21:40 100 MLS/HR Linezolid 300 ml @ 300 mls/hr Q12HR IV 06/03/25 22:45 06/06/25 21:37 300 MLS/HR Vancomycin HCl 250 mg QID PO 06/04/25 18:00 06/05/25 17:33 250 MG Morphine Sulfate 2 mg Q4HPRN PRN IV 06/05/25 12:00 06/05/25 12:31 2 MG Hydromorphone HCl 0.5 mg Q4HPRN PRN IV 06/05/25 14:00 06/06/25 21:51 0.5 MG Norepinephrine Bitartrate 250 ml @ 3.75 mls/hr Q24H IV 06/05/25 20:45 06/06/25 22:58 26.25 MLS/HR Sodium Bicarbonate 150 ml/Dextrose 1,150 ml @ 125 mls/hr Q9H12M IV 06/06/25 12:45 06/06/25 12:45 125 MLS/HR Sodium Chloride 10 ml QSHIFT@10,22 IV 06/06/25 22:00 06/06/25 21:40 10 ML objective Gen.: Patient lying in bed in no apparent distress. On room air. Head: Normocephalic, atraumatic. Eyes: EOMI/PERRLA. Ears: Normal hearing. Normal anatomy. Neck/trachea: Trachea midline, supple. Nose: Normal external anatomy. Mouth: Moist mucous membranes. Chest: Decreased air entry bilaterally. No wheezing or rhonchi. Cardiovascular: Positive S1, positive S2. Regular rate and rhythm. Abdomen: Positive bowel sounds in all 4 quadrants. Soft, non-tender, non- distended. : Deferred. Rectal: Deferred. Skin: Warm, dry. Intact. Extremities: 2+ radial pulses bilaterally. 2+ bilateral lower extremity edema. Neuro: Awake, alert, oriented x3. No gross motor or sensory deficits. Cranial nerves II through XII intact. Gait not assessed. laboratory and microbiology Laboratory Tests 06/06/25 03:30 Test 06/06/25 03:30 Range/Units Serum Glucose 97 74-106 mg/dL Assessment/Plan Impression: Acute metabolic encephalopathy Sepsis Influenza B Pleural effusion Atelectasis Pancreatic cancer S/p percutaneous transhepatic biliary drain placement Events: Breathing comfortably on room air No distress Pressors for hemodynamic support On Levophed 14 mcg/min Titrate to keep MAP above 65 mmHg/SBP above 90 mmHg. Elevated WBC at 21.4 K Lactic acid elevated at 18.2 5 amps of bicarb given. Continue antibiotics F/u cultures: Bacteremia with blood cultures positive for gram-positive cocci, E SBL Klebsiella pneumoniae Repeat blood cultures positive for VRE ID recommendations appreciated Antibiotics per ID Continue IV fluids Continue bronchodilators Incentive spirometry Stool culture positive for C. diff - on isolation for C.diff. Positive influenza B - On oseltamivir course Monitor blood glucose Monitor blood pressures Head of bed elevation Aspiration precautions Pain control Avoid oversedation Protonix for GI ppx GI recommendations appreciated FOBT negative Monitor hemoglobin Transfuse if less than 7.0 g/dL. Diurese with Lasix - on hold due to low blood pressure Monitor renal function. Poor UOP Monitor electrolytes. Supplement as necessary. Patient with advanced pancreatic cancer w/ sepsis and [id number]-[id number]-[id number] organisms; multiorgan failure Overall poor prognosis with high likelihood of demise. Awaiting family decision on goals of care. Disposition per hospitalist. Arrange for home IV antibiotics Labs and imaging reviewed. Rest of plan as noted below. Plan: Supplemental oxygen PRN Titrate to keep O2 sats above 92%. Continue antibiotics Bacteremia - Follow up cultures Folow up ID recommendations Bronchodilators PRN. On pressors for hemodynamic support Titrate to keep MAP above 65 mmHg/SBP above 90 mmHg. Protonix for GI ppx Monitor hemoglobin Transfuse if less than 7.0 g/dL. Accu-Cheks, ISS PRN. Head of bed elevation Aspiration precautions Pain control Avoid oversedation Monitor renal function. Monitor electrolytes. Supplement as necessary. Monitor ins and outs. Monitor hemoglobin Transfuse if less than 7.0 g/dL. GI/DVT prophylaxis. Prognosis: Poor given patient's multiple co-morbidities. Rest of plan per hospitalist and other consultants. Thank you, VELVET Avila, for allowing me to participate in this patient's care. Further recommendations will depend on the patient's clinical course. Please do not hesitate to contact me if you have any questions or concerns. This medical document was created using an electronic medical record system with [employer] dictation system. Although these documentations are being carefully reviewed, there may still be some phonetic and typographical changes. The errors are purely typographical, due to imperfection on the software program, and do not reflect any compromise in the patient's medical care. Dietary Evaluation Review Comments: 1) Change oral nutrition supplement from Ensure Clear to Ensure Enlive bid 2) Advance to regular diet when medically feasible 3) Encourage optimal PO intake 4) Follow-up with oncology 5) Continue to monitor I&O, labs, and skin integrity Expected Outcomes/Goals: 1) appetite and labs to improve 2) f/u in 3-5 days Plan discussed with: Other (RN) Critical Care Time(min): 35 KENNA MATHEW ACNP Jun 06, 2025 23:30
[2025-06-07] VITALS (101 sets, daily range): BP systolic 70–109; BP diastolic 39–61; PULSE 98–133; RESP 12–34; TEMP 75.6–99.3; O2SAT 96–100
[2025-06-07 04:15] LABS: INR 2.61 (0.9-1.15); Prothrombin Time 25.2 sec (9.3-11.8)
[2025-06-07 04:18] LABS: Hematocrit 24.5 % (36.0-46.0); Hemoglobin 8.3 g/dL (12.2-16.2); Mean Corpuscular Hemoglobin 33.3 pg (28.0-32.0); Mean Corpuscular Volume 99.0 fL (80.0-100.0); Nucleated Red Blood Cells % 0.4 %
[2025-06-07 04:28] LABS: Chloride 102 mmol/L (98-107); Potassium 3.6 mmol/L (3.5-5.1); Sodium 142 mmol/L (136-145)
[2025-06-07 04:29] LABS: Anion Gap 25 (5-15)
[2025-06-07 04:34] LABS: Blood Urea Nitrogen 15 mg/dL (9-23); Calcium 8.0 mg/dL (8.7-10.4); Carbon Dioxide 15 mmol/L (20-31); Glucose 130 mg/dL (74-106)
[2025-06-07 04:44] LABS: BUN/Creatinine Ratio 14.7 (10.0-20.0)
--- NOTE | 2025-06-07 10:16 | DVHPN2 ---
Progress Note Date Seen: Jun 07, 2025 Medical Necessity Reason Pt with a Central, PICC or Fol: Yes The following are medically ne: Gaffney Catheter Reason for gaffney catheter: Strict I&O Subjective Patient reports: No new complaints Other Systems: Patient seen and examined by myself today in follow-up Objective vital signs Vital Sign Date Time Temp Pulse Resp B/P (MAP) Pulse Ox O2 Delivery O2 Flow Rate FiO2 06/07/25 06:45 99.1 131 22 93/52 (66) 210.4 06/07/25 05:56 99 Room Air* 0 21 Total Intake and Output 06/06/25 06/06/25 06/07/25 14:59 22:59 06:59 Intake Total 2350.00 ml 2510.00 ml 2859.00 ml Output Total 35 ml 50 ml Balance 2350.00 ml 2475.00 ml 2809.00 ml medications Current Medications Medications Dose Ordered Sig/Aayush Route Start Time Stop Time Status Last Admin Dose Admin Docusate Sodium 100 mg BIDPRN PRN PO 05/27/25 01:45 Acetaminophen 650 mg Q6HP PRN PO 05/27/25 01:45 06/03/25 22:06 650 MG Ondansetron HCl 4 mg Q4HP PRN IV 05/27/25 01:45 06/05/25 13:15 4 MG Nitroglycerin 0.4 mg Q5MINP PRN SL 05/27/25 01:45 Diagnostic Test (Pha) 1 strip Q6HR 05/27/25 06:00 06/07/25 06:27 1 STRIP Insulin Human Regular Q6HR SC 05/27/25 06:00 06/06/25 23:58 3 UNITS Dextrose 50 ml UD PRN IV 05/27/25 01:45 06/03/25 13:50 50 ML Pantoprazole Sodium 40 mg DAILY IV 05/27/25 10:00 06/06/25 10:04 40 MG Albuterol 2.5 mg Q4HPRN PRN NEB 05/27/25 04:45 Cancel Ipratropium [place] 0.5 mg Q4HPRN PRN NEB 05/27/25 04:45 Cancel Acetaminophen/ Hydrocodone Bitart 1 tab Q6HPRN PRN PO 05/27/25 17:30 06/05/25 11:46 1 TAB Oseltamivir Phosphate 75 mg Q12HR PO 05/28/25 22:00 06/02/25 21:59 UNV Enteral Nutritional Formula 240 ml BIDWM PO 05/29/25 18:00 06/04/25 08:00 240 ML Megestrol Acetate 400 mg DAILY PO 06/02/25 10:00 06/05/25 09:50 400 MG Cholestyramine Resin 4 gm Q12HR@11,23 PO 06/02/25 23:00 06/04/25 23:26 4 GM Azithromycin 250 ml @ 125 mls/hr DAILY IV 06/03/25 10:00 06/06/25 10:05 125 MLS/HR Midodrine 5 mg TIDWM@0600,1200,1800 PO 06/03/25 18:00 06/05/25 17:33 5 MG Patient Own Medication 1 gm DAILY IV 06/03/25 15:30 UNV Ertapenem 1 gm/ Sodium Chloride 50 ml @ 100 mls/hr DAILY@2200 IV 06/04/25 22:00 06/06/25 21:40 100 MLS/HR Linezolid 300 ml @ 300 mls/hr Q12HR IV 06/03/25 22:45 06/06/25 21:37 300 MLS/HR Vancomycin HCl 250 mg QID PO 06/04/25 18:00 06/05/25 17:33 250 MG Morphine Sulfate 2 mg Q4HPRN PRN IV 06/05/25 12:00 06/05/25 12:31 2 MG Hydromorphone HCl 0.5 mg Q4HPRN PRN IV 06/05/25 14:00 06/06/25 21:51 0.5 MG Norepinephrine Bitartrate 250 ml @ 3.75 mls/hr Q24H IV 06/05/25 20:45 06/06/25 22:58 26.25 MLS/HR Sodium Bicarbonate 150 ml/Dextrose 1,150 ml @ 125 mls/hr Q9H12M IV 06/06/25 12:45 06/07/25 07:31 125 MLS/HR Sodium Chloride 10 ml QSHIFT@10,22 IV 06/06/25 22:00 06/06/25 21:40 10 ML Examination: LUNGS:Normal, CVS:Normal, MSK:Normal laboratory and microbiology Laboratory Tests 06/07/25 03:55 Test 06/07/25 03:55 Range/Units Serum Glucose 130 H 74-106 mg/dL Microbiology Date/Time Source Procedure Growth Status 06/06/25 18:03 Urine - [place] Urine Culture - Preliminary Resulted 06/04/25 10:00 Nose MRSA Screen - Final Complete 06/01/25 22:47 Stool Stool Culture - Final Complete 06/01/25 22:47 Stool Shiga Toxin I & II - Final Complete 05/31/25 14:15 Blood Blood Culture - Final NO GROWTH AFTER 5 DAYS OF INCUBATION. Complete Problem List/Assessment/Plan Problem List/Assessment/Plan Acute kidney injury secondary hemodynamic mediated Metabolic acidosis Pancreatic cancer with biliary obstruction status post biliary stent C diff infection Sepsis Altered mental status Protein calorie malnutrition Recommendations Patient remained hypotensive Patient remained oliguric Strict I&Os IV bicarb drip IV pressor for blood pressure support Albumin 25% IV piggyback IV antibiotics We will continue to follow up Plan discussed with: Patient Dietary Evaluation Review Comments: 1) Change oral nutrition supplement from Ensure Clear to Ensure Enlive bid 2) Advance to regular diet when medically feasible 3) Encourage optimal PO intake 4) Follow-up with oncology 5) Continue to monitor I&O, labs, and skin integrity Expected Outcomes/Goals: 1) appetite and labs to improve 2) f/u in 3-5 days DONALD CHAN MD Jun 07, 2025 10:16
--- NOTE | 2025-06-07 10:46 | DVHPN2 ---
Progress Note - Dictate Date Seen: Jun 07, 2025 Medical Necessity Reason Pt with a Central, PICC or Fol: Yes The following are medically ne: Gaffney Catheter Reason for gaffney catheter: Strict I&O Subjective Patient remains hypotensive. On Levophed. vital signs Vital Sign Date Time Temp Pulse Resp B/P (MAP) Pulse Ox O2 Delivery O2 Flow Rate FiO2 06/07/25 06:45 99.1 131 22 93/52 (66) 210.4 06/07/25 05:56 99 Room Air* 0 21 Total Intake and Output 06/06/25 06/06/25 06/07/25 15:00 23:00 07:00 Intake Total 3490.00 ml 2860.00 ml 1357.75 ml Output Total 35 ml 50 ml Balance 3490.00 ml 2825.00 ml 1307.75 ml medications Current Medications Medications Dose Ordered Sig/Aayush Route Start Time Stop Time Status Last Admin Dose Admin Docusate Sodium 100 mg BIDPRN PRN PO 05/27/25 01:45 Acetaminophen 650 mg Q6HP PRN PO 05/27/25 01:45 06/03/25 22:06 650 MG Ondansetron HCl 4 mg Q4HP PRN IV 05/27/25 01:45 06/05/25 13:15 4 MG Nitroglycerin 0.4 mg Q5MINP PRN SL 05/27/25 01:45 Diagnostic Test (Pha) 1 strip Q6HR 05/27/25 06:00 06/07/25 06:27 1 STRIP Insulin Human Regular Q6HR SC 05/27/25 06:00 06/06/25 23:58 3 UNITS Dextrose 50 ml UD PRN IV 05/27/25 01:45 06/03/25 13:50 50 ML Pantoprazole Sodium 40 mg DAILY IV 05/27/25 10:00 06/06/25 10:04 40 MG Albuterol 2.5 mg Q4HPRN PRN NEB 05/27/25 04:45 Cancel Ipratropium [place] 0.5 mg Q4HPRN PRN NEB 05/27/25 04:45 Cancel Acetaminophen/ Hydrocodone Bitart 1 tab Q6HPRN PRN PO 05/27/25 17:30 06/05/25 11:46 1 TAB Oseltamivir Phosphate 75 mg Q12HR PO 05/28/25 22:00 06/02/25 21:59 UNV Enteral Nutritional Formula 240 ml BIDWM PO 05/29/25 18:00 06/04/25 08:00 240 ML Megestrol Acetate 400 mg DAILY PO 06/02/25 10:00 06/05/25 09:50 400 MG Cholestyramine Resin 4 gm Q12HR@11,23 PO 06/02/25 23:00 06/04/25 23:26 4 GM Azithromycin 250 ml @ 125 mls/hr DAILY IV 06/03/25 10:00 06/06/25 10:05 125 MLS/HR Midodrine 5 mg TIDWM@0600,1200,1800 PO 06/03/25 18:00 06/05/25 17:33 5 MG Patient Own Medication 1 gm DAILY IV 06/03/25 15:30 UNV Ertapenem 1 gm/ Sodium Chloride 50 ml @ 100 mls/hr DAILY@2200 IV 06/04/25 22:00 06/06/25 21:40 100 MLS/HR Linezolid 300 ml @ 300 mls/hr Q12HR IV 06/03/25 22:45 06/06/25 21:37 300 MLS/HR Vancomycin HCl 250 mg QID PO 06/04/25 18:00 06/05/25 17:33 250 MG Morphine Sulfate 2 mg Q4HPRN PRN IV 06/05/25 12:00 06/05/25 12:31 2 MG Hydromorphone HCl 0.5 mg Q4HPRN PRN IV 06/05/25 14:00 06/06/25 21:51 0.5 MG Norepinephrine Bitartrate 250 ml @ 3.75 mls/hr Q24H IV 06/05/25 20:45 06/06/25 22:58 26.25 MLS/HR Sodium Bicarbonate 150 ml/Dextrose 1,150 ml @ 125 mls/hr Q9H12M IV 06/06/25 12:45 06/07/25 07:31 125 MLS/HR Sodium Chloride 10 ml QSHIFT@10,22 IV 06/06/25 22:00 06/06/25 21:40 10 ML objective General Appearance: Alert , no acute distress HEENT: Atraumatic, PERRLA, EOMI, Other (Icteric sclera) Respiratory: Clear to auscultation, Normal air movement Cardiovascular: Normal S1, Normal S2, Abdominal: Soft, Other (Biliary drain in place. Drainage from insertion site) Extremities: No clubbing, No cyanosis, No edema Skin: No breakdown Neuro: no focal deficit Psych/Mental Status: Mental status NL, Mood NL laboratory and microbiology Laboratory Tests 06/07/25 03:55 Test 06/07/25 03:55 Range/Units Serum Glucose 130 H 74-106 mg/dL Assessment/Plan A 69 years female presents with shock VRE bacteremia C diff diarrhea Campylobacter in stool streptococcus bacteremia ESBL [place] bacteremia Sepsis Influenza B positive Acute metabolic encephalopathy Hypoglycemia Dehydration Pulmonary airspace disease Small bilateral pleural effusions Abnormal LFT Hyperbilirubinemia History pancreatic cancer S/p percutaneous transhepatic biliary drain in place Hypotension Recommendations: Patient transferred to ICU due to hypotension. Currently on Dopamine drip. Stable in ICU. WBC elevated 18.1K on Linezolid, monitor platelets continue Zosyn, continue PO vancomycin on Azithromycin Blood cultures shows ESBL [place], however repeat blood cx is showing streptococcus Gastroenterology on board prognosis guarded; consider goals of care discussion. overall prognosis very poor Total time 50 minutes spent during this encounter. Thank you for the consult Dietary Evaluation Review Comments: 1) Change oral nutrition supplement from Ensure Clear to Ensure Enlive bid 2) Advance to regular diet when medically feasible 3) Encourage optimal PO intake 4) Follow-up with oncology 5) Continue to monitor I&O, labs, and skin integrity Expected Outcomes/Goals: 1) appetite and labs to improve 2) f/u in 3-5 days Plan discussed with: Other ANGEL DE LEON MD Jun 07, 2025 10:46
[2025-06-07] MEDS ORDERED: TPN PER PHARMACY 0 ML IV SCH (11:00)
[2025-06-07 11:14] LABS: Magnesium 1.6 mg/dL (1.6-2.6)
[2025-06-07] MEDS: ALBUMIN 25% 100 ML IV ONE (12:30)
[2025-06-07] MEDS: FUROSEMIDE 40 MG/4 ML VIAL IV ONE (13:00)
--- NOTE | 2025-06-07 13:01 | DVHPN2 ---
Progress Note - Dictate Date Seen: Jun 07, 2025 Medical Necessity Reason Pt with a Central, PICC or Fol: No The following are medically ne: Gaffney Catheter Reason for gaffney catheter: Strict I&O Subjective Patient remains critically ill. Alert and awake but it intermittent confusion per nurse. Requiring higher Levophed to keep the blood pressure in a reasonable range. Still poor urinary output however normal kidney function at present. Coagulopathy has been corrected. vital signs Vital Sign Date Time Temp Pulse Resp B/P (MAP) Pulse Ox O2 Delivery O2 Flow Rate FiO2 06/07/25 10:30 98.6 118 19 90/53 (65) 209.5 06/07/25 09:30 100 Room Air* 0 21 Total Intake and Output 06/06/25 06/06/25 06/07/25 15:00 23:00 07:00 Intake Total 3490.00 ml 2860.00 ml 1384.00 ml Output Total 35 ml 50 ml Balance 3490.00 ml 2825.00 ml 1334.00 ml medications Current Medications Medications Dose Ordered Sig/Aayush Route Start Time Stop Time Status Last Admin Dose Admin Docusate Sodium 100 mg BIDPRN PRN PO 05/27/25 01:45 Acetaminophen 650 mg Q6HP PRN PO 05/27/25 01:45 06/03/25 22:06 650 MG Ondansetron HCl 4 mg Q4HP PRN IV 05/27/25 01:45 06/05/25 13:15 4 MG Nitroglycerin 0.4 mg Q5MINP PRN SL 05/27/25 01:45 Pantoprazole Sodium 40 mg DAILY IV 05/27/25 10:00 06/07/25 10:38 40 MG Albuterol 2.5 mg Q4HPRN PRN NEB 05/27/25 04:45 Cancel Ipratropium [place] 0.5 mg Q4HPRN PRN NEB 05/27/25 04:45 Cancel Acetaminophen/ Hydrocodone Bitart 1 tab Q6HPRN PRN PO 05/27/25 17:30 06/05/25 11:46 1 TAB Oseltamivir Phosphate 75 mg Q12HR PO 05/28/25 22:00 06/02/25 21:59 UNV Enteral Nutritional Formula 240 ml BIDWM PO 05/29/25 18:00 06/04/25 08:00 240 ML Azithromycin 250 ml @ 125 mls/hr DAILY IV 06/03/25 10:00 06/07/25 10:38 125 MLS/HR Midodrine 5 mg TIDWM@0600,1200,1800 PO 06/03/25 18:00 06/05/25 17:33 5 MG Patient Own Medication 1 gm DAILY IV 06/03/25 15:30 UNV Ertapenem 1 gm/ Sodium Chloride 50 ml @ 100 mls/hr DAILY@2200 IV 06/04/25 22:00 06/06/25 21:40 100 MLS/HR Linezolid 300 ml @ 300 mls/hr Q12HR IV 06/03/25 22:45 06/07/25 10:00 300 MLS/HR Vancomycin HCl 250 mg QID PO 06/04/25 18:00 06/05/25 17:33 250 MG Morphine Sulfate 2 mg Q4HPRN PRN IV 06/05/25 12:00 06/05/25 12:31 2 MG Hydromorphone HCl 0.5 mg Q4HPRN PRN IV 06/05/25 14:00 06/06/25 21:51 0.5 MG Norepinephrine Bitartrate 250 ml @ 3.75 mls/hr Q24H IV 06/05/25 20:45 06/07/25 07:31 30 MLS/HR Sodium Bicarbonate 150 ml/Dextrose 1,150 ml @ 125 mls/hr Q9H12M IV 06/06/25 12:45 06/07/25 07:31 125 MLS/HR Sodium Chloride 10 ml QSHIFT@10,22 IV 06/06/25 22:00 06/07/25 10:38 10 ML Amino Acids 0 ml @ 0 mls/hr PER PHARMACY IV 06/07/25 11:00 Diagnostic Test (Pha) 1 strip Q6HR 06/07/25 18:00 Insulin Human Regular FOLLOW SLIDING SCALE Q6HR SC 06/07/25 18:00 Dextrose 50 ml UD IV 06/07/25 12:45 objective Ill-appearing female in bed. Alert and awake but appears tired. HEENT neck supple no JVD. Heart regular rate and rhythm S1-S2. Lungs fair air movement poor inspiratory effort. Abdomen soft positive bowel sounds. Extremities positive edema in the legs. laboratory and microbiology Laboratory Tests 06/07/25 03:55 Test 06/07/25 03:55 Range/Units Serum Glucose 130 H 74-106 mg/dL Assessment/Plan 1. Acute metabolic encephalopathy 2. Biliary obstruction status post percutaneous transhepatic biliary drain placement at higher level of care in March. CT abdominal pelvis was done which shows no evidence of any biliary dislodgement 3. Transaminitis 4. Hyperbilirubinemia 5. Pancreatic cancer with Mets to liver, retroperitoneal lymphadenopathy 6. Hypoglycemia, resolved 7. Lactic acidosis, resolved 8. Relative hypotension, status post normal saline bolus 9. Bilateral pleural effusion 10. Gram-negative bacteremia, with ESBL 11. Sepsis due to multidrug resistant organisms with a bacteremia Continue current antibiotics. Continue bicarb with IV fluids due to ischemia from underlying sepsis. We will do follow up lactic acid levels today. Place NG tube given patient's poor appetite and unable to take any oral meds. We will also start her on tube feeds once NG tube is placed. Discussed with the nurse at bedside regarding her care plan. I have also discussed patient's care plan over the phone with her son Saul along with the nurse next to me. Once again reiterated her critical illness with a very poor prognosis due to advanced pancreatic cancer with multiorgan failure and sepsis. At present he wants her to be full code and continue current treatment as she is on. He will be visiting her later on today to further discuss goals of care. Dietary Evaluation Review Comments: 1) Change oral nutrition supplement from Ensure Clear to Ensure Enlive bid 2) Advance to regular diet when medically feasible 3) Encourage optimal PO intake 4) Follow-up with oncology 5) Continue to monitor I&O, labs, and skin integrity Expected Outcomes/Goals: 1) appetite and labs to improve 2) f/u in 3-5 days Plan discussed with: ARGENIS Amos MD Jun 07, 2025 13:01
[2025-06-07 14:10] LABS: Alanine Aminotransferase 454.0 U/L (7-40); Albumin 2.2 g/dL (3.2-4.8); Alkaline Phosphatase 192.0 U/L (46-116); Bilirubin, Direct 8.4 mg/dL (<0.3); Bilirubin, Total 11.6 mg/dL (0.2-1.0)
[2025-06-07 14:14] LABS: Total Protein 4.1 g/dL (5.7-8.2); Triglycerides 125.0 mg/dL (< 150)
[2025-06-07 14:17] LABS: Lactic Acid w/Reflex 14.2 mmol/L (0.4-2.0)
[2025-06-07 14:26] LABS: Urine Budding Yeast LOADED /hpf (None Seen); Urine Protein, UAD 1+ (Negative); Urine WBC Clumps PRESENT /hpf (None Seen)
[2025-06-07] MEDS: ACCU-CHEK COMFORT CURVE STRIP VI SCH (17:47)
[2025-06-07] MEDS: InsuLIN REG 1unit/0.01ml Soln (100units/ml) SC SCH (17:47)
[2025-06-07] MEDS: POTASSIUM PHOSPHATE 44 MEQ in D5W 5% 250 ML IV ONE (17:49)
--- NOTE | 2025-06-07 18:31 | DVHPN2 ---
Progress Note Date Seen: Jun 07, 2025 Resident Creating Document: CORBY MENDIETA RESIDENT Medical Necessity Reason Pt with a Central, PICC or Fol: No The following are medically ne: PICC Line, Gaffney Catheter Reason for gaffney catheter: Strict I&O Subjective Review of Systems Patient seen and examined at bedside Mental started deteriorating and the patient is A&O x2 Refusing to eat food He will start the patient on TPN, given patient has altered mental status and the risk of aspiration Worsening hemodynamic status H&H decreased from 10.2 to 8.3 Objective vital signs Vital Sign Date Time Temp Pulse Resp B/P (MAP) Pulse Ox O2 Delivery O2 Flow Rate FiO2 06/07/25 13:00 101/49 06/07/25 10:30 98.6 118 19 209.5 06/07/25 09:30 100 Room Air* 0 21 Total Intake and Output 06/06/25 06/06/25 06/07/25 15:00 23:00 07:00 Intake Total 3490.00 ml 2860.00 ml 1384.00 ml Output Total 35 ml 50 ml Balance 3490.00 ml 2825.00 ml 1334.00 ml medications Current Medications Medications Dose Ordered Sig/Aayush Route Start Time Stop Time Status Last Admin Dose Admin Docusate Sodium 100 mg BIDPRN PRN PO 05/27/25 01:45 Acetaminophen 650 mg Q6HP PRN PO 05/27/25 01:45 06/03/25 22:06 650 MG Ondansetron HCl 4 mg Q4HP PRN IV 05/27/25 01:45 06/05/25 13:15 4 MG Nitroglycerin 0.4 mg Q5MINP PRN SL 05/27/25 01:45 Pantoprazole Sodium 40 mg DAILY IV 05/27/25 10:00 06/07/25 10:38 40 MG Albuterol 2.5 mg Q4HPRN PRN NEB 05/27/25 04:45 Cancel Ipratropium [place] 0.5 mg Q4HPRN PRN NEB 05/27/25 04:45 Cancel Acetaminophen/ Hydrocodone Bitart 1 tab Q6HPRN PRN PO 05/27/25 17:30 06/05/25 11:46 1 TAB Oseltamivir Phosphate 75 mg Q12HR PO 05/28/25 22:00 06/02/25 21:59 UNV Enteral Nutritional Formula 240 ml BIDWM PO 05/29/25 18:00 06/04/25 08:00 240 ML Azithromycin 250 ml @ 125 mls/hr DAILY IV 06/03/25 10:00 06/07/25 10:38 125 MLS/HR Midodrine 5 mg TIDWM@0600,1200,1800 PO 06/03/25 18:00 06/05/25 17:33 5 MG Patient Own Medication 1 gm DAILY IV 06/03/25 15:30 UNV Ertapenem 1 gm/ Sodium Chloride 50 ml @ 100 mls/hr DAILY@2200 IV 06/04/25 22:00 06/06/25 21:40 100 MLS/HR Linezolid 300 ml @ 300 mls/hr Q12HR IV 06/03/25 22:45 06/07/25 10:00 300 MLS/HR Vancomycin HCl 250 mg QID PO 06/04/25 18:00 06/05/25 17:33 250 MG Morphine Sulfate 2 mg Q4HPRN PRN IV 06/05/25 12:00 06/05/25 12:31 2 MG Hydromorphone HCl 0.5 mg Q4HPRN PRN IV 06/05/25 14:00 06/06/25 21:51 0.5 MG Norepinephrine Bitartrate 250 ml @ 3.75 mls/hr Q24H IV 06/05/25 20:45 06/07/25 07:31 30 MLS/HR Sodium Bicarbonate 150 ml/Dextrose 1,150 ml @ 125 mls/hr Q9H12M IV 06/06/25 12:45 06/07/25 07:31 125 MLS/HR Sodium Chloride 10 ml QSHIFT@10,22 IV 06/06/25 22:00 06/07/25 10:38 10 ML Amino Acids 0 ml @ 0 mls/hr PER PHARMACY IV 06/07/25 11:00 Diagnostic Test (Pha) 1 strip Q6HR 06/07/25 18:00 06/07/25 17:47 1 STRIP Insulin Human Regular FOLLOW SLIDING SCALE Q6HR SC 06/07/25 18:00 Dextrose 50 ml UD IV 06/07/25 12:45 Fat Emulsion Intravenous 50 ml/ Sodium Chloride 40 meq/Potassium Acetate 40 meq/ Calcium Gluconate 2.3 meq/Magnesium Sulfate 8 meq/ Multivitamins 10 ml/Amino Acids/ Dextrose 1,096.9462 ml @ 46 mls/hr [id number] IV 06/07/25 22:00 06/08/25 21:59 Examination Gen - mild conjuctival pallor, positive scleral icterus Skin - Patients skin is warm and dry. HEENT - normocephalic, atraumatic, dry mucous membranes. Neck - supple, no lymphadenopathy Pulmonary - B/L clear breath sounds with basilar crackles more in the left lower cardiovascular - regular S1,S2 heard GI - soft abdomen with mild tenderness to palpation. Bowel sounds normoactive. Neurological - Patient is alert and oriented x3. following commands laboratory and microbiology Laboratory Tests 06/07/25 03:55 Test 06/07/25 03:55 Range/Units Serum Glucose 130 H 74-106 mg/dL Microbiology Date/Time Source Procedure Growth Status 06/06/25 18:03 Urine - [place] Urine Culture - Preliminary Resulted 06/06/25 11:32 Blood Blood Culture - Preliminary NO GROWTH AFTER 24 HOURS OF INCUBATION. Resulted 06/04/25 10:00 Nose MRSA Screen - Final Complete 06/01/25 22:47 Stool Stool Culture - Final Complete 06/01/25 22:47 Stool Shiga Toxin I & II - Final Complete Problem List/Assessment/Plan Problem List/Assessment/Plan Assessment Pancreatic cancer s/p biliary stent placement with possible metastatic adenopathy Intractable abdominal pain Hyperbilirubinemia Transaminitis Influenza B Klebsiella ESBL bacteremia C diff colitis Campylobacter gastroenteritis Plan - patient had a recent placement of biliary drainage stent at [facility] - pancreatic mass seen on the CT Abd likely pancreatic cancer - 06/02/[address] abdomen showed right hepatic approach internal external biliary drainage catheter terminating within the 2nd segment of the duodenum - monitor LFTs - IV protonix - started on vancomycin p.o. for C diff colitis and azithromycin for Campylobacter - IV antibiotics for bacteremia - due to decreased p.o. intake and worsening mental status, risk of aspiration, patient is started on TPN patient may be a candidate for hospice given her metastatic pancreatic cancer and significant comorbidities. Plan discussed with Dr Morrissey Plan discussed with: Other (GABRIELA Rose) My Orders My Orders Orders - CORBY MENDIETA RESIDENT Procedure Category Date Status Time Tpn Per Pharmacy PHA 06/07/25 In Process 11:00 Glucose Blood PHA 06/07/25 In Process (Accu-Chek Comfort 18:00 Insulin R (Human) PHA 06/07/25 In Process (Insulin R) 18:00 Dextrose 50% Syringe PHA 06/07/25 In Process 12:45 Comprehensive LAB 06/08/25 Verified Metabolic Panel 04:00 Magnesium LAB 06/08/25 Verified 04:00 Phosphorus LAB 06/08/25 Verified 04:00 Amino Acid PHA 06/07/25 In Process Infusion... W/Fat 22:00 Tpn Per Pharmacy [facility] 06/07/25 In Process 22:00 Dietary Evaluation Review Comments: 1) Change oral nutrition supplement from Ensure Clear to Ensure Enlive bid 2) Advance to regular diet when medically feasible 3) Encourage optimal PO intake 4) Follow-up with oncology 5) Continue to monitor I&O, labs, and skin integrity Expected Outcomes/Goals: 1) appetite and labs to improve 2) f/u in 3-5 days CORBY MENDIETA RESIDENT Jun 07, 2025 18:31
--- NOTE | 2025-06-07 19:55 | DVH ---
CHEST RADIOGRAPH Indication: confirm NGT placement Technique: Single frontal view of the chest was obtained COMPARISON: XY CHEST XRAY 1 VIEW on DOS: 05/26/25, XY CHEST XRAY 1 VIEW on DOS: 05/26/25 FINDINGS: Lines and Tubes: Right chest port and enteric catheter in satisfactory position. Lungs: Unchanged pulmonary vascular congestion. Pleura: No effusion.No pneumothorax. Cardiomediastinal contours: Unremarkable Bones: Unremarkable IMPRESSION: Enteric catheter in satisfactory position.
[2025-06-07] MEDS: TPN PER PHARMACY IV NR (21:39)
--- NOTE | 2025-06-07 23:51 | DVHPN2 ---
Progress Note - Dictate Date Seen: Jun 07, 2025 Medical Necessity Reason Pt with a Central, PICC or Fol: No The following are medically ne: PICC Line, Gaffney Catheter Reason for gaffney catheter: Strict I&O Subjective Patient seen and examined at bedside. Breathing comfortably on room air Overnight events reviewed. vital signs Vital Sign Date Time Temp Pulse Resp B/P (MAP) Pulse Ox O2 Delivery O2 Flow Rate FiO2 06/07/25 23:07 91/56 06/07/25 23:00 97.9 127 28 208.2 06/07/25 22:00 99 Room Air* 0 21 Total Intake and Output 06/06/25 06/06/25 06/07/25 15:00 23:00 07:00 Intake Total 3490.00 ml 2860.00 ml 1384.00 ml Output Total 35 ml 50 ml Balance 3490.00 ml 2825.00 ml 1334.00 ml medications Current Medications Medications Dose Ordered Sig/Aayush Route Start Time Stop Time Status Last Admin Dose Admin Docusate Sodium 100 mg BIDPRN PRN PO 05/27/25 01:45 Acetaminophen 650 mg Q6HP PRN PO 05/27/25 01:45 06/03/25 22:06 650 MG Ondansetron HCl 4 mg Q4HP PRN IV 05/27/25 01:45 06/05/25 13:15 4 MG Nitroglycerin 0.4 mg Q5MINP PRN SL 05/27/25 01:45 Pantoprazole Sodium 40 mg DAILY IV 05/27/25 10:00 06/07/25 10:38 40 MG Albuterol 2.5 mg Q4HPRN PRN NEB 05/27/25 04:45 Cancel Ipratropium [place] 0.5 mg Q4HPRN PRN NEB 05/27/25 04:45 Cancel Acetaminophen/ Hydrocodone Bitart 1 tab Q6HPRN PRN PO 05/27/25 17:30 06/05/25 11:46 1 TAB Oseltamivir Phosphate 75 mg Q12HR PO 05/28/25 22:00 06/02/25 21:59 UNV Enteral Nutritional Formula 240 ml BIDWM PO 05/29/25 18:00 06/04/25 08:00 240 ML Azithromycin 250 ml @ 125 mls/hr DAILY IV 06/03/25 10:00 06/07/25 10:38 125 MLS/HR Midodrine 5 mg TIDWM@0600,1200,1800 PO 06/03/25 18:00 06/07/25 20:57 5 MG Patient Own Medication 1 gm DAILY IV 06/03/25 15:30 UNV Ertapenem 1 gm/ Sodium Chloride 50 ml @ 100 mls/hr DAILY@2200 IV 06/04/25 22:00 06/07/25 21:21 100 MLS/HR Linezolid 300 ml @ 300 mls/hr Q12HR IV 06/03/25 22:45 06/07/25 21:23 300 MLS/HR Vancomycin HCl 250 mg QID PO 06/04/25 18:00 06/07/25 21:24 250 MG Morphine Sulfate 2 mg Q4HPRN PRN IV 06/05/25 12:00 06/05/25 12:31 2 MG Hydromorphone HCl 0.5 mg Q4HPRN PRN IV 06/05/25 14:00 06/07/25 21:44 0.5 MG Norepinephrine Bitartrate 250 ml @ 3.75 mls/hr Q24H IV 06/05/25 20:45 06/07/25 23:07 33.75 MLS/HR Sodium Bicarbonate 150 ml/Dextrose 1,150 ml @ 125 mls/hr Q9H12M IV 06/06/25 12:45 06/07/25 21:19 125 MLS/HR Sodium Chloride 10 ml QSHIFT@10,22 IV 06/06/25 22:00 06/07/25 21:23 10 ML Amino Acids 0 ml @ 0 mls/hr PER PHARMACY IV 06/07/25 11:00 Diagnostic Test (Pha) 1 strip Q6HR 06/07/25 18:00 06/07/25 23:37 1 STRIP Insulin Human Regular FOLLOW SLIDING SCALE Q6HR SC 06/07/25 18:00 06/07/25 23:42 4 UNITS Dextrose 50 ml UD IV 06/07/25 12:45 Fat Emulsion Intravenous 50 ml/ Sodium Chloride 40 meq/Potassium Acetate 40 meq/ Calcium Gluconate 2.3 meq/Magnesium Sulfate 8 meq/ Multivitamins 10 ml/Amino Acids/ Dextrose 1,096.9462 ml @ 46 mls/hr [id number] IV 06/07/25 22:00 06/08/25 21:59 06/07/25 21:39 46 MLS/HR objective Gen.: Patient lying in bed in no apparent distress. On room air. Head: Normocephalic, atraumatic. Eyes: EOMI/PERRLA. Ears: Normal hearing. Normal anatomy. Neck/trachea: Trachea midline, supple. Nose: Normal external anatomy. Mouth: Moist mucous membranes. Chest: Decreased air entry bilaterally. No wheezing or rhonchi. Cardiovascular: Positive S1, positive S2. Regular rate and rhythm. Abdomen: Positive bowel sounds in all 4 quadrants. Soft, non-tender, non- distended. : Deferred. Rectal: Deferred. Skin: Warm, dry. Intact. Extremities: 2+ radial pulses bilaterally. 2+ bilateral lower extremity edema. Neuro: Awake, alert, oriented x3. No gross motor or sensory deficits. Cranial nerves II through XII intact. Gait not assessed. laboratory and microbiology Laboratory Tests 06/07/25 03:55 Test 06/07/25 03:55 Range/Units Serum Glucose 130 H 74-106 mg/dL Assessment/Plan Impression: Acute metabolic encephalopathy Sepsis Influenza B Pleural effusion Atelectasis Pancreatic cancer S/p percutaneous transhepatic biliary drain placement Events: Breathing on room air No distress Pressors for hemodynamic support On Levophed 18 mcg/min Titrate to keep MAP above 65 mmHg/SBP above 90 mmHg. Interval increase in pressor requirements Leukocytosis -WBC trended down to 19.4 K Lactic acid elevated -14.2 D5 with 3 amps of bicarb given today. Give albumin followed by Lasix for diuresis. Continue antibiotics F/u cultures: Bacteremia with blood cultures positive for gram-positive cocci, E SBL Klebsiella pneumoniae Repeat blood cultures positive for VRE ID recommendations appreciated Antibiotics per ID Continue abx Continue bronchodilators Incentive spirometry Stool culture positive for C. diff - on isolation for C.diff. Positive influenza B - On oseltamivir course Monitor blood glucose Monitor blood pressures Head of bed elevation Aspiration precautions Pain control Avoid oversedation NGT in place. TPN or tube feeds for nutritional support. Protonix for GI ppx GI recommendations appreciated FOBT negative Monitor hemoglobin Transfuse if less than 7.0 g/dL. Monitor blood pressure Diurese with Lasix Monitor renal function. Poor UOP Monitor electrolytes. Supplement as necessary. Patient with advanced pancreatic cancer w/ sepsis and [id number] organisms; multiorgan failure Overall poor prognosis with high likelihood of demise. Awaiting family decision on goals of care. Disposition per hospitalist. Arrange for home IV antibiotics Labs and imaging reviewed. Rest of plan as noted below. Plan: Supplemental oxygen PRN Titrate to keep O2 sats above 92%. Continue antibiotics Bacteremia - Follow up cultures Folow up ID recommendations Bronchodilators PRN. On pressors for hemodynamic support Titrate to keep MAP above 65 mmHg/SBP above 90 mmHg. Protonix for GI ppx Monitor hemoglobin Transfuse if less than 7.0 g/dL. Accu-Cheks, ISS PRN. Head of bed elevation Aspiration precautions Pain control Avoid oversedation Monitor renal function. Monitor electrolytes. Supplement as necessary. Monitor ins and outs. Monitor hemoglobin Transfuse if less than 7.0 g/dL. GI/DVT prophylaxis. Prognosis: Poor given patient's multiple co-morbidities. Rest of plan per hospitalist and other consultants. Thank you, VELVET Avila, for allowing me to participate in this patient's care. Further recommendations will depend on the patient's clinical course. Please do not hesitate to contact me if you have any questions or concerns. This medical document was created using an electronic medical record system with [employer] dictation system. Although these documentations are being carefully reviewed, there may still be some phonetic and typographical changes. The errors are purely typographical, due to imperfection on the software program, and do not reflect any compromise in the patient's medical care. Dietary Evaluation Review Comments: 1) Change oral nutrition supplement from Ensure Clear to Ensure Enlive bid 2) Advance to regular diet when medically feasible 3) Encourage optimal PO intake 4) Follow-up with oncology 5) Continue to monitor I&O, labs, and skin integrity Expected Outcomes/Goals: 1) appetite and labs to improve 2) f/u in 3-5 days Plan discussed with: Other (GABRIELA Rose) Critical Care Time(min): [address] [facility] Jun 07, 2025 23:51
[2025-06-08] VITALS (98 sets, daily range): BP systolic 89–126; BP diastolic 48–74; PULSE 122–136; RESP 14–34; TEMP 82.2–98.4; O2SAT 95–100
[2025-06-08 02:44] LABS: Hemoglobin 7.9 g/dL (12.2-16.2)
[2025-06-08 02:46] LABS: Hematocrit 22.9 % (36.0-46.0); Mean Corpuscular Hemoglobin 34.0 pg (28.0-32.0); Mean Corpuscular Volume 98.6 fL (80.0-100.0)
[2025-06-08 02:56] LABS: INR 2.7 (0.9-1.15); Prothrombin Time 25.9 sec (9.3-11.8)
[2025-06-08 02:57] LABS: Partial Thromboplastin Time 113.8 SEC (24.5-34.5)
[2025-06-08 04:47] LABS: Anion Gap 30 (5-15); BUN/Creatinine Ratio 13.2 (10.0-20.0); Blood Urea Nitrogen 17 mg/dL (9-23); Sodium 140 mmol/L (136-145)
[2025-06-08 05:47] LABS: Alanine Aminotransferase 480 U/L (7-40); Albumin 2.0 g/dL (3.2-4.8); Alkaline Phosphatase 275 U/L (46-116); Bilirubin, Total 15.1 mg/dL (0.2-1.0); Calcium 7.8 mg/dL (8.7-10.4); Carbon Dioxide 15 mmol/L (20-31); Chloride 95 mmol/L (98-107); Glucose 192 mg/dL (74-106); Magnesium 1.6 mg/dL (1.6-2.6); Potassium 3.5 mmol/L (3.5-5.1); Total Protein 4.3 g/dL (5.7-8.2)
[2025-06-08 07:03] LABS: Total Cells Counted 100.0 (100)
--- NOTE | 2025-06-08 10:03 | DVHPN2 ---
Progress Note Date Seen: Jun 08, 2025 Medical Necessity Reason Pt with a Central, PICC or Fol: No The following are medically ne: PICC Line, Gaffney Catheter Reason for gaffney catheter: Strict I&O Subjective Patient reports: No new complaints Other Systems: Patient seen and examined by myself today in follow-up Objective vital signs Vital Sign Date Time Temp Pulse Resp B/P (MAP) Pulse Ox O2 Delivery O2 Flow Rate FiO2 06/08/25 09:11 97.7 131 24 90/66 97.7 06/08/25 06:45 99 06/08/25 06:00 Room Air* 0 21 Total Intake and Output 06/07/25 06/07/25 06/08/25 14:59 22:59 06:59 Intake Total 1635.00 ml 1393.00 ml 1668.00 ml Output Total 200 ml 1200 ml Balance 1635.00 ml 1193.00 ml 468.00 ml medications Current Medications Medications Dose Ordered Sig/Aayush Route Start Time Stop Time Status Last Admin Dose Admin Docusate Sodium 100 mg BIDPRN PRN PO 05/27/25 01:45 Acetaminophen 650 mg Q6HP PRN PO 05/27/25 01:45 06/03/25 22:06 650 MG Ondansetron HCl 4 mg Q4HP PRN IV 05/27/25 01:45 06/05/25 13:15 4 MG Nitroglycerin 0.4 mg Q5MINP PRN SL 05/27/25 01:45 Pantoprazole Sodium 40 mg DAILY IV 05/27/25 10:00 06/07/25 10:38 40 MG Albuterol 2.5 mg Q4HPRN PRN NEB 05/27/25 04:45 Cancel Ipratropium [place] 0.5 mg Q4HPRN PRN NEB 05/27/25 04:45 Cancel Acetaminophen/ Hydrocodone Bitart 1 tab Q6HPRN PRN PO 05/27/25 17:30 06/05/25 11:46 1 TAB Oseltamivir Phosphate 75 mg Q12HR PO 05/28/25 22:00 06/02/25 21:59 UNV Enteral Nutritional Formula 240 ml BIDWM PO 05/29/25 18:00 06/04/25 08:00 240 ML Azithromycin 250 ml @ 125 mls/hr DAILY IV 06/03/25 10:00 06/07/25 10:38 125 MLS/HR Midodrine 5 mg TIDWM@0600,1200,1800 PO 06/03/25 18:00 06/08/25 06:00 5 MG Patient Own Medication 1 gm DAILY IV 06/03/25 15:30 UNV Ertapenem 1 gm/ Sodium Chloride 50 ml @ 100 mls/hr DAILY@2200 IV 06/04/25 22:00 06/07/25 21:21 100 MLS/HR Linezolid 300 ml @ 300 mls/hr Q12HR IV 06/03/25 22:45 06/07/25 21:23 300 MLS/HR Vancomycin HCl 250 mg QID PO 06/04/25 18:00 06/08/25 06:00 250 MG Morphine Sulfate 2 mg Q4HPRN PRN IV 06/05/25 12:00 06/05/25 12:31 2 MG Hydromorphone HCl 0.5 mg Q4HPRN PRN IV 06/05/25 14:00 06/08/25 01:47 0.5 MG Norepinephrine Bitartrate 250 ml @ 3.75 mls/hr Q24H IV 06/05/25 20:45 06/08/25 06:41 33.75 MLS/HR Sodium Bicarbonate 150 ml/Dextrose 1,150 ml @ 125 mls/hr Q9H12M IV 06/06/25 12:45 06/08/25 06:40 125 MLS/HR Sodium Chloride 10 ml QSHIFT@10,22 IV 06/06/25 22:00 06/07/25 21:23 10 ML Amino Acids 0 ml @ 0 mls/hr PER PHARMACY IV 06/07/25 11:00 Diagnostic Test (Pha) 1 strip Q6HR 06/07/25 18:00 06/08/25 06:00 1 STRIP Insulin Human Regular FOLLOW SLIDING SCALE Q6HR SC 06/07/25 18:00 06/08/25 06:04 4 UNITS Dextrose 50 ml UD IV 06/07/25 12:45 Fat Emulsion Intravenous 50 ml/ Sodium Chloride 40 meq/Potassium Acetate 40 meq/ Calcium Gluconate 2.3 meq/Magnesium Sulfate 8 meq/ Multivitamins 10 ml/Amino Acids/ Dextrose 1,096.9462 ml @ 46 mls/hr [id number] IV 06/07/25 22:00 06/08/25 21:59 06/07/25 21:39 46 MLS/HR Sodium Chloride 40 meq/Potassium Chloride 40 meq/ Potassium Acetate 20 meq/Calcium Gluconate 4.65 meq/Magnesium Sulfate 16 meq/ Multivitamins 10 ml/Amino Acids/ Dextrose 1,064 ml @ 45 mls/hr [id number] IV 06/08/25 22:00 06/09/25 21:59 Examination: LUNGS:Normal, CVS:Normal, MSK:Abnormal laboratory and microbiology Laboratory Tests 06/08/25 02:00 Test 06/08/25 02:00 Range/Units Serum Glucose 192 H 74-106 mg/dL Microbiology Date/Time Source Procedure Growth Status 06/06/25 18:03 Urine - [place] Urine Culture - Preliminary Resulted 06/06/25 11:32 Blood Blood Culture - Preliminary NO GROWTH AFTER 24 HOURS OF INCUBATION. Resulted 06/04/25 10:00 Nose MRSA Screen - Final Complete 06/01/25 22:47 Stool Stool Culture - Final Complete 06/01/25 22:47 Stool Shiga Toxin I & II - Final Complete Problem List/Assessment/Plan Problem List/Assessment/Plan Acute kidney injury secondary hemodynamic mediated, FeNa >2% Metabolic acidosis Pancreatic cancer with biliary obstruction status post biliary stent Liver metastasis Obstructive jaundice C diff infection Sepsis Altered mental status Protein calorie malnutrition Hypomagnesemia Recommendations Kidney function slightly worsened today Increased urine output Strict I&Os IV bicarb drip IV pressor for blood pressure support Albumin 25% IV piggyback Octreotide 100 mcg subQ 3 times daily Magnesium sulfate IV piggyback IV antibiotics We will continue to follow up Plan discussed with: Patient My Orders My Orders Orders - DONALD CHAN MD Procedure Category Date Status Time Octreotide Acetate PHA 06/08/25 Verified (Sandostatin) 14:00 Dietary Evaluation Review Comments: 1) Change oral nutrition supplement from Ensure Clear to Ensure Enlive bid 2) Advance to regular diet when medically feasible 3) Encourage optimal PO intake 4) Follow-up with oncology 5) Continue to monitor I&O, labs, and skin integrity Expected Outcomes/Goals: 1) appetite and labs to improve 2) f/u in 3-5 days DONALD CHAN MD Jun 08, 2025 10:03
--- NOTE | 2025-06-08 10:15 | MEDREC ---
[facility] Intervention Section I [facility] Intervention: Review courses of therapy (PLT trending down, now [address] Nagel to switch Linezolid to Daptomycin, Dr. simmons) [facility] RESIDENT Jun 08, 2025 10:15
--- NOTE | 2025-06-08 11:18 | DVHPN2 ---
Progress Note - Dictate Date Seen: Jun 08, 2025 Medical Necessity Reason Pt with a Central, PICC or Fol: No The following are medically ne: PICC Line, Gaffney Catheter Reason for gaffney catheter: Strict I&O Subjective Patient remains hypotensive. On Levophed. vital signs Vital Sign Date Time Temp Pulse Resp B/P (MAP) Pulse Ox O2 Delivery O2 Flow Rate FiO2 06/08/25 10:16 134 24 96/64 06/08/25 09:11 97.7 97.7 06/08/25 06:45 99 06/08/25 06:00 Room Air* 0 21 Total Intake and Output 06/07/25 06/07/25 06/08/25 15:00 23:00 07:00 Intake Total 1767.50 ml 1439.00 ml 1668.00 ml Output Total 200 ml 1200 ml Balance 1767.50 ml 1239.00 ml 468.00 ml medications Current Medications Medications Dose Ordered Sig/Aayush Route Start Time Stop Time Status Last Admin Dose Admin Docusate Sodium 100 mg BIDPRN PRN PO 05/27/25 01:45 Acetaminophen 650 mg Q6HP PRN PO 05/27/25 01:45 06/03/25 22:06 650 MG Ondansetron HCl 4 mg Q4HP PRN IV 05/27/25 01:45 06/05/25 13:15 4 MG Nitroglycerin 0.4 mg Q5MINP PRN SL 05/27/25 01:45 Pantoprazole Sodium 40 mg DAILY IV 05/27/25 10:00 06/08/25 10:09 40 MG Albuterol 2.5 mg Q4HPRN PRN NEB 05/27/25 04:45 Cancel Ipratropium [place] 0.5 mg Q4HPRN PRN NEB 05/27/25 04:45 Cancel Acetaminophen/ Hydrocodone Bitart 1 tab Q6HPRN PRN PO 05/27/25 17:30 06/05/25 11:46 1 TAB Oseltamivir Phosphate 75 mg Q12HR PO 05/28/25 22:00 06/02/25 21:59 UNV Enteral Nutritional Formula 240 ml BIDWM PO 05/29/25 18:00 06/04/25 08:00 240 ML Azithromycin 250 ml @ 125 mls/hr DAILY IV 06/03/25 10:00 06/08/25 10:09 125 MLS/HR Midodrine 5 mg TIDWM@0600,1200,1800 PO 06/03/25 18:00 06/08/25 06:00 5 MG Patient Own Medication 1 gm DAILY IV 06/03/25 15:30 UNV Ertapenem 1 gm/ Sodium Chloride 50 ml @ 100 mls/hr DAILY@2200 IV 06/04/25 22:00 06/07/25 21:21 100 MLS/HR Vancomycin HCl 250 mg QID PO 06/04/25 18:00 06/08/25 06:00 250 MG Morphine Sulfate 2 mg Q4HPRN PRN IV 06/05/25 12:00 06/05/25 12:31 2 MG Hydromorphone HCl 0.5 mg Q4HPRN PRN IV 06/05/25 14:00 06/08/25 10:16 0.5 MG Norepinephrine Bitartrate 250 ml @ 3.75 mls/hr Q24H IV 06/05/25 20:45 06/08/25 06:41 33.75 MLS/HR Sodium Bicarbonate 150 ml/Dextrose 1,150 ml @ 125 mls/hr Q9H12M IV 06/06/25 12:45 06/08/25 06:40 125 MLS/HR Sodium Chloride 10 ml QSHIFT@10,22 IV 06/06/25 22:00 06/08/25 10:09 10 ML Amino Acids 0 ml @ 0 mls/hr PER PHARMACY IV 06/07/25 11:00 Diagnostic Test (Pha) 1 strip Q6HR 06/07/25 18:00 06/08/25 06:00 1 STRIP Insulin Human Regular FOLLOW SLIDING SCALE Q6HR SC 06/07/25 18:00 06/08/25 06:04 4 UNITS Dextrose 50 ml UD IV 06/07/25 12:45 Fat Emulsion Intravenous 50 ml/ Sodium Chloride 40 meq/Potassium Acetate 40 meq/ Calcium Gluconate 2.3 meq/Magnesium Sulfate 8 meq/ Multivitamins 10 ml/Amino Acids/ Dextrose 1,096.9462 ml @ 46 mls/hr [id number] IV 06/07/25 22:00 06/08/25 21:59 06/07/25 21:39 46 MLS/HR Sodium Chloride 40 meq/Potassium Chloride 40 meq/ Potassium Acetate 20 meq/Calcium Gluconate 4.65 meq/Magnesium Sulfate 16 meq/ Multivitamins 10 ml/Amino Acids/ Dextrose 1,064 ml @ 45 mls/hr [id number] IV 06/08/25 22:00 06/09/25 21:59 Octreotide Acetate 100 mcg TID SUBCUT 06/08/25 14:00 Magnesium Sulfate/ Dextrose 100 ml @ 100 mls/hr Q1HR IV 06/08/25 11:00 06/08/25 12:59 Daptomycin 500 mg/ Sodium Chloride 50 ml @ 100 mls/hr DAILY@2200 IV 06/08/25 22:00 objective General Appearance: Alert , no acute distress HEENT: Atraumatic, PERRLA, EOMI, Other (Icteric sclera) Respiratory: Clear to auscultation, Normal air movement Cardiovascular: Normal S1, Normal S2, Abdominal: Soft, Other (Biliary drain in place. Drainage from insertion site) Extremities: No clubbing, No cyanosis, No edema Skin: No breakdown Neuro: no focal deficit Psych/Mental Status: Mental status NL, Mood NL laboratory and microbiology Laboratory Tests 06/08/25 02:00 Test 06/08/25 02:00 Range/Units Serum Glucose 192 H 74-106 mg/dL Assessment/Plan A 69 years female presents with shock VRE bacteremia C diff diarrhea Campylobacter in stool streptococcus bacteremia ESBL [place] bacteremia Sepsis Influenza B positive Acute metabolic encephalopathy Hypoglycemia Dehydration Pulmonary airspace disease Small bilateral pleural effusions Abnormal LFT Hyperbilirubinemia History pancreatic cancer S/p percutaneous transhepatic biliary drain in place Hypotension Recommendations: on levaphed platelet dropping, dc linezolid and switch to Daptomycin IV continue invanz, stop date 06/10 ( since 06/27 with zosyn and then Invanz for ESBL bacteremia) continue PO vancomycin on Azithromycin ( DC) Blood cultures shows ESBL [place], however repeat blood cx is showing streptococcus Gastroenterology on board prognosis guarded; consider goals of care discussion. overall prognosis very poor Total time 50 minutes spent during this encounter. Thank you for the consult Dietary Evaluation Review Comments: 1) Change oral nutrition supplement from Ensure Clear to Ensure Enlive bid 2) Advance to regular diet when medically feasible 3) Encourage optimal PO intake 4) Follow-up with oncology 5) Continue to monitor I&O, labs, and skin integrity Expected Outcomes/Goals: 1) appetite and labs to improve 2) f/u in 3-5 days Plan discussed with: ANGEL Rodarte MD Jun 08, 2025 11:18
[2025-06-08] MEDS: MAGNESIUM SULFATE 1GM/100ML 100 ML IV SCH (12:00)
[2025-06-08 12:59] LABS: INR 2.1 (0.9-1.15); Prothrombin Time 20.7 sec (9.3-11.8)
[2025-06-08 13:02] LABS: Partial Thromboplastin Time 72.1 SEC (24.5-34.5)
[2025-06-08] MEDS: ALBUMIN 25% 100 ML IV ONE (15:43)
[2025-06-08] MEDS: OCTREOTIDE ACETATE 100 MCG/ML VL SUBCUT SCH (15:49)
--- NOTE | 2025-06-08 16:18 | DVHPN2 ---
Progress Note - Dictate Date Seen: Jun 08, 2025 Medical Necessity Reason Pt with a Central, PICC or Fol: No The following are medically ne: PICC Line, Gaffney Catheter Reason for gaffney catheter: Strict I&O Subjective Patient's son is at bedside. No improvement or changes in her condition. Still remains confused intermittently. Started on TPN last night. NG tube is placed. Patient received FFP today to correct coagulopathy again. Still remaining on Levophed for blood pressure support and low urine output vital signs Vital Sign Date Time Temp Pulse Resp B/P (MAP) Pulse Ox O2 Delivery O2 Flow Rate FiO2 06/08/25 10:46 130 14 101/56 06/08/25 09:11 97.7 97.7 06/08/25 06:45 99 06/08/25 06:00 Room Air* 0 21 Total Intake and Output 06/07/25 06/07/25 06/08/25 15:00 23:00 07:00 Intake Total 1767.50 ml 1439.00 ml 1668.00 ml Output Total 200 ml 1200 ml Balance 1767.50 ml 1239.00 ml 468.00 ml medications Current Medications Medications Dose Ordered Sig/Aayush Route Start Time Stop Time Status Last Admin Dose Admin Docusate Sodium 100 mg BIDPRN PRN PO 05/27/25 01:45 Acetaminophen 650 mg Q6HP PRN PO 05/27/25 01:45 06/03/25 22:06 650 MG Ondansetron HCl 4 mg Q4HP PRN IV 05/27/25 01:45 06/05/25 13:15 4 MG Nitroglycerin 0.4 mg Q5MINP PRN SL 05/27/25 01:45 Pantoprazole Sodium 40 mg DAILY IV 05/27/25 10:00 06/08/25 10:09 40 MG Albuterol 2.5 mg Q4HPRN PRN NEB 05/27/25 04:45 Cancel Ipratropium [place] 0.5 mg Q4HPRN PRN NEB 05/27/25 04:45 Cancel Acetaminophen/ Hydrocodone Bitart 1 tab Q6HPRN PRN PO 05/27/25 17:30 06/05/25 11:46 1 TAB Oseltamivir Phosphate 75 mg Q12HR PO 05/28/25 22:00 06/02/25 21:59 UNV Enteral Nutritional Formula 240 ml BIDWM PO 05/29/25 18:00 06/04/25 08:00 240 ML Azithromycin 250 ml @ 125 mls/hr DAILY IV 06/03/25 10:00 06/08/25 10:09 125 MLS/HR Midodrine 5 mg TIDWM@0600,1200,1800 PO 06/03/25 18:00 06/08/25 15:48 5 MG Patient Own Medication 1 gm DAILY IV 06/03/25 15:30 UNV Ertapenem 1 gm/ Sodium Chloride 50 ml @ 100 mls/hr DAILY@2200 IV 06/04/25 22:00 06/07/25 21:21 100 MLS/HR Vancomycin HCl 250 mg QID PO 06/04/25 18:00 06/08/25 15:48 250 MG Morphine Sulfate 2 mg Q4HPRN PRN IV 06/05/25 12:00 06/05/25 12:31 2 MG Hydromorphone HCl 0.5 mg Q4HPRN PRN IV 06/05/25 14:00 06/08/25 10:16 0.5 MG Norepinephrine Bitartrate 250 ml @ 3.75 mls/hr Q24H IV 06/05/25 20:45 06/08/25 06:41 33.75 MLS/HR Sodium Bicarbonate 150 ml/Dextrose 1,150 ml @ 125 mls/hr Q9H12M IV 06/06/25 12:45 06/08/25 06:40 125 MLS/HR Sodium Chloride 10 ml QSHIFT@10,22 IV 06/06/25 22:00 06/08/25 10:09 10 ML Amino Acids 0 ml @ 0 mls/hr PER PHARMACY IV 06/07/25 11:00 Diagnostic Test (Pha) 1 strip Q6HR 06/07/25 18:00 06/08/25 15:48 1 STRIP Insulin Human Regular FOLLOW SLIDING SCALE Q6HR SC 06/07/25 18:00 06/08/25 06:04 4 UNITS Dextrose 50 ml UD IV 06/07/25 12:45 Fat Emulsion Intravenous 50 ml/ Sodium Chloride 40 meq/Potassium Acetate 40 meq/ Calcium Gluconate 2.3 meq/Magnesium Sulfate 8 meq/ Multivitamins 10 ml/Amino Acids/ Dextrose 1,096.9462 ml @ 46 mls/hr [id number] IV 06/07/25 22:00 06/08/25 21:59 06/07/25 21:39 46 MLS/HR Sodium Chloride 40 meq/Potassium Chloride 20 meq/ Potassium Acetate 40 meq/Calcium Gluconate 4.65 meq/Magnesium Sulfate 16 meq/ Multivitamins 10 ml/Amino Acids/ Dextrose 1,064 ml @ 45 mls/hr [id number] IV 06/08/25 22:00 06/09/25 21:59 Octreotide Acetate 100 mcg TID SUBCUT 06/08/25 14:00 06/08/25 15:49 100 MCG Daptomycin 500 mg/ Sodium Chloride 50 ml @ 100 mls/hr DAILY@2200 IV 06/08/25 22:00 objective Ill-appearing female in bed. Alert and awake but appears tired. HEENT neck supple no JVD. Heart regular rate and rhythm S1-S2. Lungs fair air movement poor inspiratory effort. Abdomen soft positive bowel sounds. Extremities positive edema in the legs. laboratory and microbiology Laboratory Tests 06/08/25 02:00 Test 06/08/25 02:00 Range/Units Serum Glucose 192 H 74-106 mg/dL Assessment/Plan 1. Acute metabolic encephalopathy 2. Biliary obstruction status post percutaneous transhepatic biliary drain placement at higher level of care in March. CT abdominal pelvis was done which shows no evidence of any biliary dislodgement 3. Transaminitis 4. Hyperbilirubinemia 5. Pancreatic cancer with Mets to liver, retroperitoneal lymphadenopathy 6. Hypoglycemia, resolved 7. Lactic acidosis, resolved 8. Relative hypotension, status post normal saline bolus 9. Bilateral pleural effusion 10. Gram-negative bacteremia, with ESBL 11. Sepsis due to multidrug resistant organisms with a bacteremia Her antibiotics being adjusted. Continue bicarb drip and rest of pressor support and antibiotics as well as fluids she is on at present. Continue to correct coagulopathy as needed. Follow the labs. No changes to rest of the management. Discussed with the patient's son along with the nurse at bedside regarding care plan. At present he wants her to be full code and continue current plan of care Dietary Evaluation Review Comments: 1) Change oral nutrition supplement from Ensure Clear to Ensure Enlive bid 2) Advance to regular diet when medically feasible 3) Encourage optimal PO intake 4) Follow-up with oncology 5) Continue to monitor I&O, labs, and skin integrity Expected Outcomes/Goals: 1) appetite and labs to improve 2) f/u in 3-5 days Plan discussed with: Patient, ARGENIS Ledesma MD Jun 08, 2025 16:18
--- NOTE | 2025-06-08 17:47 | DVHPN2 ---
Progress Note Date Seen: Jun 08, 2025 Resident Creating Document: CORBY MENDIETA RESIDENT Medical Necessity Reason Pt with a Central, PICC or Fol: No The following are medically ne: PICC Line, Gaffney Catheter Reason for gaffney catheter: Strict I&O Subjective Review of Systems Patient seen and examined at bedside Deteriorating mental status On TPN Worsening hemodynamic status H&H decreased further Objective vital signs Vital Sign Date Time Temp Pulse Resp B/P (MAP) Pulse Ox O2 Delivery O2 Flow Rate FiO2 06/08/25 17:15 98.4 129 22 101/64 (76) 100 209.1 06/08/25 16:00 Room Air* 0 21 Total Intake and Output 06/07/25 06/07/25 06/08/25 15:00 23:00 07:00 Intake Total 1767.50 ml 1439.00 ml 1668.00 ml Output Total 200 ml 1200 ml Balance 1767.50 ml 1239.00 ml 468.00 ml medications Current Medications Medications Dose Ordered Sig/Aayush Route Start Time Stop Time Status Last Admin Dose Admin Docusate Sodium 100 mg BIDPRN PRN PO 05/27/25 01:45 Acetaminophen 650 mg Q6HP PRN PO 05/27/25 01:45 06/03/25 22:06 650 MG Ondansetron HCl 4 mg Q4HP PRN IV 05/27/25 01:45 06/05/25 13:15 4 MG Nitroglycerin 0.4 mg Q5MINP PRN SL 05/27/25 01:45 Pantoprazole Sodium 40 mg DAILY IV 05/27/25 10:00 06/08/25 10:09 40 MG Albuterol 2.5 mg Q4HPRN PRN NEB 05/27/25 04:45 Cancel Ipratropium [place] 0.5 mg Q4HPRN PRN NEB 05/27/25 04:45 Cancel Acetaminophen/ Hydrocodone Bitart 1 tab Q6HPRN PRN PO 05/27/25 17:30 06/05/25 11:46 1 TAB Oseltamivir Phosphate 75 mg Q12HR PO 05/28/25 22:00 06/02/25 21:59 UNV Enteral Nutritional Formula 240 ml BIDWM PO 05/29/25 18:00 06/04/25 08:00 240 ML Azithromycin 250 ml @ 125 mls/hr DAILY IV 06/03/25 10:00 06/08/25 10:09 125 MLS/HR Midodrine 5 mg TIDWM@0600,1200,1800 PO 06/03/25 18:00 06/08/25 15:48 5 MG Patient Own Medication 1 gm DAILY IV 06/03/25 15:30 UNV Ertapenem 1 gm/ Sodium Chloride 50 ml @ 100 mls/hr DAILY@2200 IV 06/04/25 22:00 06/07/25 21:21 100 MLS/HR Vancomycin HCl 250 mg QID PO 06/04/25 18:00 06/08/25 15:48 250 MG Morphine Sulfate 2 mg Q4HPRN PRN IV 06/05/25 12:00 06/05/25 12:31 2 MG Hydromorphone HCl 0.5 mg Q4HPRN PRN IV 06/05/25 14:00 06/08/25 10:16 0.5 MG Norepinephrine Bitartrate 250 ml @ 3.75 mls/hr Q24H IV 06/05/25 20:45 06/08/25 06:41 33.75 MLS/HR Sodium Bicarbonate 150 ml/Dextrose 1,150 ml @ 125 mls/hr Q9H12M IV 06/06/25 12:45 06/08/25 06:40 125 MLS/HR Sodium Chloride 10 ml QSHIFT@10,22 IV 06/06/25 22:00 06/08/25 10:09 10 ML Amino Acids 0 ml @ 0 mls/hr PER PHARMACY IV 06/07/25 11:00 Diagnostic Test (Pha) 1 strip Q6HR 06/07/25 18:00 06/08/25 15:48 1 STRIP Insulin Human Regular FOLLOW SLIDING SCALE Q6HR SC 06/07/25 18:00 06/08/25 06:04 4 UNITS Dextrose 50 ml UD IV 06/07/25 12:45 Fat Emulsion Intravenous 50 ml/ Sodium Chloride 40 meq/Potassium Acetate 40 meq/ Calcium Gluconate 2.3 meq/Magnesium Sulfate 8 meq/ Multivitamins 10 ml/Amino Acids/ Dextrose 1,096.9462 ml @ 46 mls/hr [id number] IV 06/07/25 22:00 06/08/25 21:59 06/07/25 21:39 46 MLS/HR Sodium Chloride 40 meq/Potassium Chloride 20 meq/ Potassium Acetate 40 meq/Calcium Gluconate 4.65 meq/Magnesium Sulfate 16 meq/ Multivitamins 10 ml/Amino Acids/ Dextrose 1,064 ml @ 45 mls/hr [id number] IV 06/08/25 22:00 06/09/25 21:59 Octreotide Acetate 100 mcg TID SUBCUT 06/08/25 14:00 06/08/25 15:49 100 MCG Daptomycin 500 mg/ Sodium Chloride 50 ml @ 100 mls/hr DAILY@2200 IV 06/08/25 22:00 Phytonadione 10 mg DAILY NG 06/09/25 10:00 06/13/25 09:59 Examination Gen - mild conjuctival pallor, positive scleral icterus Skin - Patients skin is warm and dry. HEENT - normocephalic, atraumatic, dry mucous membranes. Neck - supple, no lymphadenopathy Pulmonary - B/L clear breath sounds with basilar crackles more in the left lower cardiovascular - regular S1,S2 heard GI - soft abdomen with mild tenderness to palpation. Bowel sounds normoactive. Neurological - Patient is alert and oriented x2. following commands laboratory and microbiology Laboratory Tests 06/08/25 02:00 Test 06/08/25 02:00 Range/Units Serum Glucose 192 H 74-106 mg/dL Microbiology Date/Time Source Procedure Growth Status 06/06/25 18:03 Urine - [place] Urine Culture - Preliminary Resulted 06/06/25 11:32 Blood Blood Culture - Preliminary NO GROWTH AFTER 48 HOURS OF INCUBATION. Resulted 06/04/25 10:00 Nose MRSA Screen - Final Complete 06/01/25 22:47 Stool Stool Culture - Final Complete 06/01/25 22:47 Stool Shiga Toxin I & II - Final Complete Problem List/Assessment/Plan Problem List/Assessment/Plan Assessment Pancreatic cancer s/p biliary stent placement with possible metastatic adenopathy Intractable abdominal pain Hyperbilirubinemia Transaminitis Influenza B Klebsiella ESBL bacteremia C diff colitis Campylobacter gastroenteritis Coagulopathy Plan - patient had a recent placement of biliary drainage stent at [facility] - pancreatic mass seen on the CT Abd likely pancreatic cancer - 06/02/[address] abdomen showed right hepatic approach internal external biliary drainage catheter terminating within the 2nd segment of the duodenum - monitor LFTs - IV protonix - started on vancomycin p.o. for C diff colitis and azithromycin for Campylobacter - IV antibiotics for bacteremia - continue on TPN - we will hold off on the NG tube feeding given decreasing hemoglobin - watch H&H and keep hemoglobin above 7 patient may be a candidate for hospice given her metastatic pancreatic cancer and significant comorbidities. Plan discussed with Dr Morrissey Plan discussed with: Other (GABRIELA Tang) My Orders My Orders Orders - CORBY MENDIETA RESIDENT Procedure Category Date Status Time Comprehensive LAB 06/09/25 Verified Metabolic Panel 04:00 Magnesium LAB 06/09/25 Verified 04:00 Phosphorus LAB 06/09/25 Verified 04:00 Amino Acid PHA 06/08/25 In Process Infusion... W/Sodium 22:00 Tpn Per Pharmacy JOYCE 06/08/25 In Process 22:00 Dietary Evaluation Review Comments: 1) Change oral nutrition supplement from Ensure Clear to Ensure Enlive bid 2) Advance to regular diet when medically feasible 3) Encourage optimal PO intake 4) Follow-up with oncology 5) Continue to monitor I&O, labs, and skin integrity Expected Outcomes/Goals: 1) appetite and labs to improve 2) f/u in 3-5 days CORBY MENDIETA RESIDENT Jun 08, 2025 17:47
--- NOTE | 2025-06-08 18:49 | DVHPN2 ---
Progress Note - Dictate Date Seen: Jun 08, 2025 Medical Necessity Reason Pt with a Central, PICC or Fol: No The following are medically ne: PICC Line, Gaffney Catheter Reason for gaffney catheter: Strict I&O Subjective Patient seen and examined at bedside. Breathing comfortably on room air Overnight events reviewed. vital signs Vital Sign Date Time Temp Pulse Resp B/P (MAP) Pulse Ox O2 Delivery O2 Flow Rate FiO2 06/08/25 17:15 98.4 129 22 101/64 (76) 100 209.1 06/08/25 16:00 Room Air* 0 21 Total Intake and Output 06/07/25 06/07/25 06/08/25 15:00 23:00 07:00 Intake Total 1767.50 ml 1439.00 ml 1668.00 ml Output Total 200 ml 1200 ml Balance 1767.50 ml 1239.00 ml 468.00 ml medications Current Medications Medications Dose Ordered Sig/Aayush Route Start Time Stop Time Status Last Admin Dose Admin Docusate Sodium 100 mg BIDPRN PRN PO 05/27/25 01:45 Acetaminophen 650 mg Q6HP PRN PO 05/27/25 01:45 06/03/25 22:06 650 MG Ondansetron HCl 4 mg Q4HP PRN IV 05/27/25 01:45 06/05/25 13:15 4 MG Nitroglycerin 0.4 mg Q5MINP PRN SL 05/27/25 01:45 Pantoprazole Sodium 40 mg DAILY IV 05/27/25 10:00 06/08/25 10:09 40 MG Albuterol 2.5 mg Q4HPRN PRN NEB 05/27/25 04:45 Cancel Ipratropium [place] 0.5 mg Q4HPRN PRN NEB 05/27/25 04:45 Cancel Acetaminophen/ Hydrocodone Bitart 1 tab Q6HPRN PRN PO 05/27/25 17:30 06/05/25 11:46 1 TAB Oseltamivir Phosphate 75 mg Q12HR PO 05/28/25 22:00 06/02/25 21:59 UNV Enteral Nutritional Formula 240 ml BIDWM PO 05/29/25 18:00 06/04/25 08:00 240 ML Azithromycin 250 ml @ 125 mls/hr DAILY IV 06/03/25 10:00 06/08/25 10:09 125 MLS/HR Midodrine 5 mg TIDWM@0600,1200,1800 PO 06/03/25 18:00 06/08/25 18:43 5 MG Patient Own Medication 1 gm DAILY IV 06/03/25 15:30 UNV Ertapenem 1 gm/ Sodium Chloride 50 ml @ 100 mls/hr DAILY@2200 IV 06/04/25 22:00 06/07/25 21:21 100 MLS/HR Morphine Sulfate 2 mg Q4HPRN PRN IV 06/05/25 12:00 06/05/25 12:31 2 MG Hydromorphone HCl 0.5 mg Q4HPRN PRN IV 06/05/25 14:00 06/08/25 10:16 0.5 MG Norepinephrine Bitartrate 250 ml @ 3.75 mls/hr Q24H IV 06/05/25 20:45 06/08/25 06:41 33.75 MLS/HR Sodium Bicarbonate 150 ml/Dextrose 1,150 ml @ 125 mls/hr Q9H12M IV 06/06/25 12:45 06/08/25 06:40 125 MLS/HR Sodium Chloride 10 ml QSHIFT@10,22 IV 06/06/25 22:00 06/08/25 10:09 10 ML Amino Acids 0 ml @ 0 mls/hr PER PHARMACY IV 06/07/25 11:00 Diagnostic Test (Pha) 1 strip Q6HR 06/07/25 18:00 06/08/25 18:10 1 STRIP Insulin Human Regular FOLLOW SLIDING SCALE Q6HR SC 06/07/25 18:00 06/08/25 18:12 4 UNITS Dextrose 50 ml UD IV 06/07/25 12:45 Fat Emulsion Intravenous 50 ml/ Sodium Chloride 40 meq/Potassium Acetate 40 meq/ Calcium Gluconate 2.3 meq/Magnesium Sulfate 8 meq/ Multivitamins 10 ml/Amino Acids/ Dextrose 1,096.9462 ml @ 46 mls/hr [id number] IV 06/07/25 22:00 06/08/25 21:59 06/07/25 21:39 46 MLS/HR Sodium Chloride 40 meq/Potassium Chloride 20 meq/ Potassium Acetate 40 meq/Calcium Gluconate 4.65 meq/Magnesium Sulfate 16 meq/ Multivitamins 10 ml/Amino Acids/ Dextrose 1,064 ml @ 45 mls/hr [id number] IV 06/08/25 22:00 06/09/25 21:59 Octreotide Acetate 100 mcg TID SUBCUT 06/08/25 14:00 06/08/25 15:49 100 MCG Daptomycin 500 mg/ Sodium Chloride 50 ml @ 100 mls/hr DAILY@2200 IV 06/08/25 22:00 Phytonadione 10 mg DAILY NG 06/09/25 10:00 06/13/25 09:59 Vancomycin HCl 250 mg QID PO 06/08/25 22:00 UNV objective Gen.: Patient lying in bed in no apparent distress. On room air. Head: Normocephalic, atraumatic. Eyes: EOMI/PERRLA. Ears: Normal hearing. Normal anatomy. Neck/trachea: Trachea midline, supple. Nose: Normal external anatomy. Mouth: Moist mucous membranes. Chest: Decreased air entry bilaterally. No wheezing or rhonchi. Cardiovascular: Positive S1, positive S2. Regular rate and rhythm. Abdomen: Positive bowel sounds in all 4 quadrants. Soft, non-tender, non- distended. : Deferred. Rectal: Deferred. Skin: Warm, dry. Intact. Extremities: 2+ radial pulses bilaterally. 2+ bilateral lower extremity edema. Neuro: Awake, alert, oriented x3. No gross motor or sensory deficits. Cranial nerves II through XII intact. Gait not assessed. laboratory and microbiology Laboratory Tests 06/08/25 02:00 Test 06/08/25 02:00 Range/Units Serum Glucose 192 H 74-106 mg/dL Assessment/Plan Impression: Acute metabolic encephalopathy Sepsis Influenza B Pleural effusion Atelectasis Pancreatic cancer S/p percutaneous transhepatic biliary drain placement Events: Breathing on room air No distress Pressors for hemodynamic support On Levophed 19 mcg/min Titrate to keep MAP above 65 mmHg/SBP above 90 mmHg. Interval increase in pressor requirements Chest x-ray on 06/07/25 shows unchanged pulmonary vascular congestion. Leukocytosis -WBC trended down to 18.2 K Lactic acid elevated at 14.2 - monitor Bicarb drip due to severe metabolic acidosis Albumin given Continue antibiotics F/u cultures: Bacteremia with blood cultures positive for gram-positive cocci, E SBL Klebsiella pneumoniae Repeat blood cultures positive for VRE ID recommendations appreciated Antibiotics per ID Continue abx Continue bronchodilators Incentive spirometry Stool culture positive for C. diff - on isolation for C.diff. Positive influenza B - On oseltamivir course Monitor blood glucose Monitor blood pressures Head of bed elevation Aspiration precautions Pain control Avoid oversedation NGT in place. TPN or tube feeds for nutritional support. Protonix for GI ppx GI recommendations appreciated FOBT negative Monitor hemoglobin Transfuse if less than 7.0 g/dL. Monitor blood pressure Follow up Nephrology recommendations Monitor renal function. Poor UOP Monitor electrolytes. Supplement as necessary. Magnesium supplementation Accu-Cheks, ISS. TPN for nutritional support Pain control Avoid oversedation Patient with advanced pancreatic cancer w/ sepsis and [id number] organisms; multiorgan failure Overall poor prognosis with high likelihood of demise. Awaiting family decision on goals of care. Disposition per hospitalist. Arrange for home IV antibiotics Labs and imaging reviewed. Rest of plan as noted below. Plan: Supplemental oxygen PRN Titrate to keep O2 sats above 92%. Continue antibiotics Bacteremia - Follow up cultures Folow up ID recommendations Bronchodilators PRN. On pressors for hemodynamic support Titrate to keep MAP above 65 mmHg/SBP above 90 mmHg. Protonix for GI ppx Monitor hemoglobin Transfuse if less than 7.0 g/dL. Accu-Cheks, ISS PRN. Head of bed elevation Aspiration precautions Pain control Avoid oversedation Monitor renal function. Monitor electrolytes. Supplement as necessary. Monitor ins and outs. Monitor hemoglobin Transfuse if less than 7.0 g/dL. GI/DVT prophylaxis. Prognosis: Poor given patient's multiple co-morbidities. Condition: Critical Rest of plan per hospitalist and other consultants. A total of 35 minutes of critical care time was spent reviewing the patient record, examining the patient, making a diagnostic and therapeutic plan, discussing this plan with the medical personnel, following up on diagnostic studies and following the patient for clinical stability excluding any and all procedures. At least 50% of this time was spent in direct, [id number] contact. Thank you, VELVET Avila, for allowing me to participate in this patient's care. Further recommendations will depend on the patient's clinical course. Please do not hesitate to contact me if you have any questions or concerns. This medical document was created using an electronic medical record system with [employer] system. Although these documentations are being carefully reviewed, there may still be some phonetic and typographical changes. The errors are purely typographical, due to imperfection on the software program, and do not reflect any compromise in the patient's medical care. Dietary Evaluation Review Comments: 1) Change oral nutrition supplement from Ensure Clear to Ensure Enlive bid 2) Advance to regular diet when medically feasible 3) Encourage optimal PO intake 4) Follow-up with oncology 5) Continue to monitor I&O, labs, and skin integrity Expected Outcomes/Goals: 1) appetite and labs to improve 2) f/u in 3-5 days Plan discussed with: Other (GABRIELA Tang) Critical Care Time(min): 35 KENNA MATHEW ACNP Jun 08, 2025 18:49
[2025-06-08] MEDS: VANCOMYCIN HCL 125MG/5ML ORAL SOL GT SCH (21:22)
[2025-06-08] MEDS: TPN PER PHARMACY IV NR (21:26)
[2025-06-08] MEDS: DAPTOmycin 500 MG in SODIUM CHL 0.9% 50 ML IV SCH (21:28)
[2025-06-08] MEDS ORDERED: VANCOMYCIN HCL 250 MG CAP PO SCH (22:00)
[2025-06-09] VITALS (97 sets, daily range): BP systolic 79–120; BP diastolic 35–74; PULSE 120–136; RESP 13–34; TEMP 97.5–97.9; O2SAT 97–100
[2025-06-09 04:23] LABS: Hemoglobin 7.6 g/dL (12.2-16.2); Mean Corpuscular Volume 99.9 fL (80.0-100.0)
[2025-06-09 04:27] LABS: Hematocrit 22.9 % (36.0-46.0); Mean Corpuscular Hemoglobin 33.2 pg (28.0-32.0)
[2025-06-09 04:38] LABS: Anion Gap 28 (5-15); Blood Urea Nitrogen 16 mg/dL (9-23); Magnesium 1.6 mg/dL (1.6-2.6); Sodium 140 mmol/L (136-145)
[2025-06-09 04:40] LABS: Alanine Aminotransferase 329 U/L (7-40); Albumin 2.0 g/dL (3.2-4.8); Alkaline Phosphatase 275 U/L (46-116); Bilirubin, Total 15.0 mg/dL (0.2-1.0); Calcium 8.0 mg/dL (8.7-10.4); Carbon Dioxide 19 mmol/L (20-31); Chloride 93 mmol/L (98-107); Glucose 159 mg/dL (74-106); Potassium 3.1 mmol/L (3.5-5.1)
[2025-06-09 04:47] LABS: INR 2.35 (0.9-1.15); Prothrombin Time 22.9 sec (9.3-11.8)
[2025-06-09 04:48] LABS: BUN/Creatinine Ratio 12.5 (10.0-20.0); Total Protein 4.1 g/dL (5.7-8.2)
[2025-06-09 04:50] LABS: Partial Thromboplastin Time 92.3 SEC (24.5-34.5)
[2025-06-09 05:16] LABS: Nucleated Red Blood Cells % 1.0 %; Total Cells Counted 100.0 (100)
[2025-06-09] MEDS: MAGNESIUM SULFATE 1GM/100ML 100 ML IV ONE ×2 (05:37→17:12)
[2025-06-09] MEDS: POTASSIUM CHL 20MEQ/100ML 100 ML IV ONE ×2 (05:38→17:23)
[2025-06-09] MEDS: PHYTONADIONE(VitK) ORAL Susp 10mg/10ml(1mg/ml) NG SCH (10:00)
[2025-06-09] MEDS: PHENYLEPHRINE IV 250 ML IV SCH (10:30)
--- NOTE | 2025-06-09 10:39 | DVHPN2 ---
Progress Note - Dictate Date Seen: Jun 09, 2025 Medical Necessity Reason Pt with a Central, PICC or Fol: No The following are medically ne: PICC Line, Gaffney Catheter Reason for gaffney catheter: Strict I&O Subjective Patient remains hypotensive. On Levophed. Confused intermittently WBC worsening 22.9 vital signs Vital Sign Date Time Temp Pulse Resp B/P (MAP) Pulse Ox O2 Delivery O2 Flow Rate FiO2 06/09/25 08:10 79/53 06/09/25 08:00 133 15 98 Room Air* 0 21 06/09/25 06:00 97.9 97.9 Total Intake and Output 06/08/25 06/08/25 06/09/25 15:00 23:00 07:00 Intake Total 2142.75 ml 1752.00 ml 1891.28 ml Output Total 1525 ml 900 ml Balance 2142.75 ml 227.00 ml 991.28 ml medications Current Medications Medications Dose Ordered Sig/Aayush Route Start Time Stop Time Status Last Admin Dose Admin Docusate Sodium 100 mg BIDPRN PRN PO 05/27/25 01:45 Acetaminophen 650 mg Q6HP PRN PO 05/27/25 01:45 06/03/25 22:06 650 MG Ondansetron HCl 4 mg Q4HP PRN IV 05/27/25 01:45 06/05/25 13:15 4 MG Nitroglycerin 0.4 mg Q5MINP PRN SL 05/27/25 01:45 Pantoprazole Sodium 40 mg DAILY IV 05/27/25 10:00 06/08/25 10:09 40 MG Albuterol 2.5 mg Q4HPRN PRN NEB 05/27/25 04:45 Cancel Ipratropium [place] 0.5 mg Q4HPRN PRN NEB 05/27/25 04:45 Cancel Acetaminophen/ Hydrocodone Bitart 1 tab Q6HPRN PRN PO 05/27/25 17:30 06/05/25 11:46 1 TAB Oseltamivir Phosphate 75 mg Q12HR PO 05/28/25 22:00 06/02/25 21:59 UNV Enteral Nutritional Formula 240 ml BIDWM PO 05/29/25 18:00 06/04/25 08:00 240 ML Azithromycin 250 ml @ 125 mls/hr DAILY IV 06/03/25 10:00 06/08/25 10:09 125 MLS/HR Midodrine 5 mg TIDWM@0600,1200,1800 PO 06/03/25 18:00 06/09/25 05:34 5 MG Patient Own Medication 1 gm DAILY IV 06/03/25 15:30 UNV Ertapenem 1 gm/ Sodium Chloride 50 ml @ 100 mls/hr DAILY@2200 IV 06/04/25 22:00 06/08/25 21:23 100 MLS/HR Morphine Sulfate 2 mg Q4HPRN PRN IV 06/05/25 12:00 06/05/25 12:31 2 MG Norepinephrine Bitartrate 250 ml @ 3.75 mls/hr Q24H IV 06/05/25 20:45 06/09/25 04:14 33.75 MLS/HR Sodium Bicarbonate 150 ml/Dextrose 1,150 ml @ 125 mls/hr Q9H12M IV 06/06/25 12:45 06/09/25 05:33 125 MLS/HR Sodium Chloride 10 ml QSHIFT@22 IV 06/06/25 22:00 06/08/25 22:10 10 ML Diagnostic Test (Pha) 1 strip Q6HR 06/07/25 18:00 06/09/25 06:15 1 STRIP Insulin Human Regular FOLLOW SLIDING SCALE Q6HR SC 06/07/25 18:00 06/09/25 06:15 2 UNITS Dextrose 50 ml UD IV 06/07/25 12:45 Sodium Chloride 40 meq/Potassium Chloride 20 meq/ Potassium Acetate 40 meq/Calcium Gluconate 4.65 meq/Magnesium Sulfate 16 meq/ Multivitamins 10 ml/Amino Acids/ Dextrose 1,064 ml @ 45 mls/hr [id number] IV 06/08/25 22:00 06/09/25 21:59 06/08/25 21:26 45 MLS/HR Octreotide Acetate 100 mcg TID SUBCUT 06/08/25 14:00 06/09/25 05:34 100 MCG Daptomycin 500 mg/ Sodium Chloride 50 ml @ 100 mls/hr DAILY@2200 IV 06/08/25 22:00 06/08/25 21:28 100 MLS/HR Phytonadione 10 mg DAILY NG 06/09/25 10:00 06/13/25 09:59 Vancomycin HCl 250 mg QID GT 06/08/25 22:00 06/09/25 05:34 250 MG Enteral Nutritional Formula 1,000 ml 30ML/HR GT 06/09/25 09:15 Phenylephrine HCl 250 ml @ 30 mls/hr Q8H20M IV 06/09/25 10:30 UNV objective General Appearance: Alert , no acute distress HEENT: Atraumatic, PERRLA, EOMI, Other (Icteric sclera) Respiratory: Clear to auscultation, Normal air movement Cardiovascular: Normal S1, Normal S2, Abdominal: Soft, Other (Biliary drain in place. Drainage from insertion site) Extremities: No clubbing, No cyanosis, No edema Skin: No breakdown Neuro: confusion, no focal deficit, Psych/Mental Status: Mental status NL, Mood NL laboratory and microbiology Laboratory Tests 06/09/25 03:50 Test 06/09/25 03:50 Range/Units Serum Glucose 159 H 74-106 mg/dL Assessment/Plan A 69 years female presents with shock VRE bacteremia C diff diarrhea Campylobacter in stool streptococcus bacteremia ESBL [place] bacteremia Sepsis Influenza B positive Acute metabolic encephalopathy Hypoglycemia Dehydration Pulmonary airspace disease Small bilateral pleural effusions Abnormal LFT Hyperbilirubinemia History pancreatic cancer S/p percutaneous transhepatic biliary drain in place Hypotension Recommendations: on Levophed platelet dropping, dc linezolid and switch to Daptomycin IV WBC worsening 22k continue invanz, stop date 06/10 ( since 06/27 with zosyn and then Invanz for ESBL bacteremia) continue PO vancomycin on Azithromycin ( DC) Blood cultures shows ESBL [place], however repeat blood cx is showing streptococcus Enteric catheter in satisfactory position Gastroenterology on board prognosis guarded; consider goals of care discussion. overall prognosis very poor Total time 50 minutes spent during this encounter. Thank you for the consult Dietary Evaluation Review Comments: 1) Change oral nutrition supplement from Ensure Clear to Ensure Enlive bid 2) Advance to regular diet when medically feasible 3) Encourage optimal PO intake 4) Follow-up with oncology 5) Continue to monitor I&O, labs, and skin integrity Expected Outcomes/Goals: 1) appetite and labs to improve 2) f/u in 3-5 days ANGEL DE LEON MD Jun 09, 2025 10:39
[2025-06-09] MEDS: SODIUM CHLORIDE 0.9% 1,000 ML IV ONE (10:41)
[2025-06-09] MEDS: ALBUMIN 25% 100 ML IV ONE (10:42)
[2025-06-09] MEDS: ALBUMIN 25% 100 ML IV SCH (11:00)
--- NOTE | 2025-06-09 11:01 | DVHPN2 ---
Progress Note Date Seen: Jun 09, 2025 Medical Necessity Reason Pt with a Central, PICC or Fol: No The following are medically ne: PICC Line, Gaffney Catheter Reason for gaffney catheter: Strict I&O Subjective Patient reports: No new complaints Other Systems: Patient seen and examined by myself today in follow-up Objective vital signs Vital Sign Date Time Temp Pulse Resp B/P (MAP) Pulse Ox O2 Delivery O2 Flow Rate FiO2 06/09/25 08:10 79/53 06/09/25 08:00 133 15 98 Room Air* 0 21 06/09/25 06:00 97.9 97.9 Total Intake and Output 06/08/25 06/08/25 06/09/25 15:00 23:00 07:00 Intake Total 2142.75 ml 1752.00 ml 1891.28 ml Output Total 1525 ml 900 ml Balance 2142.75 ml 227.00 ml 991.28 ml medications Current Medications Medications Dose Ordered Sig/Aayush Route Start Time Stop Time Status Last Admin Dose Admin Docusate Sodium 100 mg BIDPRN PRN PO 05/27/25 01:45 Acetaminophen 650 mg Q6HP PRN PO 05/27/25 01:45 06/03/25 22:06 650 MG Ondansetron HCl 4 mg Q4HP PRN IV 05/27/25 01:45 06/05/25 13:15 4 MG Nitroglycerin 0.4 mg Q5MINP PRN SL 05/27/25 01:45 Pantoprazole Sodium 40 mg DAILY IV 05/27/25 10:00 06/09/25 10:37 40 MG Albuterol 2.5 mg Q4HPRN PRN NEB 05/27/25 04:45 Cancel Ipratropium [place] 0.5 mg Q4HPRN PRN NEB 05/27/25 04:45 Cancel Acetaminophen/ Hydrocodone Bitart 1 tab Q6HPRN PRN PO 05/27/25 17:30 06/05/25 11:46 1 TAB Oseltamivir Phosphate 75 mg Q12HR PO 05/28/25 22:00 06/02/25 21:59 UNV Enteral Nutritional Formula 240 ml BIDWM PO 05/29/25 18:00 06/04/25 08:00 240 ML Azithromycin 250 ml @ 125 mls/hr DAILY IV 06/03/25 10:00 06/09/25 10:00 125 MLS/HR Midodrine 5 mg TIDWM@0600,1200,1800 PO 06/03/25 18:00 06/09/25 05:34 5 MG Patient Own Medication 1 gm DAILY IV 06/03/25 15:30 UNV Ertapenem 1 gm/ Sodium Chloride 50 ml @ 100 mls/hr DAILY@2200 IV 06/04/25 22:00 06/08/25 21:23 100 MLS/HR Morphine Sulfate 2 mg Q4HPRN PRN IV 06/05/25 12:00 06/05/25 12:31 2 MG Norepinephrine Bitartrate 250 ml @ 3.75 mls/hr Q24H IV 06/05/25 20:45 06/09/25 04:14 33.75 MLS/HR Sodium Bicarbonate 150 ml/Dextrose 1,150 ml @ 125 mls/hr Q9H12M IV 06/06/25 12:45 06/09/25 05:33 125 MLS/HR Sodium Chloride 10 ml QSHIFT@10,22 IV 06/06/25 22:00 06/09/25 10:37 10 ML Diagnostic Test (Pha) 1 strip Q6HR 06/07/25 18:00 06/09/25 06:15 1 STRIP Insulin Human Regular FOLLOW SLIDING SCALE Q6HR SC 06/07/25 18:00 06/09/25 06:15 2 UNITS Dextrose 50 ml UD IV 06/07/25 12:45 Sodium Chloride 40 meq/Potassium Chloride 20 meq/ Potassium Acetate 40 meq/Calcium Gluconate 4.65 meq/Magnesium Sulfate 16 meq/ Multivitamins 10 ml/Amino Acids/ Dextrose 1,064 ml @ 45 mls/hr [id number] IV 06/08/25 22:00 06/09/25 21:59 06/08/25 21:26 45 MLS/HR Octreotide Acetate 100 mcg TID SUBCUT 06/08/25 14:00 06/09/25 05:34 100 MCG Daptomycin 500 mg/ Sodium Chloride 50 ml @ 100 mls/hr DAILY@2200 IV 06/08/25 22:00 06/08/25 21:28 100 MLS/HR Phytonadione 10 mg DAILY NG 06/09/25 10:00 06/13/25 09:59 06/09/25 10:00 10 MG Vancomycin HCl 250 mg QID GT 06/08/25 22:00 06/09/25 05:34 250 MG Enteral Nutritional Formula 1,000 ml 30ML/HR GT 06/09/25 09:15 Phenylephrine HCl 250 ml @ 30 mls/hr Q8H20M IV 06/09/25 10:30 Examination: LUNGS:Normal, CVS:Normal, MSK:Normal laboratory and microbiology Laboratory Tests 06/09/25 03:50 Test 06/09/25 03:50 Range/Units Serum Glucose 159 H 74-106 mg/dL Microbiology Date/Time Source Procedure Growth Status 06/06/25 18:03 Urine - [place] Urine Culture - Preliminary Resulted 06/06/25 11:32 Blood Blood Culture - Preliminary NO GROWTH AFTER 48 HOURS OF INCUBATION. Resulted 06/04/25 10:00 Nose MRSA Screen - Final Complete 06/01/25 22:47 Stool Stool Culture - Final Complete 06/01/25 22:47 Stool Shiga Toxin I & II - Final Complete Problem List/Assessment/Plan Problem List/Assessment/Plan Acute kidney injury secondary hemodynamic mediated, FeNa >2% Metabolic acidosis Pancreatic cancer with biliary obstruction status post biliary stent Liver metastasis Obstructive jaundice Encephalopathy C diff infection Sepsis Altered mental status Hypoalbuminemia Hypomagnesemia Hypokalemia Recommendations Kidney function slightly improved today Increased urine output Strict I&Os Continue IV bicarb drip IV pressor for blood pressure support Albumin 25% IV piggyback Octreotide 100 mcg subQ 3 times daily Magnesium sulfate IV piggyback KCL replacement IV antibiotics We will continue to follow up Plan discussed with: Other (Nurse) Dietary Evaluation Review Comments: 1) Change oral nutrition supplement from Ensure Clear to Ensure Enlive bid 2) Advance to regular diet when medically feasible 3) Encourage optimal PO intake 4) Follow-up with oncology 5) Continue to monitor I&O, labs, and skin integrity Expected Outcomes/Goals: 1) appetite and labs to improve 2) f/u in 3-5 days DONALD CHAN MD Jun 09, 2025 11:01
--- NOTE | 2025-06-09 13:43 | DVHPN2 ---
Progress Note - Dictate Date Seen: Jun 09, 2025 Medical Necessity Reason Pt with a Central, PICC or Fol: No The following are medically ne: PICC Line, Gaffney Catheter Reason for gaffney catheter: Strict I&O Subjective This morning patient's blood pressure dropped to 80s despite being on Levophed. Patient appears to be clinically deteriorating. Remains full code. She is minimally verbal. vital signs Vital Sign Date Time Temp Pulse Resp B/P (MAP) Pulse Ox O2 Delivery O2 Flow Rate FiO2 06/09/25 12:00 127 06/09/25 12:00 25 99 Room Air* 0 21 06/09/25 11:14 97/47 06/09/25 06:00 97.9 97.9 Total Intake and Output 06/08/25 06/08/25 06/09/25 15:00 23:00 07:00 Intake Total 2142.75 ml 1752.00 ml 1891.28 ml Output Total 1525 ml 900 ml Balance 2142.75 ml 227.00 ml 991.28 ml medications Current Medications Medications Dose Ordered Sig/Aayush Route Start Time Stop Time Status Last Admin Dose Admin Docusate Sodium 100 mg BIDPRN PRN PO 05/27/25 01:45 Acetaminophen 650 mg Q6HP PRN PO 05/27/25 01:45 06/03/25 22:06 650 MG Ondansetron HCl 4 mg Q4HP PRN IV 05/27/25 01:45 06/05/25 13:15 4 MG Nitroglycerin 0.4 mg Q5MINP PRN SL 05/27/25 01:45 Pantoprazole Sodium 40 mg DAILY IV 05/27/25 10:00 06/09/25 10:37 40 MG Albuterol 2.5 mg Q4HPRN PRN NEB 05/27/25 04:45 Cancel Ipratropium [place] 0.5 mg Q4HPRN PRN NEB 05/27/25 04:45 Cancel Acetaminophen/ Hydrocodone Bitart 1 tab Q6HPRN PRN PO 05/27/25 17:30 06/05/25 11:46 1 TAB Oseltamivir Phosphate 75 mg Q12HR PO 05/28/25 22:00 06/02/25 21:59 UNV Enteral Nutritional Formula 240 ml BIDWM PO 05/29/25 18:00 06/04/25 08:00 240 ML Azithromycin 250 ml @ 125 mls/hr DAILY IV 06/03/25 10:00 06/09/25 10:00 125 MLS/HR Midodrine 5 mg TIDWM@0600,1200,1800 PO 06/03/25 18:00 06/09/25 05:34 5 MG Patient Own Medication 1 gm DAILY IV 06/03/25 15:30 UNV Ertapenem 1 gm/ Sodium Chloride 50 ml @ 100 mls/hr DAILY@2200 IV 06/04/25 22:00 06/08/25 21:23 100 MLS/HR Morphine Sulfate 2 mg Q4HPRN PRN IV 06/05/25 12:00 06/05/25 12:31 2 MG Norepinephrine Bitartrate 250 ml @ 3.75 mls/hr Q24H IV 06/05/25 20:45 06/09/25 11:14 56.25 MLS/HR Sodium Bicarbonate 150 ml/Dextrose 1,150 ml @ 125 mls/hr Q9H12M IV 06/06/25 12:45 06/09/25 05:33 125 MLS/HR Sodium Chloride 10 ml QSHIFT@10,22 IV 06/06/25 22:00 06/09/25 10:37 10 ML Diagnostic Test (Pha) 1 strip Q6HR 06/07/25 18:00 06/09/25 06:15 1 STRIP Insulin Human Regular FOLLOW SLIDING SCALE Q6HR SC 06/07/25 18:00 06/09/25 06:15 2 UNITS Dextrose 50 ml UD IV 06/07/25 12:45 Sodium Chloride 40 meq/Potassium Chloride 20 meq/ Potassium Acetate 40 meq/Calcium Gluconate 4.65 meq/Magnesium Sulfate 16 meq/ Multivitamins 10 ml/Amino Acids/ Dextrose 1,064 ml @ 45 mls/hr [id number] IV 06/08/25 22:00 06/09/25 21:59 06/08/25 21:26 45 MLS/HR Octreotide Acetate 100 mcg TID SUBCUT 06/08/25 14:00 06/09/25 05:34 100 MCG Daptomycin 500 mg/ Sodium Chloride 50 ml @ 100 mls/hr DAILY@2200 IV 06/08/25 22:00 06/08/25 21:28 100 MLS/HR Phytonadione 10 mg DAILY NG 06/09/25 10:00 06/13/25 09:59 06/09/25 10:00 10 MG Vancomycin HCl 250 mg QID GT 06/08/25 22:00 06/09/25 05:34 250 MG Enteral Nutritional Formula 1,000 ml 30ML/HR GT 06/09/25 09:15 Phenylephrine HCl 250 ml @ 30 mls/hr Q8H20M IV 06/09/25 10:30 06/09/25 10:30 30 MLS/HR Albumin Human 100 ml @ 100 mls/hr Q8H IV 06/09/25 11:00 06/10/25 03:59 objective Ill-appearing female in bed. Alert and awake with a poor oral response. HEENT neck supple no JVD. Heart sinus tachycardia and rhythm S1-S2. Lungs fair air movement poor inspiratory effort. Abdomen soft positive bowel sounds. Extremities positive edema in the legs. laboratory and microbiology Laboratory Tests 06/09/25 03:50 Test 06/09/25 03:50 Range/Units Serum Glucose 159 H 74-106 mg/dL Assessment/Plan 1. Acute metabolic encephalopathy 2. Biliary obstruction status post percutaneous transhepatic biliary drain placement at higher level of care in March. CT abdominal pelvis was done which shows no evidence of any biliary dislodgement 3. Transaminitis 4. Hyperbilirubinemia 5. Pancreatic cancer with Mets to liver, retroperitoneal lymphadenopathy 6. Hypoglycemia, resolved 7. Lactic acidosis, resolved 8. Relative hypotension, status post normal saline bolus 9. Bilateral pleural effusion 10. Gram-negative bacteremia, with ESBL 11. Sepsis due to multidrug resistant organisms with a bacteremia We will maximize Levophed for blood pressure support and had Davey-Synephrine to keep systolic blood pressure above 95. Given her tachycardia we would avoid dobutamine or dopamine. Otherwise continue current antibiotics. Start her on Nephro-Jovani tube feeding today. Meantime continue TPN and taper off as she tolerates tube feeds. Otherwise continue rest of supportive care and treatment including oral vancomycin for C diff. overall her prognosis remains very poor with a low likelihood of survival during this hospital stay. I discussed this with the patient's son on multiple occasions over the weekend as well as including yesterday. Discussed with the patient's care at bedside today with the nurse. Dietary Evaluation Review Comments: 1) Change oral nutrition supplement from Ensure Clear to Ensure Enlive bid 2) Advance to regular diet when medically feasible 3) Encourage optimal PO intake 4) Follow-up with oncology 5) Continue to monitor I&O, labs, and skin integrity Expected Outcomes/Goals: 1) appetite and labs to improve 2) f/u in 3-5 days Plan discussed with: Other ARGENIS DELACRUZ MD Jun 09, 2025 13:43
--- NOTE | 2025-06-09 14:44 | DVHPN2 ---
Progress Note Date Seen: Jun 09, 2025 Resident Creating Document: CORBY MENDIETA RESIDENT Medical Necessity Reason Pt with a Central, PICC or Fol: No The following are medically ne: PICC Line, Gaffney Catheter Reason for gaffney catheter: Strict I&O Subjective Review of Systems Patient seen and examined at bedside Deteriorating mental status On TPN Worsening hemodynamic status H&H decreased further Objective vital signs Vital Sign Date Time Temp Pulse Resp B/P (MAP) Pulse Ox O2 Delivery O2 Flow Rate FiO2 06/09/25 12:00 127 06/09/25 12:00 25 99 Room Air* 0 21 06/09/25 12:00 105/57 (73) 06/09/25 06:00 97.9 97.9 Total Intake and Output 06/08/25 06/08/25 06/09/25 15:00 23:00 07:00 Intake Total 2142.75 ml 1752.00 ml 1891.28 ml Output Total 1525 ml 900 ml Balance 2142.75 ml 227.00 ml 991.28 ml medications Current Medications Medications Dose Ordered Sig/Aayush Route Start Time Stop Time Status Last Admin Dose Admin Docusate Sodium 100 mg BIDPRN PRN PO 05/27/25 01:45 Acetaminophen 650 mg Q6HP PRN PO 05/27/25 01:45 06/03/25 22:06 650 MG Ondansetron HCl 4 mg Q4HP PRN IV 05/27/25 01:45 06/05/25 13:15 4 MG Nitroglycerin 0.4 mg Q5MINP PRN SL 05/27/25 01:45 Pantoprazole Sodium 40 mg DAILY IV 05/27/25 10:00 06/09/25 10:37 40 MG Albuterol 2.5 mg Q4HPRN PRN NEB 05/27/25 04:45 Cancel Ipratropium [place] 0.5 mg Q4HPRN PRN NEB 05/27/25 04:45 Cancel Acetaminophen/ Hydrocodone Bitart 1 tab Q6HPRN PRN PO 05/27/25 17:30 06/05/25 11:46 1 TAB Oseltamivir Phosphate 75 mg Q12HR PO 05/28/25 22:00 06/02/25 21:59 UNV Enteral Nutritional Formula 240 ml BIDWM PO 05/29/25 18:00 06/04/25 08:00 240 ML Azithromycin 250 ml @ 125 mls/hr DAILY IV 06/03/25 10:00 06/09/25 10:00 125 MLS/HR Midodrine 5 mg TIDWM@0600,1200,1800 PO 06/03/25 18:00 06/09/25 13:55 5 MG Patient Own Medication 1 gm DAILY IV 06/03/25 15:30 UNV Ertapenem 1 gm/ Sodium Chloride 50 ml @ 100 mls/hr DAILY@2200 IV 06/04/25 22:00 06/08/25 21:23 100 MLS/HR Morphine Sulfate 2 mg Q4HPRN PRN IV 06/05/25 12:00 06/05/25 12:31 2 MG Norepinephrine Bitartrate 250 ml @ 3.75 mls/hr Q24H IV 06/05/25 20:45 06/09/25 11:14 56.25 MLS/HR Sodium Bicarbonate 150 ml/Dextrose 1,150 ml @ 125 mls/hr Q9H12M IV 06/06/25 12:45 06/09/25 05:33 125 MLS/HR Sodium Chloride 10 ml QSHIFT@10,22 IV 06/06/25 22:00 06/09/25 10:37 10 ML Diagnostic Test (Pha) 1 strip Q6HR 06/07/25 18:00 06/09/25 13:56 1 STRIP Insulin Human Regular FOLLOW SLIDING SCALE Q6HR SC 06/07/25 18:00 06/09/25 13:59 8 UNITS Dextrose 50 ml UD IV 06/07/25 12:45 Sodium Chloride 40 meq/Potassium Chloride 20 meq/ Potassium Acetate 40 meq/Calcium Gluconate 4.65 meq/Magnesium Sulfate 16 meq/ Multivitamins 10 ml/Amino Acids/ Dextrose 1,064 ml @ 45 mls/hr [id number] IV 06/08/25 22:00 06/09/25 21:59 06/08/25 21:26 45 MLS/HR Octreotide Acetate 100 mcg TID SUBCUT 06/08/25 14:00 06/09/25 14:18 100 MCG Daptomycin 500 mg/ Sodium Chloride 50 ml @ 100 mls/hr DAILY@2200 IV 06/08/25 22:00 06/08/25 21:28 100 MLS/HR Phytonadione 10 mg DAILY NG 06/09/25 10:00 06/13/25 09:59 06/09/25 10:00 10 MG Vancomycin HCl 250 mg QID GT 06/08/25 22:00 06/09/25 12:00 250 MG Enteral Nutritional Formula 1,000 ml 30ML/HR GT 06/09/25 09:15 Phenylephrine HCl 250 ml @ 30 mls/hr Q8H20M IV 06/09/25 10:30 06/09/25 10:30 30 MLS/HR Albumin Human 100 ml @ 100 mls/hr Q8H IV 06/09/25 11:00 06/10/25 03:59 Examination Gen - mild conjuctival pallor, positive scleral icterus Skin - Patients skin is warm and dry. HEENT - normocephalic, atraumatic, dry mucous membranes. Neck - supple, no lymphadenopathy Pulmonary - B/L clear breath sounds with basilar crackles more in the left lower cardiovascular - regular S1,S2 heard GI - soft abdomen with mild tenderness to palpation. Bowel sounds hypoactive Neurological - Patient is alert and oriented x x1 and is minimally responsive laboratory and microbiology Laboratory Tests 06/09/25 03:50 Test 06/09/25 03:50 Range/Units Serum Glucose 159 H 74-106 mg/dL Microbiology Date/Time Source Procedure Growth Status 06/06/25 18:03 Urine - [place] Urine Culture - Preliminary Resulted 06/06/25 11:32 Blood Blood Culture - Preliminary NO GROWTH AFTER 72 HOURS OF INCUBATION. Resulted 06/04/25 10:00 Nose MRSA Screen - Final Complete 06/01/25 22:47 Stool Stool Culture - Final Complete 06/01/25 22:47 Stool Shiga Toxin I & II - Final Complete Problem List/Assessment/Plan Problem List/Assessment/Plan Assessment Pancreatic cancer s/p biliary stent placement with possible metastatic adenopathy Intractable abdominal pain Hyperbilirubinemia Transaminitis Influenza B Klebsiella ESBL bacteremia C diff colitis Campylobacter gastroenteritis Coagulopathy Plan - patient had a recent placement of biliary drainage stent at [facility] - pancreatic mass seen on the CT Abd likely pancreatic cancer - 06/02/[address] abdomen showed right hepatic approach internal external biliary drainage catheter terminating within the 2nd segment of the duodenum - monitor LFTs - IV protonix - started on vancomycin p.o. for C diff colitis and azithromycin for Campylobacter - IV antibiotics for bacteremia - taper off TPN and start tube feedings - watch H&H and keep hemoglobin above 7 patient may be a candidate for hospice given her metastatic pancreatic cancer and significant comorbidities. Plan discussed with Dr Morrissey Plan discussed with: Other (GABRIELA Tang) Dietary Evaluation Review Comments: 1) Change oral nutrition supplement from Ensure Clear to Ensure Enlive bid 2) Advance to regular diet when medically feasible 3) Encourage optimal PO intake 4) Follow-up with oncology 5) Continue to monitor I&O, labs, and skin integrity Expected Outcomes/Goals: 1) appetite and labs to improve 2) f/u in 3-5 days CORBY MENDIETA RESIDENT Jun 09, 2025 14:44
[2025-06-09 14:49] LABS: Base Excess -6.5 mmol/L (-2.0-3.0)
[2025-06-09 15:38] LABS: Magnesium 1.9 mg/dL (1.6-2.6)
[2025-06-09 15:47] LABS: Potassium 3.3 mmol/L (3.5-5.1)
[2025-06-09] MEDS ORDERED: POTASSIUM CHLORIDE 40 MEQ, LIDOCAINE 1% (LOCAL ANESTH.) 4 ML in SODIUM CHL 0.9% 250 ML IV ONE (16:00)
[2025-06-09] MEDS: PHENYLEPHRINE INJ 80 MG in SODIUM CHL 0.9% 242 ML IV SCH (17:16)
--- NOTE | 2025-06-09 19:13 | DVHPN2 ---
Progress Note - Dictate Date Seen: Jun 09, 2025 Medical Necessity Reason Pt with a Central, PICC or Fol: No The following are medically ne: PICC Line, Gaffney Catheter Reason for gaffney catheter: Strict I&O Subjective Patient seen and examined at bedside. Breathing on room air Overnight events reviewed. vital signs Vital Sign Date Time Temp Pulse Resp B/P (MAP) Pulse Ox O2 Delivery O2 Flow Rate FiO2 06/09/25 19:00 123 30 95/59 (71) 99 06/09/25 18:00 Room Air* 0 21 06/09/25 06:00 97.9 97.9 Total Intake and Output 06/08/25 06/08/25 06/09/25 15:00 23:00 07:00 Intake Total 2142.75 ml 1752.00 ml 1891.28 ml Output Total 1525 ml 900 ml Balance 2142.75 ml 227.00 ml 991.28 ml medications Current Medications Medications Dose Ordered Sig/Aayush Route Start Time Stop Time Status Last Admin Dose Admin Docusate Sodium 100 mg BIDPRN PRN PO 05/27/25 01:45 Acetaminophen 650 mg Q6HP PRN PO 05/27/25 01:45 06/03/25 22:06 650 MG Ondansetron HCl 4 mg Q4HP PRN IV 05/27/25 01:45 06/05/25 13:15 4 MG Nitroglycerin 0.4 mg Q5MINP PRN SL 05/27/25 01:45 Pantoprazole Sodium 40 mg DAILY IV 05/27/25 10:00 06/09/25 10:37 40 MG Albuterol 2.5 mg Q4HPRN PRN NEB 05/27/25 04:45 Cancel Ipratropium [place] 0.5 mg Q4HPRN PRN NEB 05/27/25 04:45 Cancel Acetaminophen/ Hydrocodone Bitart 1 tab Q6HPRN PRN PO 05/27/25 17:30 06/05/25 11:46 1 TAB Oseltamivir Phosphate 75 mg Q12HR PO 05/28/25 22:00 06/02/25 21:59 UNV Enteral Nutritional Formula 240 ml BIDWM PO 05/29/25 18:00 06/04/25 08:00 240 ML Azithromycin 250 ml @ 125 mls/hr DAILY IV 06/03/25 10:00 06/09/25 10:00 125 MLS/HR Midodrine 5 mg TIDWM@0600,1200,1800 PO 06/03/25 18:00 06/09/25 17:15 5 MG Patient Own Medication 1 gm DAILY IV 06/03/25 15:30 UNV Ertapenem 1 gm/ Sodium Chloride 50 ml @ 100 mls/hr DAILY@2200 IV 06/04/25 22:00 06/08/25 21:23 100 MLS/HR Morphine Sulfate 2 mg Q4HPRN PRN IV 06/05/25 12:00 06/05/25 12:31 2 MG Sodium Bicarbonate 150 ml/Dextrose 1,150 ml @ 125 mls/hr Q9H12M IV 06/06/25 12:45 06/09/25 14:21 125 MLS/HR Sodium Chloride 10 ml QSHIFT@10,22 IV 06/06/25 22:00 06/09/25 10:37 10 ML Diagnostic Test (Pha) 1 strip Q6HR 06/07/25 18:00 06/09/25 17:12 1 STRIP Insulin Human Regular FOLLOW SLIDING SCALE Q6HR SC 06/07/25 18:00 06/09/25 17:13 4 UNITS Dextrose 50 ml UD IV 06/07/25 12:45 Sodium Chloride 40 meq/Potassium Chloride 20 meq/ Potassium Acetate 40 meq/Calcium Gluconate 4.65 meq/Magnesium Sulfate 16 meq/ Multivitamins 10 ml/Amino Acids/ Dextrose 1,064 ml @ 45 mls/hr [id number] IV 06/08/25 22:00 06/09/25 21:59 06/08/25 21:26 45 MLS/HR Octreotide Acetate 100 mcg TID SUBCUT 06/08/25 14:00 06/09/25 14:18 100 MCG Daptomycin 500 mg/ Sodium Chloride 50 ml @ 100 mls/hr DAILY@2200 IV 06/08/25 22:00 06/08/25 21:28 100 MLS/HR Phytonadione 10 mg DAILY NG 06/09/25 10:00 06/13/25 09:59 06/09/25 10:00 10 MG Vancomycin HCl 250 mg QID GT 06/08/25 22:00 06/09/25 17:15 250 MG Enteral Nutritional Formula 1,000 ml 30ML/HR GT 06/09/25 09:15 Albumin Human 100 ml @ 100 mls/hr Q8H IV 06/09/25 11:00 06/10/25 03:59 Phenylephrine HCl 80 mg/Sodium Chloride 250 ml @ 7.5 mls/hr Q24H IV 06/09/25 15:30 06/09/25 17:16 7.5 MLS/HR Norepinephrine Bitartrate 32 mg/ Sodium Chloride 250 ml @ 0.938 mls/ hr Q24H IV 06/09/25 15:30 objective Gen.: Patient lying in bed in no apparent distress. On room air. Head: Normocephalic, atraumatic. Eyes: EOMI/PERRLA. Ears: Normal hearing. Normal anatomy. Neck/trachea: Trachea midline, supple. Nose: Normal external anatomy. Mouth: Moist mucous membranes. Chest: Decreased air entry bilaterally. No wheezing or rhonchi. Cardiovascular: Positive S1, positive S2. Regular rate and rhythm. Abdomen: Positive bowel sounds in all 4 quadrants. Soft, non-tender, non- distended. : Deferred. Rectal: Deferred. Skin: Warm, dry. Intact. Extremities: 2+ radial pulses bilaterally. 2+ bilateral lower extremity edema. Neuro: Awake, alert, oriented x3. No gross motor or sensory deficits. Cranial nerves II through XII intact. Gait not assessed. laboratory and microbiology Laboratory Tests 06/09/25 15:03 06/09/25 03:50 Test 06/09/25 03:50 Range/Units Serum Glucose 159 H 74-106 mg/dL Assessment/Plan Impression: Acute metabolic encephalopathy Sepsis Influenza B Pleural effusion Atelectasis Pancreatic cancer S/p percutaneous transhepatic biliary drain placement Events: Breathing on room air Pressors for hemodynamic support Currently on Levophed 30 mcg/min and Davey-Synephrine 40 mcg/min Titrate to keep MAP above 65 mmHg/SBP above 90 mmHg. Increased pressor requirements Chest x-ray on 06/07/25 shows unchanged pulmonary vascular congestion. Leukocytosis -WBC trended up to 22.9 K Monitor Lactic acid Bicarb drip due to severe metabolic acidosis Continue antibiotics F/u cultures: Bacteremia with blood cultures positive for gram-positive cocci, E SBL Klebsiella pneumoniae Repeat blood cultures positive for VRE ID recommendations appreciated Antibiotics per ID Continue bronchodilators Incentive spirometry Stool culture positive for C. diff - on isolation for C.diff. Positive influenza B - Received oseltamivir course Monitor blood glucose Monitor blood pressures Head of bed elevation Aspiration precautions Pain control Avoid oversedation NGT in place. TPN/tube feeds for nutritional support. Protonix for GI ppx GI recommendations appreciated FOBT negative Monitor hemoglobin - currently 7.6 g/dL Transfuse if less than 7.0 g/dL. Monitor blood pressure Nephrology recommendations appreciated Monitor renal function. Poor UOP Monitor electrolytes. Supplement as necessary. Potassium, magnesium supplementation Accu-Cheks, ISS. TPN for nutritional support Pain control Avoid oversedation Patient with advanced pancreatic cancer w/ sepsis and [id number] organisms; multiorgan failure Overall poor prognosis with high likelihood of demise. Awaiting family decision on goals of care. Disposition per hospitalist. Arrange for home IV antibiotics Labs and imaging reviewed. Rest of plan as noted below. Plan: Supplemental oxygen PRN Titrate to keep O2 sats above 92%. Continue antibiotics Bacteremia - Follow up cultures Folow up ID recommendations Bronchodilators PRN. On pressors for hemodynamic support Titrate to keep MAP above 65 mmHg/SBP above 90 mmHg. Protonix for GI ppx Monitor hemoglobin Transfuse if less than 7.0 g/dL. Accu-Cheks, ISS PRN. Head of bed elevation Aspiration precautions Pain control Avoid oversedation Monitor renal function. Monitor electrolytes. Supplement as necessary. Monitor ins and outs. Monitor hemoglobin Transfuse if less than 7.0 g/dL. GI/DVT prophylaxis. Prognosis: Poor given patient's multiple co-morbidities. Condition: Critical Rest of plan per hospitalist and other consultants. A total of 35 minutes of critical care time was spent reviewing the patient record, examining the patient, making a diagnostic and therapeutic plan, discussing this plan with the medical personnel, following up on diagnostic studies and following the patient for clinical stability excluding any and all procedures. At least 50% of this time was spent in direct, [id number] contact. Thank you, VELVET Avila, for allowing me to participate in this patient's care. Further recommendations will depend on the patient's clinical course. Please do not hesitate to contact me if you have any questions or concerns. This medical document was created using an electronic medical record system with [employer] system. Although these documentations are being carefully reviewed, there may still be some phonetic and typographical changes. The errors are purely typographical, due to imperfection on the software program, and do not reflect any compromise in the patient's medical care Dietary Evaluation Review Comments: 1) Change oral nutrition supplement from Ensure Clear to Ensure Enlive bid 2) Advance to regular diet when medically feasible 3) Encourage optimal PO intake 4) Follow-up with oncology 5) Continue to monitor I&O, labs, and skin integrity Expected Outcomes/Goals: 1) appetite and labs to improve 2) f/u in 3-5 days Plan discussed with: Patient, Other (GABRIELA Tang) Critical Care Time(min): 35 KENNA [facility] Jun 09, 2025 19:13
[2025-06-09] MEDS: NOREPINEPHRINE BITARTRATE 32 MG in SODIUM CHL 0.9% 218 ML IV SCH (19:35)
[2025-06-09] MEDS: Nepro With Carb Steady 1 Liter Bottle GT SCH (19:48)
[2025-06-10] VITALS (102 sets, daily range): BP systolic 81–131; BP diastolic 45–83; PULSE 101–128; RESP 18–34; TEMP 98–100.6; O2SAT 97–100
[2025-06-10 03:54] LABS: Sodium 138 mmol/L (136-145)
[2025-06-10 03:55] LABS: Anion Gap 28 (5-15); Calcium 8.9 mg/dL (8.7-10.4)
[2025-06-10 04:00] LABS: Blood Urea Nitrogen 14 mg/dL (9-23); Glucose 92 mg/dL (74-106)
[2025-06-10 04:18] LABS: BUN/Creatinine Ratio 11.1 (10.0-20.0)
[2025-06-10 04:19] LABS: Carbon Dioxide 20 mmol/L (20-31); Chloride 90 mmol/L (98-107); Potassium 3.3 mmol/L (3.5-5.1)
[2025-06-10 04:22] LABS: Hematocrit 19.6 % (36.0-46.0); Mean Corpuscular Hemoglobin 33.7 pg (28.0-32.0); Mean Corpuscular Volume 100.4 fL (80.0-100.0); Nucleated Red Blood Cells % 1.2 %
[2025-06-10 04:29] LABS: Hemoglobin 6.6 g/dL (12.2-16.2)
[2025-06-10] MEDS: EPINEPHrine HCL 250 ML IV SCH (04:45)
[2025-06-10] MEDS: POTASSIUM CHL 20MEQ/100ML 100 ML IV ONE (05:14)
[2025-06-10 05:21] LABS: Macrocytosis Slight
[2025-06-10] MEDS: VASOPRESSIN 20 UNITS in SODIUM CHL 0.9% 99 ML IV SCH (05:26)
[2025-06-10] MEDS: VASOPRESSIN 20 UNIT/ML ONE (05:27)
--- NOTE | 2025-06-10 10:18 | DVHPN2 ---
Progress Note - Dictate Date Seen: Jun 10, 2025 Medical Necessity Reason Pt with a Central, PICC or Fol: No The following are medically ne: PICC Line, Gaffney Catheter Reason for gaffney catheter: Strict I&O Subjective Patient remains hypotensive. On Levophed. Hb dropped to 6.8 and platelet count to 17 -Transfusion ordered vital signs Vital Sign Date Time Temp Pulse Resp B/P (MAP) Pulse Ox O2 Delivery O2 Flow Rate FiO2 06/10/25 07:30 122 28 106/69 (81) 99 06/10/25 06:00 Room Air* 0 21 06/10/25 00:00 98.0 98.0 Total Intake and Output 06/09/25 06/09/25 06/10/25 15:00 23:00 07:00 Intake Total 2238.75 ml 1945.689 ml 1706.559 ml Output Total 950 ml 550 ml Balance 2238.75 ml 995.689 ml 1156.559 ml medications Current Medications Medications Dose Ordered Sig/Aayush Route Start Time Stop Time Status Last Admin Dose Admin Docusate Sodium 100 mg BIDPRN PRN PO 05/27/25 01:45 Acetaminophen 650 mg Q6HP PRN PO 05/27/25 01:45 06/03/25 22:06 650 MG Ondansetron HCl 4 mg Q4HP PRN IV 05/27/25 01:45 06/10/25 05:56 4 MG Nitroglycerin 0.4 mg Q5MINP PRN SL 05/27/25 01:45 Pantoprazole Sodium 40 mg DAILY IV 05/27/25 10:00 06/10/25 09:26 40 MG Albuterol 2.5 mg Q4HPRN PRN NEB 05/27/25 04:45 Cancel Ipratropium [place] 0.5 mg Q4HPRN PRN NEB 05/27/25 04:45 Cancel Acetaminophen/ Hydrocodone Bitart 1 tab Q6HPRN PRN PO 05/27/25 17:30 06/05/25 11:46 1 TAB Oseltamivir Phosphate 75 mg Q12HR PO 05/28/25 22:00 06/02/25 21:59 UNV Enteral Nutritional Formula 240 ml BIDWM PO 05/29/25 18:00 06/04/25 08:00 240 ML Azithromycin 250 ml @ 125 mls/hr DAILY IV 06/03/25 10:00 06/10/25 09:27 125 MLS/HR Midodrine 5 mg TIDWM@0600,1200,1800 PO 06/03/25 18:00 06/10/25 05:32 5 MG Patient Own Medication 1 gm DAILY IV 06/03/25 15:30 UNV Ertapenem 1 gm/ Sodium Chloride 50 ml @ 100 mls/hr DAILY@2200 IV 06/04/25 22:00 06/09/25 21:37 100 MLS/HR Morphine Sulfate 2 mg Q4HPRN PRN IV 06/05/25 12:00 06/09/25 21:36 2 MG Sodium Bicarbonate 150 ml/Dextrose 1,150 ml @ 125 mls/hr Q9H12M IV 06/06/25 12:45 06/10/25 09:40 125 MLS/HR Sodium Chloride 10 ml QSHIFT@10,22 IV 06/06/25 22:00 06/10/25 09:26 10 ML Diagnostic Test (Pha) 1 strip Q6HR 06/07/25 18:00 06/10/25 05:33 1 STRIP Insulin Human Regular FOLLOW SLIDING SCALE Q6HR SC 06/07/25 18:00 06/09/25 17:13 4 UNITS Dextrose 50 ml UD IV 06/07/25 12:45 Octreotide Acetate 100 mcg TID SUBCUT 06/08/25 14:00 06/10/25 05:32 100 MCG Daptomycin 500 mg/ Sodium Chloride 50 ml @ 100 mls/hr DAILY@2200 IV 06/08/25 22:00 06/09/25 22:33 100 MLS/HR Phytonadione 10 mg DAILY NG 06/09/25 10:00 06/13/25 09:59 06/09/25 10:00 10 MG Vancomycin HCl 250 mg QID GT 06/08/25 22:00 06/10/25 05:32 250 MG Enteral Nutritional Formula 1,000 ml 30ML/HR GT 06/09/25 09:15 06/09/25 19:48 1,000 ML Phenylephrine HCl 80 mg/Sodium Chloride 250 ml @ 7.5 mls/hr Q24H IV 06/09/25 15:30 06/10/25 08:00 33.75 MLS/HR Norepinephrine Bitartrate 32 mg/ Sodium Chloride 250 ml @ 0.938 mls/ hr Q24H IV 06/09/25 15:30 06/09/25 19:35 14.063 MLS/HR Epinephrine HCl 250 ml @ 7.5 mls/hr Q24H IV 06/10/25 04:45 Vasopressin 20 units/Sodium Chloride 100 ml @ 9 mls/hr Q11H7M IV 06/10/25 04:45 06/10/25 05:26 9 MLS/HR objective General Appearance: Alert , no acute distress HEENT: Atraumatic, PERRLA, EOMI, Other (Icteric sclera) Respiratory: Clear to auscultation, Normal air movement Cardiovascular: Normal S1, Normal S2, Abdominal: Soft, Other (Biliary drain in place. Drainage from insertion site) Extremities: No clubbing, No cyanosis, No edema Skin: No breakdown Neuro: confusion, no focal deficit, Psych/Mental Status: Mental status NL, Mood NL laboratory and microbiology Laboratory Tests 06/10/25 03:59 06/10/25 03:00 Test 06/10/25 03:00 Range/Units Serum Glucose 92 74-106 mg/dL Assessment/Plan A 69 years female presents with shock VRE bacteremia C diff diarrhea Campylobacter in stool streptococcus bacteremia ESBL [place] bacteremia Sepsis Influenza B positive Acute metabolic encephalopathy Hypoglycemia Dehydration Pulmonary airspace disease Small bilateral pleural effusions Abnormal LFT Hyperbilirubinemia History pancreatic cancer S/p percutaneous transhepatic biliary drain in place Hypotension Recommendations: on Levophed platelet dropping, dc linezolid and switch to Daptomycin IV WBC worsening 17.4 Hb dropped to 6.6 and platelets to 17 - Transfusion ordered continue invanz, stop date 06/10 ( since 06/27 with zosyn and then Invanz for ESBL bacteremia) continue PO vancomycin on Azithromycin ( DC) Blood cultures shows ESBL [place], however repeat blood cx is showing streptococcus Enteric catheter in satisfactory position Gastroenterology on board prognosis guarded; consider goals of care discussion. overall prognosis very poor Total time 50 minutes spent during this encounter. Thank you for the consult Dietary Evaluation Review Comments: 1) Change oral nutrition supplement from Ensure Clear to Ensure Enlive bid 2) Advance to regular diet when medically feasible 3) Encourage optimal PO intake 4) Follow-up with oncology 5) Continue to monitor I&O, labs, and skin integrity Expected Outcomes/Goals: 1) appetite and labs to improve 2) f/u in 3-5 days ANGEL DE LEON MD Jun 10, 2025 10:18
--- NOTE | 2025-06-10 10:56 | DVHPN2 ---
Progress Note - Dictate Date Seen: Jun 10, 2025 Medical Necessity Reason Pt with a Central, PICC or Fol: No The following are medically ne: PICC Line, Gaffney Catheter Reason for gaffney catheter: Strict I&O Subjective Patient's blood pressure continued to drop overnight. Now she is on three pressors maxed out to keep the systolic blood pressure above 95. Also her hemoglobin and platelets have significantly dropped this morning. Patient did not tolerate tube feeds and apparently had an episode of vomiting. No hematemesis or hematochezia noted. vital signs Vital Sign Date Time Temp Pulse Resp B/P (MAP) Pulse Ox O2 Delivery O2 Flow Rate FiO2 06/10/25 10:38 98.8 121 22 101/54 98.8 06/10/25 07:30 99 06/10/25 06:00 Room Air* 0 21 Total Intake and Output 06/09/25 06/09/25 06/10/25 15:00 23:00 07:00 Intake Total 2238.75 ml 1945.689 ml 1706.559 ml Output Total 950 ml 550 ml Balance 2238.75 ml 995.689 ml 1156.559 ml medications Current Medications Medications Dose Ordered Sig/Aayush Route Start Time Stop Time Status Last Admin Dose Admin Docusate Sodium 100 mg BIDPRN PRN PO 05/27/25 01:45 Acetaminophen 650 mg Q6HP PRN PO 05/27/25 01:45 06/03/25 22:06 650 MG Ondansetron HCl 4 mg Q4HP PRN IV 05/27/25 01:45 06/10/25 05:56 4 MG Nitroglycerin 0.4 mg Q5MINP PRN SL 05/27/25 01:45 Pantoprazole Sodium 40 mg DAILY IV 05/27/25 10:00 06/10/25 09:26 40 MG Albuterol 2.5 mg Q4HPRN PRN NEB 05/27/25 04:45 Cancel Ipratropium [place] 0.5 mg Q4HPRN PRN NEB 05/27/25 04:45 Cancel Acetaminophen/ Hydrocodone Bitart 1 tab Q6HPRN PRN PO 05/27/25 17:30 06/05/25 11:46 1 TAB Oseltamivir Phosphate 75 mg Q12HR PO 05/28/25 22:00 06/02/25 21:59 UNV Enteral Nutritional Formula 240 ml BIDWM PO 05/29/25 18:00 06/04/25 08:00 240 ML Azithromycin 250 ml @ 125 mls/hr DAILY IV 06/03/25 10:00 06/10/25 09:27 125 MLS/HR Midodrine 5 mg TIDWM@0600,1200,1800 PO 06/03/25 18:00 06/10/25 05:32 5 MG Patient Own Medication 1 gm DAILY IV 06/03/25 15:30 UNV Ertapenem 1 gm/ Sodium Chloride 50 ml @ 100 mls/hr DAILY@2200 IV 06/04/25 22:00 06/09/25 21:37 100 MLS/HR Morphine Sulfate 2 mg Q4HPRN PRN IV 06/05/25 12:00 06/09/25 21:36 2 MG Sodium Bicarbonate 150 ml/Dextrose 1,150 ml @ 125 mls/hr Q9H12M IV 06/06/25 12:45 06/10/25 09:40 125 MLS/HR Sodium Chloride 10 ml QSHIFT@22 IV 06/06/25 22:00 06/10/25 09:26 10 ML Diagnostic Test (Pha) 1 strip Q6HR 06/07/25 18:00 06/10/25 05:33 1 STRIP Insulin Human Regular FOLLOW SLIDING SCALE Q6HR SC 06/07/25 18:00 06/09/25 17:13 4 UNITS Dextrose 50 ml UD IV 06/07/25 12:45 Octreotide Acetate 100 mcg TID SUBCUT 06/08/25 14:00 06/10/25 05:32 100 MCG Daptomycin 500 mg/ Sodium Chloride 50 ml @ 100 mls/hr DAILY@2200 IV 06/08/25 22:00 06/09/25 22:33 100 MLS/HR Phytonadione 10 mg DAILY NG 06/09/25 10:00 06/13/25 09:59 06/10/25 10:45 10 MG Vancomycin HCl 250 mg QID GT 06/08/25 22:00 06/10/25 05:32 250 MG Enteral Nutritional Formula 1,000 ml 30ML/HR GT 06/09/25 09:15 06/09/25 19:48 1,000 ML Phenylephrine HCl 80 mg/Sodium Chloride 250 ml @ 7.5 mls/hr Q24H IV 06/09/25 15:30 06/10/25 08:00 33.75 MLS/HR Norepinephrine Bitartrate 32 mg/ Sodium Chloride 250 ml @ 0.938 mls/ hr Q24H IV 06/09/25 15:30 06/09/25 19:35 14.063 MLS/HR Epinephrine HCl 250 ml @ 7.5 mls/hr Q24H IV 06/10/25 04:45 Vasopressin 20 units/Sodium Chloride 100 ml @ 9 mls/hr Q11H7M IV 06/10/25 04:45 06/10/25 05:26 9 MLS/HR objective Ill-appearing female in bed. Appears lethargic. Heart sinus tachycardia S1 plus S2. Lungs fair air movement with poor inspiratory effort. Abdomen soft hypoactive bowel sounds. Extremities positive edema. laboratory and microbiology Laboratory Tests 06/10/25 03:59 06/10/25 03:00 Test 06/10/25 03:00 Range/Units Serum Glucose 92 74-106 mg/dL Assessment/Plan 1. Acute metabolic encephalopathy 2. Biliary obstruction status post percutaneous transhepatic biliary drain placement at higher level of care in March. CT abdominal pelvis was done which shows no evidence of any biliary dislodgement 3. Transaminitis 4. Hyperbilirubinemia 5. Pancreatic cancer with Mets to liver, retroperitoneal lymphadenopathy 6. Hypoglycemia, 7. Lactic acidosis, elevated 8. Hypotension due to severe sepsis 9. Bilateral pleural effusion 10. Gram-negative bacteremia, with ESBL 11. Sepsis due to multidrug resistant organisms with a bacteremia including VRE 12. Acute anemia without any evidence of GI bleeding at present 13. Thrombocytopenia possibly secondary to underlying sepsis versus Zyvox which is switched to daptomycin per ID. Transfuse packed red blood cells as well as platelets today. Continue daptomycin and DC Zyvox. Started on octreotide subcu injections as well by silver plater. Continue maximal pressor support to keep systolic blood pressure above 95. She is already on three pressors maxed out. Avoid dobutamine dopamine for now given her tachycardia. Follow the labs this afternoon. Otherwise we will resume IV nutrition with a Clinimix given she had an episode of vomiting with the tube feeds per nurse. Continue oral vitamin K as well as vancomycin via G-tube. Continue other medications as she is on. Her overall prognosis remains very poor with a high in-hospital mortality. Patient continued to deteriorate despite maximal medical therapy. Discussed with the son on multiple occasions along with the nurse at bedside. At present she remains full code. Discussed with the nurse at bedside regarding care plan. Dietary Evaluation Review Comments: 1) Change oral nutrition supplement from Ensure Clear to Ensure Enlive bid 2) Advance to regular diet when medically feasible 3) Encourage optimal PO intake 4) Follow-up with oncology 5) Continue to monitor I&O, labs, and skin integrity Expected Outcomes/Goals: 1) appetite and labs to improve 2) f/u in 3-5 days Plan discussed with: Other ARGENIS DELACRUZ MD Jun 10, 2025 10:56
[2025-06-10] MEDS ORDERED: CLINIMIX PER PHARMACY 0 ML IV SCH (11:00)
--- NOTE | 2025-06-10 11:56 | DVHPN2 ---
Progress Note Date Seen: Jun 10, 2025 Resident Creating Document: CORBY MENDIETA RESIDENT Medical Necessity Reason Pt with a Central, PICC or Fol: No The following are medically ne: PICC Line, Gaffney Catheter Reason for gaffney catheter: Strict I&O Subjective Review of Systems Patient seen and examined at the bedside Worsened hemodynamic status with increased vasopressor requirement Was started on tube feedings yesterday but patient vomited and feedings were held Objective vital signs Vital Sign Date Time Temp Pulse Resp B/P (MAP) Pulse Ox O2 Delivery O2 Flow Rate FiO2 06/10/25 10:38 98.8 121 22 101/54 98.8 06/10/25 07:30 99 06/10/25 06:00 Room Air* 0 21 Total Intake and Output 06/09/25 06/09/25 06/10/25 15:00 23:00 07:00 Intake Total 2238.75 ml 1945.689 ml 1706.559 ml Output Total 950 ml 550 ml Balance 2238.75 ml 995.689 ml 1156.559 ml medications Current Medications Medications Dose Ordered Sig/Aayush Route Start Time Stop Time Status Last Admin Dose Admin Docusate Sodium 100 mg BIDPRN PRN PO 05/27/25 01:45 Acetaminophen 650 mg Q6HP PRN PO 05/27/25 01:45 06/03/25 22:06 650 MG Ondansetron HCl 4 mg Q4HP PRN IV 05/27/25 01:45 06/10/25 05:56 4 MG Nitroglycerin 0.4 mg Q5MINP PRN SL 05/27/25 01:45 Pantoprazole Sodium 40 mg DAILY IV 05/27/25 10:00 06/10/25 09:26 40 MG Albuterol 2.5 mg Q4HPRN PRN NEB 05/27/25 04:45 Cancel Ipratropium [place] 0.5 mg Q4HPRN PRN NEB 05/27/25 04:45 Cancel Acetaminophen/ Hydrocodone Bitart 1 tab Q6HPRN PRN PO 05/27/25 17:30 06/05/25 11:46 1 TAB Oseltamivir Phosphate 75 mg Q12HR PO 05/28/25 22:00 06/02/25 21:59 UNV Enteral Nutritional Formula 240 ml BIDWM PO 05/29/25 18:00 06/04/25 08:00 240 ML Azithromycin 250 ml @ 125 mls/hr DAILY IV 06/03/25 10:00 06/10/25 09:27 125 MLS/HR Midodrine 5 mg TIDWM@0600,1200,1800 PO 06/03/25 18:00 06/10/25 11:34 5 MG Patient Own Medication 1 gm DAILY IV 06/03/25 15:30 UNV Ertapenem 1 gm/ Sodium Chloride 50 ml @ 100 mls/hr DAILY@2200 IV 06/04/25 22:00 06/09/25 21:37 100 MLS/HR Morphine Sulfate 2 mg Q4HPRN PRN IV 06/05/25 12:00 06/09/25 21:36 2 MG Sodium Bicarbonate 150 ml/Dextrose 1,150 ml @ 125 mls/hr Q9H12M IV 06/06/25 12:45 06/10/25 09:40 125 MLS/HR Sodium Chloride 10 ml QSHIFT@ IV 06/06/25 22:00 06/10/25 09:26 10 ML Diagnostic Test (Pha) 1 strip Q6HR 06/07/25 18:00 06/10/25 11:31 1 STRIP Insulin Human Regular FOLLOW SLIDING SCALE Q6HR SC 06/07/25 18:00 06/09/25 17:13 4 UNITS Dextrose 50 ml UD IV 06/07/25 12:45 Octreotide Acetate 100 mcg TID SUBCUT 06/08/25 14:00 06/10/25 05:32 100 MCG Daptomycin 500 mg/ Sodium Chloride 50 ml @ 100 mls/hr DAILY@2200 IV 06/08/25 22:00 06/09/25 22:33 100 MLS/HR Phytonadione 10 mg DAILY NG 06/09/25 10:00 06/13/25 09:59 06/10/25 10:45 10 MG Vancomycin HCl 250 mg QID GT 06/08/25 22:00 06/10/25 11:36 250 MG Phenylephrine HCl 80 mg/Sodium Chloride 250 ml @ 7.5 mls/hr Q24H IV 06/09/25 15:30 06/10/25 08:00 33.75 MLS/HR Norepinephrine Bitartrate 32 mg/ Sodium Chloride 250 ml @ 0.938 mls/ hr Q24H IV 06/09/25 15:30 06/09/25 19:35 14.063 MLS/HR Epinephrine HCl 250 ml @ 7.5 mls/hr Q24H IV 06/10/25 04:45 Vasopressin 20 units/Sodium Chloride 100 ml @ 9 mls/hr Q11H7M IV 06/10/25 04:45 06/10/25 05:26 9 MLS/HR Amino Acids 0 ml @ 0 mls/hr PER PHARMACY IV 06/10/25 11:00 Amino Acids/ Electrolytes/ Dextrose 1,000 ml @ 41 mls/hr DAILY@2200 IV 06/10/25 22:00 Examination Gen - mild conjuctival pallor, positive scleral icterus Skin - Patients skin is warm and dry. HEENT - normocephalic, atraumatic, dry mucous membranes. Neck - supple, no lymphadenopathy Pulmonary - B/L clear breath sounds with basilar crackles more in the left lower cardiovascular - regular S1,S2 heard GI - soft abdomen with mild tenderness to palpation. Bowel sounds hypoactive Neurological - Patient is alert and oriented x x1 and is minimally responsive laboratory and microbiology Laboratory Tests 06/10/25 03:59 06/10/25 03:00 Test 06/10/25 03:00 Range/Units Serum Glucose 92 74-106 mg/dL Microbiology Date/Time Source Procedure Growth Status 06/06/25 18:03 Urine - Gaffney Port Urine Culture - Final Yeast, not Stella albicans Complete 06/06/25 11:32 Blood Blood Culture - Preliminary NO GROWTH AFTER 72 HOURS OF INCUBATION. Resulted 06/04/25 10:00 Nose MRSA Screen - Final Complete 06/01/25 22:47 Stool Stool Culture - Final Complete 06/01/25 22:47 Stool Shiga Toxin I & II - Final Complete Problem List/Assessment/Plan Problem List/Assessment/Plan Assessment Pancreatic cancer s/p biliary stent placement with possible metastatic adenopathy Intractable abdominal pain Hyperbilirubinemia Transaminitis Influenza B Klebsiella ESBL bacteremia C diff colitis Campylobacter gastroenteritis Coagulopathy Plan - patient had a recent placement of biliary drainage stent at [facility] - pancreatic mass seen on the CT Abd likely pancreatic cancer - 06/02/[address] abdomen showed right hepatic approach internal external biliary drainage catheter terminating within the 2nd segment of the duodenum - monitor LFTs - IV protonix - started on vancomycin p.o. for C diff colitis and azithromycin for Campylobacter - IV antibiotics for bacteremia - patient not able to tolerate tube feedings, initiate TPN - watch H&H and keep hemoglobin above 7 patient may be a candidate for hospice given her metastatic pancreatic cancer and significant comorbidities. Plan discussed with Dr Morrissey Plan discussed with: Other (GABRIELA Lee) Dietary Evaluation Review Comments: 1) Change oral nutrition supplement from Ensure Clear to Ensure Enlive bid 2) Advance to regular diet when medically feasible 3) Encourage optimal PO intake 4) Follow-up with oncology 5) Continue to monitor I&O, labs, and skin integrity Expected Outcomes/Goals: 1) appetite and labs to improve 2) f/u in 3-5 days CORBY MENDIETA RESIDENT Jun 10, 2025 11:56
[2025-06-10 12:09] LABS: Magnesium 2.2 mg/dL (1.6-2.6)
--- NOTE | 2025-06-10 13:24 | DVHPN2 ---
Progress Note Date Seen: Jun 10, 2025 Medical Necessity Reason Pt with a Central, PICC or Fol: No The following are medically ne: PICC Line, Gaffney Catheter Reason for gaffney catheter: Strict I&O Subjective Patient reports: No new complaints Other Systems: Patient seen and examined by myself today in follow-up Objective vital signs Vital Sign Date Time Temp Pulse Resp B/P (MAP) Pulse Ox O2 Delivery O2 Flow Rate FiO2 06/10/25 13:17 109/63 06/10/25 13:01 98.8 125 29 98.8 06/10/25 07:30 99 06/10/25 06:00 Room Air* 0 21 Total Intake and Output 06/09/25 06/09/25 06/10/25 15:00 23:00 07:00 Intake Total 2238.75 ml 1945.689 ml 1706.559 ml Output Total 950 ml 550 ml Balance 2238.75 ml 995.689 ml 1156.559 ml medications Current Medications Medications Dose Ordered Sig/Aayush Route Start Time Stop Time Status Last Admin Dose Admin Docusate Sodium 100 mg BIDPRN PRN PO 05/27/25 01:45 Acetaminophen 650 mg Q6HP PRN PO 05/27/25 01:45 06/03/25 22:06 650 MG Ondansetron HCl 4 mg Q4HP PRN IV 05/27/25 01:45 06/10/25 13:19 4 MG Nitroglycerin 0.4 mg Q5MINP PRN SL 05/27/25 01:45 Pantoprazole Sodium 40 mg DAILY IV 05/27/25 10:00 06/10/25 09:26 40 MG Albuterol 2.5 mg Q4HPRN PRN NEB 05/27/25 04:45 Cancel Ipratropium [place] 0.5 mg Q4HPRN PRN NEB 05/27/25 04:45 Cancel Acetaminophen/ Hydrocodone Bitart 1 tab Q6HPRN PRN PO 05/27/25 17:30 06/05/25 11:46 1 TAB Oseltamivir Phosphate 75 mg Q12HR PO 05/28/25 22:00 06/02/25 21:59 UNV Enteral Nutritional Formula 240 ml BIDWM PO 05/29/25 18:00 06/04/25 08:00 240 ML Azithromycin 250 ml @ 125 mls/hr DAILY IV 06/03/25 10:00 06/10/25 09:27 125 MLS/HR Midodrine 5 mg TIDWM@0600,1200,1800 PO 06/03/25 18:00 06/10/25 11:34 5 MG Patient Own Medication 1 gm DAILY IV 06/03/25 15:30 UNV Ertapenem 1 gm/ Sodium Chloride 50 ml @ 100 mls/hr DAILY@2200 IV 06/04/25 22:00 06/09/25 21:37 100 MLS/HR Morphine Sulfate 2 mg Q4HPRN PRN IV 06/05/25 12:00 06/09/25 21:36 2 MG Sodium Bicarbonate 150 ml/Dextrose 1,150 ml @ 125 mls/hr Q9H12M IV 06/06/25 12:45 06/10/25 09:40 125 MLS/HR Sodium Chloride 10 ml QSHIFT@10,22 IV 06/06/25 22:00 06/10/25 09:26 10 ML Diagnostic Test (Pha) 1 strip Q6HR 06/07/25 18:00 06/10/25 11:31 1 STRIP Insulin Human Regular FOLLOW SLIDING SCALE Q6HR SC 06/07/25 18:00 06/09/25 17:13 4 UNITS Dextrose 50 ml UD IV 06/07/25 12:45 Octreotide Acetate 100 mcg TID SUBCUT 06/08/25 14:00 06/10/25 05:32 100 MCG Daptomycin 500 mg/ Sodium Chloride 50 ml @ 100 mls/hr DAILY@2200 IV 06/08/25 22:00 06/09/25 22:33 100 MLS/HR Phytonadione 10 mg DAILY NG 06/09/25 10:00 06/13/25 09:59 06/10/25 10:45 10 MG Vancomycin HCl 250 mg QID GT 06/08/25 22:00 06/10/25 11:36 250 MG Phenylephrine HCl 80 mg/Sodium Chloride 250 ml @ 7.5 mls/hr Q24H IV 06/09/25 15:30 06/10/25 08:00 33.75 MLS/HR Norepinephrine Bitartrate 32 mg/ Sodium Chloride 250 ml @ 0.938 mls/ hr Q24H IV 06/09/25 15:30 06/09/25 19:35 14.063 MLS/HR Epinephrine HCl 250 ml @ 7.5 mls/hr Q24H IV 06/10/25 04:45 Vasopressin 20 units/Sodium Chloride 100 ml @ 9 mls/hr Q11H7M IV 06/10/25 04:45 06/10/25 13:17 9 MLS/HR Amino Acids 0 ml @ 0 mls/hr PER PHARMACY IV 06/10/25 11:00 Amino Acids/ Electrolytes/ Dextrose 1,000 ml @ 41 mls/hr DAILY@2200 IV 06/10/25 22:00 Examination: LUNGS:Normal, CVS:Normal, MSK:Normal laboratory and microbiology Laboratory Tests 06/10/25 03:59 06/10/25 03:00 Test 06/10/25 03:00 Range/Units Serum Glucose 92 74-106 mg/dL Microbiology Date/Time Source Procedure Growth Status 06/06/25 18:03 Urine - Gaffney Port Urine Culture - Final Yeast, not Stella albicans Complete 06/06/25 11:32 Blood Blood Culture - Preliminary NO GROWTH AFTER 72 HOURS OF INCUBATION. Resulted 06/04/25 10:00 Nose MRSA Screen - Final Complete 06/01/25 22:47 Stool Stool Culture - Final Complete 06/01/25 22:47 Stool Shiga Toxin I & II - Final Complete Problem List/Assessment/Plan Problem List/Assessment/Plan Acute kidney injury secondary hemodynamic mediated, FeNa >2% Metabolic acidosis Pancreatic cancer with biliary obstruction status post biliary stent Liver metastasis Obstructive jaundice Encephalopathy C diff infection Sepsis Altered mental status Hypoalbuminemia Hypomagnesemia Hypokalemia Recommendations Kidney function slightly improved today Increased urine output Strict I&Os Continue IV bicarb drip IV pressor for blood pressure support Albumin 25% IV piggyback Octreotide 100 mcg subQ 3 times daily Magnesium sulfate IV piggyback K-Phos IV piggyback KCL replacement IV antibiotics We will continue to follow up Plan discussed with: Other (Nurse) My Orders My Orders Orders - DONALD CHAN MD Procedure Category Date Status Time Sodium Chl 0.9% PHA 06/09/25 In Process (Ns... 15:30 Sodium Chl 0.9% PHA 06/09/25 In Process (Ns... 15:30 Potassium Phosphate PHA 06/10/25 Verified 13:30 Dietary Evaluation Review Comments: 1) Change oral nutrition supplement from Ensure Clear to Ensure Enlive bid 2) Advance to regular diet when medically feasible 3) Encourage optimal PO intake 4) Follow-up with oncology 5) Continue to monitor I&O, labs, and skin integrity Expected Outcomes/Goals: 1) appetite and labs to improve 2) f/u in 3-5 days DONALD CHAN MD Jun 10, 2025 13:24
[2025-06-10] MEDS: POTASSIUM PHOSPHATE 44 MEQ in D5W 5% 250 ML IV ONE (15:45)
[2025-06-10 17:14] LABS: Hemoglobin 8.6 g/dL (12.2-16.2)
[2025-06-10 17:15] LABS: Hematocrit 25.1 % (36.0-46.0); Mean Corpuscular Hemoglobin 33.1 pg (28.0-32.0); Mean Corpuscular Volume 96.5 fL (80.0-100.0); Nucleated Red Blood Cells % 1.8 %
--- NOTE | 2025-06-10 22:19 | DVHPN2 ---
Progress Note - Dictate Date Seen: Jun 10, 2025 Medical Necessity Reason Pt with a Central, PICC or Fol: Yes The following are medically ne: PICC Line, Gaffney Catheter Reason for gaffney catheter: Strict I&O Subjective Patient seen and examined at bedside. Breathing on room air Overnight events reviewed. vital signs Vital Sign Date Time Temp Pulse Resp B/P (MAP) Pulse Ox O2 Delivery O2 Flow Rate FiO2 06/10/25 19:00 100.6 125 28 102/61 (75) 98 100.6 06/10/25 18:00 Room Air* 0 21 Total Intake and Output 06/09/25 06/09/25 06/10/25 14:59 22:59 06:59 Intake Total 2290.00 ml 2030.376 ml 1696.309 ml Output Total 950 ml 550 ml Balance 2290.00 ml 1080.376 ml 1146.309 ml medications Current Medications Medications Dose Ordered Sig/Aayush Route Start Time Stop Time Status Last Admin Dose Admin Docusate Sodium 100 mg BIDPRN PRN PO 05/27/25 01:45 Acetaminophen 650 mg Q6HP PRN PO 05/27/25 01:45 06/10/25 18:57 650 MG Ondansetron HCl 4 mg Q4HP PRN IV 05/27/25 01:45 06/10/25 18:57 4 MG Nitroglycerin 0.4 mg Q5MINP PRN SL 05/27/25 01:45 Pantoprazole Sodium 40 mg DAILY IV 05/27/25 10:00 06/10/25 09:26 40 MG Albuterol 2.5 mg Q4HPRN PRN NEB 05/27/25 04:45 Cancel Ipratropium [place] 0.5 mg Q4HPRN PRN NEB 05/27/25 04:45 Cancel Acetaminophen/ Hydrocodone Bitart 1 tab Q6HPRN PRN PO 05/27/25 17:30 06/05/25 11:46 1 TAB Oseltamivir Phosphate 75 mg Q12HR PO 05/28/25 22:00 06/02/25 21:59 UNV Enteral Nutritional Formula 240 ml BIDWM PO 05/29/25 18:00 06/04/25 08:00 240 ML Azithromycin 250 ml @ 125 mls/hr DAILY IV 06/03/25 10:00 06/10/25 09:27 125 MLS/HR Midodrine 5 mg TIDWM@0600,1200,1800 PO 06/03/25 18:00 06/10/25 11:34 5 MG Patient Own Medication 1 gm DAILY IV 06/03/25 15:30 UNV Ertapenem 1 gm/ Sodium Chloride 50 ml @ 100 mls/hr DAILY@2200 IV 06/04/25 22:00 06/09/25 21:37 100 MLS/HR Morphine Sulfate 2 mg Q4HPRN PRN IV 06/05/25 12:00 06/09/25 21:36 2 MG Sodium Bicarbonate 150 ml/Dextrose 1,150 ml @ 125 mls/hr Q9H12M IV 06/06/25 12:45 06/10/25 18:55 125 MLS/HR Sodium Chloride 10 ml QSHIFT@ IV 06/06/25 22:00 06/10/25 09:26 10 ML Diagnostic Test (Pha) 1 strip Q6HR 06/07/25 18:00 06/10/25 18:06 1 STRIP Insulin Human Regular FOLLOW SLIDING SCALE Q6HR SC 06/07/25 18:00 06/09/25 17:13 4 UNITS Dextrose 50 ml UD IV 06/07/25 12:45 Octreotide Acetate 100 mcg TID SUBCUT 06/08/25 14:00 06/10/25 05:32 100 MCG Daptomycin 500 mg/ Sodium Chloride 50 ml @ 100 mls/hr DAILY@2200 IV 06/08/25 22:00 06/09/25 22:33 100 MLS/HR Phytonadione 10 mg DAILY NG 06/09/25 10:00 06/13/25 09:59 06/10/25 10:45 10 MG Vancomycin HCl 250 mg QID GT 06/08/25 22:00 06/10/25 11:36 250 MG Phenylephrine HCl 80 mg/Sodium Chloride 250 ml @ 7.5 mls/hr Q24H IV 06/09/25 15:30 06/10/25 08:00 33.75 MLS/HR Norepinephrine Bitartrate 32 mg/ Sodium Chloride 250 ml @ 0.938 mls/ hr Q24H IV 06/09/25 15:30 06/10/25 15:46 14.063 MLS/HR Epinephrine HCl 250 ml @ 7.5 mls/hr Q24H IV 06/10/25 04:45 Vasopressin 20 units/Sodium Chloride 100 ml @ 9 mls/hr Q11H7M IV 06/10/25 04:45 06/10/25 13:17 9 MLS/HR Amino Acids 0 ml @ 0 mls/hr PER PHARMACY IV 06/10/25 11:00 Amino Acids/ Electrolytes/ Dextrose 1,000 ml @ 41 mls/hr DAILY@2200 IV 06/10/25 22:00 objective Gen.: Patient lying in bed in no apparent distress. On room air. Head: Normocephalic, atraumatic. Eyes: EOMI/PERRLA. Ears: Normal hearing. Normal anatomy. Neck/trachea: Trachea midline, supple. Nose: Normal external anatomy. Mouth: Moist mucous membranes. Chest: Decreased air entry bilaterally. No wheezing or rhonchi. Cardiovascular: Positive S1, positive S2. Regular rate and rhythm. Abdomen: Positive bowel sounds in all 4 quadrants. Soft, non-tender, non- distended. : Deferred. Rectal: Deferred. Skin: Warm, dry. Intact. Extremities: 2+ radial pulses bilaterally. 2+ bilateral lower extremity edema. Neuro: Awake, alert, oriented x1. Minimally responsive. No gross motor or sensory deficits. Cranial nerves II through XII intact. Gait not assessed. laboratory and microbiology Laboratory Tests 06/10/25 16:22 06/10/25 03:00 Test 06/10/25 03:00 Range/Units Serum Glucose 92 74-106 mg/dL Assessment/Plan Impression: Acute metabolic encephalopathy Sepsis Influenza B Pleural effusion Atelectasis Pancreatic cancer S/p percutaneous transhepatic biliary drain placement Events: Breathing on room air Patient opens eyes, responds to name. No distress. Pressors for hemodynamic support Currently on Levophed 30 mcg/min, Davey-Synephrine 180 mcg/min and vasopressin 0.03 units/min Titrate to keep MAP above 65 mmHg/SBP above 90 mmHg. Increased pressor requirements Chest x-ray on 06/07/25 shows unchanged pulmonary vascular congestion. Leukocytosis -WBC trended down to 17.3 K Monitor Lactic acid Bicarb drip due to severe metabolic acidosis Continue antibiotics F/u cultures: Bacteremia with blood cultures positive for gram-positive cocci, E SBL Klebsiella pneumoniae Repeat blood cultures positive for VRE ID recommendations appreciated Antibiotics per ID Continue bronchodilators Incentive spirometry Stool culture positive for C. diff - on isolation for C.diff. Positive influenza B - Received oseltamivir course Monitor blood glucose Monitor blood pressures Head of bed elevation Aspiration precautions Pain control Avoid oversedation NGT in place. TPN/tube feeds for nutritional support. Protonix for GI ppx GI recommendations appreciated FOBT negative Patient received 1 unit PRBC transfusion today Monitor hemoglobin Transfuse if less than 7.0 g/dL. Received 1 units platelets transfusion. Platelet count improved to 60 K. Monitor blood pressure Nephrology recommendations appreciated Monitor renal function. Poor UOP Monitor electrolytes. Supplement as necessary. Potassium supplementation Accu-Cheks, ISS. TPN for nutritional support Pain control Avoid oversedation Patient with advanced pancreatic cancer w/ sepsis and [id number] organisms; multiorgan failure Overall poor prognosis with high likelihood of demise. Awaiting family decision on goals of care. Patient remains full code Disposition per hospitalist. Arrange for home IV antibiotics Labs and imaging reviewed. Rest of plan as noted below. Plan: Supplemental oxygen PRN Titrate to keep O2 sats above 92%. Continue antibiotics Bacteremia - Follow up cultures Folow up ID recommendations Bronchodilators PRN. On pressors for hemodynamic support Titrate to keep MAP above 65 mmHg/SBP above 90 mmHg. Protonix for GI ppx Monitor hemoglobin Transfuse if less than 7.0 g/dL. Accu-Cheks, ISS PRN. Head of bed elevation Aspiration precautions Pain control Avoid oversedation Monitor renal function. Monitor electrolytes. Supplement as necessary. Monitor ins and outs. Monitor hemoglobin Transfuse if less than 7.0 g/dL. GI/DVT prophylaxis. Prognosis: Poor given patient's multiple co-morbidities. Condition: Critical Rest of plan per hospitalist and other consultants. A total of 35 minutes of critical care time was spent reviewing the patient record, examining the patient, making a diagnostic and therapeutic plan, discussing this plan with the medical personnel, following up on diagnostic studies and following the patient for clinical stability excluding any and all procedures. At least 50% of this time was spent in direct, [id number] contact. Thank you, VELVET Avila, for allowing me to participate in this patient's care. Further recommendations will depend on the patient's clinical course. Please do not hesitate to contact me if you have any questions or concerns. This medical document was created using an electronic medical record system with Dragon computerized dictation system. Although these documentations are being carefully reviewed, there may still be some phonetic and typographical changes. The errors are purely typographical, due to imperfection on the software program, and do not reflect any compromise in the patient's medical care Dietary Evaluation Review Comments: 1) Change oral nutrition supplement from Ensure Clear to Ensure Enlive bid 2) Advance to regular diet when medically feasible 3) Encourage optimal PO intake 4) Follow-up with oncology 5) Continue to monitor I&O, labs, and skin integrity Expected Outcomes/Goals: 1) appetite and labs to improve 2) f/u in 3-5 days Plan discussed with: Other (GABRIELA Lee) Critical Care Time(min): 35 KENNA MATHEW ACNP Jun 10, 2025 22:19
[2025-06-10] MEDS: AMINO ACID INFUSION IN D10W 1,000 ML IV SCH (23:14)
[2025-06-11] VITALS (95 sets, daily range): BP systolic 88–145; BP diastolic 46–88; PULSE 81–119; RESP 10–26; TEMP 96.5–98.2; O2SAT 90–100
[2025-06-11] MEDS: SODIUM BICARB 8.4% 50Meq/50ml SYR Vial IV ONE (02:48)
[2025-06-11 03:45] LABS: Hemoglobin 9.1 g/dL (12.2-16.2)
[2025-06-11 03:48] LABS: Hematocrit 26.1 % (36.0-46.0); Mean Corpuscular Hemoglobin 33.4 pg (28.0-32.0); Mean Corpuscular Volume 95.7 fL (80.0-100.0)
[2025-06-11 04:02] LABS: INR 1.91 (0.9-1.15); Prothrombin Time 19.0 sec (9.3-11.8)
[2025-06-11 04:07] LABS: Partial Thromboplastin Time 73.3 SEC (24.5-34.5)
[2025-06-11 04:14] LABS: Albumin 2.8 g/dL (3.2-4.8); Alkaline Phosphatase 351 U/L (46-116); Anion Gap 28 (5-15); Calcium 9.2 mg/dL (8.7-10.4); Carbon Dioxide 22 mmol/L (20-31); Chloride 88 mmol/L (98-107); Glucose 109 mg/dL (74-106); Magnesium 2.0 mg/dL (1.6-2.6); Potassium 3.4 mmol/L (3.5-5.1); Sodium 138 mmol/L (136-145)
[2025-06-11 04:15] LABS: Bilirubin, Total 22.1 mg/dL (0.2-1.0)
[2025-06-11 04:21] LABS: BUN/Creatinine Ratio 11.6 (10.0-20.0)
[2025-06-11 04:30] LABS: Alanine Aminotransferase 165 U/L (7-40); Blood Urea Nitrogen 14 mg/dL (9-23); Total Protein 4.5 g/dL (5.7-8.2)
[2025-06-11 04:50] LABS: Total Cells Counted 100.0 (100)
--- NOTE | 2025-06-11 06:06 | DVH ---
CHEST RADIOGRAPH Indication: Sepsis Technique: Single frontal view of the chest was obtained Comparison: XY CHEST PORTABLE on DOS: 06/07/25. FINDINGS: Lines and Tubes: There is a right infusion catheter with tip terminating in the right atrium. The enteric tube courses below the left hemidiaphragm and the tip extends outside the field of view. Left PICC terminates in the superior vena cava. Lungs: Bilateral Interstitial prominence is similar to prior study. Pleura: There is a left pleural effusion. No pneumothorax. Cardiomediastinal contours: Unremarkable Bones: No acute osseous abnormality. IMPRESSION: 1. Stable position of the support lines and tubes. 2. Left pleural effusion and pulmonary venous congestion, unchanged.
--- NOTE | 2025-06-11 09:57 | DVHPN2 ---
Progress Note - Dictate Date Seen: Jun 11, 2025 Medical Necessity Reason Pt with a Central, PICC or Fol: Yes The following are medically ne: PICC Line, Gaffney Catheter Reason for gaffney catheter: Strict I&O Subjective Patient remains hypotensive. On Levophed. Hb improved to 9.1 kidney function slightly improved today vital signs Vital Sign Date Time Temp Pulse Resp B/P (MAP) Pulse Ox O2 Delivery O2 Flow Rate FiO2 06/11/25 09:15 92 12 126/72 (90) 100 06/11/25 08:00 Nasal Cannula* 2 28 06/11/25 08:00 97.1 97.1 Total Intake and Output 06/10/25 06/10/25 06/11/25 15:00 23:00 07:00 Intake Total 1704.504 ml 2298.254 ml 1943.504 ml Output Total 550 ml 500 ml Balance 1704.504 ml 1748.254 ml 1443.504 ml medications Current Medications Medications Dose Ordered Sig/Aayush Route Start Time Stop Time Status Last Admin Dose Admin Docusate Sodium 100 mg BIDPRN PRN PO 05/27/25 01:45 Acetaminophen 650 mg Q6HP PRN PO 05/27/25 01:45 06/10/25 18:57 650 MG Ondansetron HCl 4 mg Q4HP PRN IV 05/27/25 01:45 06/11/25 09:02 4 MG Nitroglycerin 0.4 mg Q5MINP PRN SL 05/27/25 01:45 Pantoprazole Sodium 40 mg DAILY IV 05/27/25 10:00 06/11/25 09:02 40 MG Albuterol 2.5 mg Q4HPRN PRN NEB 05/27/25 04:45 Cancel Ipratropium [place] 0.5 mg Q4HPRN PRN NEB 05/27/25 04:45 Cancel Acetaminophen/ Hydrocodone Bitart 1 tab Q6HPRN PRN PO 05/27/25 17:30 06/05/25 11:46 1 TAB Oseltamivir Phosphate 75 mg Q12HR PO 05/28/25 22:00 06/02/25 21:59 UNV Enteral Nutritional Formula 240 ml BIDWM PO 05/29/25 18:00 06/04/25 08:00 240 ML Azithromycin 250 ml @ 125 mls/hr DAILY IV 06/03/25 10:00 06/11/25 09:02 125 MLS/HR Midodrine 5 mg TIDWM@0600,1200,1800 PO 06/03/25 18:00 06/11/25 05:18 5 MG Patient Own Medication 1 gm DAILY IV 06/03/25 15:30 UNV Ertapenem 1 gm/ Sodium Chloride 50 ml @ 100 mls/hr DAILY@2200 IV 06/04/25 22:00 06/11/25 00:08 100 MLS/HR Morphine Sulfate 2 mg Q4HPRN PRN IV 06/05/25 12:00 06/11/25 09:04 2 MG Sodium Bicarbonate 150 ml/Dextrose 1,150 ml @ 125 mls/hr Q9H12M IV 06/06/25 12:45 06/11/25 02:47 125 MLS/HR Sodium Chloride 10 ml QSHIFT@10,22 IV 06/06/25 22:00 06/11/25 09:05 10 ML Diagnostic Test (Pha) 1 strip Q6HR 06/07/25 18:00 06/11/25 05:18 1 STRIP Insulin Human Regular FOLLOW SLIDING SCALE Q6HR SC 06/07/25 18:00 06/09/25 17:13 4 UNITS Dextrose 50 ml UD IV 06/07/25 12:45 Octreotide Acetate 100 mcg TID SUBCUT 06/08/25 14:00 06/11/25 05:17 100 MCG Daptomycin 500 mg/ Sodium Chloride 50 ml @ 100 mls/hr DAILY@2200 IV 06/08/25 22:00 06/11/25 00:07 100 MLS/HR Phytonadione 10 mg DAILY NG 06/09/25 10:00 06/13/25 09:59 06/10/25 10:45 10 MG Vancomycin HCl 250 mg QID GT 06/08/25 22:00 06/11/25 05:18 250 MG Phenylephrine HCl 80 mg/Sodium Chloride 250 ml @ 7.5 mls/hr Q24H IV 06/09/25 15:30 06/10/25 23:11 33.75 MLS/HR Norepinephrine Bitartrate 32 mg/ Sodium Chloride 250 ml @ 0.938 mls/ hr Q24H IV 06/09/25 15:30 06/11/25 02:26 14.063 MLS/HR Epinephrine HCl 250 ml @ 7.5 mls/hr Q24H IV 06/10/25 04:45 Vasopressin 20 units/Sodium Chloride 100 ml @ 9 mls/hr Q11H7M IV 06/10/25 04:45 06/10/25 23:10 9 MLS/HR Amino Acids 0 ml @ 0 mls/hr PER PHARMACY IV 06/10/25 11:00 Amino Acids/ Electrolytes/ Dextrose 1,000 ml @ 41 mls/hr DAILY@2200 IV 06/10/25 22:00 06/10/25 23:14 41 MLS/HR objective General Appearance: Alert , no acute distress HEENT: Atraumatic, PERRLA, EOMI, Other (Icteric sclera) Respiratory: Clear to auscultation, Normal air movement Cardiovascular: Normal S1, Normal S2, Abdominal: Soft, Other (Biliary drain in place. Drainage from insertion site) Extremities: No clubbing, No cyanosis, No edema Skin: No breakdown Neuro: confusion, no focal deficit, Psych/Mental Status: Mental status NL, Mood NL laboratory and microbiology Laboratory Tests 06/11/25 03:00 Test 06/11/25 03:00 Range/Units Serum Glucose 109 H 74-106 mg/dL Assessment/Plan A 69 years female presents with shock VRE bacteremia C diff diarrhea Campylobacter in stool streptococcus bacteremia ESBL [place] bacteremia Sepsis Influenza B positive Acute metabolic encephalopathy Hypoglycemia Dehydration Pulmonary airspace disease Small bilateral pleural effusions Abnormal LFT Hyperbilirubinemia History pancreatic cancer S/p percutaneous transhepatic biliary drain in place Hypotension Recommendations: on Levophed platelet dropping, dc linezolid and switch to Daptomycin IV WBC improved to 11.2 Hb improved to 9.1 continue invanz, stop date 06/10 ( since 06/27 with zosyn and then Invanz for ESBL bacteremia) continue PO vancomycin on Azithromycin ( DC) Blood cultures shows ESBL [place], however repeat blood cx is showing streptococcus Enteric catheter in satisfactory position Gastroenterology on board prognosis guarded; consider goals of care discussion. overall prognosis very poor Total time 50 minutes spent during this encounter. Thank you for the consult Dietary Evaluation Review Comments: 1) Change oral nutrition supplement from Ensure Clear to Ensure Enlive bid 2) Advance to regular diet when medically feasible 3) Encourage optimal PO intake 4) Follow-up with oncology 5) Continue to monitor I&O, labs, and skin integrity Expected Outcomes/Goals: 1) appetite and labs to improve 2) f/u in 3-5 days ANGEL DE LEON MD Jun 11, 2025 09:57
--- NOTE | 2025-06-11 10:06 | DVHPN2 ---
Progress Note Date Seen: Jun 11, 2025 Medical Necessity Reason Pt with a Central, PICC or Fol: Yes The following are medically ne: PICC Line, Gaffney Catheter Reason for gaffney catheter: Strict I&O Subjective Other Systems: Patient seen and examined by myself today in follow-up Objective vital signs Vital Sign Date Time Temp Pulse Resp B/P (MAP) Pulse Ox O2 Delivery O2 Flow Rate FiO2 06/11/25 09:15 92 12 126/72 (90) 100 06/11/25 08:00 Nasal Cannula* 2 28 06/11/25 08:00 97.1 97.1 Total Intake and Output 06/10/25 06/10/25 06/11/25 15:00 23:00 07:00 Intake Total 1704.504 ml 2298.254 ml 1943.504 ml Output Total 550 ml 500 ml Balance 1704.504 ml 1748.254 ml 1443.504 ml medications Current Medications Medications Dose Ordered Sig/Aayush Route Start Time Stop Time Status Last Admin Dose Admin Docusate Sodium 100 mg BIDPRN PRN PO 05/27/25 01:45 Acetaminophen 650 mg Q6HP PRN PO 05/27/25 01:45 06/10/25 18:57 650 MG Ondansetron HCl 4 mg Q4HP PRN IV 05/27/25 01:45 06/11/25 09:02 4 MG Nitroglycerin 0.4 mg Q5MINP PRN SL 05/27/25 01:45 Pantoprazole Sodium 40 mg DAILY IV 05/27/25 10:00 06/11/25 09:02 40 MG Albuterol 2.5 mg Q4HPRN PRN NEB 05/27/25 04:45 Cancel Ipratropium [place] 0.5 mg Q4HPRN PRN NEB 05/27/25 04:45 Cancel Acetaminophen/ Hydrocodone Bitart 1 tab Q6HPRN PRN PO 05/27/25 17:30 06/05/25 11:46 1 TAB Oseltamivir Phosphate 75 mg Q12HR PO 05/28/25 22:00 06/02/25 21:59 UNV Enteral Nutritional Formula 240 ml BIDWM PO 05/29/25 18:00 06/04/25 08:00 240 ML Azithromycin 250 ml @ 125 mls/hr DAILY IV 06/03/25 10:00 06/11/25 09:02 125 MLS/HR Midodrine 5 mg TIDWM@0600,1200,1800 PO 06/03/25 18:00 06/11/25 05:18 5 MG Patient Own Medication 1 gm DAILY IV 06/03/25 15:30 UNV Ertapenem 1 gm/ Sodium Chloride 50 ml @ 100 mls/hr DAILY@2200 IV 06/04/25 22:00 06/11/25 00:08 100 MLS/HR Morphine Sulfate 2 mg Q4HPRN PRN IV 06/05/25 12:00 06/11/25 09:04 2 MG Sodium Bicarbonate 150 ml/Dextrose 1,150 ml @ 125 mls/hr Q9H12M IV 06/06/25 12:45 06/11/25 02:47 125 MLS/HR Sodium Chloride 10 ml QSHIFT@22 IV 06/06/25 22:00 06/11/25 09:05 10 ML Diagnostic Test (Pha) 1 strip Q6HR 06/07/25 18:00 06/11/25 05:18 1 STRIP Insulin Human Regular FOLLOW SLIDING SCALE Q6HR SC 06/07/25 18:00 06/09/25 17:13 4 UNITS Dextrose 50 ml UD IV 06/07/25 12:45 Octreotide Acetate 100 mcg TID SUBCUT 06/08/25 14:00 06/11/25 05:17 100 MCG Daptomycin 500 mg/ Sodium Chloride 50 ml @ 100 mls/hr DAILY@2200 IV 06/08/25 22:00 06/11/25 00:07 100 MLS/HR Phytonadione 10 mg DAILY NG 06/09/25 10:00 06/13/25 09:59 06/10/25 10:45 10 MG Vancomycin HCl 250 mg QID GT 06/08/25 22:00 06/11/25 05:18 250 MG Phenylephrine HCl 80 mg/Sodium Chloride 250 ml @ 7.5 mls/hr Q24H IV 06/09/25 15:30 06/10/25 23:11 33.75 MLS/HR Norepinephrine Bitartrate 32 mg/ Sodium Chloride 250 ml @ 0.938 mls/ hr Q24H IV 06/09/25 15:30 06/11/25 02:26 14.063 MLS/HR Epinephrine HCl 250 ml @ 7.5 mls/hr Q24H IV 06/10/25 04:45 Vasopressin 20 units/Sodium Chloride 100 ml @ 9 mls/hr Q11H7M IV 06/10/25 04:45 06/10/25 23:10 9 MLS/HR Amino Acids 0 ml @ 0 mls/hr PER PHARMACY IV 06/10/25 11:00 Amino Acids/ Electrolytes/ Dextrose 1,000 ml @ 41 mls/hr DAILY@2200 IV 06/10/25 22:00 06/10/25 23:14 41 MLS/HR Examination: LUNGS:Normal, CVS:Normal, MSK:Normal laboratory and microbiology Laboratory Tests 06/11/25 03:00 Test 06/11/25 03:00 Range/Units Serum Glucose 109 H 74-106 mg/dL Microbiology Date/Time Source Procedure Growth Status 06/06/25 18:03 Urine - [place] Urine Culture - Final Yeast, not Stella albicans Complete 06/06/25 11:32 Blood Blood Culture - Preliminary NO GROWTH AFTER 72 HOURS OF INCUBATION. Resulted 06/04/25 10:00 Nose MRSA Screen - Final Complete 06/01/25 22:47 Stool Stool Culture - Final Complete 06/01/25 22:47 Stool Shiga Toxin I & II - Final Complete Problem List/Assessment/Plan Problem List/Assessment/Plan Acute kidney injury secondary hemodynamic mediated, FeNa >2% Metabolic acidosis Pancreatic cancer with biliary obstruction status post biliary stent Liver metastasis Obstructive jaundice Encephalopathy C diff infection Sepsis Influenza B Encephalopathy Hypoalbuminemia Hypomagnesemia Hypokalemia Recommendations Kidney function slightly improved today Increased urine output Strict I&Os IV pressor for blood pressure support Albumin 25% IV piggyback Octreotide 100 mcg subQ 3 times daily Magnesium sulfate IV piggyback K-Phos IV piggyback KCL replacement IV antibiotics We will continue to follow up Plan discussed with: Other (Nurse) Dietary Evaluation Review Comments: 1) Change oral nutrition supplement from Ensure Clear to Ensure Enlive bid 2) Advance to regular diet when medically feasible 3) Encourage optimal PO intake 4) Follow-up with oncology 5) Continue to monitor I&O, labs, and skin integrity Expected Outcomes/Goals: 1) appetite and labs to improve 2) f/u in 3-5 days DONALD CHAN MD Jun 11, 2025 10:06
[2025-06-11] MEDS: POTASSIUM CHL 20MEQ/100ML 200 ML IV ONE (15:48)
[2025-06-11] MEDS: POTASSIUM CHL 20MEQ/100ML 100 ML IV SCH (15:57)
--- NOTE | 2025-06-11 16:14 | DVHPN2 ---
Subjective Patient currently in ICU on 2 vasopressors. Changes from previous H/P or p: No Changes Objective Vitals Vital Signs Date Time Temp Pulse Resp B/P (MAP) Pulse Ox O2 Delivery O2 Flow Rate FiO2 06/11/25 15:00 90 12 96/72 (80) 100 06/11/25 14:00 Nasal Cannula* 2 28 06/11/25 12:00 97.2 97.2 Intake/Output Intake and Output 06/11/25 07:00 Intake Total 5946.262 ml Output Total 1050 ml Balance 4896.262 ml Intake Oral 170 ml IV Total 5226.262 ml Blood Product 550 ml Output Urine Total 1000 ml Emesis 50 ml Exam HEENT pupils are reactive positive scleral icterus Neck was supple CV is S1-S2 regular rate and rhythm Respiratory by due to diminished breath sound with basis GI positive bowel sounds Extremity 3 to 4+ pitting edema HAM TRIMMER patient does not follow commands Medications Current Medications Medications Dose Ordered Sig/Aayush Route Start Time Stop Time Status Last Admin Dose Admin Docusate Sodium 100 mg BIDPRN PRN PO 05/27/25 01:45 Acetaminophen 650 mg Q6HP PRN PO 05/27/25 01:45 06/10/25 18:57 650 MG Ondansetron HCl 4 mg Q4HP PRN IV 05/27/25 01:45 06/11/25 09:02 4 MG Nitroglycerin 0.4 mg Q5MINP PRN SL 05/27/25 01:45 Pantoprazole Sodium 40 mg DAILY IV 05/27/25 10:00 06/11/25 09:02 40 MG Albuterol 2.5 mg Q4HPRN PRN NEB 05/27/25 04:45 Cancel Ipratropium [place] 0.5 mg Q4HPRN PRN NEB 05/27/25 04:45 Cancel Acetaminophen/ Hydrocodone Bitart 1 tab Q6HPRN PRN PO 05/27/25 17:30 06/05/25 11:46 1 TAB Oseltamivir Phosphate 75 mg Q12HR PO 05/28/25 22:00 06/02/25 21:59 UNV Enteral Nutritional Formula 240 ml BIDWM PO 05/29/25 18:00 06/04/25 08:00 240 ML Azithromycin 250 ml @ 125 mls/hr DAILY IV 06/03/25 10:00 06/11/25 09:02 125 MLS/HR Midodrine 5 mg TIDWM@0600,1200,1800 PO 06/03/25 18:00 06/11/25 05:18 5 MG Patient Own Medication 1 gm DAILY IV 06/03/25 15:30 UNV Ertapenem 1 gm/ Sodium Chloride 50 ml @ 100 mls/hr DAILY@2200 IV 06/04/25 22:00 06/11/25 00:08 100 MLS/HR Morphine Sulfate 2 mg Q4HPRN PRN IV 06/05/25 12:00 06/11/25 13:34 2 MG Sodium Bicarbonate 150 ml/Dextrose 1,150 ml @ 125 mls/hr Q9H12M IV 06/06/25 12:45 06/11/25 12:05 125 MLS/HR Sodium Chloride 10 ml QSHIFT@ IV 06/06/25 22:00 06/11/25 09:05 10 ML Diagnostic Test (Pha) 1 strip Q6HR 06/07/25 18:00 06/11/25 12:09 1 STRIP Insulin Human Regular FOLLOW SLIDING SCALE Q6HR SC 06/07/25 18:00 06/11/25 12:27 2 UNITS Dextrose 50 ml UD IV 06/07/25 12:45 Octreotide Acetate 100 mcg TID SUBCUT 06/08/25 14:00 06/11/25 13:34 100 MCG Daptomycin 500 mg/ Sodium Chloride 50 ml @ 100 mls/hr DAILY@2200 IV 06/08/25 22:00 06/11/25 00:07 100 MLS/HR Phytonadione 10 mg DAILY NG 06/09/25 10:00 06/13/25 09:59 06/10/25 10:45 10 MG Vancomycin HCl 250 mg QID GT 06/08/25 22:00 06/11/25 05:18 250 MG Phenylephrine HCl 80 mg/Sodium Chloride 250 ml @ 7.5 mls/hr Q24H IV 06/09/25 15:30 06/11/25 12:05 15 MLS/HR Norepinephrine Bitartrate 32 mg/ Sodium Chloride 250 ml @ 0.938 mls/ hr Q24H IV 06/09/25 15:30 06/11/25 12:06 14.063 MLS/HR Epinephrine HCl 250 ml @ 7.5 mls/hr Q24H IV 06/10/25 04:45 Vasopressin 20 units/Sodium Chloride 100 ml @ 9 mls/hr Q11H7M IV 06/10/25 04:45 06/11/25 12:35 9 MLS/HR Amino Acids 0 ml @ 0 mls/hr PER PHARMACY IV 06/10/25 11:00 Amino Acids/ Electrolytes/ Dextrose 1,000 ml @ 41 mls/hr DAILY@2200 IV 06/10/25 22:00 06/10/25 23:14 41 MLS/HR Potassium Chloride 100 ml @ 50 mls/hr Q2H IV 06/11/25 15:30 06/11/25 19:29 06/11/25 15:57 50 MLS/HR Laboratory Results Laboratory Tests 06/11/25 03:00 Chemistry Test 06/11/25 03:00 Albumin 2.8 g/dL (3.2-4.8) L Calcium Level 9.2 mg/dL (8.7-10.4) Magnesium Level 2.0 mg/dL (1.6-2.6) Phosphorus Level 4.3 mg/dL (2.4-5.1) Total Protein 4.5 g/dL (5.7-8.2) L Coagulation Test 06/11/25 03:00 Prothrombin Time 19.0 sec (9.3-11.8) H Prothrombin Time INR 1.91 (0.9-1.15) H Activated Partial Thromboplast Time 73.3 SEC (24.5-34.5) *H LFT Test 06/11/25 03:00 Alanine Aminotransferase (ALT) 165 U/L (7-40) H Alkaline Phosphatase 351 U/L (46-116) H Aspartate Amino Transferase (AST) 228 U/L (13-40) H Total Bilirubin 22.1 mg/dL (0.2-1.0) H Urinalysis Test 06/01/25 21:30 06/07/25 13:56 Urine Hyaline Casts Few /lpf (0 - 2) Urine Color Dark-yellow (Yellow) Urine Clarity Ex.turbid (Clear) Urine pH 5.5 (5.0-9.0) Urine Specific [place] 1.018 (1.001-1.035) Urine Protein 1+ (Negative) H Urine Ketones Negative (Negative) Urine Blood 2+ /uL (Negative) H Urine Nitrite Negative (Negative) Urine Bilirubin 2+ (Negative) H Urine Urobilinogen Normal mg/dL (Negative) Urine Leukocyte Esterase 2+ /uL (Negative) Urine RBC 7 /hpf (0 - 4) Urine WBC Clumps Present /hpf (None Seen) Urine Microscopic WBC 111 /HPF (0-5) H Urine Squamous Epithelial Cells Few /hpf (<5) Urine Bacteria Few /hpf (None Seen) H Urine Mucus Few (None Seen) Urine Yeast (Budding) Loaded /hpf (None Seen) Urine Creatinine 58.39 mg/dL (30.0-125.0) Urine Sodium 49 mmol/L (40-220) Urine Glucose Normal mg/dL (Normal) Microbiology Microbiology Date/Time Source Procedure Growth Status 06/06/25 18:03 Urine - [place] Urine Culture - Final Yeast, not Stella albicans Complete 06/06/25 11:32 Blood Blood Culture - Final NO GROWTH AFTER 5 DAYS OF INCUBATION. Complete 06/04/25 10:00 Nose MRSA Screen - Final Complete 06/01/25 22:47 Stool Stool Culture - Final Complete 06/01/25 22:47 Stool Shiga Toxin I & II - Final Complete Assessment/Plan Assessment/Plan 69-year-old female with a known history of pancreatic cancer, stomach cancer was brought into the ER with generalized weakness for last three days found to have 1. Acute metabolic encephalopathy 2. Biliary obstruction status post percutaneous transhepatic biliary drain placement at higher level of care in March. CT abdominal pelvis was done which shows no evidence of any biliary dislodgement 3. Transaminitis 4. Hyperbilirubinemia 5. Pancreatic cancer with Mets to liver, retroperitoneal lymphadenopathy 6. Hypotension with septic shock 7. Lactic acidosis, resolved 8. Thrombocytopenia suspected secondary to Zyvox, discontinued Zyvox, started daptomycin 9. Bilateral pleural effusion 10. Gram-negative bacteremia, with ESBL 11. Multidrug resistant VRE bacteremia 12. C diff colitis -monitor CBC for platelet count. -continue daptomycin, follow up Pulmonary Infectious Disease recommendations -patient remains critical, prognosis remain guarded. Plan discussed with: Patient, Other My Orders Orders - EVERT EMMANUEL MD Procedure Category Date Status Time Potassium Chl PHA 06/11/25 In Process 20meq/100ml 15:30 Date of Service: Jun 11, 2025 Billing Provider: EVERT EMMANUEL MD Common Visit Codes: NOT BILLABLE EVERT EMMANUEL MD Jun 11, 2025 16:14
--- NOTE | 2025-06-11 17:07 | DVHPN2 ---
Progress Note Date Seen: Jun 11, 2025 Resident Creating Document: CORBY MENDIETA RESIDENT Medical Necessity Reason Pt with a Central, PICC or Fol: Yes The following are medically ne: PICC Line, Gaffney Catheter Reason for gaffney catheter: Strict I&O Subjective Review of Systems Patient seen and examined at the bedside Continues to be on 3 vasopressors On Clinimix Minimally responsive and refuses to eat Objective vital signs Vital Sign Date Time Temp Pulse Resp B/P (MAP) Pulse Ox O2 Delivery O2 Flow Rate FiO2 06/11/25 16:30 93 11 118/69 (85) 100 06/11/25 16:00 96.5 96.5 06/11/25 16:00 Nasal Cannula* 2 28 Total Intake and Output 06/10/25 06/10/25 06/11/25 15:00 23:00 07:00 Intake Total 1704.504 ml 2298.254 ml 1943.504 ml Output Total 550 ml 500 ml Balance 1704.504 ml 1748.254 ml 1443.504 ml medications Current Medications Medications Dose Ordered Sig/Aayush Route Start Time Stop Time Status Last Admin Dose Admin Docusate Sodium 100 mg BIDPRN PRN PO 05/27/25 01:45 Acetaminophen 650 mg Q6HP PRN PO 05/27/25 01:45 06/10/25 18:57 650 MG Ondansetron HCl 4 mg Q4HP PRN IV 05/27/25 01:45 06/11/25 09:02 4 MG Nitroglycerin 0.4 mg Q5MINP PRN SL 05/27/25 01:45 Pantoprazole Sodium 40 mg DAILY IV 05/27/25 10:00 06/11/25 09:02 40 MG Albuterol 2.5 mg Q4HPRN PRN NEB 05/27/25 04:45 Cancel Ipratropium [place] 0.5 mg Q4HPRN PRN NEB 05/27/25 04:45 Cancel Acetaminophen/ Hydrocodone Bitart 1 tab Q6HPRN PRN PO 05/27/25 17:30 06/05/25 11:46 1 TAB Oseltamivir Phosphate 75 mg Q12HR PO 05/28/25 22:00 06/02/25 21:59 UNV Enteral Nutritional Formula 240 ml BIDWM PO 05/29/25 18:00 06/04/25 08:00 240 ML Azithromycin 250 ml @ 125 mls/hr DAILY IV 06/03/25 10:00 06/11/25 09:02 125 MLS/HR Midodrine 5 mg TIDWM@0600,1200,1800 PO 06/03/25 18:00 06/11/25 05:18 5 MG Patient Own Medication 1 gm DAILY IV 06/03/25 15:30 UNV Ertapenem 1 gm/ Sodium Chloride 50 ml @ 100 mls/hr DAILY@2200 IV 06/04/25 22:00 06/11/25 00:08 100 MLS/HR Morphine Sulfate 2 mg Q4HPRN PRN IV 06/05/25 12:00 06/11/25 13:34 2 MG Sodium Bicarbonate 150 ml/Dextrose 1,150 ml @ 125 mls/hr Q9H12M IV 06/06/25 12:45 06/11/25 12:05 125 MLS/HR Sodium Chloride 10 ml QSHIFT@ IV 06/06/25 22:00 06/11/25 09:05 10 ML Diagnostic Test (Pha) 1 strip Q6HR 06/07/25 18:00 06/11/25 12:09 1 STRIP Insulin Human Regular FOLLOW SLIDING SCALE Q6HR SC 06/07/25 18:00 06/11/25 12:27 2 UNITS Dextrose 50 ml UD IV 06/07/25 12:45 Octreotide Acetate 100 mcg TID SUBCUT 06/08/25 14:00 06/11/25 13:34 100 MCG Daptomycin 500 mg/ Sodium Chloride 50 ml @ 100 mls/hr DAILY@2200 IV 06/08/25 22:00 06/11/25 00:07 100 MLS/HR Phytonadione 10 mg DAILY NG 06/09/25 10:00 06/13/25 09:59 06/10/25 10:45 10 MG Vancomycin HCl 250 mg QID GT 06/08/25 22:00 06/11/25 05:18 250 MG Phenylephrine HCl 80 mg/Sodium Chloride 250 ml @ 7.5 mls/hr Q24H IV 06/09/25 15:30 06/11/25 12:05 15 MLS/HR Norepinephrine Bitartrate 32 mg/ Sodium Chloride 250 ml @ 0.938 mls/ hr Q24H IV 06/09/25 15:30 06/11/25 12:06 14.063 MLS/HR Epinephrine HCl 250 ml @ 7.5 mls/hr Q24H IV 06/10/25 04:45 Vasopressin 20 units/Sodium Chloride 100 ml @ 9 mls/hr Q11H7M IV 06/10/25 04:45 06/11/25 12:35 9 MLS/HR Amino Acids 0 ml @ 0 mls/hr PER PHARMACY IV 06/10/25 11:00 Amino Acids/ Electrolytes/ Dextrose 1,000 ml @ 41 mls/hr DAILY@2200 IV 06/10/25 22:00 06/10/25 23:14 41 MLS/HR Potassium Chloride 100 ml @ 50 mls/hr Q2H IV 06/11/25 15:30 06/11/25 19:29 06/11/25 15:57 50 MLS/HR Examination Gen - mild conjuctival pallor, positive scleral icterus Skin - Patients skin is warm and dry. HEENT - normocephalic, atraumatic, dry mucous membranes. Neck - supple, no lymphadenopathy Pulmonary - B/L clear breath sounds with basilar crackles more in the left lower cardiovascular - regular S1,S2 heard GI - soft abdomen with mild tenderness to palpation. Bowel sounds hypoactive Neurological - Patient is alert and oriented x x1 and is minimally responsive laboratory and microbiology Laboratory Tests 06/11/25 03:00 Test 06/11/25 03:00 Range/Units Serum Glucose 109 H 74-106 mg/dL Microbiology Date/Time Source Procedure Growth Status 06/06/25 18:03 Urine - [place] Urine Culture - Final Yeast, not Stella albicans Complete 06/06/25 11:32 Blood Blood Culture - Final NO GROWTH AFTER 5 DAYS OF INCUBATION. Complete 06/04/25 10:00 Nose MRSA Screen - Final Complete 06/01/25 22:47 Stool Stool Culture - Final Complete 06/01/25 22:47 Stool Shiga Toxin I & II - Final Complete Problem List/Assessment/Plan Problem List/Assessment/Plan Assessment Pancreatic cancer s/p biliary stent placement with possible metastatic adenopathy Intractable abdominal pain Hyperbilirubinemia Transaminitis Influenza B Klebsiella ESBL bacteremia C diff colitis Campylobacter gastroenteritis Coagulopathy Plan - patient had a recent placement of biliary drainage stent at [facility] - pancreatic mass seen on the CT Abd likely pancreatic cancer - 06/02/[address] abdomen showed right hepatic approach internal external biliary drainage catheter terminating within the 2nd segment of the duodenum - monitor LFTs - IV protonix - IV antibiotics daptomycin, ertapenem, azithromycin - patient not able to tolerate tube feedings, initiate TPN - watch H&H and keep hemoglobin above 7 patient may be a candidate for hospice given her metastatic pancreatic cancer and significant comorbidities. Plan discussed with Dr Morrissey Plan discussed with: Other (GABRIELA Cotto) Dietary Evaluation Review Comments: 1) Change oral nutrition supplement from Ensure Clear to Ensure Enlive bid 2) Advance to regular diet when medically feasible 3) Encourage optimal PO intake 4) Follow-up with oncology 5) Continue to monitor I&O, labs, and skin integrity Expected Outcomes/Goals: 1) appetite and labs to improve 2) f/u in 3-5 days CORBY MENDIETA RESIDENT Jun 11, 2025 17:07
--- NOTE | 2025-06-11 23:50 | DVHPN2 ---
Progress Note - Dictate Date Seen: Jun 11, 2025 Medical Necessity Reason Pt with a Central, PICC or Fol: Yes The following are medically ne: PICC Line, Gaffney Catheter Reason for gaffney catheter: Strict I&O Subjective Patient seen and examined at bedside. Breathing on room air Overnight events reviewed. vital signs Vital Sign Date Time Temp Pulse Resp B/P (MAP) Pulse Ox O2 Delivery O2 Flow Rate FiO2 06/11/25 23:41 117/67 06/11/25 19:00 91 12 96 06/11/25 18:00 Nasal Cannula* 2 28 06/11/25 16:00 96.5 96.5 Total Intake and Output 06/10/25 06/10/25 06/11/25 15:00 23:00 07:00 Intake Total 1704.504 ml 2298.254 ml 1943.504 ml Output Total 550 ml 500 ml Balance 1704.504 ml 1748.254 ml 1443.504 ml medications Current Medications Medications Dose Ordered Sig/Aayush Route Start Time Stop Time Status Last Admin Dose Admin Docusate Sodium 100 mg BIDPRN PRN PO 05/27/25 01:45 Acetaminophen 650 mg Q6HP PRN PO 05/27/25 01:45 06/10/25 18:57 650 MG Ondansetron HCl 4 mg Q4HP PRN IV 05/27/25 01:45 06/11/25 09:02 4 MG Nitroglycerin 0.4 mg Q5MINP PRN SL 05/27/25 01:45 Pantoprazole Sodium 40 mg DAILY IV 05/27/25 10:00 06/11/25 09:02 40 MG Albuterol 2.5 mg Q4HPRN PRN NEB 05/27/25 04:45 Cancel Ipratropium [place] 0.5 mg Q4HPRN PRN NEB 05/27/25 04:45 Cancel Acetaminophen/ Hydrocodone Bitart 1 tab Q6HPRN PRN PO 05/27/25 17:30 06/05/25 11:46 1 TAB Oseltamivir Phosphate 75 mg Q12HR PO 05/28/25 22:00 06/02/25 21:59 UNV Enteral Nutritional Formula 240 ml BIDWM PO 05/29/25 18:00 06/04/25 08:00 240 ML Azithromycin 250 ml @ 125 mls/hr DAILY IV 06/03/25 10:00 06/11/25 09:02 125 MLS/HR Midodrine 5 mg TIDWM@0600,1200,1800 PO 06/03/25 18:00 06/11/25 05:18 5 MG Patient Own Medication 1 gm DAILY IV 06/03/25 15:30 UNV Ertapenem 1 gm/ Sodium Chloride 50 ml @ 100 mls/hr DAILY@2200 IV 06/04/25 22:00 06/11/25 23:04 100 MLS/HR Sodium Bicarbonate 150 ml/Dextrose 1,150 ml @ 125 mls/hr Q9H12M IV 06/06/25 12:45 06/11/25 20:10 125 MLS/HR Sodium Chloride 10 ml QSHIFT@ IV 06/06/25 22:00 06/11/25 23:05 10 ML Diagnostic Test (Pha) 1 strip Q6HR 06/07/25 18:00 06/11/25 23:48 1 STRIP Insulin Human Regular FOLLOW SLIDING SCALE Q6HR SC 06/07/25 18:00 06/11/25 23:47 2 UNITS Dextrose 50 ml UD IV 06/07/25 12:45 Octreotide Acetate 100 mcg TID SUBCUT 06/08/25 14:00 06/11/25 23:05 100 MCG Daptomycin 500 mg/ Sodium Chloride 50 ml @ 100 mls/hr DAILY@2200 IV 06/08/25 22:00 06/11/25 22:00 100 MLS/HR Phytonadione 10 mg DAILY NG 06/09/25 10:00 06/13/25 09:59 06/10/25 10:45 10 MG Vancomycin HCl 250 mg QID GT 06/08/25 22:00 06/11/25 22:00 250 MG Phenylephrine HCl 80 mg/Sodium Chloride 250 ml @ 7.5 mls/hr Q24H IV 06/09/25 15:30 06/11/25 12:05 15 MLS/HR Norepinephrine Bitartrate 32 mg/ Sodium Chloride 250 ml @ 0.938 mls/ hr Q24H IV 06/09/25 15:30 06/11/25 12:06 14.063 MLS/HR Epinephrine HCl 250 ml @ 7.5 mls/hr Q24H IV 06/10/25 04:45 Vasopressin 20 units/Sodium Chloride 100 ml @ 9 mls/hr Q11H7M IV 06/10/25 04:45 06/11/25 20:14 9 MLS/HR Amino Acids 0 ml @ 0 mls/hr PER PHARMACY IV 06/10/25 11:00 Amino Acids/ Electrolytes/ Dextrose 1,000 ml @ 41 mls/hr DAILY@2200 IV 06/10/25 22:00 06/11/25 23:03 41 MLS/HR Morphine Sulfate 2 mg Q4HPRN PRN IV 06/11/25 20:30 objective Gen.: Patient lying in bed in no apparent distress. On room air. Head: Normocephalic, atraumatic. Eyes: EOMI/PERRLA. Ears: Normal hearing. Normal anatomy. Neck/trachea: Trachea midline, supple. Nose: Normal external anatomy. Mouth: Moist mucous membranes. Chest: Decreased air entry bilaterally. No wheezing or rhonchi. Cardiovascular: Positive S1, positive S2. Regular rate and rhythm. Abdomen: Positive bowel sounds in all 4 quadrants. Soft, non-tender, non- distended. : Deferred. Rectal: Deferred. Skin: Warm, dry. Intact. Extremities: 2+ radial pulses bilaterally. 2+ bilateral lower extremity edema. Neuro: Awake, alert, oriented x1. Minimally responsive. No gross motor or sensory deficits. Cranial nerves II through XII intact. Gait not assessed. laboratory and microbiology Laboratory Tests 06/11/25 03:00 Test 06/11/25 03:00 Range/Units Serum Glucose 109 H 74-106 mg/dL Assessment/Plan Impression: Acute metabolic encephalopathy Sepsis Influenza B Pleural effusion Atelectasis Pancreatic cancer S/p percutaneous transhepatic biliary drain placement Events: Breathing on room air Patient opens eyes, responds to name. No distress. Pressors for hemodynamic support Currently on Levophed 12 mcg/min and vasopressin 0.03 units/min Titrate to keep MAP above 65 mmHg/SBP above 90 mmHg. Improved pressor requirements - off Davey-Synephrine Chest x-ray today reveals Left pleural effusion and pulmonary venous congestion, unchanged.. Continue antibiotics F/u cultures: Bacteremia with blood cultures positive for gram-positive cocci, E SBL Klebsiella pneumoniae Repeat blood cultures positive for VRE ID recommendations appreciated Antibiotics per ID Bicarb drip due to severe metabolic acidosis Continue bronchodilators Incentive spirometry Leukocytosis -WBC trended down to 11.2 K Monitor Lactic acid Stool culture positive for C. diff - on isolation for C.diff. Positive influenza B - Received oseltamivir course Monitor blood glucose Monitor blood pressures Head of bed elevation Aspiration precautions Pain control Avoid oversedation NGT in place. TPN/tube feeds for nutritional support. Clinimix Protonix for GI ppx GI recommendations appreciated FOBT negative Patient received 1 unit PRBC transfusion yesterday Monitor hemoglobin - currently 9.1 g/dL Transfuse if less than 7.0 g/dL. Monitor platelet count d/t thrombocytopenia - currently 40 K. Monitor blood pressure Nephrology recommendations appreciated Monitor renal function. Poor UOP Monitor electrolytes. Supplement as necessary. Potassium supplementation Accu-Cheks, ISS. TPN for nutritional support Pain control Avoid oversedation Patient with advanced pancreatic cancer w/ sepsis and [id number] organisms; multiorgan failure Overall poor prognosis with high likelihood of demise. Awaiting family decision on goals of care. Patient remains full code Disposition per hospitalist. Arrange for home IV antibiotics Labs and imaging reviewed. Rest of plan as noted below. Plan: Supplemental oxygen PRN Titrate to keep O2 sats above 92%. Continue antibiotics Bacteremia - Follow up cultures Folow up ID recommendations Bronchodilators PRN. On pressors for hemodynamic support Titrate to keep MAP above 65 mmHg/SBP above 90 mmHg. Protonix for GI ppx Monitor hemoglobin Transfuse if less than 7.0 g/dL. Accu-Cheks, ISS PRN. Head of bed elevation Aspiration precautions Pain control Avoid oversedation Monitor renal function. Monitor electrolytes. Supplement as necessary. Monitor ins and outs. Monitor hemoglobin Transfuse if less than 7.0 g/dL. GI/DVT prophylaxis. Prognosis: Poor given patient's multiple co-morbidities. Condition: Critical Rest of plan per hospitalist and other consultants. A total of 35 minutes of critical care time was spent reviewing the patient record, examining the patient, making a diagnostic and therapeutic plan, discussing this plan with the medical personnel, following up on diagnostic studies and following the patient for clinical stability excluding any and all procedures. At least 50% of this time was spent in direct, [id number] contact. Thank you, VELVET Avila, for allowing me to participate in this patient's care. Further recommendations will depend on the patient's clinical course. Please do not hesitate to contact me if you have any questions or concerns. This medical document was created using an electronic medical record system with [employer] computerized dictation system. Although these documentations are being carefully reviewed, there may still be some phonetic and typographical changes. The errors are purely typographical, due to imperfection on the software program, and do not reflect any compromise in the patient's medical care Dietary Evaluation Review Comments: 1) Change oral nutrition supplement from Ensure Clear to Ensure Enlive bid 2) Advance to regular diet when medically feasible 3) Encourage optimal PO intake 4) Follow-up with oncology 5) Continue to monitor I&O, labs, and skin integrity Expected Outcomes/Goals: 1) appetite and labs to improve 2) f/u in 3-5 days Plan discussed with: Other (GABRIELA Cotto) Critical Care Time(min): 35 KENNA [facility]W [facility] Jun 11, 2025 23:50
[2025-06-11] MEDS: MORPHINE SULFATE 4 MG/ML SYR/VIAL IV PRN (23:51)
[2025-06-12] VITALS (97 sets, daily range): BP systolic 87–127; BP diastolic 53–78; PULSE 86–126; RESP 10–31; TEMP 95–98.6; O2SAT 90–100
[2025-06-12 04:25] LABS: Hemoglobin 8.5 g/dL (12.2-16.2)
[2025-06-12 04:27] LABS: Hematocrit 23.8 % (36.0-46.0); Mean Corpuscular Hemoglobin 33.9 pg (28.0-32.0); Mean Corpuscular Volume 95.2 fL (80.0-100.0)
[2025-06-12 04:45] LABS: Anion Gap 21 (5-15); Calcium 9.0 mg/dL (8.7-10.4); Carbon Dioxide 31 mmol/L (20-31); Magnesium 1.7 mg/dL (1.6-2.6); Sodium 137 mmol/L (136-145)
[2025-06-12 04:47] LABS: BUN/Creatinine Ratio 17.4 (10.0-20.0)
[2025-06-12 05:01] LABS: Alanine Aminotransferase 132 U/L (7-40); Albumin 2.2 g/dL (3.2-4.8); Alkaline Phosphatase 332 U/L (46-116); Bilirubin, Total 20.8 mg/dL (0.2-1.0); Blood Urea Nitrogen 19 mg/dL (9-23); Chloride 85 mmol/L (98-107); Glucose 139 mg/dL (74-106); Potassium 3.4 mmol/L (3.5-5.1); Total Protein 3.9 g/dL (5.7-8.2)
[2025-06-12 05:25] LABS: Nucleated Red Blood Cells % 2.0 %; Total Cells Counted 100.0 (100)
--- NOTE | 2025-06-12 10:36 | DVHPN2 ---
Progress Note Date Seen: Jun 12, 2025 Medical Necessity Reason Pt with a Central, PICC or Fol: Yes The following are medically ne: PICC Line, Gaffney Catheter Reason for gaffney catheter: Strict I&O Subjective Other Systems: Patient seen and examined by myself today in follow-up Objective vital signs Vital Sign Date Time Temp Pulse Resp B/P (MAP) Pulse Ox O2 Delivery O2 Flow Rate FiO2 06/12/25 09:15 98.6 117 16 92/54 (67) 95 209.5 06/12/25 08:00 Nasal Cannula* 2 28 Total Intake and Output 06/11/25 06/11/25 06/12/25 15:00 23:00 07:00 Intake Total 1554.129 ml 1277.316 ml 1079.504 ml Output Total 500 ml 330 ml Balance 1554.129 ml 777.316 ml 749.504 ml medications Current Medications Medications Dose Ordered Sig/Aayush Route Start Time Stop Time Status Last Admin Dose Admin Docusate Sodium 100 mg BIDPRN PRN PO 05/27/25 01:45 Acetaminophen 650 mg Q6HP PRN PO 05/27/25 01:45 06/10/25 18:57 650 MG Ondansetron HCl 4 mg Q4HP PRN IV 05/27/25 01:45 06/11/25 09:02 4 MG Nitroglycerin 0.4 mg Q5MINP PRN SL 05/27/25 01:45 Pantoprazole Sodium 40 mg DAILY IV 05/27/25 10:00 06/11/25 09:02 40 MG Albuterol 2.5 mg Q4HPRN PRN NEB 05/27/25 04:45 Cancel Ipratropium [place] 0.5 mg Q4HPRN PRN NEB 05/27/25 04:45 Cancel Acetaminophen/ Hydrocodone Bitart 1 tab Q6HPRN PRN PO 05/27/25 17:30 06/05/25 11:46 1 TAB Oseltamivir Phosphate 75 mg Q12HR PO 05/28/25 22:00 06/02/25 21:59 UNV Enteral Nutritional Formula 240 ml BIDWM PO 05/29/25 18:00 06/04/25 08:00 240 ML Azithromycin 250 ml @ 125 mls/hr DAILY IV 06/03/25 10:00 06/11/25 09:02 125 MLS/HR Midodrine 5 mg TIDWM@0600,1200,1800 PO 06/03/25 18:00 06/12/25 04:39 5 MG Patient Own Medication 1 gm DAILY IV 06/03/25 15:30 UNV Ertapenem 1 gm/ Sodium Chloride 50 ml @ 100 mls/hr DAILY@2200 IV 06/04/25 22:00 06/11/25 23:04 100 MLS/HR Sodium Bicarbonate 150 ml/Dextrose 1,150 ml @ 125 mls/hr Q9H12M IV 06/06/25 12:45 06/12/25 04:49 125 MLS/HR Sodium Chloride 10 ml QSHIFT@22 IV 06/06/25 22:00 06/11/25 23:05 10 ML Diagnostic Test (Pha) 1 strip Q6HR 06/07/25 18:00 06/12/25 04:40 1 STRIP Insulin Human Regular FOLLOW SLIDING SCALE Q6HR SC 06/07/25 18:00 06/11/25 23:47 2 UNITS Dextrose 50 ml UD IV 06/07/25 12:45 Octreotide Acetate 100 mcg TID SUBCUT 06/08/25 14:00 06/12/25 04:40 100 MCG Daptomycin 500 mg/ Sodium Chloride 50 ml @ 100 mls/hr DAILY@2200 IV 06/08/25 22:00 06/11/25 22:00 100 MLS/HR Phytonadione 10 mg DAILY NG 06/09/25 10:00 06/13/25 09:59 06/10/25 10:45 10 MG Vancomycin HCl 250 mg QID GT 06/08/25 22:00 06/12/25 04:39 250 MG Phenylephrine HCl 80 mg/Sodium Chloride 250 ml @ 7.5 mls/hr Q24H IV 06/09/25 15:30 06/11/25 12:05 15 MLS/HR Norepinephrine Bitartrate 32 mg/ Sodium Chloride 250 ml @ 0.938 mls/ hr Q24H IV 06/09/25 15:30 06/11/25 12:06 14.063 MLS/HR Epinephrine HCl 250 ml @ 7.5 mls/hr Q24H IV 06/10/25 04:45 Vasopressin 20 units/Sodium Chloride 100 ml @ 9 mls/hr Q11H7M IV 06/10/25 04:45 06/12/25 06:20 9 MLS/HR Amino Acids 0 ml @ 0 mls/hr PER PHARMACY IV 06/10/25 11:00 Amino Acids/ Electrolytes/ Dextrose 1,000 ml @ 41 mls/hr DAILY@2200 IV 06/10/25 22:00 06/11/25 23:03 41 MLS/HR Morphine Sulfate 2 mg Q4HPRN PRN IV 06/11/25 20:30 06/11/25 23:51 2 MG Potassium Chloride 100 ml @ 50 mls/hr Q2H IV 06/12/25 10:00 06/12/25 15:59 Magnesium Sulfate/ Dextrose 100 ml @ 100 mls/hr Q1HR IV 06/12/25 10:00 06/12/25 11:59 Examination: LUNGS:Normal, CVS:Normal, MSK:Normal laboratory and microbiology Laboratory Tests 06/12/25 04:00 Test 06/12/25 04:00 Range/Units Serum Glucose 139 H 74-106 mg/dL Microbiology Date/Time Source Procedure Growth Status 06/06/25 18:03 Urine - [place] Urine Culture - Final Yeast, not Stella albicans Complete 06/06/25 11:32 Blood Blood Culture - Final NO GROWTH AFTER 5 DAYS OF INCUBATION. Complete 06/04/25 10:00 Nose MRSA Screen - Final Complete 06/01/25 22:47 Stool Stool Culture - Final Complete 06/01/25 22:47 Stool Shiga Toxin I & II - Final Complete Problem List/Assessment/Plan Problem List/Assessment/Plan Acute kidney injury secondary hemodynamic mediated, FeNa >2% Metabolic acidosis Pancreatic cancer with biliary obstruction status post biliary stent Liver metastasis Obstructive jaundice Encephalopathy C diff infection Sepsis Influenza B Encephalopathy Hypoalbuminemia Hypomagnesemia Hypokalemia Recommendations Kidney function slightly improved today Increased urine output Strict I&Os IV pressor for blood pressure support Albumin 25% IV piggyback Octreotide 100 mcg subQ 3 times daily Magnesium sulfate IV piggyback K-Phos IV piggyback KCL replacement IV antibiotics We will continue to follow up Plan discussed with: Other (Nurse) My Orders My Orders Orders - DONALD CHAN MD Procedure Category Date Status Time Potassium Chl PHA 06/12/25 In Process 20meq/100ml 10:00 Magnesium Sulfate PHA 06/12/25 In Process 1gm/100ml 10:00 Dietary Evaluation Review Comments: 1) Change oral nutrition supplement from Ensure Clear to Ensure Enlive bid 2) Advance to regular diet when medically feasible 3) Encourage optimal PO intake 4) Follow-up with oncology 5) Continue to monitor I&O, labs, and skin integrity Expected Outcomes/Goals: 1) appetite and labs to improve 2) f/u in 3-5 days DONALD CHAN MD Jun 12, 2025 10:36
--- NOTE | 2025-06-12 10:36 | DVHPN2 ---
Progress Note - Dictate Date Seen: Jun 12, 2025 Medical Necessity Reason Pt with a Central, PICC or Fol: Yes The following are medically ne: PICC Line, Gaffney Catheter Reason for gaffney catheter: Strict I&O Subjective Patient remains hypotensive. On 2 pressors Hb 8.5 today. vital signs Vital Sign Date Time Temp Pulse Resp B/P (MAP) Pulse Ox O2 Delivery O2 Flow Rate FiO2 06/12/25 09:15 98.6 117 16 92/54 (67) 95 209.5 06/12/25 08:00 Nasal Cannula* 2 28 Total Intake and Output 06/11/25 06/11/25 06/12/25 15:00 23:00 07:00 Intake Total 1554.129 ml 1277.316 ml 1079.504 ml Output Total 500 ml 330 ml Balance 1554.129 ml 777.316 ml 749.504 ml medications Current Medications Medications Dose Ordered Sig/Aayush Route Start Time Stop Time Status Last Admin Dose Admin Docusate Sodium 100 mg BIDPRN PRN PO 05/27/25 01:45 Acetaminophen 650 mg Q6HP PRN PO 05/27/25 01:45 06/10/25 18:57 650 MG Ondansetron HCl 4 mg Q4HP PRN IV 05/27/25 01:45 06/11/25 09:02 4 MG Nitroglycerin 0.4 mg Q5MINP PRN SL 05/27/25 01:45 Pantoprazole Sodium 40 mg DAILY IV 05/27/25 10:00 06/11/25 09:02 40 MG Albuterol 2.5 mg Q4HPRN PRN NEB 05/27/25 04:45 Cancel Ipratropium [place] 0.5 mg Q4HPRN PRN NEB 05/27/25 04:45 Cancel Acetaminophen/ Hydrocodone Bitart 1 tab Q6HPRN PRN PO 05/27/25 17:30 06/05/25 11:46 1 TAB Oseltamivir Phosphate 75 mg Q12HR PO 05/28/25 22:00 06/02/25 21:59 UNV Enteral Nutritional Formula 240 ml BIDWM PO 05/29/25 18:00 06/04/25 08:00 240 ML Azithromycin 250 ml @ 125 mls/hr DAILY IV 06/03/25 10:00 06/11/25 09:02 125 MLS/HR Midodrine 5 mg TIDWM@0600,1200,1800 PO 06/03/25 18:00 06/12/25 04:39 5 MG Patient Own Medication 1 gm DAILY IV 06/03/25 15:30 UNV Ertapenem 1 gm/ Sodium Chloride 50 ml @ 100 mls/hr DAILY@2200 IV 06/04/25 22:00 06/11/25 23:04 100 MLS/HR Sodium Bicarbonate 150 ml/Dextrose 1,150 ml @ 125 mls/hr Q9H12M IV 06/06/25 12:45 06/12/25 04:49 125 MLS/HR Sodium Chloride 10 ml QSHIFT@,22 IV 06/06/25 22:00 06/11/25 23:05 10 ML Diagnostic Test (Pha) 1 strip Q6HR 06/07/25 18:00 06/12/25 04:40 1 STRIP Insulin Human Regular FOLLOW SLIDING SCALE Q6HR SC 06/07/25 18:00 06/11/25 23:47 2 UNITS Dextrose 50 ml UD IV 06/07/25 12:45 Octreotide Acetate 100 mcg TID SUBCUT 06/08/25 14:00 06/12/25 04:40 100 MCG Daptomycin 500 mg/ Sodium Chloride 50 ml @ 100 mls/hr DAILY@2200 IV 06/08/25 22:00 06/11/25 22:00 100 MLS/HR Phytonadione 10 mg DAILY NG 06/09/25 10:00 06/13/25 09:59 06/10/25 10:45 10 MG Vancomycin HCl 250 mg QID GT 06/08/25 22:00 06/12/25 04:39 250 MG Phenylephrine HCl 80 mg/Sodium Chloride 250 ml @ 7.5 mls/hr Q24H IV 06/09/25 15:30 06/11/25 12:05 15 MLS/HR Norepinephrine Bitartrate 32 mg/ Sodium Chloride 250 ml @ 0.938 mls/ hr Q24H IV 06/09/25 15:30 06/11/25 12:06 14.063 MLS/HR Epinephrine HCl 250 ml @ 7.5 mls/hr Q24H IV 06/10/25 04:45 Vasopressin 20 units/Sodium Chloride 100 ml @ 9 mls/hr Q11H7M IV 06/10/25 04:45 06/12/25 06:20 9 MLS/HR Amino Acids 0 ml @ 0 mls/hr PER PHARMACY IV 06/10/25 11:00 Amino Acids/ Electrolytes/ Dextrose 1,000 ml @ 41 mls/hr DAILY@2200 IV 06/10/25 22:00 06/11/25 23:03 41 MLS/HR Morphine Sulfate 2 mg Q4HPRN PRN IV 06/11/25 20:30 06/11/25 23:51 2 MG Potassium Chloride 100 ml @ 50 mls/hr Q2H IV 06/12/25 10:00 06/12/25 15:59 Magnesium Sulfate/ Dextrose 100 ml @ 100 mls/hr Q1HR IV 06/12/25 10:00 06/12/25 11:59 objective General Appearance: Alert , no acute distress HEENT: Atraumatic, PERRLA, EOMI, Other (Icteric sclera) Respiratory: Clear to auscultation, Normal air movement Cardiovascular: Normal S1, Normal S2, Abdominal: Soft, Other (Biliary drain in place. Drainage from insertion site) Extremities: No clubbing, No cyanosis, No edema Skin: No breakdown Neuro: confusion, no focal deficit, Psych/Mental Status: Mental status NL, Mood NL laboratory and microbiology Laboratory Tests 06/12/25 04:00 Test 06/12/25 04:00 Range/Units Serum Glucose 139 H 74-106 mg/dL Assessment/Plan A 69 years female presents with shock VRE bacteremia C diff diarrhea Campylobacter in stool streptococcus bacteremia ESBL [place] bacteremia Sepsis Influenza B positive Acute metabolic encephalopathy Hypoglycemia Dehydration Pulmonary airspace disease Small bilateral pleural effusions Abnormal LFT Hyperbilirubinemia History pancreatic cancer S/p percutaneous transhepatic biliary drain in place Hypotension Recommendations: on 2 pressors ; platelet dropping, Discontinued Linezolid and switched to Daptomycin IV WBC trending down biliary drain+ dc Azithromycin continue invanz, stop date 06/10 ( since 06/27 with zosyn and then Invanz for ESBL bacteremia) continue PO vancomycin; prolonged taper Blood cultures shows ESBL [place], however repeat blood cx is showing streptococcus Enteric catheter in satisfactory position Gastroenterology on board prognosis guarded; consider goals of care discussion. overall prognosis very poor Total time 50 minutes spent during this encounter. Thank you for the consult Dietary Evaluation Review Comments: 1) Change oral nutrition supplement from Ensure Clear to Ensure Enlive bid 2) Advance to regular diet when medically feasible 3) Encourage optimal PO intake 4) Follow-up with oncology 5) Continue to monitor I&O, labs, and skin integrity Expected Outcomes/Goals: 1) appetite and labs to improve 2) f/u in 3-5 days Plan discussed with: ANGEL Rodarte MD Jun 12, 2025 10:36
[2025-06-12] MEDS: MAGNESIUM SULFATE 1GM/100ML 100 ML IV SCH (10:56)
[2025-06-12] MEDS: POTASSIUM CHL 20MEQ/100ML 100 ML IV SCH (10:56)
--- NOTE | 2025-06-12 13:15 | DVHPN2 ---
Progress Note Date Seen: Jun 12, 2025 Resident Creating Document: CORBY MENDIETA RESIDENT Medical Necessity Reason Pt with a Central, PICC or Fol: Yes The following are medically ne: PICC Line, Gaffney Catheter Reason for gaffney catheter: Strict I&O Subjective Review of Systems Patient seen and examined at the bedside Continues to be on 3 vasopressors On Clinimix Minimally responsive and refuses to eat Objective vital signs Vital Sign Date Time Temp Pulse Resp B/P (MAP) Pulse Ox O2 Delivery O2 Flow Rate FiO2 06/12/25 13:06 110 14 91/64 06/12/25 11:45 98.4 96 209.1 06/12/25 08:00 Nasal Cannula* 2 28 Total Intake and Output 06/11/25 06/11/25 06/12/25 15:00 23:00 07:00 Intake Total 1554.129 ml 1277.316 ml 1079.504 ml Output Total 500 ml 330 ml Balance 1554.129 ml 777.316 ml 749.504 ml medications Current Medications Medications Dose Ordered Sig/Aayush Route Start Time Stop Time Status Last Admin Dose Admin Docusate Sodium 100 mg BIDPRN PRN PO 05/27/25 01:45 Acetaminophen 650 mg Q6HP PRN PO 05/27/25 01:45 06/10/25 18:57 650 MG Ondansetron HCl 4 mg Q4HP PRN IV 05/27/25 01:45 06/11/25 09:02 4 MG Nitroglycerin 0.4 mg Q5MINP PRN SL 05/27/25 01:45 Pantoprazole Sodium 40 mg DAILY IV 05/27/25 10:00 06/12/25 10:56 40 MG Albuterol 2.5 mg Q4HPRN PRN NEB 05/27/25 04:45 Cancel Ipratropium [place] 0.5 mg Q4HPRN PRN NEB 05/27/25 04:45 Cancel Acetaminophen/ Hydrocodone Bitart 1 tab Q6HPRN PRN PO 05/27/25 17:30 06/05/25 11:46 1 TAB Oseltamivir Phosphate 75 mg Q12HR PO 05/28/25 22:00 06/02/25 21:59 UNV Enteral Nutritional Formula 240 ml BIDWM PO 05/29/25 18:00 06/04/25 08:00 240 ML Azithromycin 250 ml @ 125 mls/hr DAILY IV 06/03/25 10:00 06/12/25 10:58 125 MLS/HR Midodrine 5 mg TIDWM@0600,1200,1800 PO 06/03/25 18:00 06/12/25 12:50 5 MG Patient Own Medication 1 gm DAILY IV 06/03/25 15:30 UNV Ertapenem 1 gm/ Sodium Chloride 50 ml @ 100 mls/hr DAILY@2200 IV 06/04/25 22:00 06/11/25 23:04 100 MLS/HR Sodium Bicarbonate 150 ml/Dextrose 1,150 ml @ 125 mls/hr Q9H12M IV 06/06/25 12:45 06/12/25 04:49 125 MLS/HR Sodium Chloride 10 ml QSHIFT@10,22 IV 06/06/25 22:00 06/12/25 10:57 10 ML Diagnostic Test (Pha) 1 strip Q6HR 06/07/25 18:00 06/12/25 13:04 1 STRIP Insulin Human Regular FOLLOW SLIDING SCALE Q6HR SC 06/07/25 18:00 06/12/25 13:05 4 UNITS Dextrose 50 ml UD IV 06/07/25 12:45 Octreotide Acetate 100 mcg TID SUBCUT 06/08/25 14:00 06/12/25 04:40 100 MCG Daptomycin 500 mg/ Sodium Chloride 50 ml @ 100 mls/hr DAILY@2200 IV 06/08/25 22:00 06/11/25 22:00 100 MLS/HR Phytonadione 10 mg DAILY NG 06/09/25 10:00 06/13/25 09:59 06/12/25 12:50 10 MG Vancomycin HCl 250 mg QID GT 06/08/25 22:00 06/12/25 12:51 250 MG Phenylephrine HCl 80 mg/Sodium Chloride 250 ml @ 7.5 mls/hr Q24H IV 06/09/25 15:30 06/11/25 12:05 15 MLS/HR Norepinephrine Bitartrate 32 mg/ Sodium Chloride 250 ml @ 0.938 mls/ hr Q24H IV 06/09/25 15:30 06/11/25 12:06 14.063 MLS/HR Epinephrine HCl 250 ml @ 7.5 mls/hr Q24H IV 06/10/25 04:45 Vasopressin 20 units/Sodium Chloride 100 ml @ 9 mls/hr Q11H7M IV 06/10/25 04:45 06/12/25 06:20 9 MLS/HR Amino Acids 0 ml @ 0 mls/hr PER PHARMACY IV 06/10/25 11:00 Amino Acids/ Electrolytes/ Dextrose 1,000 ml @ 41 mls/hr DAILY@2200 IV 06/10/25 22:00 06/11/25 23:03 41 MLS/HR Morphine Sulfate 2 mg Q4HPRN PRN IV 06/11/25 20:30 06/12/25 13:06 2 MG Potassium Chloride 100 ml @ 50 mls/hr Q2H IV 06/12/25 10:00 06/12/25 15:59 06/12/25 12:42 50 MLS/HR Examination Gen - mild conjuctival pallor, positive scleral icterus Skin - Patients skin is warm and dry. HEENT - normocephalic, atraumatic, dry mucous membranes. Neck - supple, no lymphadenopathy Pulmonary - B/L clear breath sounds with basilar crackles more in the left lower cardiovascular - regular S1,S2 heard GI - soft abdomen with mild tenderness to palpation. Bowel sounds hypoactive Neurological - Patient is alert and oriented x x1 and is minimally responsive laboratory and microbiology Laboratory Tests 06/12/25 04:00 Test 06/12/25 04:00 Range/Units Serum Glucose 139 H 74-106 mg/dL Microbiology Date/Time Source Procedure Growth Status 06/06/25 18:03 Urine - [place] Urine Culture - Final Yeast, not Stella albicans Complete 06/06/25 11:32 Blood Blood Culture - Final NO GROWTH AFTER 5 DAYS OF INCUBATION. Complete 06/04/25 10:00 Nose MRSA Screen - Final Complete 06/01/25 22:47 Stool Stool Culture - Final Complete 06/01/25 22:47 Stool Shiga Toxin I & II - Final Complete Problem List/Assessment/Plan Problem List/Assessment/Plan Assessment Pancreatic cancer s/p biliary stent placement with possible metastatic adenopathy Intractable abdominal pain Hyperbilirubinemia Transaminitis Influenza B Klebsiella ESBL bacteremia C diff colitis Campylobacter gastroenteritis Coagulopathy Plan - patient had a recent placement of biliary drainage stent at [facility] - pancreatic mass seen on the CT Abd likely pancreatic cancer - 06/02/[address] abdomen showed right hepatic approach internal external biliary drainage catheter terminating within the 2nd segment of the duodenum - monitor LFTs - IV protonix - IV antibiotics daptomycin, ertapenem, azithromycin - patient not able to tolerate tube feedings, initiate TPN - watch H&H and keep hemoglobin above 7 patient may be a candidate for hospice given her metastatic pancreatic cancer and significant comorbidities. Plan discussed with Dr Morrissey Plan discussed with: Other (GABRIELA Red) Dietary Evaluation Review Comments: 1) Change oral nutrition supplement from Ensure Clear to Ensure Enlive bid 2) Advance to regular diet when medically feasible 3) Encourage optimal PO intake 4) Follow-up with oncology 5) Continue to monitor I&O, labs, and skin integrity Expected Outcomes/Goals: 1) appetite and labs to improve 2) f/u in 3-5 days CORBY MENDIETA RESIDENT Jun 12, 2025 13:14
--- NOTE | 2025-06-12 17:35 | DVHPN2 ---
Subjective Patient currently in ICU on 2 vasopressors. Also as per bedside RN patient's urine output is decreasing, biliary recommended nephrology follow up, son was updated at bedside. Changes from previous H/P or p: No Changes Objective Vitals Vital Signs Date Time Temp Pulse Resp B/P (MAP) Pulse Ox O2 Delivery O2 Flow Rate FiO2 06/12/25 16:00 18 99 Nasal Cannula* 2 28 06/12/25 16:00 105 06/12/25 15:45 97.5 101/59 (73) 207.5 Intake/Output Intake and Output 06/12/25 07:00 Intake Total 4035.949 ml Output Total 830 ml Balance 3205.949 ml Intake Oral 80 ml IV Total 3955.949 ml Output Urine Total 525 ml Gastric Drainage Total 230 ml Emesis 75 ml Exam HEENT pupils are reactive positive scleral icterus Neck was supple CV is S1-S2 regular rate and rhythm Respiratory by due to diminished breath sound with basis GI positive bowel sounds Extremity 3 to 4+ pitting edema [employer] patient does not follow commands Medications Current Medications Medications Dose Ordered Sig/Aayush Route Start Time Stop Time Status Last Admin Dose Admin Docusate Sodium 100 mg BIDPRN PRN PO 05/27/25 01:45 Acetaminophen 650 mg Q6HP PRN PO 05/27/25 01:45 06/10/25 18:57 650 MG Ondansetron HCl 4 mg Q4HP PRN IV 05/27/25 01:45 06/11/25 09:02 4 MG Nitroglycerin 0.4 mg Q5MINP PRN SL 05/27/25 01:45 Pantoprazole Sodium 40 mg DAILY IV 05/27/25 10:00 06/12/25 10:56 40 MG Albuterol 2.5 mg Q4HPRN PRN NEB 05/27/25 04:45 Cancel Ipratropium [place] 0.5 mg Q4HPRN PRN NEB 05/27/25 04:45 Cancel Acetaminophen/ Hydrocodone Bitart 1 tab Q6HPRN PRN PO 05/27/25 17:30 06/05/25 11:46 1 TAB Oseltamivir Phosphate 75 mg Q12HR PO 05/28/25 22:00 06/02/25 21:59 UNV Enteral Nutritional Formula 240 ml BIDWM PO 05/29/25 18:00 06/04/25 08:00 240 ML Azithromycin 250 ml @ 125 mls/hr DAILY IV 06/03/25 10:00 06/12/25 10:58 125 MLS/HR Midodrine 5 mg TIDWM@0600,1200,1800 PO 06/03/25 18:00 06/12/25 12:50 5 MG Patient Own Medication 1 gm DAILY IV 06/03/25 15:30 UNV Ertapenem 1 gm/ Sodium Chloride 50 ml @ 100 mls/hr DAILY@2200 IV 06/04/25 22:00 06/11/25 23:04 100 MLS/HR Sodium Bicarbonate 150 ml/Dextrose 1,150 ml @ 125 mls/hr Q9H12M IV 06/06/25 12:45 06/12/25 15:00 125 MLS/HR Sodium Chloride 10 ml QSHIFT@10,22 IV 06/06/25 22:00 06/12/25 10:57 10 ML Diagnostic Test (Pha) 1 strip Q6HR 06/07/25 18:00 06/12/25 13:04 1 STRIP Insulin Human Regular FOLLOW SLIDING SCALE Q6HR SC 06/07/25 18:00 06/12/25 13:05 4 UNITS Dextrose 50 ml UD IV 06/07/25 12:45 Octreotide Acetate 100 mcg TID SUBCUT 06/08/25 14:00 06/12/25 15:00 100 MCG Daptomycin 500 mg/ Sodium Chloride 50 ml @ 100 mls/hr DAILY@2200 IV 06/08/25 22:00 06/11/25 22:00 100 MLS/HR Phytonadione 10 mg DAILY NG 06/09/25 10:00 06/13/25 09:59 06/12/25 12:50 10 MG Vancomycin HCl 250 mg QID GT 06/08/25 22:00 06/12/25 15:14 250 MG Phenylephrine HCl 80 mg/Sodium Chloride 250 ml @ 7.5 mls/hr Q24H IV 06/09/25 15:30 06/11/25 12:05 15 MLS/HR Norepinephrine Bitartrate 32 mg/ Sodium Chloride 250 ml @ 0.938 mls/ hr Q24H IV 06/09/25 15:30 06/11/25 12:06 14.063 MLS/HR Epinephrine HCl 250 ml @ 7.5 mls/hr Q24H IV 06/10/25 04:45 Vasopressin 20 units/Sodium Chloride 100 ml @ 9 mls/hr Q11H7M IV 06/10/25 04:45 06/12/25 06:20 9 MLS/HR Amino Acids 0 ml @ 0 mls/hr PER PHARMACY IV 06/10/25 11:00 Amino Acids/ Electrolytes/ Dextrose 1,000 ml @ 41 mls/hr DAILY@2200 IV 06/10/25 22:00 06/11/25 23:03 41 MLS/HR Morphine Sulfate 2 mg Q4HPRN PRN IV 06/11/25 20:30 06/12/25 13:06 2 MG Laboratory Results Laboratory Tests 06/12/25 04:00 Chemistry Test 06/12/25 04:00 Albumin 2.2 g/dL (3.2-4.8) L Calcium Level 9.0 mg/dL (8.7-10.4) Magnesium Level 1.7 mg/dL (1.6-2.6) Phosphorus Level 3.9 mg/dL (2.4-5.1) Total Protein 3.9 g/dL (5.7-8.2) L LFT Test 06/12/25 04:00 Alanine Aminotransferase (ALT) 132 U/L (7-40) H Alkaline Phosphatase 332 U/L (46-116) H Aspartate Amino Transferase (AST) 177 U/L (13-40) H Total Bilirubin 20.8 mg/dL (0.2-1.0) H Urinalysis Test 06/01/25 21:30 06/07/25 13:56 Urine Hyaline Casts Few /lpf (0 - 2) Urine Color Dark-yellow (Yellow) Urine Clarity Ex.turbid (Clear) Urine pH 5.5 (5.0-9.0) Urine Specific [place] 1.018 (1.001-1.035) Urine Protein 1+ (Negative) H Urine Ketones Negative (Negative) Urine Blood 2+ /uL (Negative) H Urine Nitrite Negative (Negative) Urine Bilirubin 2+ (Negative) H Urine Urobilinogen Normal mg/dL (Negative) Urine Leukocyte Esterase 2+ /uL (Negative) Urine RBC 7 /hpf (0 - 4) Urine WBC Clumps Present /hpf (None Seen) Urine Microscopic WBC 111 /HPF (0-5) H Urine Squamous Epithelial Cells Few /hpf (<5) Urine Bacteria Few /hpf (None Seen) H Urine Mucus Few (None Seen) Urine Yeast (Bud[place]) Loaded /hpf (None Seen) Urine Creatinine 58.39 mg/dL (30.0-125.0) Urine Sodium 49 mmol/L (40-220) Urine Glucose Normal mg/dL (Normal) Microbiology Microbiology Date/Time Source Procedure Growth Status 06/06/25 18:03 Urine - [place] Urine Culture - Final Yeast, not Stella albicans Complete 06/06/25 11:32 Blood Blood Culture - Final NO GROWTH AFTER 5 DAYS OF INCUBATION. Complete 06/04/25 10:00 Nose MRSA Screen - Final Complete 06/01/25 22:47 Stool Stool Culture - Final Complete 06/01/25 22:47 Stool Shiga Toxin I & II - Final Complete Assessment/Plan Assessment/Plan 69-year-old female with a known history of pancreatic cancer, stomach cancer was brought into the ER with generalized weakness for last three days found to have 1. Acute metabolic encephalopathy 2. Biliary obstruction status post percutaneous transhepatic biliary drain placement at higher level of care in March. CT abdominal pelvis was done which shows no evidence of any biliary dislodgement 3. Transaminitis 4. Hyperbilirubinemia 5. Pancreatic cancer with Mets to liver, retroperitoneal lymphadenopathy 6. Hypotension with septic shock 7. Lactic acidosis, resolved 8. Thrombocytopenia suspected secondary to Zyvox, discontinued Zyvox, started daptomycin 9. Acute kidney injury with suspected oliguria 10. Gram-negative bacteremia, with ESBL 11. Multidrug resistant VRE bacteremia 12. C diff colitis 13. Severe hypoalbuminemia 14. Acute anemia without any active evidence of bleeding -monitor CBC for platelet count. -continue daptomycin, follow up Pulmonary Infectious Disease recommendations -patient remains critical, prognosis remain guarded. Plan discussed with: Bandar Date of Service: Jun 12, 2025 Billing Provider: EVERT EMMANUEL MD Common Visit Codes: NOT BILLABLE EVERT EMMANUEL MD Jun 12, 2025 17:35
[2025-06-12] MEDS: DEXTROSE (50%) 50ML SYRG IV SCH (18:09)
[2025-06-12 20:16] LABS: Hemoglobin 8.3 g/dL (12.2-16.2)
[2025-06-12 20:19] LABS: Hematocrit 23.4 % (36.0-46.0); Mean Corpuscular Hemoglobin 33.9 pg (28.0-32.0); Mean Corpuscular Volume 95.2 fL (80.0-100.0)
[2025-06-12] MEDS: FUROSEMIDE INJECTION 10 ML ONE (20:26)
[2025-06-12 20:45] LABS: Nucleated Red Blood Cells % 3.8 %
[2025-06-12] MEDS: ALBUMIN 25% 100 ML IV SCH (21:12)
[2025-06-12] MEDS: FUROSEMIDE INJECTION 100 MG in SODIUM CHL 0.9% 100 ML IV SCH (21:13)
--- NOTE | 2025-06-12 21:17 | DVHPN2 ---
Progress Note - Dictate Date Seen: Jun 12, 2025 Medical Necessity Reason Pt with a Central, PICC or Fol: Yes The following are medically ne: PICC Line, Gaffney Catheter Reason for gaffney catheter: Strict I&O Subjective Patient seen and examined at bedside. Currently on supplemental oxygen Overnight events reviewed. vital signs Vital Sign Date Time Temp Pulse Resp B/P (MAP) Pulse Ox O2 Delivery O2 Flow Rate FiO2 06/12/25 19:00 97.5 110 17 96/66 (76) 99 207.5 06/12/25 18:00 Nasal Cannula* 2 28 Total Intake and Output 06/11/25 06/11/25 06/12/25 15:00 23:00 07:00 Intake Total 1554.129 ml 1277.316 ml 1204.504 ml Output Total 500 ml 330 ml Balance 1554.129 ml 777.316 ml 874.504 ml medications Current Medications Medications Dose Ordered Sig/Aayush Route Start Time Stop Time Status Last Admin Dose Admin Docusate Sodium 100 mg BIDPRN PRN PO 05/27/25 01:45 Acetaminophen 650 mg Q6HP PRN PO 05/27/25 01:45 06/10/25 18:57 650 MG Ondansetron HCl 4 mg Q4HP PRN IV 05/27/25 01:45 06/11/25 09:02 4 MG Nitroglycerin 0.4 mg Q5MINP PRN SL 05/27/25 01:45 Pantoprazole Sodium 40 mg DAILY IV 05/27/25 10:00 06/12/25 10:56 40 MG Albuterol 2.5 mg Q4HPRN PRN NEB 05/27/25 04:45 Cancel Ipratropium [place] 0.5 mg Q4HPRN PRN NEB 05/27/25 04:45 Cancel Acetaminophen/ Hydrocodone Bitart 1 tab Q6HPRN PRN PO 05/27/25 17:30 06/05/25 11:46 1 TAB Oseltamivir Phosphate 75 mg Q12HR PO 05/28/25 22:00 06/02/25 21:59 UNV Enteral Nutritional Formula 240 ml BIDWM PO 05/29/25 18:00 06/04/25 08:00 240 ML Azithromycin 250 ml @ 125 mls/hr DAILY IV 06/03/25 10:00 06/12/25 10:58 125 MLS/HR Midodrine 5 mg TIDWM@0600,1200,1800 PO 06/03/25 18:00 06/12/25 18:30 5 MG Patient Own Medication 1 gm DAILY IV 06/03/25 15:30 UNV Ertapenem 1 gm/ Sodium Chloride 50 ml @ 100 mls/hr DAILY@2200 IV 06/04/25 22:00 06/11/25 23:04 100 MLS/HR Sodium Bicarbonate 150 ml/Dextrose 1,150 ml @ 125 mls/hr Q9H12M IV 06/06/25 12:45 06/12/25 18:26 125 MLS/HR Sodium Chloride 10 ml QSHIFT@22 IV 06/06/25 22:00 06/12/25 10:57 10 ML Diagnostic Test (Pha) 1 strip Q6HR 06/07/25 18:00 06/12/25 18:17 1 STRIP Insulin Human Regular FOLLOW SLIDING SCALE Q6HR SC 06/07/25 18:00 06/12/25 13:05 4 UNITS Dextrose 50 ml UD IV 06/07/25 12:45 06/12/25 18:09 50 ML Octreotide Acetate 100 mcg TID SUBCUT 06/08/25 14:00 06/12/25 15:00 100 MCG Daptomycin 500 mg/ Sodium Chloride 50 ml @ 100 mls/hr DAILY@2200 IV 06/08/25 22:00 06/11/25 22:00 100 MLS/HR Phytonadione 10 mg DAILY NG 06/09/25 10:00 06/13/25 09:59 06/12/25 12:50 10 MG Vancomycin HCl 250 mg QID GT 06/08/25 22:00 06/12/25 15:14 250 MG Phenylephrine HCl 80 mg/Sodium Chloride 250 ml @ 7.5 mls/hr Q24H IV 06/09/25 15:30 06/11/25 12:05 15 MLS/HR Norepinephrine Bitartrate 32 mg/ Sodium Chloride 250 ml @ 0.938 mls/ hr Q24H IV 06/09/25 15:30 06/11/25 12:06 14.063 MLS/HR Epinephrine HCl 250 ml @ 7.5 mls/hr Q24H IV 06/10/25 04:45 Vasopressin 20 units/Sodium Chloride 100 ml @ 9 mls/hr Q11H7M IV 06/10/25 04:45 06/12/25 17:58 9 MLS/HR Amino Acids 0 ml @ 0 mls/hr PER PHARMACY IV 06/10/25 11:00 Amino Acids/ Electrolytes/ Dextrose 1,000 ml @ 41 mls/hr DAILY@2200 IV 06/10/25 22:00 06/11/25 23:03 41 MLS/HR Morphine Sulfate 2 mg Q4HPRN PRN IV 06/11/25 20:30 06/12/25 13:06 2 MG Albumin Human 100 ml @ 100 mls/hr Q12HR IV 06/12/25 19:15 06/13/25 22:59 Furosemide 100 mg/ Sodium Chloride 110 ml @ 22 mls/hr Q5H IV 06/12/25 19:15 objective Gen.: Patient lying in bed in no apparent distress. On supplemental oxygen Head: Normocephalic, atraumatic. Eyes: EOMI/PERRLA. Ears: Normal hearing. Normal anatomy. Neck/trachea: Trachea midline, supple. Nose: Normal external anatomy. Mouth: Moist mucous membranes. Chest: Decreased air entry bilaterally. No wheezing or rhonchi. Cardiovascular: Positive S1, positive S2. Regular rate and rhythm. Abdomen: Positive bowel sounds in all 4 quadrants. Soft, non-tender, non- distended. : Deferred. Rectal: Deferred. Skin: Warm, dry. Intact. Extremities: 2+ radial pulses bilaterally. 2+ bilateral lower extremity edema. Neuro: Awake, alert, oriented x1. Minimally responsive. No gross motor or sensory deficits. Cranial nerves II through XII intact. Gait not assessed. laboratory and microbiology Laboratory Tests 06/12/25 19:51 06/12/25 04:00 Test 06/12/25 04:00 Range/Units Serum Glucose 139 H 74-106 mg/dL Assessment/Plan Impression: Acute metabolic encephalopathy Sepsis Influenza B Pleural effusion Atelectasis Pancreatic cancer S/p percutaneous transhepatic biliary drain placement Events: Currently on supplemental oxygen On 2 LPM NC Taper O2 as tolerated Patient opens eyes, responds to name. No distress. Pressors for hemodynamic support Currently on Levophed 12 mcg/min and vasopressin 0.03 units/min Titrate to keep MAP above 65 mmHg/SBP above 90 mmHg. Continue to taper pressors as tolerated Chest x-ray today reveals Left pleural effusion and pulmonary venous congestion, unchanged.. Continue antibiotics F/u cultures: Bacteremia with blood cultures positive for gram-positive cocci, E SBL Klebsiella pneumoniae Repeat blood cultures positive for VRE ID recommendations appreciated Antibiotics per ID Bicarb drip IV due to severe metabolic acidosis Continue bronchodilators Incentive spirometry Leukocytosis -WBC trended down to 11.2 K Monitor Lactic acid Stool culture positive for C. diff - on isolation for C.diff. Positive influenza B - Received oseltamivir course Monitor blood glucose Monitor blood pressures Head of bed elevation Aspiration precautions Pain control Avoid oversedation NGT in place. TPN/tube feeds for nutritional support. Clinimix Protonix for GI ppx GI recommendations appreciated FOBT negative Monitor hemoglobin - trended down to 8.3 g/dL Transfuse if less than 7.0 g/dL. Monitor platelet count d/t thrombocytopenia - currently 8 K. Monitor blood pressure Nephrology recommendations appreciated Monitor renal function. Poor UOP Monitor electrolytes. Supplement as necessary. Potassium supplementation Accu-Cheks, ISS. TPN for nutritional support Pain control Avoid oversedation Patient with advanced pancreatic cancer w/ sepsis and [id number] organisms; multiorgan failure Overall poor prognosis with high likelihood of demise. Awaiting family decision on goals of care. Patient remains full code Disposition per hospitalist. Arrange for home IV antibiotics Labs and imaging reviewed. Rest of plan as noted below. Plan: Supplemental oxygen Titrate to keep O2 sats above 92%. Continue antibiotics Bacteremia - Follow up cultures Folow up ID recommendations Bronchodilators PRN. On pressors for hemodynamic support Titrate to keep MAP above 65 mmHg/SBP above 90 mmHg. Protonix for GI ppx Monitor hemoglobin Transfuse if less than 7.0 g/dL. Accu-Cheks, ISS PRN. Head of bed elevation Aspiration precautions Pain control Avoid oversedation Monitor renal function. Monitor electrolytes. Supplement as necessary. Monitor ins and outs. Monitor hemoglobin Transfuse if less than 7.0 g/dL. GI/DVT prophylaxis. Prognosis: Poor given patient's multiple co-morbidities. Condition: Critical Rest of plan per hospitalist and other consultants. A total of 35 minutes of critical care time was spent reviewing the patient record, examining the patient, making a diagnostic and therapeutic plan, discussing this plan with the medical personnel, following up on diagnostic studies and following the patient for clinical stability excluding any and all procedures. At least 50% of this time was spent in direct, [id number] contact. Thank you, BE[employer] LE[employer] [place], for allowing me to participate in this patient's care. Further recommendations will depend on the patient's clinical course. Please do not hesitate to contact me if you have any questions or concerns. This medical document was created using an electronic medical record system with [employer] dictation system. Although these documentations are being carefully reviewed, there may still be some phonetic and typographical changes. The errors are purely typographical, due to imperfection on the software program, and do not reflect any compromise in the patient's medical care Dietary Evaluation Review Comments: 1) Change oral nutrition supplement from Ensure Clear to Ensure Enlive bid 2) Advance to regular diet when medically feasible 3) Encourage optimal PO intake 4) Follow-up with oncology 5) Continue to monitor I&O, labs, and skin integrity Expected Outcomes/Goals: 1) appetite and labs to improve 2) f/u in 3-5 days Plan discussed with: Other (GABRIELA Red) Critical Care Time(min): 35 [facility] Jun 12, 2025 21:17
[2025-06-13] VITALS (102 sets, daily range): BP systolic 81–147; BP diastolic 45–83; PULSE 100–144; RESP 7–41; TEMP 96.3–98.2; O2SAT 90–99
[2025-06-13 06:59] LABS: Anion Gap 20 (5-15); Calcium 9.4 mg/dL (8.7-10.4); Carbon Dioxide 29 mmol/L (20-31); Magnesium 1.8 mg/dL (1.6-2.6); Potassium 3.6 mmol/L (3.5-5.1)
[2025-06-13 07:11] LABS: Albumin 2.6 g/dL (3.2-4.8); Alkaline Phosphatase 310 U/L (46-116); BUN/Creatinine Ratio 15.4 (10.0-20.0); Bilirubin, Total 21.1 mg/dL (0.2-1.0); Chloride 86 mmol/L (98-107); Glucose 51 mg/dL (74-106); Sodium 135 mmol/L (136-145)
[2025-06-13 07:12] LABS: Alanine Aminotransferase 112 U/L (7-40); Blood Urea Nitrogen 18 mg/dL (9-23); Total Protein 4.2 g/dL (5.7-8.2)
[2025-06-13 07:59] LABS: Hematocrit 20.5 % (36.0-46.0); Hemoglobin 7.2 g/dL (12.2-16.2); Mean Corpuscular Hemoglobin 33.9 pg (28.0-32.0); Mean Corpuscular Volume 96.1 fL (80.0-100.0); Nucleated Red Blood Cells % 2.9 %
[2025-06-13] MEDS: METOPROLOL TARTRATE 1MG/1ML-5ML VIAL IV ONE (08:02)
--- NOTE | 2025-06-13 09:26 | ECG ---
[facility] Test Date: 2025-06-13 Test Time: 06:33:18 Pat Name: FELIPE [place] Department: ICU [place] Room: [address] [place] [address] A Gender: F Upholsterer Outside: TONE : 1955 Requested By: ARGENIS DELACRUZ Order Number: [id number] Reading MD: Keyur Armstrong Measurements Intervals [place] Rate: 143 P: 0 NV: 0 QRS: 14 QRSD: 68 T: 226 QT: 291 QTc: 449 Interpretive Statements Junctional tachycardia Low voltage, extremity and precordial leads Repolarization abnormality, prob rate related Electronically Signed On 06-14-2025 11:12:30 PST by Keyur Armstrong Please click the below link to view image of tracing.
--- NOTE | 2025-06-13 09:58 | MEDREC ---
[facility] ASP Intervention Section I [facility] ASP Intervention: Review courses of therapy (URINE CULTURE POSITIVE FOR YEAST - PLEASE CONSIDER ADDING ANTIFUNGAL IF CLINICALLY RELEVANT ) PIPPA LAMAR PHARMACIST Jun 13, 2025 09:58
--- NOTE | 2025-06-13 10:20 | DVHPN2 ---
Progress Note Date Seen: Jun 13, 2025 Medical Necessity Reason Pt with a Central, PICC or Fol: Yes The following are medically ne: PICC Line, Gaffney Catheter Reason for gaffney catheter: Strict I&O Subjective Patient reports: No new complaints Other Systems: Patient seen and examined by myself today in follow-up Objective vital signs Vital Sign Date Time Temp Pulse Resp B/P (MAP) Pulse Ox O2 Delivery O2 Flow Rate FiO2 06/13/25 08:02 113 120/67 06/13/25 07:51 28 06/13/25 06:45 97.9 92 208.2 06/13/25 06:00 Nasal Cannula* 2 28 Total Intake and Output 06/12/25 06/12/25 06/13/25 15:00 23:00 07:00 Intake Total 1548.566 ml 1388.504 ml 2318.941 ml Output Total 180 ml 370 ml Balance 1548.566 ml 1208.504 ml 1948.941 ml medications Current Medications Medications Dose Ordered Sig/Aayush Route Start Time Stop Time Status Last Admin Dose Admin Docusate Sodium 100 mg BIDPRN PRN PO 05/27/25 01:45 Acetaminophen 650 mg Q6HP PRN PO 05/27/25 01:45 06/10/25 18:57 650 MG Ondansetron HCl 4 mg Q4HP PRN IV 05/27/25 01:45 06/11/25 09:02 4 MG Nitroglycerin 0.4 mg Q5MINP PRN SL 05/27/25 01:45 Pantoprazole Sodium 40 mg DAILY IV 05/27/25 10:00 06/12/25 10:56 40 MG Albuterol 2.5 mg Q4HPRN PRN NEB 05/27/25 04:45 Cancel Ipratropium [place] 0.5 mg Q4HPRN PRN NEB 05/27/25 04:45 Cancel Acetaminophen/ Hydrocodone Bitart 1 tab Q6HPRN PRN PO 05/27/25 17:30 06/05/25 11:46 1 TAB Oseltamivir Phosphate 75 mg Q12HR PO 05/28/25 22:00 06/02/25 21:59 UNV Enteral Nutritional Formula 240 ml BIDWM PO 05/29/25 18:00 06/04/25 08:00 240 ML Midodrine 5 mg TIDWM@0600,1200,1800 PO 06/03/25 18:00 06/13/25 06:11 5 MG Patient Own Medication 1 gm DAILY IV 06/03/25 15:30 UNV Ertapenem 1 gm/ Sodium Chloride 50 ml @ 100 mls/hr DAILY@2200 IV 06/04/25 22:00 06/13/25 02:01 100 MLS/HR Sodium Bicarbonate 150 ml/Dextrose 1,150 ml @ 125 mls/hr Q9H12M IV 06/06/25 12:45 06/13/25 06:09 125 MLS/HR Sodium Chloride 10 ml QSHIFT@10,22 IV 06/06/25 22:00 06/12/25 21:32 10 ML Diagnostic Test (Pha) 1 strip Q6HR 06/07/25 18:00 06/13/25 06:08 1 STRIP Insulin Human Regular FOLLOW SLIDING SCALE Q6HR SC 06/07/25 18:00 06/12/25 13:05 4 UNITS Dextrose 50 ml UD IV 06/07/25 12:45 06/13/25 06:08 50 ML Octreotide Acetate 100 mcg TID SUBCUT 06/08/25 14:00 06/13/25 06:10 100 MCG Daptomycin 500 mg/ Sodium Chloride 50 ml @ 100 mls/hr DAILY@2200 IV 06/08/25 22:00 06/13/25 02:01 100 MLS/HR Vancomycin HCl 250 mg QID GT 06/08/25 22:00 06/13/25 06:09 250 MG Phenylephrine HCl 80 mg/Sodium Chloride 250 ml @ 7.5 mls/hr Q24H IV 06/09/25 15:30 06/11/25 12:05 15 MLS/HR Norepinephrine Bitartrate 32 mg/ Sodium Chloride 250 ml @ 0.938 mls/ hr Q24H IV 06/09/25 15:30 06/11/25 12:06 14.063 MLS/HR Epinephrine HCl 250 ml @ 7.5 mls/hr Q24H IV 06/10/25 04:45 Vasopressin 20 units/Sodium Chloride 100 ml @ 9 mls/hr Q11H7M IV 06/10/25 04:45 06/13/25 06:10 9 MLS/HR Amino Acids 0 ml @ 0 mls/hr PER PHARMACY IV 06/10/25 11:00 Amino Acids/ Electrolytes/ Dextrose 1,000 ml @ 41 mls/hr DAILY@2200 IV 06/10/25 22:00 06/12/25 21:14 41 MLS/HR Morphine Sulfate 2 mg Q4HPRN PRN IV 06/11/25 20:30 06/13/25 07:51 2 MG Albumin Human 100 ml @ 100 mls/hr Q12HR IV 06/12/25 19:15 06/13/25 22:59 06/12/25 23:09 100 MLS/HR Furosemide 100 mg/ Sodium Chloride 110 ml @ 22 mls/hr Q5H IV 06/12/25 19:15 06/13/25 06:09 22 MLS/HR Examination: LUNGS:Normal, CVS:Normal, MSK:Abnormal laboratory and microbiology Laboratory Tests 06/13/25 06:10 Test 06/13/25 06:10 Range/Units Serum Glucose 51 L 74-106 mg/dL Microbiology Date/Time Source Procedure Growth Status 06/06/25 18:03 Urine - [place] Urine Culture - Final Yeast, not Stella albicans Complete 06/06/25 11:32 Blood Blood Culture - Final NO GROWTH AFTER 5 DAYS OF INCUBATION. Complete 06/04/25 10:00 Nose MRSA Screen - Final Complete 06/01/25 22:47 Stool Stool Culture - Final Complete 06/01/25 22:47 Stool Shiga Toxin I & II - Final Complete Problem List/Assessment/Plan Problem List/Assessment/Plan Acute kidney injury secondary hemodynamic mediated, FeNa >2% Metabolic acidosis Pancreatic cancer with biliary obstruction status post biliary stent Liver metastasis Obstructive jaundice Encephalopathy C diff infection Sepsis Influenza B Encephalopathy Hypoalbuminemia Hypomagnesemia Hypokalemia Anasarca Hyponatremia due to excess H2O Recommendations Kidney function slightly improved today Increased urine output Strict I&Os IV pressor for blood pressure support Albumin 25% IV piggyback Furosemide 20 milligram/hour IV drip DC IV fluid Octreotide 100 mcg subQ 3 times daily Magnesium sulfate IV piggyback K-Phos IV piggyback KCL replacement IV antibiotics We will continue to follow up Plan discussed with: Other (Nurse) My Orders My Orders Orders - DONALD CHAN MD Procedure Category Date Status Time Albumin 25% (Albutein) PHA 06/12/25 In Process 19:15 Sodium Chl 0.9% PHA 06/12/25 In Process (So... W/Furosemide 19:15 Dietary Evaluation Review Comments: 1) Change oral nutrition supplement from Ensure Clear to Ensure Enlive bid 2) Advance to regular diet when medically feasible 3) Encourage optimal PO intake 4) Follow-up with oncology 5) Continue to monitor I&O, labs, and skin integrity Expected Outcomes/Goals: 1) appetite and labs to improve 2) f/u in 3-5 days DONALD CHAN MD Jun 13, 2025 10:20
--- NOTE | 2025-06-13 12:03 | DVHPN2 ---
Progress Note - Dictate Date Seen: Jun 13, 2025 Medical Necessity Reason Pt with a Central, PICC or Fol: Yes The following are medically ne: PICC Line, Gaffney Catheter Reason for gaffney catheter: Strict I&O Subjective IPatient seen and examined at the bedside Continues to be on 3 vasopressors On Clinimix Minimally responsive and refuses to eat On broad-spectrum antibiotics for Enterococcus faecalis sepsis and Klebsiella pneumoniae sepsis There was some leakage of bile around the biliary drain but CT had stated biliary drain was in place There was slight elevation in her liver enzymes Hemoglobin stable at 10.6, liver enzymes are trending down including bilirubin Last night patient developed tachycardia and was treated with one dose of metoprolol Overall her condition is poor she has extensive bilateral pitting edema and appears to be moaning vital signs Vital Sign Date Time Temp Pulse Resp B/P (MAP) Pulse Ox O2 Delivery O2 Flow Rate FiO2 06/13/25 10:28 100/53 06/13/25 08:30 106 14 06/13/25 06:45 97.9 92 208.2 06/13/25 06:00 Nasal Cannula* 2 28 Total Intake and Output 06/12/25 06/12/25 06/13/25 15:00 23:00 07:00 Intake Total 1548.566 ml 1388.504 ml 2318.941 ml Output Total 180 ml 370 ml Balance 1548.566 ml 1208.504 ml 1948.941 ml medications Current Medications Medications Dose Ordered Sig/Aayush Route Start Time Stop Time Status Last Admin Dose Admin Docusate Sodium 100 mg BIDPRN PRN PO 05/27/25 01:45 Acetaminophen 650 mg Q6HP PRN PO 05/27/25 01:45 06/10/25 18:57 650 MG Ondansetron HCl 4 mg Q4HP PRN IV 05/27/25 01:45 06/11/25 09:02 4 MG Nitroglycerin 0.4 mg Q5MINP PRN SL 05/27/25 01:45 Pantoprazole Sodium 40 mg DAILY IV 05/27/25 10:00 06/13/25 10:26 40 MG Albuterol 2.5 mg Q4HPRN PRN NEB 05/27/25 04:45 Cancel Ipratropium [place] 0.5 mg Q4HPRN PRN NEB 05/27/25 04:45 Cancel Acetaminophen/ Hydrocodone Bitart 1 tab Q6HPRN PRN PO 05/27/25 17:30 06/05/25 11:46 1 TAB Oseltamivir Phosphate 75 mg Q12HR PO 05/28/25 22:00 06/02/25 21:59 UNV Enteral Nutritional Formula 240 ml BIDWM PO 05/29/25 18:00 06/04/25 08:00 240 ML Midodrine 5 mg TIDWM@0600,1200,1800 PO 06/03/25 18:00 06/13/25 06:11 5 MG Patient Own Medication 1 gm DAILY IV 06/03/25 15:30 UNV Ertapenem 1 gm/ Sodium Chloride 50 ml @ 100 mls/hr DAILY@2200 IV 06/04/25 22:00 06/13/25 02:01 100 MLS/HR Sodium Chloride 10 ml QSHIFT@10,22 IV 06/06/25 22:00 06/13/25 10:26 10 ML Diagnostic Test (Pha) 1 strip Q6HR 06/07/25 18:00 06/13/25 06:08 1 STRIP Insulin Human Regular FOLLOW SLIDING SCALE Q6HR SC 06/07/25 18:00 06/12/25 13:05 4 UNITS Dextrose 50 ml UD IV 06/07/25 12:45 06/13/25 06:08 50 ML Octreotide Acetate 100 mcg TID SUBCUT 06/08/25 14:00 06/13/25 06:10 100 MCG Daptomycin 500 mg/ Sodium Chloride 50 ml @ 100 mls/hr DAILY@2200 IV 06/08/25 22:00 06/13/25 02:01 100 MLS/HR Vancomycin HCl 250 mg QID GT 06/08/25 22:00 06/13/25 06:09 250 MG Phenylephrine HCl 80 mg/Sodium Chloride 250 ml @ 7.5 mls/hr Q24H IV 06/09/25 15:30 06/11/25 12:05 15 MLS/HR Norepinephrine Bitartrate 32 mg/ Sodium Chloride 250 ml @ 0.938 mls/ hr Q24H IV 06/09/25 15:30 06/11/25 12:06 14.063 MLS/HR Epinephrine HCl 250 ml @ 7.5 mls/hr Q24H IV 06/10/25 04:45 Vasopressin 20 units/Sodium Chloride 100 ml @ 9 mls/hr Q11H7M IV 06/10/25 04:45 06/13/25 06:10 9 MLS/HR Amino Acids 0 ml @ 0 mls/hr PER PHARMACY IV 06/10/25 11:00 Amino Acids/ Electrolytes/ Dextrose 1,000 ml @ 41 mls/hr DAILY@2200 IV 06/10/25 22:00 06/12/25 21:14 41 MLS/HR Morphine Sulfate 2 mg Q4HPRN PRN IV 06/11/25 20:30 06/13/25 07:51 2 MG Albumin Human 100 ml @ 100 mls/hr Q12HR IV 06/12/25 19:15 06/13/25 22:59 06/13/25 10:26 100 MLS/HR Furosemide 100 mg/ Sodium Chloride 110 ml @ 22 mls/hr Q5H IV 06/12/25 19:15 06/13/25 10:28 22 MLS/HR objective Gen - chronically ill-appearing lethargic positive scleral icterus Skin - Patients skin is warm and dry. HEENT - normocephalic, atraumatic, dry mucous membranes. Neck - supple, no lymphadenopathy Pulmonary - B/L equal air entry with vesicular breath sounds cardiovascular - regular S1,S2 heard GI - soft abdomen with tenderness to palpation. Bowel sounds normoactive. Neurological - Patient is alert and oriented x3. No motor or sensory weakness laboratory and microbiology Laboratory Tests 06/13/25 06:10 Test 06/13/25 06:10 Range/Units Serum Glucose 51 L 74-106 mg/dL Problems(with codes): (1) Klebsiella infection (2) Sepsis (3) Abdominal pain of unknown etiology (4) Stomach cancer (5) Pancreatic cancer (6) Generalized weakness (7) Dehydration (8) Influenza B (9) C. difficile diarrhea Prognosis Plan Continue IV antibiotics Continue nutritional support with IV Clinimix and enteral NG tube feedings Monitor biliary drainage Kidney function is improving Patient is getting albumin Lasix and subcu octreotide Oral vancomycin via the G-tube Continue Protonix 40 mg IV daily Overall prognosis is very poor and condition critical Discuss with family about code status and consider DNR Dietary Evaluation Review Comments: 1) Change oral nutrition supplement from Ensure Clear to Ensure Enlive bid 2) Advance to regular diet when medically feasible 3) Encourage optimal PO intake 4) Follow-up with oncology 5) Continue to monitor I&O, labs, and skin integrity Expected Outcomes/Goals: 1) appetite and labs to improve 2) f/u in 3-5 days Plan discussed with: Other (ICU Nurse and Dr Badillo) SHAMIR CARDOZO MD Jun 13, 2025 12:03
[2025-06-13] MEDS: D5W 5% 1,000 ML IV SCH (15:55)
--- NOTE | 2025-06-13 16:59 | DVHPN2 ---
Subjective Patient's remains in ICU on two pressors. Changes from previous H/P or p: No Changes Objective Vitals Vital Signs Date Time Temp Pulse Resp B/P (MAP) Pulse Ox O2 Delivery O2 Flow Rate FiO2 06/13/25 10:28 100/53 06/13/25 08:30 106 14 06/13/25 08:00 98 Nasal Cannula* 2 28 06/13/25 06:45 97.9 208.2 Intake/Output Intake and Output 06/13/25 07:00 Intake Total 5256.011 ml Output Total 550 ml Balance 4706.011 ml Intake Oral 180 ml IV Total 4161.011 ml Blood Product 250 ml Other 665 ml Output Urine Total 400 ml Stool Total 0 ml Gastric Drainage Total 70 ml Other 80 ml Exam HEENT pupils are reactive positive scleral icterus Neck was supple CV is S1-S2 regular rate and rhythm Respiratory by due to diminished breath sound with basis GI positive bowel sounds Extremity 3 to 4+ pitting edema [employer] patient does not follow commands Medications Current Medications Medications Dose Ordered Sig/Aayush Route Start Time Stop Time Status Last Admin Dose Admin Docusate Sodium 100 mg BIDPRN PRN PO 05/27/25 01:45 Acetaminophen 650 mg Q6HP PRN PO 05/27/25 01:45 06/10/25 18:57 650 MG Ondansetron HCl 4 mg Q4HP PRN IV 05/27/25 01:45 06/11/25 09:02 4 MG Nitroglycerin 0.4 mg Q5MINP PRN SL 05/27/25 01:45 Pantoprazole Sodium 40 mg DAILY IV 05/27/25 10:00 06/13/25 10:26 40 MG Albuterol 2.5 mg Q4HPRN PRN NEB 05/27/25 04:45 Cancel Ipratropium [place] 0.5 mg Q4HPRN PRN NEB 05/27/25 04:45 Cancel Acetaminophen/ Hydrocodone Bitart 1 tab Q6HPRN PRN PO 05/27/25 17:30 06/05/25 11:46 1 TAB Oseltamivir Phosphate 75 mg Q12HR PO 05/28/25 22:00 06/02/25 21:59 UNV Enteral Nutritional Formula 240 ml BIDWM PO 05/29/25 18:00 06/04/25 08:00 240 ML Midodrine 5 mg TIDWM@0600,1200,1800 PO 06/03/25 18:00 06/13/25 12:24 5 MG Patient Own Medication 1 gm DAILY IV 06/03/25 15:30 UNV Ertapenem 1 gm/ Sodium Chloride 50 ml @ 100 mls/hr DAILY@2200 IV 06/04/25 22:00 06/13/25 02:01 100 MLS/HR Sodium Chloride 10 ml QSHIFT@,22 IV 06/06/25 22:00 06/13/25 10:26 10 ML Diagnostic Test (Pha) 1 strip Q6HR 06/07/25 18:00 06/13/25 12:28 1 STRIP Insulin Human Regular FOLLOW SLIDING SCALE Q6HR SC 06/07/25 18:00 06/12/25 13:05 4 UNITS Dextrose 50 ml UD IV 06/07/25 12:45 06/13/25 15:54 50 ML Octreotide Acetate 100 mcg TID SUBCUT 06/08/25 14:00 06/13/25 15:56 100 MCG Daptomycin 500 mg/ Sodium Chloride 50 ml @ 100 mls/hr DAILY@2200 IV 06/08/25 22:00 06/13/25 02:01 100 MLS/HR Vancomycin HCl 250 mg QID GT 06/08/25 22:00 06/13/25 12:24 250 MG Phenylephrine HCl 80 mg/Sodium Chloride 250 ml @ 7.5 mls/hr Q24H IV 06/09/25 15:30 06/11/25 12:05 15 MLS/HR Norepinephrine Bitartrate 32 mg/ Sodium Chloride 250 ml @ 0.938 mls/ hr Q24H IV 06/09/25 15:30 06/13/25 15:56 7.5 MLS/HR Epinephrine HCl 250 ml @ 7.5 mls/hr Q24H IV 06/10/25 04:45 Vasopressin 20 units/Sodium Chloride 100 ml @ 9 mls/hr Q11H7M IV 06/10/25 04:45 06/13/25 06:10 9 MLS/HR Amino Acids 0 ml @ 0 mls/hr PER PHARMACY IV 06/10/25 11:00 Amino Acids/ Electrolytes/ Dextrose 1,000 ml @ 41 mls/hr DAILY@2200 IV 06/10/25 22:00 06/12/25 21:14 41 MLS/HR Morphine Sulfate 2 mg Q4HPRN PRN IV 06/11/25 20:30 06/13/25 07:51 2 MG Albumin Human 100 ml @ 100 mls/hr Q12HR IV 06/12/25 19:15 06/13/25 22:59 06/13/25 10:26 100 MLS/HR Furosemide 100 mg/ Sodium Chloride 110 ml @ 22 mls/hr Q5H IV 06/12/25 19:15 06/13/25 10:28 22 MLS/HR Dextrose 1,000 ml @ 50 mls/hr Q20H IV 06/13/25 15:15 06/13/25 15:55 50 MLS/HR Lactulose 30 ml TID PO 06/13/25 22:00 Laboratory Results Laboratory Tests 06/13/25 06:10 Chemistry Test 06/13/25 06:10 Albumin 2.6 g/dL (3.2-4.8) L Calcium Level 9.4 mg/dL (8.7-10.4) Magnesium Level 1.8 mg/dL (1.6-2.6) Phosphorus Level 3.7 mg/dL (2.4-5.1) Total Protein 4.2 g/dL (5.7-8.2) L LFT Test 06/13/25 06:10 Alanine Aminotransferase (ALT) 112 U/L (7-40) H Alkaline Phosphatase 310 U/L (46-116) H Aspartate Amino Transferase (AST) 231 U/L (13-40) H Total Bilirubin 21.1 mg/dL (0.2-1.0) H Urinalysis Test 06/01/25 21:30 06/07/25 13:56 Urine Hyaline Casts Few /lpf (0 - 2) Urine Color Dark-yellow (Yellow) Urine Clarity Ex.turbid (Clear) Urine pH 5.5 (5.0-9.0) Urine Specific [place] 1.018 (1.001-1.035) Urine Protein 1+ (Negative) H Urine Ketones Negative (Negative) Urine Blood 2+ /uL (Negative) H Urine Nitrite Negative (Negative) Urine Bilirubin 2+ (Negative) H Urine Urobilinogen Normal mg/dL (Negative) Urine Leukocyte Esterase 2+ /uL (Negative) Urine RBC 7 /hpf (0 - 4) Urine WBC Clumps Present /hpf (None Seen) Urine Microscopic WBC 111 /HPF (0-5) H Urine Squamous Epithelial Cells Few /hpf (<5) Urine Bacteria Few /hpf (None Seen) H Urine Mucus Few (None Seen) Urine Yeast (Budding) Loaded /hpf (None Seen) Urine Creatinine 58.39 mg/dL (30.0-125.0) Urine Sodium 49 mmol/L (40-220) Urine Glucose Normal mg/dL (Normal) Microbiology Microbiology Date/Time Source Procedure Growth Status 06/06/25 18:03 Urine - [place] Urine Culture - Final Yeast, not Stella albicans Complete 06/06/25 11:32 Blood Blood Culture - Final NO GROWTH AFTER 5 DAYS OF INCUBATION. Complete 06/04/25 10:00 Nose MRSA Screen - Final Complete 06/01/25 22:47 Stool Stool Culture - Final Complete 06/01/25 22:47 Stool Shiga Toxin I & II - Final Complete Assessment/Plan Assessment/Plan 69-year-old female with a known history of pancreatic cancer, stomach cancer was brought into the ER with generalized weakness for last three days found to have 1. Acute metabolic encephalopathy 2. Biliary obstruction status post percutaneous transhepatic biliary drain placement at higher level of care in March. CT abdominal pelvis was done which shows no evidence of any biliary dislodgement 3. Transaminitis 4. Hyperbilirubinemia 5. Pancreatic cancer with Mets to liver, retroperitoneal lymphadenopathy 6. Hypotension with septic shock 7. Lactic acidosis, resolved 8. Thrombocytopenia suspected secondary to Zyvox, discontinued Zyvox, started daptomycin 9. Acute kidney injury with suspected oliguria 10. Gram-negative bacteremia, with ESBL 11. Multidrug resistant VRE bacteremia 12. C diff colitis 13. Severe hypoalbuminemia 14. Acute anemia without any active evidence of bleeding -monitor CBC for platelet count. -continue daptomycin, follow up Pulmonary Infectious Disease recommendations -patient remains critical, prognosis remain guarded. Plan discussed with: Patient, Other My Orders Orders - EVERT EMMANUEL MD Procedure Category Date Status Time D5w 5% (Dextrose 5%) PHA 06/13/25 In Process 15:15 Lactulose Oral PHA 06/13/25 In Process 22:00 Date of Service: Jun 13, 2025 Billing Provider: EVERT EMMANUEL MD Common Visit Codes: NOT BILLABLE EVERT EMMANUEL MD Jun 13, 2025 16:59
[2025-06-13] MEDS: POTASSIUM CHL 20MEQ/100ML 100 ML IV ONE (17:43)
[2025-06-13] MEDS: MAGNESIUM SULFATE 1GM/100ML 100 ML IV ONE (17:43)
[2025-06-13] MEDS: LACTULOSE 20Gm/30ML SOLN PO SCH (22:07)
[2025-06-13 22:15] LABS: Hematocrit 20.4 % (36.0-46.0); Hemoglobin 7.1 g/dL (12.2-16.2); Mean Corpuscular Hemoglobin 34.2 pg (28.0-32.0); Mean Corpuscular Volume 98.2 fL (80.0-100.0); Nucleated Red Blood Cells % 2.1 %
--- NOTE | 2025-06-13 23:31 | DVHPN2 ---
Progress Note - Dictate Date Seen: Jun 13, 2025 Medical Necessity Reason Pt with a Central, PICC or Fol: Yes The following are medically ne: PICC Line, Gaffney Catheter Reason for gaffney catheter: Strict I&O Subjective Patient seen and examined at bedside. Remains on supplemental oxygen Overnight events reviewed. vital signs Vital Sign Date Time Temp Pulse Resp B/P (MAP) Pulse Ox O2 Delivery O2 Flow Rate FiO2 06/13/25 19:15 98.2 116 19 107/59 (75) 95 208.8 06/13/25 18:24 Nasal Cannula* 2 28 Total Intake and Output 06/12/25 06/12/25 06/13/25 15:00 23:00 07:00 Intake Total 1548.566 ml 1388.504 ml 2318.941 ml Output Total 180 ml 370 ml Balance 1548.566 ml 1208.504 ml 1948.941 ml medications Current Medications Medications Dose Ordered Sig/Aayush Route Start Time Stop Time Status Last Admin Dose Admin Docusate Sodium 100 mg BIDPRN PRN PO 05/27/25 01:45 Acetaminophen 650 mg Q6HP PRN PO 05/27/25 01:45 06/10/25 18:57 650 MG Ondansetron HCl 4 mg Q4HP PRN IV 05/27/25 01:45 06/11/25 09:02 4 MG Nitroglycerin 0.4 mg Q5MINP PRN SL 05/27/25 01:45 Pantoprazole Sodium 40 mg DAILY IV 05/27/25 10:00 06/13/25 10:26 40 MG Albuterol 2.5 mg Q4HPRN PRN NEB 05/27/25 04:45 Cancel Ipratropium [place] 0.5 mg Q4HPRN PRN NEB 05/27/25 04:45 Cancel Acetaminophen/ Hydrocodone Bitart 1 tab Q6HPRN PRN PO 05/27/25 17:30 06/05/25 11:46 1 TAB Oseltamivir Phosphate 75 mg Q12HR PO 05/28/25 22:00 06/02/25 21:59 UNV Enteral Nutritional Formula 240 ml BIDWM PO 05/29/25 18:00 06/04/25 08:00 240 ML Midodrine 5 mg TIDWM@0600,1200,1800 PO 06/03/25 18:00 06/13/25 18:08 5 MG Patient Own Medication 1 gm DAILY IV 06/03/25 15:30 UNV Ertapenem 1 gm/ Sodium Chloride 50 ml @ 100 mls/hr DAILY@2200 IV 06/04/25 22:00 06/13/25 02:01 100 MLS/HR Sodium Chloride 10 ml QSHIFT@10,22 IV 06/06/25 22:00 06/13/25 10:26 10 ML Diagnostic Test (Pha) 1 strip Q6HR 06/07/25 18:00 06/13/25 17:42 1 STRIP Insulin Human Regular FOLLOW SLIDING SCALE Q6HR SC 06/07/25 18:00 06/12/25 13:05 4 UNITS Dextrose 50 ml UD IV 06/07/25 12:45 06/13/25 15:54 50 ML Octreotide Acetate 100 mcg TID SUBCUT 06/08/25 14:00 06/13/25 15:56 100 MCG Daptomycin 500 mg/ Sodium Chloride 50 ml @ 100 mls/hr DAILY@2200 IV 06/08/25 22:00 06/13/25 02:01 100 MLS/HR Vancomycin HCl 250 mg QID GT 06/08/25 22:00 06/13/25 17:40 250 MG Phenylephrine HCl 80 mg/Sodium Chloride 250 ml @ 7.5 mls/hr Q24H IV 06/09/25 15:30 06/11/25 12:05 15 MLS/HR Norepinephrine Bitartrate 32 mg/ Sodium Chloride 250 ml @ 0.938 mls/ hr Q24H IV 06/09/25 15:30 06/13/25 15:56 7.5 MLS/HR Epinephrine HCl 250 ml @ 7.5 mls/hr Q24H IV 06/10/25 04:45 Vasopressin 20 units/Sodium Chloride 100 ml @ 9 mls/hr Q11H7M IV 06/10/25 04:45 06/13/25 17:44 9 MLS/HR Amino Acids 0 ml @ 0 mls/hr PER PHARMACY IV 06/10/25 11:00 Amino Acids/ Electrolytes/ Dextrose 1,000 ml @ 41 mls/hr DAILY@2200 IV 06/10/25 22:00 06/12/25 21:14 41 MLS/HR Morphine Sulfate 2 mg Q4HPRN PRN IV 06/11/25 20:30 06/13/25 07:51 2 MG Furosemide 100 mg/ Sodium Chloride 110 ml @ 22 mls/hr Q5H IV 06/12/25 19:15 06/13/25 17:40 22 MLS/HR Dextrose 1,000 ml @ 50 mls/hr Q20H IV 06/13/25 15:15 06/13/25 15:55 50 MLS/HR Lactulose 30 ml TID PO 06/13/25 22:00 objective Gen.: Patient lying in bed in no apparent distress. On supplemental oxygen Head: Normocephalic, atraumatic. Eyes: EOMI/PERRLA. Ears: Normal hearing. Normal anatomy. Neck/trachea: Trachea midline, supple. Nose: Normal external anatomy. Mouth: Moist mucous membranes. Chest: Decreased air entry bilaterally. No wheezing or rhonchi. Cardiovascular: Positive S1, positive S2. Regular rate and rhythm. Abdomen: Positive bowel sounds in all 4 quadrants. Soft, non-tender, non- distended. : Deferred. Rectal: Deferred. Skin: Warm, dry. Intact. Extremities: 2+ radial pulses bilaterally. 2+ bilateral lower extremity edema. Neuro: Awake, alert, oriented x1. Minimally responsive. No gross motor or sensory deficits. Cranial nerves II through XII intact. Gait not assessed. laboratory and microbiology Laboratory Tests 06/13/25 21:51 06/13/25 06:10 Test 06/13/25 06:10 Range/Units Serum Glucose 51 L 74-106 mg/dL Assessment/Plan Impression: Acute metabolic encephalopathy Sepsis Influenza B Pleural effusion Atelectasis Pancreatic cancer S/p percutaneous transhepatic biliary drain placement Events: Currently on supplemental oxygen On 4 LPM NC Taper O2 as tolerated Patient opens eyes, responds to name. No distress. Pressors for hemodynamic support Currently on Levophed 16 mcg/min and vasopressin 0.03 units/min Titrate to keep MAP above 65 mmHg/SBP above 90 mmHg. Continue to taper pressors as tolerated Follow up CXR results. Continue antibiotics F/u cultures: Bacteremia with blood cultures positive for gram-positive cocci, E SBL Klebsiella pneumoniae Repeat blood cultures positive for VRE ID recommendations appreciated Antibiotics per ID WBC within normal Bicarb drip IV due to severe metabolic acidosis Continue bronchodilators Incentive spirometry Monitor Lactic acid Stool culture positive for C. diff - on isolation for C.diff. Positive influenza B - Received oseltamivir course Monitor blood glucose Monitor blood pressures Head of bed elevation Aspiration precautions Pain control Avoid oversedation NGT in place. TPN/tube feeds for nutritional support. Clinimix Protonix for GI ppx GI recommendations appreciated FOBT negative Monitor hemoglobin - trended down to 7.2 g/dL Transfuse if less than 7.0 g/dL. Monitor platelet count d/t thrombocytopenia - currently 29 K. Monitor blood pressure Nephrology recommendations appreciated Diurese with Lasix drip. Monitor renal function. Poor UOP Monitor electrolytes. Supplement as necessary. Potassium supplementation Accu-Cheks, ISS. TPN for nutritional support Pain control Avoid oversedation Patient with advanced pancreatic cancer w/ sepsis and oufwl-fipk-ppemikfal organisms; multiorgan failure Overall poor prognosis with high likelihood of demise. Awaiting family decision on goals of care. Patient remains full code Disposition per hospitalist. Arrange for home IV antibiotics Labs and imaging reviewed. Rest of plan as noted below. Plan: Supplemental oxygen Titrate to keep O2 sats above 92%. Continue antibiotics Bacteremia - Follow up cultures Folow up ID recommendations Bronchodilators PRN. On pressors for hemodynamic support Titrate to keep MAP above 65 mmHg/SBP above 90 mmHg. Protonix for GI ppx Monitor hemoglobin Transfuse if less than 7.0 g/dL. Accu-Cheks, ISS PRN. Head of bed elevation Aspiration precautions Pain control Avoid oversedation Monitor renal function. Monitor electrolytes. Supplement as necessary. Monitor ins and outs. Monitor hemoglobin Transfuse if less than 7.0 g/dL. GI/DVT prophylaxis. Prognosis: Poor given patient's multiple co-morbidities. Condition: Critical Rest of plan per hospitalist and other consultants. A total of 35 minutes of critical care time was spent reviewing the patient record, examining the patient, making a diagnostic and therapeutic plan, discussing this plan with the medical personnel, following up on diagnostic studies and following the patient for clinical stability excluding any and all procedures. At least 50% of this time was spent in direct, [id number] contact. Thank you, VELVET Avila, for allowing me to participate in this patient's care. Further recommendations will depend on the patient's clinical course. Please do not hesitate to contact me if you have any questions or concerns. This medical document was created using an electronic medical record system with Ver[employer]im dictation system. Although these documentations are being carefully reviewed, there may still be some phonetic and typographical changes. The errors are purely typographical, due to imperfection on the software program, and do not reflect any compromise in the patient's medical care Dietary Evaluation Review Comments: 1) Change oral nutrition supplement from Ensure Clear to Ensure Enlive bid 2) Advance to regular diet when medically feasible 3) Encourage optimal PO intake 4) Follow-up with oncology 5) Continue to monitor I&O, labs, and skin integrity Expected Outcomes/Goals: 1) appetite and labs to improve 2) f/u in 3-5 days Plan discussed with: Other (GABRIELA Sanford) Critical Care Time(min): 35 KENNA MATHEW [facility] Jun 13, 2025 23:31
[2025-06-13 23:46] LABS: Base Excess -4.2 mmol/L (-2.0-3.0)
[2025-06-14] VITALS (61 sets, daily range): BP systolic 66–109; BP diastolic 29–71; PULSE 87–131; RESP 0–29; TEMP 97–97.9; O2SAT 49–99
--- NOTE | 2025-06-14 01:31 | DVH ---
CHEST RADIOGRAPH Indication: RESP DISTRESS Technique: Single frontal view of the chest was obtained COMPARISON: XY CHEST PORTABLE on DOS: 06/11/25, XY CHEST PORTABLE on DOS: 06/07/25, XY CHEST XRAY 1 VIEW on DOS: 05/26/25, XY CHEST XRAY 1 VIEW on DOS: 05/26/25 FINDINGS: Lines and Tubes: Unchanged. Lungs: Grossly stable appearing bilateral pleural effusions and diffuse increased prominence of the pulmonary vasculature. No pneumothorax. Cardiomediastinal contours: Unremarkable Bones: Unremarkable IMPRESSION: 1. Stable appearing bilateral pleural effusions and diffuse increased prominence of the pulmonary vasculature. 2. Lines and tubes unchanged.
[2025-06-14] MEDS: DEXTROSE 10% 1,000 ML IV SCH (02:49)
[2025-06-14] MEDS: ACCU-CHEK COMFORT CURVE STRIP VI SCH (03:41)
[2025-06-14] MEDS: InsuLIN REG 1unit/0.01ml Soln (100units/ml) SC SCH (03:42)
[2025-06-14 03:50] LABS: Anion Gap 32 (5-15); Calcium 9.7 mg/dL (8.7-10.4); Magnesium 1.9 mg/dL (1.6-2.6)
[2025-06-14 03:56] LABS: BUN/Creatinine Ratio 15.4 (10.0-20.0)
[2025-06-14 03:58] LABS: Alanine Aminotransferase 80 U/L (7-40); Albumin 2.7 g/dL (3.2-4.8); Alkaline Phosphatase 234 U/L (46-116); Bilirubin, Total 20.2 mg/dL (0.2-1.0); Blood Urea Nitrogen 19 mg/dL (9-23); Carbon Dioxide 19 mmol/L (20-31); Chloride 81 mmol/L (98-107); Glucose 195 mg/dL (74-106); Potassium 3.5 mmol/L (3.5-5.1); Sodium 132 mmol/L (136-145); Total Protein 4.0 g/dL (5.7-8.2)
[2025-06-14 07:00] LABS: Base Excess -9.2 mmol/L (-2.0-3.0)
[2025-06-14] MEDS ORDERED: PROPOFOL 100 ML IV SCH (08:45)
[2025-06-14] MEDS ORDERED: fentaNYL Drip 2500mCg/250mlNS 250 ML IV SCH (08:45)
[2025-06-14] MEDS: fentaNYL Drip 2500mCg/250mlNS 0 ML IV ONE (09:14)
[2025-06-14] MEDS: MIDAZOLAM DRIP 100 mg/100mL NS 100 ML IV ONE (09:14)
[2025-06-14] MEDS: MIDAZOLAM DRIP 100 mg/100mL NS 100 ML IV SCH (09:15)
[2025-06-14] MEDS: PHENYLEPHRINE IV 250 ML IV ONE (09:23)
[2025-06-14] MEDS: ETOMIDATE (2MG/ML) 20ML VIAL IV ONE (09:28)
[2025-06-14] MEDS: ROCURONIUM 10MG/ML 10ML VIAL IV ONE (09:28)
[2025-06-14] MEDS ORDERED: POTASSIUM CHL 20MEQ/100ML 100 ML IV SCH (10:00)
[2025-06-14] MEDS: EPINEPHrine HCL INJECTION 16 MG in D5W 5% 234 ML IV SCH (10:04)
--- NOTE | 2025-06-14 10:15 | DVH ---
CHEST RADIOGRAPH Indication: intubation Technique: Single frontal view of the chest was obtained COMPARISON: XY CHEST PORTABLE on DOS: 06/14/25, XY CHEST PORTABLE on DOS: 06/11/25, XY CHEST PORTABLE on DOS: 06/07/25, XY CHEST XRAY 1 VIEW on DOS: 05/26/25, XY CHEST XRAY 1 VIEW on DOS: 05/26/25 FINDINGS: Lines and Tubes: Endotracheal tube, enteric catheter and right chest port in satisfactory position. Lungs: Multifocal airspace disease. Pleura: No effusion.No pneumothorax. Cardiomediastinal contours: Unremarkable Bones: Unremarkable IMPRESSION: Lines and tubes in satisfactory position. No significant interval change.
--- NOTE | 2025-06-14 10:23 | DVHPN2 ---
Progress Note - Dictate Date Seen: Jun 14, 2025 Medical Necessity Reason Pt with a Central, PICC or Fol: Yes The following are medically ne: PICC Line, Gaffney Catheter Reason for gaffney catheter: Strict I&O Subjective earlier today she decompensated. required intubation she is on multiple pressors vital signs Vital Sign Date Time Temp Pulse Resp B/P (MAP) Pulse Ox O2 Delivery O2 Flow Rate FiO2 06/14/25 08:50 126 20 73/44 (54) 96 100 06/14/25 06:45 97.0 206.6 06/14/25 06:00 Nasal Cannula* 4 Total Intake and Output 06/13/25 06/13/25 06/14/25 15:00 23:00 07:00 Intake Total 272.70 ml 922.690 ml 1457.625 ml Output Total 180 ml 205 ml Balance 272.70 ml 742.690 ml 1252.625 ml medications Current Medications Medications Dose Ordered Sig/Aayush Route Start Time Stop Time Status Last Admin Dose Admin Docusate Sodium 100 mg BIDPRN PRN PO 05/27/25 01:45 Acetaminophen 650 mg Q6HP PRN PO 05/27/25 01:45 06/10/25 18:57 650 MG Ondansetron HCl 4 mg Q4HP PRN IV 05/27/25 01:45 06/11/25 09:02 4 MG Nitroglycerin 0.4 mg Q5MINP PRN SL 05/27/25 01:45 Pantoprazole Sodium 40 mg DAILY IV 05/27/25 10:00 06/13/25 10:26 40 MG Albuterol 2.5 mg Q4HPRN PRN NEB 05/27/25 04:45 Cancel Ipratropium [place] 0.5 mg Q4HPRN PRN NEB 05/27/25 04:45 Cancel Acetaminophen/ Hydrocodone Bitart 1 tab Q6HPRN PRN PO 05/27/25 17:30 06/05/25 11:46 1 TAB Oseltamivir Phosphate 75 mg Q12HR PO 05/28/25 22:00 06/02/25 21:59 UNV Enteral Nutritional Formula 240 ml BIDWM PO 05/29/25 18:00 06/04/25 08:00 240 ML Midodrine 5 mg TIDWM@0600,1200,1800 PO 06/03/25 18:00 11/10/25 06:00 5 MG Patient Own Medication 1 gm DAILY IV 06/03/25 15:30 UNV Ertapenem 1 gm/ Sodium Chloride 50 ml @ 100 mls/hr DAILY@2200 IV 06/04/25 22:00 06/13/25 22:11 100 MLS/HR Sodium Chloride 10 ml QSHIFT@10,22 IV 06/06/25 22:00 06/13/25 22:08 10 ML Dextrose 50 ml UD IV 06/07/25 12:45 06/14/25 08:27 50 ML Octreotide Acetate 100 mcg TID SUBCUT 06/08/25 14:00 06/14/25 06:00 100 MCG Daptomycin 500 mg/ Sodium Chloride 50 ml @ 100 mls/hr DAILY@2200 IV 06/08/25 22:00 06/13/25 22:00 100 MLS/HR Vancomycin HCl 250 mg QID GT 06/08/25 22:00 06/14/25 06:00 250 MG Phenylephrine HCl 80 mg/Sodium Chloride 250 ml @ 7.5 mls/hr Q24H IV 06/09/25 15:30 06/14/25 09:15 7.5 MLS/HR Norepinephrine Bitartrate 32 mg/ Sodium Chloride 250 ml @ 0.938 mls/ hr Q24H IV 06/09/25 15:30 06/13/25 15:56 7.5 MLS/HR Vasopressin 20 units/Sodium Chloride 100 ml @ 9 mls/hr Q11H7M IV 06/10/25 04:45 06/14/25 05:24 9 MLS/HR Amino Acids 0 ml @ 0 mls/hr PER PHARMACY IV 06/10/25 11:00 Amino Acids/ Electrolytes/ Dextrose 1,000 ml @ 41 mls/hr DAILY@2200 IV 06/10/25 22:00 06/13/25 22:00 41 MLS/HR Morphine Sulfate 2 mg Q4HPRN PRN IV 06/11/25 20:30 06/14/25 00:21 2 MG Furosemide 100 mg/ Sodium Chloride 110 ml @ 22 mls/hr Q5H IV 06/12/25 19:15 06/14/25 08:35 22 MLS/HR Lactulose 30 ml TID PO 06/13/25 22:00 06/14/25 06:00 30 ML Diagnostic Test (Pha) 1 strip Q2HR 06/14/25 04:00 06/14/25 08:27 1 STRIP Insulin Human Regular FOLLOW SLIDING SCALE Q2HR SC 06/14/25 04:00 Dextrose 1,000 ml @ 35 mls/hr Q24H IV 06/14/25 02:30 06/14/25 02:49 35 MLS/HR Propofol 100 ml @ 2.01 mls/hr Q24H IV 06/14/25 08:45 Midazolam HCl 100 ml @ 1 mls/hr Q24H IV 06/14/25 08:45 06/14/25 09:15 1 MLS/HR Fentanyl Citrate 250 ml @ 2.5 mls/hr Q24H IV 06/14/25 08:45 Epinephrine HCl 16 mg/Dextrose 250 ml @ 1.875 mls/ hr Q24H IV 06/14/25 09:45 Potassium Chloride 100 ml @ 50 mls/hr Q2H IV 06/14/25 10:00 06/14/25 13:59 UNV objective General Appearance: intubated and sedated HEENT: Atraumatic, PERRLA, EOMI, Other (Icteric sclera) Respiratory: Clear to auscultation, Normal air movement Cardiovascular: Normal S1, Normal S2, Abdominal: Soft, Other (Biliary drain in place. Drainage Extremities: No clubbing, No cyanosis, No edema Skin: No breakdown Neuro:unable to assess laboratory and microbiology Laboratory Tests 06/14/25 02:50 06/13/25 21:51 Test 06/14/25 02:50 Range/Units Serum Glucose 195 H 74-106 mg/dL Assessment/Plan A 69 years female presents with Severe shock acute hypoxic respiratory failure VRE bacteremia C diff diarrhea Campylobacter in stool streptococcus bacteremia ESBL [place] bacteremia Sepsis Influenza B positive Acute metabolic encephalopathy Hypoglycemia Dehydration Pulmonary airspace disease Small bilateral pleural effusions Abnormal LFT Hyperbilirubinemia History pancreatic cancer S/p percutaneous transhepatic biliary drain in place Recommendations: she is on multiple pressors ; intubated and sedated condition is worsening consider two sets of blood cultures On IV DAptomycin and Ertapenem on Po Vancomycin pulm on board Discussed with RN at bedside, Son is notified Blood cultures shows ESBL Kle[place]se[place], however repeat blood cx is showing streptococcus Chest x ray revealed stable appearing bilateral pleural effusions and diffuse prominence of the pulmonary vasculature Enteric catheter in satisfactory position Gastroenterology on board prognosis very poor critical time 40 minutes spent during the encounter. Thank you for the consult Dietary Evaluation Review Comments: 1) Change oral nutrition supplement from Ensure Clear to Ensure Enlive bid 2) Advance to regular diet when medically feasible 3) Encourage optimal PO intake 4) Follow-up with oncology 5) Continue to monitor I&O, labs, and skin integrity Expected Outcomes/Goals: 1) appetite and labs to improve 2) f/u in 3-5 days Plan discussed with: ANGEL Rodarte MD Jun 14, 2025 10:23
[2025-06-14] MEDS ORDERED: DOBUTamine HCL 500 MG in D5W 5% 210 ML IV SCH (10:30)
[2025-06-14 10:45] LABS: Base Excess -12.6 mmol/L (-2.0-3.0)
[2025-06-14] MEDS: DOPamine 3200MCG/ML 250 ML IV SCH (11:20)
--- NOTE | 2025-06-14 12:51 | ED.PDOC ---
Was a procedure done? Was a procedure done?: Yes Sedation Sedation?: No Intubation Indication: Respiratory Insufficiency, Altered Mental Status Prep: Preoxygenation Pretreated with: Other (Etomidate) Medicated with: Other (Rocuronium) Intubation Approach: Orotracheal Intubation size: cm (8) Informed consent obtained: No Risks/benefits/alt described: No Notes I was called to the ICU for emergent intubation of unresponsive patient. ZAIDA NUNN MD Jun 14, 2025 12:51
[2025-06-14] MEDS: HYDROCORTISONE SOD SUCC 100 MG/2ML INJ VIAL IV ONE (13:25)
[2025-06-14] MEDS ORDERED: HYDROCORTISONE SOD SUCC 100 MG/2ML INJ VIAL IV SCH (14:00)
[2025-06-14 14:55] LABS: Base Excess -16.7 mmol/L (-2.0-3.0)
--- NOTE | 2025-06-14 16:07 | DVHDS2 ---
Summary Date of Admission May 27, 2025 at 02:09 Labs/Diagnostic Data: Laboratory Results Test 06/14/25 14:10 06/14/25 13:36 06/14/25 06:54 06/14/25 02:50 Blood Gas Specimen Type Arterial Blood Gas Sample Site Right radial Blood Gas Patient Temperature 37.0 Arterial Blood Date Drawn [id number] Arterial Blood pH 6.930 (7.350-7.450) Arterial Blood Partial Pressure CO2 68.9 mmHg (32.0-45.0) Arterial Blood Partial Pressure O2 53.7 mmHg (83.0-108.0) Arterial Blood HCO3 14.1 mmol/L (21.0-28.0) Arterial Blood Oxygen Saturation 62.7 % (94.0-98.0) Arterial Blood Base Excess -16.7 mmol/L (-2.0-3.0) Arterial Blood Oxyhemoglobin 61.8 % (94.0-98.0) Arterial Blood Carboxyhemoglobin 0.6 % (0.5-1.5) Arterial Blood Methemoglobin 0.8 % (0.0-1.5) Brett Test Modified Blood Gas Total Hemoglobin 5.90 g/dL (12.0-16.0) Blood Gas Set Respiration Rate 20.0 Blood Gas Modality Vent - ac FiO2 % 100.0 Blood Gas Tidal Volume 450.0 Blood Gas PEEP or CPAP 5.0 Blood Gas Critical Value Read Back Yes Blood Gas Notified Whom Np. kimberly burnett Blood Gas Notified Time [id number] Blood Gas Notified By POC Glucose 512 mg/dl (70-106) Blood Gas Liter Flow 6.00 Sodium Level 132 mmol/L (136-145) Potassium Level 3.5 mmol/L (3.5-5.1) Chloride Level 81 mmol/L (98-107) Carbon Dioxide Level 19 mmol/L (20-31) Anion Gap 32 (5-15) Blood Urea Nitrogen 19 mg/dL (9-23) Creatinine 1.23 mg/dL (0.550-1.02) Glomerular Filtration Rate Calc 48 mL/min (>90) BUN/Creatinine Ratio 15.4 (10.0-20.0) Serum Glucose 195 mg/dL (74-106) Calcium Level 9.7 mg/dL (8.7-10.4) Phosphorus Level 4.0 mg/dL (2.4-5.1) Magnesium Level 1.9 mg/dL (1.6-2.6) Total Bilirubin 20.2 mg/dL (0.2-1.0) Aspartate Amino Transferase (AST) 185 U/L (13-40) Alanine Aminotransferase (ALT) 80 U/L (7-40) Alkaline Phosphatase 234 U/L (46-116) Total Protein 4.0 g/dL (5.7-8.2) Albumin 2.7 g/dL (3.2-4.8) Test 06/13/25 21:51 06/12/25 04:00 06/11/25 03:00 06/10/25 03:59 White Blood Count 6.5 10^3/uL (4.4-10.8) Red Blood Count 2.08 10^6/uL (4.0-5.20) Hemoglobin 7.1 g/dL (12.2-16.2) Hematocrit 20.4 % (36.0-46.0) Mean Corpuscular Volume 98.2 fL (80.0-100.0) Mean Corpuscular Hemoglobin 34.2 pg (28.0-32.0) Mean Corpuscular Hemoglobin Concent 34.8 g/dL (32.0-36.0) Red Cell Distribution Width 16.3 % (11.8-14.3) Platelet Count 11 10^3/uL (140-450) Mean Platelet Volume 8.6 fL (6.9-10.8) Neutrophils (%) (Auto) 87.3 % (37.0-80.0) Lymphocytes (%) (Auto) 6.4 % (10.0-50.0) Monocytes (%) (Auto) 6.1 % (0.0-12.0) Eosinophils (%) (Auto) 0.1 % (0.0-7.0) Basophils (%) (Auto) 0.1 % (0.0-2.0) Neutrophils # (Auto) 5.6 10 ^3/uL (1.6-8.6) Lymphocytes # (Auto) 0.4 10 ^3/uL (0.4-5.4) Monocytes # (Auto) 0.4 10 ^3/uL (0-1.3) Eosinophils # (Auto) 0 10 ^3/uL (0-0.8) Basophils # (Auto) 0 10 ^3/uL (0-0.2) Nucleated Red Blood Cells 2.1 % Differential Total Cells Counted 100.0 (100) Neutrophils % (Manual) 67 (37.0-80.0) Band Neutrophils % (Manual) 12 Lymphocytes % (Manual) 13 (10.0-50.0) Monocytes % (Manual) 8 (0-12) Eosinophils % (Manual) 0 (0-7) Basophils % (Manual) 0 (0.0-2.0) Metamyelocytes % (manual) 0 Myelocytes % (Manual) 0 Promyelocytes % (Manual) 0 Blast Cells % (Manual) 0 Reactive Lymphocytes 0 Platelet Estimate Decreased Spherocytes Few Ammonia 35 umol/L (11-32) Prothrombin Time 19.0 sec (9.3-11.8) Prothrombin Time INR 1.91 (0.9-1.15) Activated Partial Thromboplast Time 73.3 SEC (24.5-34.5) Macrocytosis Slight [place] Cells Few Test 06/09/25 03:50 06/08/25 02:00 06/07/25 13:56 06/07/25 13:11 Large Platelets Few Creatine Kinase 56 U/L (34-145) Urine Color Dark-yellow (Yellow) Urine Clarity Ex.turbid (Clear) Urine pH 5.5 (5.0-9.0) Urine Specific [place] 1.018 (1.001-1.035) Urine Protein 1+ (Negative) Urine Ketones Negative (Negative) Urine Blood 2+ /uL (Negative) Urine Nitrite Negative (Negative) Urine Bilirubin 2+ (Negative) Urine Urobilinogen Normal mg/dL (Negative) Urine Leukocyte Esterase 2+ /uL (Negative) Urine RBC 7 /hpf (0 - 4) Urine WBC Clumps Present /hpf (None Seen) Urine Microscopic WBC 111 /HPF (0-5) Urine Squamous Epithelial Cells Few /hpf (<5) Urine Bacteria Few /hpf (None Seen) Urine Mucus Few (None Seen) Urine Yeast (Budding) Loaded /hpf (None Seen) Urine Creatinine 58.39 mg/dL (30.0-125.0) Urine Sodium 49 mmol/L (40-220) Urine Glucose Normal mg/dL (Normal) Lactic Acid Level 14.2 mmol/L (0.4-2.0) Direct Bilirubin 8.4 mg/dL (<0.3) Triglycerides Level 125 mg/dL (< 150) Test 06/06/25 03:30 06/02/25 08:18 06/01/25 22:47 06/01/25 21:30 Lactate Dehydrogenase 1012 U/L (120-246) Anisocytosis (manual) Slight Target Cells Few CA 19-9 Antigen 49510 U/mL (0-35) Stool Occult Blood Negative (Negative) Stool Occult Blood Sample #3 (Negative) Urine Hyaline Casts Few /lpf (0 - 2) Test 05/26/25 22:25 05/26/25 21:50 05/26/25 21:27 Troponin I High Sensitivity 3 ng/L (</=34) Influenza Type A Antigen Negative (Negative) Influenza Type B Antigen Positive (Negative) SARS-CoV-2 Antigen (Rapid) Negative (NEGATIVE) B-Type Natriuretic Peptide 83.63 pg/mL (0-100) Lipase 23 U/L (12-53) Plasma/Serum Blood Alcohol < 3.0 mg/dL (<10) Other Laboratory Tests 06/14/25 02:50 06/13/25 21:51 EVERT EMMANUEL MD Jun 14, 2025 16:07
--- NOTE | 2025-06-14 19:28 | RESUS ---
CODE BLUE ASSESSSMENT History of Events History of Events: Patient noted to have consistantly decreasing blood pressure throughout shift. Patient noted to also have bradycardia and upon palpation/ auscultation no pulse detected. CPR intiated. Initial Information Date: Jun 14, 2025 Time: 14:31 Location of Arrest: ICU ([place]) Arrest Witnessed: Yes CPR started initial time: 14:31 CPR started by whom: Hospital Staff Type of arrest: Cardiac Spontaneous Respirations: No Pulse Present: No Monitoring: Pulse Oximetry, Telemetry Crash Cart Opened and Supplies: Yes Airway Ventilation Breathing at Onset: Assisted Oxygen Delivery Method: Mechanical Ventilator Artificial Ventilation: Bag/Endo tube Comments: patient intubated prior to cardiac arrest, refer to intubation notes Circulation Circulation #1: Time: 14:34 Circulation Comment: PEA Circulation #2: Time: 14:37 Circulation Comment: PEA Circulation #3: Time: 14:39 Circulation Comment: PEA Circulation #4: Time: 14:41 Circulation Comment: PEA/ TOD Medications & Response Medications and Responses #1: Medication Time: 14:32 ADULT Medications Given ADULT: Atropine 1 mg Route of Administration: IV Medications and Responses #2: Medication Time: 14:33 ADULT Medications Given ADULT: Epinephrine 1 mg, Sodium Bacarbinate 50 meq Route of Administration: IV Medications and Responses #3: Medication Time: 14:36 ADULT Medications Given ADULT: Epinephrine 1 mg Route of Administration: IV Medications and Responses #4: Medication Time: 14:39 ADULT Medications Given ADULT: D50 (amp) Route of Administration: IV Medications and Responses #5: Medication Time: 14:40 ADULT Medications Given ADULT: Epinephrine 1 mg Route of Administration: IV Procedure - NG/OG Tube Procedure - NG/OG Tube : Comment OG TUBE PRESENT PRIOR TO CARDIAC ARREST Procedure - Central Venous Cat Comment: PRESENT PRIOR TO CARDIAC ARREST Procedure - [place] Catheter Comment: PRESENT PRIOR TO CARDIAC ARREST Nurses Notes Raf Coma Scale Eye Opening: None (1) Raf Coma Scale Verbal: None (1) [place] Coma Scale Motor: None (1) Glascow Total: 3 Pupil Reaction: Non Reactive Nurses Notes - Comment: LOW READING ON GLUCOSE MONITOR X 2 Time Code Ended Time Code Ended: 14:41 Post Arrest Status: Outcome of code: Unsuccessful Patient pronounced by: VELVET MARVIN Time patient pronounced: 14:41 Family notified: Yes Attending called: Yes Code Team Present: VELVET VIVAS RN STEPHANIE RT NERI OCHOA IVONNE Post Resuscitation Neurologica Pupil Size: 5 ArndtIvonne claudio Jun 14, 2025 19:28
--- NOTE | 2025-06-14 23:36 | DVHPN2 ---
Progress Note - Dictate Date Seen: Jun 14, 2025 Medical Necessity Reason Pt with a Central, PICC or Fol: Yes The following are medically ne: PICC Line, Gaffney Catheter Reason for gaffney catheter: Strict I&O Subjective Patient seen and examined at bedside. Currently sedated, intubated on mechanical ventilator. Overnight events reviewed. vital signs Vital Sign Date Time Temp Pulse Resp B/P (MAP) Pulse Ox O2 Delivery O2 Flow Rate FiO2 06/14/25 19:28 Mechanical Ventilator 06/14/25 14:26 76/47 06/14/25 14:00 87 06/14/25 14:00 20 86 100 100 06/14/25 11:45 97.9 208.2 06/14/25 08:00 4 Total Intake and Output 06/13/25 06/13/25 06/14/25 15:00 23:00 07:00 Intake Total 272.70 ml 922.690 ml 1476.000 ml Output Total 180 ml 205 ml Balance 272.70 ml 742.690 ml 1271.000 ml medications Current Medications Medications Dose Ordered Sig/Aayush Route Start Time Stop Time Status Last Admin Dose Admin Albuterol 2.5 mg Q4HPRN PRN NEB 05/27/25 04:45 Cancel Ipratropium Sutton 0.5 mg Q4HPRN PRN NEB 05/27/25 04:45 Cancel Oseltamivir Phosphate 75 mg Q12HR PO 05/28/25 22:00 06/02/25 21:59 UNV Patient Own Medication 1 gm DAILY IV 06/03/25 15:30 UNV objective Gen.: Patient lying in bed in medical ICU. Sedated, intubated on mechanical ventilator. Head: Normocephalic, atraumatic. Eyes: PERRLA. Ears: Normal external anatomy. Throat: Endotracheal tube and orogastric tube in place. Neck: Supple, trachea midline. Chest: Transmitted breath sounds bilaterally. Decreased air entry bilaterally. No wheezing. Bibasilar crackles. Cardiovascular: Positive S1, positive S2. Regular rate and rhythm. Abdomen: Positive bowel sounds in all 4 quadrants. Soft, nontender, nondistended. : Gaffney in place. Normal external genitalia. Rectal: Deferred. Skin: Warm, dry. Intact. Extremities: 2+ radial pulses bilaterally. 2+ bilateral lower extremity edema. Neuro: Sedated. laboratory and microbiology Laboratory Tests 06/14/25 02:50 06/13/25 21:51 Test 06/14/25 02:50 Range/Units Serum Glucose 195 H 74-106 mg/dL Assessment/Plan Impression: Acute hypoxic respiratory failure On mechanical ventilator Acute metabolic encephalopathy Sepsis Influenza B Pleural effusion Atelectasis Pancreatic cancer S/p percutaneous transhepatic biliary drain placement Events: Currently intubated, placed on mechanical ventilator due to respiratory distress On AC mode; RR 20, VT 400, PEEP 5, FiO2 100% Taper FiO2 as tolerated. ABG reviewed, notable for severe acidemia CXR reviewed, demonstrates Multifocal airspace disease. Devices in place. On multiple pressors for hemodynamic support Titrate to keep MAP above 65 mmHg/SBP above 90 mmHg. Continue antibiotics F/u cultures: Bacteremia with blood cultures positive for gram-positive cocci, E SBL Klebsiella pneumoniae Repeat blood cultures positive for VRE ID recommendations appreciated Antibiotics per ID WBC within normal Bicarb drip IV due to severe metabolic acidosis Continue bronchodilators Incentive spirometry Monitor Lactic acid Stool culture positive for C. diff - on isolation for C.diff. Positive influenza B - Received oseltamivir course Monitor blood glucose Monitor blood pressures Head of bed elevation Aspiration precautions Pain control Avoid oversedation NGT in place. TPN/tube feeds for nutritional support. Clinimix Protonix for GI ppx GI recommendations appreciated FOBT negative Monitor hemoglobin - trended down to 7.2 g/dL Transfuse if less than 7.0 g/dL. Monitor platelet count d/t thrombocytopenia - currently 29 K. Monitor blood pressure Nephrology recommendations appreciated Diurese with Lasix drip. Monitor renal function. Poor UOP Monitor electrolytes. Supplement as necessary. Potassium supplementation Accu-Cheks, ISS. TPN for nutritional support Pain control Avoid oversedation Patient with advanced pancreatic cancer w/ sepsis and pkrch-xrqy-[id number] organisms; multiorgan failure Overall poor prognosis with high likelihood of demise. Awaiting family decision on goals of care. Patient remains full code Worsening ventilation despite multiple vent changes. Despite being on multiple pressors, patient's status continues to worsen. Labs and imaging reviewed. Addendum: I was informed by RN that the patient . Plan: s/p intubation on mechanical ventilator. Titrate FIO2 to keep O2 saturation above 90%. VAP bundle. Daily ABG and CXR while intubated Sedate for ventilator synchrony Continue antibiotics Bacteremia - Follow up cultures Folow up ID recommendations Bronchodilators PRN. On pressors for hemodynamic support Titrate to keep MAP above 65 mmHg/SBP above 90 mmHg. Protonix for GI ppx Monitor hemoglobin Transfuse if less than 7.0 g/dL. Accu-Cheks, ISS PRN. Head of bed elevation Aspiration precautions Pain control Avoid oversedation Monitor renal function. Monitor electrolytes. Supplement as necessary. Monitor ins and outs. Monitor hemoglobin Transfuse if less than 7.0 g/dL. GI/DVT prophylaxis. Prognosis: Poor given patient's multiple co-morbidities. Condition: Critical Rest of plan per hospitalist and other consultants. A total of 35 minutes of critical care time was spent reviewing the patient record, examining the patient, making a diagnostic and therapeutic plan, discussing this plan with the medical personnel, following up on diagnostic studies and following the patient for clinical stability excluding any and all procedures. At least 50% of this time was spent in direct, [id number] contact. Thank you, VELVET Avila, for allowing me to participate in this patient's care. Further recommendations will depend on the patient's clinical course. Please do not hesitate to contact me if you have any questions or concerns. This medical document was created using an electronic medical record system with [employer] computerized dictation system. Although these documentations are being carefully reviewed, there may still be some phonetic and typographical changes. The errors are purely typographical, due to imperfection on the software program, and do not reflect any compromise in the patient's medical care Dietary Evaluation Review Comments: 1) Change oral nutrition supplement from Ensure Clear to Ensure Enlive bid 2) Advance to regular diet when medically feasible 3) Encourage optimal PO intake 4) Follow-up with oncology 5) Continue to monitor I&O, labs, and skin integrity Expected Outcomes/Goals: 1) appetite and labs to improve 2) f/u in 3-5 days Plan discussed with: Other (RN) Critical Care Time(min): 35 [facility] Jun 14, 2025 23:36
--- NOTE | 2025-06-16 07:55 | DVHPN2 ---
Date of Service: Jun 14, 2025 Billing Provider: KYLAH MARVIN NP Common Visit Codes: PROCEDURE ONLY Procedure Codes: 32980-BJURZZA CODE KYLAH PAGAN NP Jun 16, 2025 07:55
== END 2025-06-14 14:41 | DRG 871 ==
LOC: ER 20:02 → UNDOADMIN 05-27 01:44 → OVERFLOW 05-27 01:44 → TELE-EAST 05-27 23:05 → ICU WEST 06-04 08:36
PROVIDERS: ADMIT Internal Medicine; ATTEND Internal Medicine
PROC: 05H933Z Insertion of Infusion Device into Right Brachial Vein, Percutaneous Approach (ICD-10-PCS; 2025-05-30)
PROC: B54MZZA Ultrasonography of Right Upper Extremity Veins, Guidance (ICD-10-PCS; 2025-05-30)
PROC: 02HV33Z Insertion of Infusion Device into Superior Vena Cava, Percutaneous Approach (ICD-10-PCS; 2025-06-06)
PROC: B548ZZA Ultrasonography of Superior Vena Cava, Guidance (ICD-10-PCS; 2025-06-06)
PROC: 30233K1 Transfusion of Nonautologous Frozen Plasma into Peripheral Vein, Percutaneous Approach (ICD-10-PCS; 2025-06-07)
PROC: 30233N1 Transfusion of Nonautologous Red Blood Cells into Peripheral Vein, Percutaneous Approach (ICD-10-PCS; 2025-06-10)
PROC: 30233R1 Transfusion of Nonautologous Platelets into Peripheral Vein, Percutaneous Approach (ICD-10-PCS; 2025-06-10)
PROC: 5A12012 Performance of Cardiac Output, Single, Manual (ICD-10-PCS; principal; 2025-06-14)
PROC: 0BH17EZ Insertion of Endotracheal Airway into Trachea, Via Natural or Artificial Opening (ICD-10-PCS; 2025-06-14)
PROC: 5A1935Z Respiratory Ventilation, Less than 24 Consecutive Hours (ICD-10-PCS; 2025-06-14)
DX: A41.59 Other Gram-negative sepsis (principal); G93.41 Metabolic encephalopathy; R65.21 Severe sepsis with septic shock; J96.01 Acute respiratory failure with hypoxia; C25.9 Malignant neoplasm of pancreas, unspecified; J90 Pleural effusion, not elsewhere classified; A04.5 Campylobacter enteritis; C77.9 Secondary and unspecified malignant neoplasm of lymph node, unspecified; A04.72 Enterocolitis due to Clostridium difficile, not specified as recurrent; C78.7 Secondary malignant neoplasm of liver and intrahepatic bile duct; D68.9 Coagulation defect, unspecified; J10.1 Influenza due to other identified influenza virus with other respiratory manifestations; D69.6 Thrombocytopenia, unspecified; E46 Unspecified protein-calorie malnutrition; E87.20 Acidosis, unspecified; J98.11 Atelectasis; Z16.12 Extended spectrum beta lactamase (ESBL) resistance; Z16.24 Resistance to multiple antibiotics; Z16.21 Resistance to vancomycin; N17.9 Acute kidney failure, unspecified; E87.1 Hypo-osmolality and hyponatremia; Z20.822 Contact with and (suspected) exposure to COVID-19; E88.09 Other disorders of plasma-protein metabolism, not elsewhere classified; E86.0 Dehydration; F17.210 Nicotine dependence, cigarettes, uncomplicated; E78.5 Hyperlipidemia, unspecified; E16.2 Hypoglycemia, unspecified; E80.6 Other disorders of bilirubin metabolism; I95.89 Other hypotension; E83.42 Hypomagnesemia; E87.6 Hypokalemia; D64.9 Anemia, unspecified; Z68.26 Body mass index [BMI] 26.0-26.9, adult; Z83.3 Family history of diabetes mellitus; Z85.028 Personal history of other malignant neoplasm of stomach; Z82.49 Family history of ischemic heart disease and other diseases of the circulatory system; Z80.0 Family history of malignant neoplasm of digestive organs
CPT/HCPCS: 36415; 36569; 36600; 70450; 71045; 74176; 76937; 80048; 80053; 80076; 80320; 81001; 82140; 82270; 82550; 82570; 82805; 82962; 83605; 83615; 83690; 83735; 83880; 84100; 84132; 84300; 84478; 84484; 85007; 85014; 85018; 85025; 85027; 85610; 85730; 86301; 86850; 86900; 86901; 86920; 87040; 87045; 87070; 87077; 87081; 87086; 87088; 87186; 87205; 87426; 87427; 87493; 87804; 92950; 93005; 93306; 93970; 94002; 96360; G0378; G9035; J0169; J1265; J1335; J1815; J2003; J2405; J2470; J2543; J3430; J3480; J7060; J7131; P9047